=== PATIENT | male | born 1960 | race African-American/Black ===

== ENCOUNTER 2016-07-01 23:42 | Inpatient (IN) | payer OTHER ==
[2016-07-02] MEDS ORDERED: ASPIRIN 81 MG CHEWABLE TABLETS PO ONE (00:13)
--- NOTE | 2016-07-02 00:14 | PDOC ---
History of Present Illness - History of Present Illness Initial Comments: 07/02/16 00:33 Patient is a 55 year old male with significant medical hx of HTN, HLD, CHF, s/p UT x 3, s/p cardiac stents x 4, AFib, and DM who is presenting to the ED for twelve hours of left sided chest pain. The patient reports onset of symptoms when he was walking up the stairs today. Patient complains of constant, sharp chest pain that radiates around to his back. He states that he was short of breath but isnt at this time. He notes that his symptoms are similar to his past MIs. Denies recent heavy lifting and diaphoresis. <Sharon Cano - Last Filed: 07/02/16 04:46> <Jocy Puentes - Last Filed: 07/02/16 06:32> - General Chief Complaint: Chest Pain Stated Complaint: CHEST PAIN Time Seen by Provider: 07/01/16 23:59 Past History <Sharon Cano - Last Filed: 07/02/16 04:46> - Past Medical History Anemia: No Asthma: Yes Cancer: Yes (colon (2013)) Cardiac Disorders: Yes (STENTS X4 2010, UT X 3) CVA: No COPD: Yes CHF: Yes Dementia: No Diabetes: Yes GI Disorders: No Disorders: No HTN: Yes Hypercholesterolemia: Yes Liver Disease: No Seizures: No Thyroid Disease: No - Surgical History Abdominal Surgery: No Appendectomy: No Cardiac Surgery: Yes (STENTS) Cholecystectomy: No GI Surgery: Yes (COLON RESECTION) Lung Surgery: No Neurologic Surgery: No Orthopedic Surgery: Yes ((L) ANKLE; (R)HIP; (R) ELBOW) - Immunization History TDAP Vaccination: Yes Immunization Up to Date: No (2011 tetanus) - Psycho/Social/Smoking Cessation Hx Anxiety: No Suicidal Ideation: No Smoking Status: Yes Smoking History: Current every day smoker Have you smoked in the past 12 months: No Number of Cigarettes Smoked Daily: 1 If you are a former smoker, when did you quit?: 0 Cigars Per Day: 0 Information on smoking cessation initiated: No 'Breaking Loose' booklet given: 06/25/16 Hx Alcohol Use: Yes (SOCIAL) Drug/Substance Use Hx: No Substance Use Type: None Hx Substance Use Treatment: No <Jocy Puentes - Last Filed: 07/02/16 06:32> - Past Medical History Allergies/Adverse Reactions: Allergies Allergy/AdvReac Type Severity Reaction Status Date / Time tomato Allergy Severe Verified 07/01/16 23:50 red dye Allergy Verified 07/01/16 23:50 Home Medications: Ambulatory Orders Carvedilol [Coreg -] 12.5 mg PO BID 06/23/14 Omeprazole [Prilosec] 40 mg PO DAILY 06/23/14 Oxycodone HCl [Roxicodone] 30 mg PO Q6H PRN 07/24/14 Aspirin [ASA -] 81 mg PO DAILY 08/17/14 Atorvastatin Ca [Lipitor] 10 mg PO HS 08/17/14 Digoxin [Lanoxin -] 0.25 mg PO DAILY 10/29/15 Lorazepam [Ativan] 1 mg PO TID PRN 10/29/15 Apixaban [Eliquis -] 5 mg PO DAILY 01/12/16 Docusate Sodium [Colace -] 100 mg PO DAILY 01/12/16 Escitalopram Oxalate [Lexapro -] 10 mg PO DAILY 01/12/16 Albuterol Sulfate Inhaler - [Ventolin HFA Inhaler -] 1 - 2 inh PO QID #1 inhaler 01/15/16 Furosemide [Lasix -] 20 mg PO DAILY #30 tablet 05/01/16 Potassium Chloride [K-Dur -] 20 meq PO DAILY #30 tablet.er 05/01/16 Ramipril [Altace] 10 mg PO DAILY #60 capsule 05/01/16 Review of Systems - Review of Systems Comments:: 07/02/16 00:33 CONSTITUTIONAL: Absent: fever, chills, diaphoresis, generalized weakness, malaise, loss of appetite HEENT: Absent: rhinorrhea, nasal congestion, throat pain, throat swelling, difficulty swallowing, mouth swelling, ear pain, eye pain, visual changes CARDIOVASCULAR: Present: chest pain Absent: syncope, palpitations, irregular heart rate, lightheadedness, peripheral edema RESPIRATORY: Present: shortness of breath Absent: cough, dyspnea with exertion, orthopnea, wheezing, stridor, hemoptysis GASTROINTESTINAL: Absent: abdominal pain, abdominal distension, nausea, vomiting, diarrhea, constipation, melena, hematochezia GENITOURINARY: Absent: dysuria, frequency, urgency, hesitancy, hematuria, flank pain, genital pain MUSCULOSKELETAL: Absent: myalgia, arthralgia, joint swelling SKIN: Absent: rash, itching, pallor HEMATOLOGIC/IMMUNOLOGIC: Absent: easy bleeding, easy bruising, lymphadenopathy, frequent infections ENDOCRINE: Absent: unexplained weight gain, unexplained weight loss, heat intolerance, cold intolerance NEUROLOGIC: Absent: headache, focal weakness or paresthesia, dizziness, unsteady gait, seizure, mental status changes, bladder or bowel incontinence. PSYCHIATRIC: Absent: anxiety, depression, suicidal or homicidal ideation, hallucinations <Sharon Cano - Last Filed: 07/02/16 04:46> *Physical Exam - Vital Signs Last Vital Signs Temp Pulse Resp BP Pulse Ox 98.1 F 95 H 18 139/75 99 07/01/16 23:44 07/01/16 23:44 07/01/16 23:44 07/01/16 23:44 07/01/16 23:44 - Physical Exam Comments: 07/02/16 04:46 GENERAL: Well developed, well nourished. Awake and alert. No acute distress. HEENT: Normocephalic, atraumatic. PERRLA, EOMI. No conjunctival pallor. Sclera are non- icteric. Moist mucous membranes. Oropharynx is clear. NECK: Supple. Full ROM. No JVD. Carotid pulses 2+ and symmetric, without bruits. No thyromegaly. No lymphadenopathy. CARDIOVASCULAR: Irregularly irregular. No murmurs, rubs, or gallops. Distal pulses are 2+ and symmetric. PULMONARY: No evidence of respiratory distress. Lungs clear to auscultation bilaterally. No wheezing, rales or rhonchi. ABDOMINAL: Soft. Non-tender. Non-distended. No rebound or guarding. No organomegaly. Normoactive bowel sounds. MUSCULOSKELETAL: Normal range of motion at all joints. No bony deformities or tenderness. No CVA tenderness. EXTREMITIES: Cold extremities. No cyanosis. No clubbing. No edema. No calf tenderness. SKIN: Warm and dry. Normal capillary refill. No rashes. No jaundice. NEUROLOGICAL: Alert, awake, appropriate. Cranial nerves 2-12 intact. Normal speech. Gait is normal without ataxia. PSYCHIATRIC: Cooperative. Good eye contact. Appropriate mood and affect. <Sharon Cano - Last Filed: 07/02/16 04:46> - Vital Signs Last Vital Signs Temp Pulse Resp BP Pulse Ox 98.1 F 95 H 18 139/75 99 07/01/16 23:44 07/01/16 23:44 07/01/16 23:44 07/01/16 23:44 07/01/16 23:44 <Jocy Puentes - Last Filed: 07/02/16 06:32> Heart Score/ECG Review #1 07/02/16 00:34 Undetermined rhythm at 96 bpm Left ventricular hypertrophy with repolarization abnormality Abnormal ECG <Sharon Cano - Last Filed: 07/02/16 04:46> - History History: Highly suspicious - Electrocardiogram EKG: Non specific repolarization disturbance - Age Age: 45-65 - Risk Factors Risk Factors Heart Score: Yes Hx Hypertension, Yes Smoking History Based on the list above the patient has:: >/=3 risk factors or Hx atherosclerotic disease - Troponin Troponin: </= normal limit - Score Heart Score - Total: 6 <Jocy Puentes - Last Filed: 07/02/16 06:32> ED Treatment Course - LABORATORY CBC & Chemistry Diagram: 07/02/16 00:29 07/02/16 01:06 - Medications Given in the ED: ED Medications Discontinued Medications Generic Name Dose Route Start Last Admin Trade Name Rickeyq PRN Reason Stop Dose Admin Aspirin 162 mg 07/02/16 00:13 07/02/16 00:30 Asa - PO 07/02/16 00:14 162 mg ONCE ONE Administration <RachaelSharon - Last Filed: 07/02/16 04:46> - LABORATORY CBC & Chemistry Diagram: 07/02/16 00:29 07/02/16 01:06 <Jocy Puentes - Last Filed: 07/02/16 06:32> Medical Decision Making - Medical Decision Making 07/02/16 04:35 Pt comes with SOB and CP when he walks. He has afib and a pacemaker; he states that he takes eliquis BID. He has no CHF, but enlarged heart on CXR. Pt has afib on EKG and LVH with strain pattern Pt states that his CP is new. His cardiac enzymes are normal 07/02/16 06:31 PT WILL BE ADMITTED FOR SERIAL CARDIAC ENZYME, HE STATES THAT HIS CHEST PAIN IS NEW. PMD IS PYLE; RESID[facility] MANAGER DOC IS NOT CALLING BACK DESPITE MULTIPLE PAGES. PER ADMISSION [facility], PT WAS ADMITTED TO THE HOSPITALIST SERVICE. <Jocy Puentes - Last Filed: 07/02/16 06:32> *DC/Admit/Observation/Transfer - Attestations Scribe Attestion: 07/02/16 00:35 Documentation prepared by Sharon Cano, acting as back office medical assistant for Jocy Puentes MD. <Sharon Cano - Last Filed: 07/02/16 04:46> - Discharge Dispostion Admit: Yes <Jocy Puentes - Last Filed: 07/02/16 06:32> Diagnosis at time of Disposition: CHF (congestive heart failure), Atrial fibrillation, COPD (chronic obstructive pulmonary disease), Chest pain in adult - Referrals Referrals: Anup Pyle MD [Primary Care Provider] -
[2016-07-02 00:18] VITALS: BMI 26.9
[2016-07-02 00:37] LABS: WHITE BLOOD COUNT 7.1 K/mm3 (4.0-10.0)
[2016-07-02 00:41] LABS: MCHC 29.3 g/dl (32.0-35.9); MEAN CELL VOLUME 60.4 fl (80-96); MEAN PLT VOLUME 8.8 fl (7.5-11.1); PLATELET COUNT 330 K/MM3 (134-434)
[2016-07-02 00:57] LABS: INR 1.35 (0.82-1.09); PROTHROMBIN TIME (PATIENT) 14.9 SEC (9.98-11.88)
[2016-07-02 01:09] LABS: MCH 17.7 pg (25.7-33.7)
[2016-07-02 01:21] LABS: ANISOCYTOSIS 3+; HYPOCHROMIA 1+; MICROCYTOSIS 3+; PLATELET COMMENT2 NO CLOTTING DETECTED; PLATELET COMMENT3 FEW GIANT PLTS; PLATELET ESTIMATE ADEQUATE (NORMAL); POIKILOCYTOSIS 3+; POLYCHROMASIA 2+; SMUDGE CELLS FEW
[2016-07-02 01:22] LABS: OVALOCYTES 2+; SPHEROCYTE 2+
[2016-07-02 01:28] LABS: INR 1.37 (0.82-1.09); PROTHROMBIN TIME (PATIENT) 15.2 SEC (9.98-11.88)
[2016-07-02 01:30] LABS: ACTIVATED PTT 34.2 SECONDS (26.9-34.4)
[2016-07-02 01:39] LABS: ALBUMIN 3.4 g/dl (3.4-5.0); BILIRUBIN,TOTAL 0.6 mg/dL (0.2-1.0); CALCIUM 7.8 mg/dL (8.5-10.1); CREATININE 1.7 mg/dL (0.7-1.3); TOT PROT 6.3 g/dl (6.4-8.2)
[2016-07-02 01:41] LABS: TROPONIN I 0.05 ng/ml (0.00-0.05)
[2016-07-02] MEDS ORDERED: SODIUM CHLORIDE 0.9% 500 ML INFUS.BAG IV ONE (01:56)
[2016-07-02] MEDS ORDERED: ALBUTEROL SO4 2.5/IPRATROPIUM 0.5 INH SOL 3 ML VIAL.NEB. NEB ONE (02:16)
[2016-07-02] MEDS ORDERED: OXYCODONE/APAP 5/325MG COMBO TABLET PO ONE (04:29)
[2016-07-02] MEDS ORDERED: morphine CARPU-JECT 2 MG/1 ML DISP.SYRIN IVPUSH PRN (04:54)
[2016-07-02] MEDS ORDERED: NITROGLYCERIN SUBLINGUAL 1/150 0.4 MG TAB SL PRN (04:55)
[2016-07-02] MEDS ORDERED: ONDANSETRON 4 MG/2 ML VIAL IVPB PRN (04:55)
[2016-07-02] MEDS ORDERED: ALBUTEROL SO4 2.5/IPRATROPIUM 0.5 INH SOL 3 ML VIAL.NEB. NEB PRN (05:02)
--- NOTE | 2016-07-02 05:16 | HP ---
Admitting History and Physical - Admission Chief Complaint: chest pain History of Present Illness: 55 m hx systolic chf (30-40%), NICM s/p ICD, afib, hcv, hld, htn, copd, cad, Mi presents to the ER for eval of constant mid sternal chest pain. He states that the pain started yesterday 12nood after walking up several steps. He reports associated sob, and heart palps. He reports feeling a shock and believes his ICD went off. He reports chest pain is aggravated with activities. He states he took 1 nitroglycerin yesterday which relieved the pain a little. He states the pain is reminiscent to prior AL. He denies associated, numbness, jaw claudication, sweating, vomiting, syncope. He also reports having wheezing and dry cough, he states he has been using his nebulizer more often over the last several days. He reports increased night time asthma symptoms. He also endorses pain to his big toes bilaterally and reports being prescribed colchicine 06/23/15 but stopped taking secondary to side effects. He denies fever, nausea, vomiting , diarrhea, sick contacts, prolonged immobilization, recent travel. He reports having a fall at home 5 days ago after getting "electrocuted" with a faulty wire at home, he then reports passing out for 30secs. He can not recall if he hit his head or not. Pmh/psh- systolic chf (30-40%), NICM s/p ICD, afib, hcv, hld, htn, copd, cad, Mi , chronic back pain, bulging discs, gout Social-+tobacco use. Denies rec drugs or alcohol Famhx-mom- unspecified cancer. dad- heart disease Ros neg except for HPI Physical General- in moderate discomfort Hent-at/nc, jose, eomi, neck supple, trachea midline, no lymphadenopathy Resp- exp wheezing, no accessory muscle use, scattered ronchi, no rales Cards- s1s2 heard, irreg rhythm, no jvd, no leg edema, extremity pulses +2 Skin- intact, warm, dry, dystrophic toenails Psych- cooperative, no agitation, normal affect [id number] intact, speech clear, no seizure, no facial droop Musk- pain to palpation over bilateral great toes, and metatarsal bilaterally. Swelling to bilateral great toe Gi- soft non-tender, no guarding no rebound, no distention, bs normoactive Prob list CAD Chest pain afib htn hlp copd chf catrachito gout fall PPM Imaging: Cxr pending CTH pending EKG shows LV hypertrophy with repolarization abnormality, afib Echo 12/30: mild lv dil. sev red LV function (global). Nl RV. Sev LAE. Mod-sev MR. RVSP 30-40. borderline ao dil. Echo 08/2013: mild lve, mild-mod dec lvef, nl rv, mod lae, mild-mod mr, mild tr , rvsp 30-40 Cath 02/2016: normal cors A/P 55 m hx systolic chf (30-40%), NICM s/p ICD, afib on eliquis, hcv, hld, htn, copd, bulging discs, gout presented to the ER with cp and placed in obs for eval of their emergent condition 1. Chest pain r/o ACS 1st trop .05 EKG shows LV hypertrophy with repolarization abnormality, afib CXr shows appears clear on my read Echo 12/30: mild lv dil. sev red LV function (global). Nl RV. Sev LAE. Mod-sev MR. RVSP 30-40. borderline ao dil Cath 02/2016: normal cors Cycle trops Cardiac tele PPM interrogation Cards consult ALEJANDRINA 2. ?Gout Reports pain to Bilateral great toes and metatarsal Reports being prescribed Colchicine by PCP but stopped taking secondary to side effects Pain control; tylenol, steroids Avoid NSAID as patient on eliquis Check Uric acid level 3. CHF Cont home meds Check dig level 4. HTN Cont home meds 5. HLP Cont home meds 6. COPD exc Expiratory wheezing noted on exam Duonebs, solumedrol, Supp O2 7. Afib Cont home meds 8. CATRACHITO on CKD Baseline Cr ~1.1-1.3 Check urine lytes Renal US Monitor labs Consider holding Acei 9. Fall Patient reports having a fall 5 days ago and is unsure whether he hit his head Will check CTH as patient is on AC Dvt prophy scd, oob, systemic ac fen Heart healthy Dispo- obs for chest pain r/o History Source: Patient Limitations to Obtaining History: No Limitations - Past Medical History Cardiovascular: Yes: CAD, CHF (/ cardiomyopathy), HTN, Hyperlipdemia Pulmonary: Yes: COPD Gastrointestinal: Yes: Other (gastritis) Hepatobiliary: Yes: Hepatitis C Musculoskeletal: Yes: Chronic low back pain (/ degenerative lumbar disc disease) - Past Surgical History Past Surgical History: Yes: Hernia Repair (umbilical), Joint Replacement (right elbow, right hip, left ankle) - Smoking History Smoking history: Current every day smoker Have you smoked in the past 12 months: No Aproximately how many cigarettes per day: 1 If you are a former smoker, when did you quit?: 0 - Alcohol/Substance Use Hx Alcohol Use: Yes (SOCIAL) History of Substance Use: reports: None - Social History ADL: Independent 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, 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 History of Recent Travel: No Home Medications - Allergies Allergies/Adverse Reactions: Allergies Allergy/AdvReac Type Severity Reaction Status Date / Time tomato Allergy Severe Verified 07/01/16 23:50 red dye Allergy Verified 07/01/16 23:50 - Home Medications Home Medications: Ambulatory Orders Carvedilol [Coreg -] 12.5 mg PO BID 06/23/14 Omeprazole [Prilosec] 40 mg PO DAILY 06/23/14 Oxycodone HCl [Roxicodone] 30 mg PO Q6H PRN 07/24/14 Aspirin [ASA -] 81 mg PO DAILY 08/17/14 Atorvastatin Ca [Lipitor] 10 mg PO HS 08/17/14 Lorazepam [Ativan] 1 mg PO TID PRN 10/29/15 Apixaban [Eliquis -] 5 mg PO DAILY 01/12/16 Docusate Sodium [Colace -] 100 mg PO DAILY 01/12/16 Escitalopram Oxalate [Lexapro -] 10 mg PO DAILY 01/12/16 Albuterol Sulfate Inhaler - [Ventolin HFA Inhaler -] 1 - 2 inh PO QID #1 inhaler 01/15/16 Furosemide [Lasix -] 20 mg PO DAILY #30 tablet 05/01/16 Ramipril [Altace] 10 mg PO DAILY #60 capsule 05/01/16 Alprazolam 0.25 mg PO BID PRN 07/02/16 Digoxin [Digitek] 125 mcg PO DAILY 07/02/16 Nitroglycerin Sublingual [Nitrostat -] 0.4 mg SL ONCE PRN 07/02/16 Oxycodone HCl/Acetaminophen [Percocet 10-325 mg Tablet] 1 each PO Q6H PRN Potassium Chloride 10 meq PO DAILY 07/02/16 Unobtainable 07/02/16 Family Disease History - Family Disease History Family Disease History: Heart Disease: Father, CA: Mother, Brother (colon) Physical Examination Vital Signs: Vital Signs Temperature 98.1 F 07/01/16 23:44 Pulse Rate 95 H 07/01/16 23:44 Respiratory Rate 18 07/01/16 23:44 Blood Pressure 139/75 07/01/16 23:44 O2 Sat by Pulse Oximetry (%) 99 07/01/16 23:44 Labs: CBC, BMP 07/02/16 00:29 07/02/16 01:06 Visit type - Emergency Visit Emergency Visit: Yes ED Registration Date: 07/02/16 Care time: The patient presented to the Emergency Department on the above date and was hospitalized for further evaluation of their emergent condition. - New Patient This patient is new to me today: Yes Date on this admission: 07/02/16 - Critical Care Critical Care patient: No
[2016-07-02] MEDS ORDERED: IPRATROPIUM BR 0.02% 0.5 MG/2.5 ML VIAL.NEB. NEB ONE ×4 (06:06→18:01)
[2016-07-02] MEDS ORDERED: methylPREDNISolone NA SUCC 125 MG/2 ML VIAL IVPB ONE (06:07)
[2016-07-02 06:54] LABS: BASOPHIL 0.8 % (0-2.0); MCHC 29.3 g/dl (32.0-35.9); MEAN CELL VOLUME 60.6 fl (80-96); MEAN PLT VOLUME 9.2 fl (7.5-11.1); NEUTROPHILS 45.2 % (42.8-82.8); PLATELET COUNT 343 K/MM3 (134-434); RDW 21.9 % (11.9-15.9); WHITE BLOOD COUNT 7.3 K/mm3 (4.0-10.0)
[2016-07-02 06:56] LABS: MCH 17.8 pg (25.7-33.7)
[2016-07-02 07:20] LABS: ALBUMIN 3.5 g/dl (3.4-5.0); CALCIUM 7.9 mg/dL (8.5-10.1); MAGNESIUM 1.6 mg/dL (1.8-2.4)
[2016-07-02 07:30] LABS: THYROID STIMULATING HORMONE 1.2 uIU/ml (0.358-3.74); TROPONIN I 0.05 ng/ml (0.00-0.05)
[2016-07-02 07:36] LABS: BILIRUBIN,TOTAL 0.5 mg/dL (0.2-1.0); CREATININE 1.7 mg/dL (0.7-1.3); DIGOXIN LEVEL 0.5537 ng/ml (0.8-2.0); TOT PROT 6.5 g/dl (6.4-8.2); TROPONIN I 0.05 ng/ml (0.00-0.05)
[2016-07-02] MEDS ORDERED: methylPREDNISolone NA SUCC 125 MG/2 ML VIAL ONE (07:43)
[2016-07-02] MEDS ORDERED: morphine CARPU-JECT 2 MG/1 ML DISP.SYRIN ONE (07:43)
[2016-07-02] MEDS ORDERED: FUROSEMIDE 20 MG TABLET (FP) PO SCH (10:00)
[2016-07-02] MEDS ORDERED: ASPIRIN 81 MG CHEWABLE TABLETS PO SCH (10:00)
[2016-07-02] MEDS ORDERED: APIXABAN 5 MG TABLET PO SCH (10:00)
[2016-07-02] MEDS: ESCITALOPRAM OXALATE 10 MG TABLET (FP) PO SCH (10:17)
[2016-07-02] MEDS: PANTOPRAZOLE 40 MG TABLET (FP) PO SCH (10:17)
[2016-07-02] MEDS: RAMIPRIL 5 MG CAPSULE (FP) PO SCH (10:17)
[2016-07-02] MEDS: DOCUSATE SODIUM 100 MG CAPSULE (FP) PO SCH (10:17)
[2016-07-02] MEDS: POTASSIUM CHLORIDE TABS 20 MEQ TABLET.ER (FP) PO SCH (10:17)
[2016-07-02] MEDS: CARVEDILOL 12.5 MG TABLET (FP) PO SCH ×2 (10:17→22:26)
[2016-07-02] MEDS: DIGOXIN 0.25 MG TABLET (FP) PO SCH (10:17)
[2016-07-02] MEDS ORDERED: ALPRAZolam 0.25 MG TABLET PO PRN (11:50)
--- NOTE | 2016-07-02 11:53 | PN ---
Progress Note, Physician Chief Complaint: Mr Roberts says he has pain in his feet. Currently chest pain free. No sob or n/ v. - Current Medication List Current Medications: Active Medications Acetaminophen (Tylenol -) 650 mg PO Q4H PRN PRN Reason: FEVER OR PAIN Albuterol/Ipratropium (Duoneb -) 1 amp NEB Q4H PRN PRN Reason: SHORTNESS OF BREATH Alprazolam (Xanax -) 0.25 mg PO BID PRN PRN Reason: ANXIETY Apixaban (Eliquis -) 5 mg PO DAILY [facility] Aspirin (Asa -) 81 mg PO DAILY [facility] Last Admin: 07/02/16 10:17 Dose: 81 mg Atorvastatin Calcium (Lipitor -) 10 mg PO [facility] Carvedilol (Coreg -) 12.5 mg PO BID [facility] Last Admin: 07/02/16 10:17 Dose: 12.5 mg Digoxin (Lanoxin -) 0.25 mg PO DAILY [facility] Last Admin: 07/02/16 10:17 Dose: 0.25 mg Docusate Sodium (Colace -) 100 mg PO DAILY [facility] Last Admin: 07/02/16 10:17 Dose: 100 mg Escitalopram Oxalate (Lexapro -) 10 mg PO DAILY [facility] Last Admin: 07/02/16 10:17 Dose: 10 mg Furosemide (Lasix -) 20 mg PO DAILY [facility] Last Admin: 07/02/16 10:17 Dose: 20 mg Ipratropium [place] (Atrovent 0.02% Nebulizer -) 1 amp NEB QIDR [facility] Morphine Sulfate (Morphine Injection -) 1 mg IVPUSH Q4H PRN PRN Reason: PAIN Last Admin: 07/02/16 07:48 Dose: 1 mg Nitroglycerin (Nitrostat -) 0.4 mg SL Q5M PRN PRN Reason: FOR CHEST PAIN Non-Formulary Medication (Oxycodone Hcl [Roxicodone]) 30 mg PO Q6H PRN PRN Reason: PAIN Ondansetron HCl (Zofran Injection) 4 mg IVPB Q4H PRN PRN Reason: NAUSEA AND/OR VOMITING Pantoprazole Sodium (Protonix -) 40 mg PO DAILY [facility] Last Admin: 07/02/16 10:17 Dose: 40 mg Potassium Chloride (K-Dur -) 20 meq PO DAILY [facility] Last Admin: 07/02/16 10:17 Dose: 20 meq Ramipril (Altace -) 10 mg PO DAILY [facility] Last Admin: 07/02/16 10:17 Dose: 10 mg - Objective Vital Signs: Vital Signs Temperature 98.1 F 07/02/16 06:58 Pulse Rate 98 H 07/02/16 10:38 Respiratory Rate 18 07/02/16 10:38 Blood Pressure 146/87 07/02/16 10:38 O2 Sat by Pulse Oximetry (%) 98 07/02/16 10:38 Constitutional: Yes: Well Nourished, No Distress, Calm Cardiovascular: Yes: Regular Rate and Rhythm. No: Gallop, Murmur, Rub Respiratory: Yes: Regular, CTA Bilaterally. No: Rales, Rhonchi, Wheezes Gastrointestinal: Yes: Normal Bowel Sounds, Soft. No: Distention, Tenderness Extremities: Yes: WNL Edema: No Labs: CBC, BMP 07/02/16 06:30 07/02/16 06:30 INR, PTT INR 1.37 (0.82-1.09) H 07/02/16 01:06 Problem List - Problems (1) CHF (congestive heart failure) Assessment/Plan: -evaluated by cardiology -in exacerbation -diuresing with IV lasix -will make inpatient Code(s): I50.9 - HEART FAILURE, UNSPECIFIED Qualifiers: Congestive heart failure type: unspecified congestive heart failure type Congestive heart failure chronicity: acute on chronic Qualified Code(s ): I50.9 - Heart failure, unspecified (2) Chest pain Assessment/Plan: -low suspicion this is cardiac in nature -recent cardiac cath back in February -defer to cardiology about interrogation of ICD since says he was shocked Code(s): R07.9 - CHEST PAIN, UNSPECIFIED Qualifiers: Chest pain type: unspecified Qualified Code(s): R07.9 - Chest pain, unspecified (3) Renal insufficiency Assessment/Plan: -closely monitor since being diuresed Code(s): N28.9 - DISORDER OF KIDNEY AND URETER, UNSPECIFIED (4) Gout attack Assessment/Plan: -patient has unusual presentation of gout, says both feet -does have elevated uric acid -did not tolerate colchicine, says it made him feel "weird" -will place on oral prednisone -continue home oxycodone Code(s): M10.9 - GOUT, UNSPECIFIED Qualifiers: Gout site: ankle Gout etiology: unspecified cause Laterality: right Qualified Code(s): M10.9 - Gout, unspecified (5) Atrial fibrillation Assessment/Plan: -continue coreg and digoxin -on eliquis Code(s): I48.91 - UNSPECIFIED ATRIAL FIBRILLATION (6) CAD (coronary artery disease) Assessment/Plan: -cardiology following -continue home regimen Code(s): I25.10 - ATHSCL HEART DISEASE OF [place] CORONARY ARTERY W/O ANG PCTRS (7) COPD (chronic obstructive pulmonary disease) Assessment/Plan: -stable without exacerbation -continue home regimen Code(s): J44.9 - CHRONIC OBSTRUCTIVE PULMONARY DISEASE, UNSPECIFIED (8) HTN (hypertension) Assessment/Plan: -continue coreg and ramipril Code(s): I10 - ESSENTIAL (PRIMARY) HYPERTENSION (9) Hyperlipidemia Assessment/Plan: -continue statin Code(s): E78.5 - HYPERLIPIDEMIA, UNSPECIFIED
[2016-07-02] MEDS: IPRATROPIUM BR 0.02% 0.5 MG/2.5 ML VIAL.NEB. NEB SCH ×2 (12:08→18:00)
[2016-07-02 12:19] LABS: URIC ACID 7.7 mg/dL (2.6-7.2)
--- NOTE | 2016-07-02 12:19 | CONSULT ---
Consult Consult Specialty:: Cardiology (Dr. Vega covering Dr. Durant) Referred by:: ED Reason for Consultation:: Chest pain - History of Present Illness Chief Complaint: Chest pain History of Present Illness: 55 year old AA male with HTN, HLD, CHF with severe non-iscemic CMY LVEF 25% with ICD (Medtronic?). Patient states that he has CAD with prior [place] x 3, s/p cardiac stents x 4. However, I performed a cardiac cath on him in 03/09/2016 in the setting of chest pain and new ECG changes. This showed "normal coronaries" without prior PCIs. Report reviewed by me today. AFib on NOAC (Eliquis), and DM Last saw Dr. Durant 1.5 months ago and now presented to the ED after experiencing twelve hours of left sided chest pain. Reports onset of symptoms when he was walking up the stairs today and was moderate in intensity. Pain described as constant, sharp chest pain that radiates around to his back and was associated with dyspena. Believes these current symptoms are similar to his past MIs. He also reports a sensation of receiving an ICD shock with the chest pain. He states that he has been compliant with his medications and denies recent heavy lifting and diaphoresis. Has bilateral gouty arthritic pain in ankles - History Source History Provided By: Patient, Medical Record Limitations to Obtaining History: Clinical Condition - Past Medical History Cardio/Vascular: Yes: CAD, CHF (/ cardiomyopathy), HTN, Hyperlipdemia Pulmonary: Yes: COPD Gastrointestinal: Yes: Other (gastritis) Hepatobiliary: Yes: Hepatitis C Musculoskeletal: Yes: Chronic low back pain (/ degenerative lumbar disc disease) - Past Surgical History Past Surgical History: Yes: Hernia Repair (umbilical), Joint Replacement (right elbow, right hip, left ankle) - Alcohol/Substance Use Hx Alcohol Use: Yes (SOCIAL) History of Substance Use: reports: None - Smoking History Smoking history: Current every day smoker Have you smoked in the past 12 months: No Aproximately how many cigarettes per day: 1 If you are a former smoker, when did you quit?: 0 - Social History ADL: Independent 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, 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 History of Recent Travel: No Home Medications - Allergies Allergies/Adverse Reactions: Allergies Allergy/AdvReac Type Severity Reaction Status Date / Time tomato Allergy Severe Verified 07/01/16 23:50 red dye Allergy Verified 07/01/16 23:50 - Home Medications Home Medications: Ambulatory Orders Carvedilol [Coreg -] 12.5 mg PO BID 06/23/14 Omeprazole [Prilosec] 40 mg PO DAILY 06/23/14 Oxycodone HCl [Roxicodone] 30 mg PO Q6H PRN 07/24/14 Aspirin [ASA -] 81 mg PO DAILY 08/17/14 Atorvastatin Ca [Lipitor] 10 mg PO HS 08/17/14 Lorazepam [Ativan] 1 mg PO TID PRN 10/29/15 Apixaban [Eliquis -] 5 mg PO DAILY 01/12/16 Docusate Sodium [Colace -] 100 mg PO DAILY 01/12/16 Escitalopram Oxalate [Lexapro -] 10 mg PO DAILY 01/12/16 Albuterol Sulfate Inhaler - [Ventolin HFA Inhaler -] 1 - 2 inh PO QID #1 inhaler 01/15/16 Furosemide [Lasix -] 20 mg PO DAILY #30 tablet 05/01/16 Ramipril [Altace] 10 mg PO DAILY #60 capsule 05/01/16 Alprazolam 0.25 mg PO BID PRN 07/02/16 Digoxin [Digitek] 125 mcg PO DAILY 07/02/16 Nitroglycerin Sublingual [Nitrostat -] 0.4 mg SL ONCE PRN 07/02/16 Oxycodone HCl/Acetaminophen [Percocet 10-325 mg Tablet] 1 each PO Q6H PRN Potassium Chloride 10 meq PO DAILY 07/02/16 Unobtainable 07/02/16 Family Disease History - Family Disease History Family Disease History: Heart Disease: Father, CA: Mother, Brother (colon) Review of Systems - Review of Systems Cardiovascular: reports: Chest Pain Respiratory: reports: SOB Musculoskeletal: reports: Joint Pain (Bilaterl ankle pain) Physical Exam Vital Signs: Vital Signs Temperature 98.1 F 07/02/16 06:58 Pulse Rate 98 H 07/02/16 10:38 Respiratory Rate 18 07/02/16 10:38 Blood Pressure 146/87 07/02/16 10:38 O2 Sat by Pulse Oximetry (%) 98 07/02/16 10:38 Constitutional: Yes: No Distress, Calm (On Neb treament) Eyes: Yes: WNL HENT: Yes: WNL Neck: Yes: WNL, Trachea Midline Cardiovascular: Yes: WNL, Pulse Irregular, Murmur Respiratory: Yes: Regular, CTA Bilaterally, Rhonchi Gastrointestinal: Yes: WNL Musculoskeletal: Yes: Other (Bilateral joint pain (ankle) on palpation) Edema: No Integumentary: Yes: WNL Neurological: Yes: WNL Psychiatric: Yes: WNL Labs: CBC, BMP 07/02/16 06:30 07/02/16 06:30 Imaging - Results X-ray: Image Reviewed (Lungs are clear. ICD in right pectoral area.) EKG: Image Reviewed (Afib at 96/min with LVH and ST-segment depressions in lateral elads (V5-V6). ST depressons are more prominent on the current ECG compared to the prior one done at [place] in 03/09/2016.) Other: Report Reviewed (Echo: 03/09/2016 at [place]. LVEF 25% with moderate MR.) Assessment/Plan 55 yo with multiple CV risk factors, severe non-ischemic CMY with ICD now with exertional chest pain. Had normal coronaries in 02/2016. Elevated BNP 1) Chest pain -Normal cors in 02/2016, unlikely coronary related and likely related to CHF with elevated BNP -Would continue to trend troponin (thought not ACS) -Will increase diuresis with Lasix 40mg IV BID -Follow BUN/Cr -Continue statin and Asa 2) Severe CMY -Continue ACEi (Altace 10mg daily) and Coreg -Would have ICD interrogated to investigate ?ICD shock yesterday 3) Afib -Reasonably well rate controlled -Continue BB -Resume Eliquis -On Dig, Cr 1.7, will check Dig level tomorrow. - 4) DM -As per primary care team 5) LE gouty arthritis -Gouty arthritis likely to get worse with diuresis -Treatment as per primary team
[2016-07-02] MEDS ORDERED: oxyCODONE HCL 5 MG TABLET ONE (14:42)
[2016-07-02] MEDS: oxyCODONE HCL 5 MG TABLET PO PRN ×2 (14:47→22:26)
[2016-07-02] MEDS ORDERED: methylPREDNISolone NA SUCC 40 MG/1 ML VIAL IVPB SCH (15:00)
[2016-07-02] MEDS ORDERED: HEPARIN NA (PORCINE) 5,000 UNITS/ML 1ML VIAL SQ SCH (18:00)
[2016-07-02] MEDS: ATORVASTATIN CA 10 MG TABLET (FP) PO SCH (22:26)
[2016-07-03] MEDS: oxyCODONE HCL 5 MG TABLET PO PRN ×3 (06:15→20:20)
[2016-07-03] MEDS: FUROSEMIDE 40 MG/4 ML INJECTABLE VIAL IVPUSH SCH ×2 (06:15→15:04)
[2016-07-03] MEDS: IPRATROPIUM BR 0.02% 0.5 MG/2.5 ML VIAL.NEB. NEB SCH ×5 (06:22→23:22)
[2016-07-03 08:21] LABS: CALCIUM 8.7 mg/dL (8.5-10.1)
[2016-07-03 08:39] LABS: CREATININE 1.3 mg/dL (0.7-1.3); DIGOXIN LEVEL 0.6226 ng/ml (0.8-2.0); MAGNESIUM 1.8 mg/dL (1.8-2.4); PHOSPHOROUS 3.7 mg/dL (2.5-4.9)
--- NOTE | 2016-07-03 09:40 | PN ---
Progress Note (short form) - Note Progress Note: Chief Complaint: Chest pain S: + gouty pain. still with intermittent cp, improves with nebs. no palps, dizziness Current Medications Acetaminophen (Tylenol -) 650 mg PO Q4H PRN PRN Reason: FEVER OR PAIN Albuterol/Ipratropium (Duoneb -) 1 amp NEB Q4H PRN PRN Reason: SHORTNESS OF BREATH Alprazolam (Xanax -) 0.25 mg PO BID PRN PRN Reason: ANXIETY Apixaban (Eliquis -) 5 mg PO DAILY [facility] Aspirin (Asa -) 81 mg PO DAILY [facility] Last Admin: 07/02/16 10:17 Dose: 81 mg Atorvastatin Calcium (Lipitor -) 10 mg PO HS [facility] Last Admin: 07/02/16 22:26 Dose: 10 mg Carvedilol (Coreg -) 12.5 mg PO BID [facility] Last Admin: 07/02/16 22:26 Dose: 12.5 mg Digoxin (Lanoxin -) 0.25 mg PO DAILY [facility] Last Admin: 07/02/16 10:17 Dose: 0.25 mg Docusate Sodium (Colace -) 100 mg PO DAILY [facility] Last Admin: 07/02/16 10:17 Dose: 100 mg Escitalopram Oxalate (Lexapro -) 10 mg PO DAILY [facility] Last Admin: 07/02/16 10:17 Dose: 10 mg Furosemide (Lasix Injection -) 40 mg IVPUSH BID@0600,1400 [facility] Last Admin: 07/03/16 06:15 Dose: 40 mg Ipratropium [place] (Atrovent 0.02% Nebulizer -) 1 amp NEB QIDR [facility] Last Admin: 07/03/16 06:22 Dose: 1 amp Nitroglycerin (Nitrostat -) 0.4 mg SL Q5M PRN PRN Reason: FOR CHEST PAIN Ondansetron HCl (Zofran Injection) 4 mg IVPB Q4H PRN PRN Reason: NAUSEA AND/OR VOMITING Oxycodone HCl (Roxicodone -) 30 mg PO Q6H PRN PRN Reason: PAIN Last Admin: 07/03/16 06:15 Dose: 30 mg Pantoprazole Sodium (Protonix -) 40 mg PO DAILY [facility] Last Admin: 07/02/16 10:17 Dose: 40 mg Potassium Chloride (K-Dur -) 20 meq PO DAILY [facility] Last Admin: 07/02/16 10:17 Dose: 20 meq Prednisone (Deltasone -) 40 mg PO DAILY [facility] Ramipril (Altace -) 10 mg PO DAILY [facility] Last Admin: 07/02/16 10:17 Dose: 10 mg Physical Exam Vital Signs: Vital Signs - 24 hr 07/02/16 07/02/16 07/02/16 10:38 15:24 21:00 Temperature 97.8 F Pulse Rate 98 H Pulse Rate [ 79 Radial] Respiratory 18 18 80 H Rate Blood Pressure 146/87 152/94 Blood Pressure 141/86 [Left Arm] O2 Sat by Pulse 98 98 100 Oximetry (%) 07/03/16 07/03/16 07/03/16 01:00 06:00 08:00 Temperature 97.7 F 97.8 F Pulse Rate 93 H 75 71 Pulse Rate [ Radial] Respiratory 80 H 20 18 Rate Blood Pressure 162/89 138/80 153/92 Blood Pressure [Left Arm] O2 Sat by Pulse Oximetry (%) 07/03/16 08:36 Temperature Pulse Rate Pulse Rate [ Radial] Respiratory 18 Rate Blood Pressure Blood Pressure [Left Arm] O2 Sat by Pulse 98 Oximetry (%) Intake & Output 07/01/16 07/02/16 07/03/16 07/04/16 07:59 07:59 07:59 07:59 Weight 215 lb 214 lb 8 oz Constitutional: Yes: No Distress, Calm (On Neb treament) Eyes: Yes: WNL HENT: Yes: WNL Neck: Yes: WNL, Trachea Midline Cardiovascular: Yes: WNL, Pulse Irregular, Murmur Respiratory: Yes: Regular, CTA Bilaterally, Rhonchi Gastrointestinal: Yes: WNL Musculoskeletal: Yes: Other (Bilateral joint pain (ankle) on palpation) Edema: No Integumentary: Yes: WNL Neurological: Yes: WNL Psychiatric: Yes: WNL Labs: CBC, BMP 07/03/16 05:35 Laboratory Tests 07/02/16 07/03/16 06:30 05:35 Creatinine 1.7 H Magnesium 1.8 Digoxin 0.6226 L tele: rate controlled afib. Imaging - Results X-ray: Image Reviewed (Lungs are clear. ICD in right pectoral area.) EKG: Image Reviewed (Afib at 96/min with LVH and ST-segment depressions in lateral elads (V5-V6). ST depressons are more prominent on the current ECG compared to the prior one done at [place] in 03/09/2016.) Other: Report Reviewed (Echo: 03/09/2016 at [place]. LVEF 25% with moderate MR.) Assessment/Plan 55 yo smoker with HTN, HL, DM, severe non-ischemic CMY with medtronic ICD, afib on eliquis, copd, gastritis, hepatitis C, polysubstance use now with recurrent exertional chest pain. 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 However, he had performed a cardiac cath on him in 03/09/2016 in the setting of chest pain and new ECG changes. This showed "normal coronaries" without prior PCIs. Report reviewed again for confirmation. . - CP unlikely coronary related and likely related to CHF with elevated BNP -Flat intermediate range troponin, ok to stop trending. -Con't diuresis with Lasix 40mg IV BID, -Follow BUN/Cr -Continue statin. Ok to stop ASA since review of cath shows no stents and on AC. 2) Severe CMY -Continue ACEi (Altace 10mg daily) and Coreg -Would have ICD interrogated to investigate ?ICD shock yesterday -Con't diuresis with Lasix 40mg IV BID. prior standing weights on discharge 215 lbs. May be approaching euvolemia. - Needs improved bp control, will uptitrate coreg to 25 bid. 3) Afib -Reasonably well rate controlled -Continue BB, dig. Dig level not supratherapeutic. -Resume Eliquis (BID dosing) 4) DM -As per primary care team 5) LE gouty arthritis -Gouty arthritis likely to get worse with diuresis -Treatment as per primary team 6) tobacco/drug use - cessation counseling
[2016-07-03] MEDS: PANTOPRAZOLE 40 MG TABLET (FP) PO SCH (09:43)
[2016-07-03] MEDS: RAMIPRIL 5 MG CAPSULE (FP) PO SCH (09:43)
[2016-07-03 09:44] LABS: BASOPHIL 0.4 % (0-2.0); MCHC 28.9 g/dl (32.0-35.9); MEAN CELL VOLUME 62.4 fl (80-96); NEUTROPHILS 84.2 % (42.8-82.8); PLATELET COUNT 330 K/MM3 (134-434)
[2016-07-03] MEDS: ESCITALOPRAM OXALATE 10 MG TABLET (FP) PO SCH (09:44)
[2016-07-03] MEDS: predniSONE 20 MG TABLET (UD) PO SCH (09:44)
[2016-07-03] MEDS: POTASSIUM CHLORIDE TABS 20 MEQ TABLET.ER (FP) PO SCH (09:44)
[2016-07-03] MEDS: DOCUSATE SODIUM 100 MG CAPSULE (FP) PO SCH (09:44)
[2016-07-03] MEDS: DIGOXIN 0.25 MG TABLET (FP) PO SCH (09:45)
[2016-07-03] MEDS: APIXABAN 5 MG TABLET PO SCH ×2 (12:49→21:44)
[2016-07-03] MEDS: CARVEDILOL 25 MG TABLET (FP) PO SCH ×2 (12:49→21:43)
--- NOTE | 2016-07-03 15:02 | PN ---
Progress Note, Physician Chief Complaint: Mr Roberts complains of foot pain, says it is his gout. Says it is bilateral. No cp, sob, n/v. - Current Medication List Current Medications: Active Medications Acetaminophen (Tylenol -) 650 mg PO Q4H PRN PRN Reason: FEVER OR PAIN Albuterol/Ipratropium (Duoneb -) 1 amp NEB Q4H PRN PRN Reason: SHORTNESS OF BREATH Alprazolam (Xanax -) 0.25 mg PO BID PRN PRN Reason: ANXIETY Apixaban (Eliquis -) 5 mg PO BID [facility] Last Admin: 07/03/16 12:49 Dose: 5 mg Atorvastatin Calcium (Lipitor -) 10 mg PO HS [facility] Last Admin: 07/02/16 22:26 Dose: 10 mg Carvedilol (Coreg -) 25 mg PO BID [facility] Last Admin: 07/03/16 12:49 Dose: 25 mg Digoxin (Lanoxin -) 0.25 mg PO DAILY [facility] Last Admin: 07/03/16 09:45 Dose: 0.25 mg Docusate Sodium (Colace -) 100 mg PO DAILY [facility] Last Admin: 07/03/16 09:44 Dose: 100 mg Escitalopram Oxalate (Lexapro -) 10 mg PO DAILY [facility] Last Admin: 07/03/16 09:44 Dose: Not Given Furosemide (Lasix Injection -) 40 mg IVPUSH BID@0600,1400 [facility] Last Admin: 07/03/16 06:15 Dose: 40 mg Ipratropium [place] (Atrovent 0.02% Nebulizer -) 1 amp NEB QIDR [facility] Last Admin: 07/03/16 12:14 Dose: 1 amp Nitroglycerin (Nitrostat -) 0.4 mg SL Q5M PRN PRN Reason: FOR CHEST PAIN Ondansetron HCl (Zofran Injection) 4 mg IVPB Q4H PRN PRN Reason: NAUSEA AND/OR VOMITING Oxycodone HCl (Roxicodone -) 30 mg PO Q6H PRN PRN Reason: PAIN Last Admin: 07/03/16 12:49 Dose: 30 mg Pantoprazole Sodium (Protonix -) 40 mg PO DAILY [facility] Last Admin: 07/03/16 09:43 Dose: 40 mg Potassium Chloride (K-Dur -) 20 meq PO DAILY [facility] Last Admin: 07/03/16 09:44 Dose: 20 meq Prednisone (Deltasone -) 40 mg PO DAILY [facility] Last Admin: 07/03/16 09:44 Dose: 40 mg Ramipril (Altace -) 10 mg PO DAILY [facility] Last Admin: 07/03/16 09:43 Dose: 10 mg - Objective Vital Signs: Vital Signs Temperature 97.8 F 07/03/16 08:00 Pulse Rate 80 07/03/16 12:14 Respiratory Rate 18 07/03/16 08:36 Blood Pressure 153/92 07/03/16 08:00 O2 Sat by Pulse Oximetry (%) 99 07/03/16 12:14 Constitutional: Yes: Well Nourished, No Distress, Calm Cardiovascular: Yes: Regular Rate and Rhythm. No: Gallop, Murmur, Rub Respiratory: Yes: Regular, CTA Bilaterally. No: Rales, Rhonchi, Wheezes Gastrointestinal: Yes: Normal Bowel Sounds, Soft. No: Distention, Tenderness Extremities: Yes: WNL Edema: No Labs: CBC, BMP 07/03/16 05:35 07/03/16 05:35 INR, PTT INR 1.37 (0.82-1.09) H 07/02/16 01:06 Problem List - Problems (1) CHF (congestive heart failure) Code(s): I50.9 - HEART FAILURE, UNSPECIFIED Qualifiers: Congestive heart failure type: unspecified congestive heart failure type Congestive heart failure chronicity: acute on chronic Qualified Code(s ): I50.9 - Heart failure, unspecified (2) Chest pain Code(s): R07.9 - CHEST PAIN, UNSPECIFIED Qualifiers: Chest pain type: unspecified Qualified Code(s): R07.9 - Chest pain, unspecified (3) Renal insufficiency Code(s): N28.9 - DISORDER OF KIDNEY AND URETER, UNSPECIFIED (4) Gout attack Code(s): M10.9 - GOUT, UNSPECIFIED Qualifiers: Gout site: ankle Gout etiology: unspecified cause Laterality: right Qualified Code(s): M10.9 - Gout, unspecified (5) Atrial fibrillation Code(s): I48.91 - UNSPECIFIED ATRIAL FIBRILLATION (6) CAD (coronary artery disease) Code(s): I25.10 - ATHSCL HEART DISEASE OF [place] CORONARY ARTERY W/O ANG PCTRS (7) COPD (chronic obstructive pulmonary disease) Code(s): J44.9 - CHRONIC OBSTRUCTIVE PULMONARY DISEASE, UNSPECIFIED (8) HTN (hypertension) Code(s): I10 - ESSENTIAL (PRIMARY) HYPERTENSION (9) Hyperlipidemia Code(s): E78.5 - HYPERLIPIDEMIA, UNSPECIFIED Assessment/Plan (1) CHF (congestive heart failure) Assessment/Plan: -continue IV lasix per cardiology -monitor for improvement Code(s): I50.9 - HEART FAILURE, UNSPECIFIED Qualifiers: Congestive heart failure type: unspecified congestive heart failure type Congestive heart failure chronicity: acute on chronic Qualified Code(s ): I50.9 - Heart failure, unspecified (2) Chest pain Assessment/Plan: -low suspicion this is cardiac in nature -recent cardiac cath back in February -cardiology following Code(s): R07.9 - CHEST PAIN, UNSPECIFIED Qualifiers: Chest pain type: unspecified Qualified Code(s): R07.9 - Chest pain, unspecified (3) Renal insufficiency Assessment/Plan: -closely monitor since being diuresed -improved, aspect of cardiorenal syndrome Code(s): N28.9 - DISORDER OF KIDNEY AND URETER, UNSPECIFIED (4) Gout attack Assessment/Plan: -? if this is gout -distribution is unusual as it is not localized in a joint -also patient says massaging his foot helps with the pain -? if neuropathy, possibly from low back -will continue on prednisone, but if not improved will consider trial of gabapentin Code(s): M10.9 - GOUT, UNSPECIFIED Qualifiers: Gout site: ankle Gout etiology: unspecified cause Laterality: right Qualified Code(s): M10.9 - Gout, unspecified (5) Atrial fibrillation Assessment/Plan: -continue coreg and digoxin -on eliquis Code(s): I48.91 - UNSPECIFIED ATRIAL FIBRILLATION (6) CAD (coronary artery disease) Assessment/Plan: -cardiology following -continue home regimen Code(s): I25.10 - ATHSCL HEART DISEASE OF [place] CORONARY ARTERY W/O ANG PCTRS (7) COPD (chronic obstructive pulmonary disease) Assessment/Plan: -stable without exacerbation -continue home regimen Code(s): J44.9 - CHRONIC OBSTRUCTIVE PULMONARY DISEASE, UNSPECIFIED (8) HTN (hypertension) Assessment/Plan: -continue coreg and ramipril Code(s): I10 - ESSENTIAL (PRIMARY) HYPERTENSION (9) Hyperlipidemia Assessment/Plan: -continue statin Code(s): E78.5 - HYPERLIPIDEMIA, UNSPECIFIED
--- NOTE | 2016-07-03 16:34 | EKG ---
Test Reason : Blood Pressure : / mmHG Vent. Rate : 089 BPM Atrial Rate : 187 BPM P-R Int : 000 ms QRS Dur : 088 ms QT Int : 366 ms P-R-T Axes : 000 -21 151 degrees QTc Int : 445 ms ATRIAL FIBRILLATION WITH PREMATURE VENTRICULAR OR ABERRANTLY CONDUCTED COMPLEXES MINIMAL VOLTAGE CRITERIA FOR LVH, MAY BE NORMAL VARIANT CANNOT RULE OUT INFERIOR INFARCT , AGE UNDETERMINED ABNORMAL ECG WHEN COMPARED WITH ECG OF 01-JUL-2016 23:46, LIKELY NO SIGNIFICANT CHANGES Confirmed by PANTERA FERMIN MD ([id number]) on 07/03/2016 4:33:58 PM Referred By: Nury STANTON Confirmed By:PANTERA FERMIN MD
--- NOTE | 2016-07-03 16:38 | EKG ---
Test Reason : Blood Pressure : / mmHG Vent. Rate : 096 BPM Atrial Rate : 096 BPM P-R Int : 000 ms QRS Dur : 090 ms QT Int : 374 ms P-R-T Axes : 000 -18 129 degrees QTc Int : 472 ms ATRIAL FIBRILLATION LEFT VENTRICULAR HYPERTROPHY WITH REPOLARIZATION ABNORMALITY ABNORMAL ECG WHEN COMPARED WITH ECG OF 28-APR-2016 05:40, NO SIGNIFICANT CHANGE WAS FOUND Confirmed by PANTERA FERMIN MD ([id number]) on 07/03/2016 4:38:20 PM Referred By: Confirmed By:PANTERA FERMIN MD
[2016-07-03] MEDS: ATORVASTATIN CA 10 MG TABLET (FP) PO SCH (21:44)
[2016-07-04] MEDS: FUROSEMIDE 40 MG/4 ML INJECTABLE VIAL IVPUSH SCH (05:52)
[2016-07-04] MEDS: IPRATROPIUM BR 0.02% 0.5 MG/2.5 ML VIAL.NEB. NEB SCH ×3 (06:25→18:40)
[2016-07-04 07:38] LABS: CALCIUM 8.7 mg/dL (8.5-10.1); MAGNESIUM 1.7 mg/dL (1.8-2.4)
[2016-07-04 07:40] LABS: CREATININE 1.5 mg/dL (0.7-1.3); PHOSPHOROUS 3.3 mg/dL (2.5-4.9)
[2016-07-04 08:24] LABS: MCHC 29.4 g/dl (32.0-35.9); MEAN CELL VOLUME 61.9 fl (80-96); PLATELET COUNT 317 K/MM3 (134-434); RDW 21.6 % (11.9-15.9); WHITE BLOOD COUNT 11.8 K/mm3 (4.0-10.0)
[2016-07-04 08:26] LABS: MCH 18.2 pg (25.7-33.7)
[2016-07-04 10:11] LABS: ANISOCYTOSIS 2+; HYPOCHROMIA 3+; MICROCYTOSIS 2+; POLYCHROMASIA 1+
[2016-07-04 10:12] LABS: OVALOCYTES 3+; TARGET CELLS 3+; TEAR DROP CELLS 1+
[2016-07-04 10:13] LABS: POIKILOCYTOSIS 4+
[2016-07-04] MEDS: oxyCODONE HCL 5 MG TABLET PO PRN ×2 (10:26→17:55)
[2016-07-04] MEDS: ACETAMINOPHEN 325 MG TABLET (FP) PO PRN ×2 (10:27→17:56)
[2016-07-04] MEDS: DIGOXIN 0.25 MG TABLET (FP) PO SCH (10:32)
[2016-07-04] MEDS: ESCITALOPRAM OXALATE 10 MG TABLET (FP) PO SCH (10:32)
[2016-07-04] MEDS: RAMIPRIL 5 MG CAPSULE (FP) PO SCH (10:32)
[2016-07-04] MEDS: predniSONE 20 MG TABLET (UD) PO SCH (10:32)
[2016-07-04] MEDS: APIXABAN 5 MG TABLET PO SCH ×2 (10:32→21:52)
[2016-07-04] MEDS: DOCUSATE SODIUM 100 MG CAPSULE (FP) PO SCH (10:32)
[2016-07-04] MEDS: PANTOPRAZOLE 40 MG TABLET (FP) PO SCH (10:32)
[2016-07-04] MEDS: POTASSIUM CHLORIDE TABS 20 MEQ TABLET.ER (FP) PO SCH (10:33)
[2016-07-04] MEDS: CARVEDILOL 25 MG TABLET (FP) PO SCH ×2 (10:33→21:52)
--- NOTE | 2016-07-04 11:16 | PN ---
Progress Note (short form) - Note Progress Note: S: + gouty pain. no cp sob palps dizzy; feels close to baseline except for gout pain in feet Current Medications Generic Name Dose Route Start Last Admin Trade Name Freq PRN Reason Stop Dose Admin Acetaminophen 650 mg 07/02/16 05:04 07/04/16 10:27 Tylenol - PO 650 mg Q4H PRN Administration FEVER OR PAIN Albuterol/Ipratropium 1 amp 07/02/16 05:02 Duoneb - NEB Q4H PRN SHORTNESS OF BREATH Alprazolam 0.25 mg 07/02/16 11:50 Xanax - PO BID PRN ANXIETY Apixaban 5 mg 07/03/16 10:30 07/04/16 10:32 Eliquis - PO 5 mg BID [facility] Administration Atorvastatin Calcium 10 mg 07/02/16 22:00 07/03/16 21:44 Lipitor - PO 10 mg HS [facility] Administration Carvedilol 25 mg 07/03/16 10:30 07/04/16 10:33 Coreg - PO 25 mg BID [facility] Administration Digoxin 0.25 mg 07/02/16 10:00 07/04/16 10:32 Lanoxin - PO 0.25 mg DAILY [facility] Administration Docusate Sodium 100 mg 07/02/16 10:00 07/04/16 10:32 Colace - PO 100 mg DAILY [facility] Administration Escitalopram Oxalate 10 mg 07/02/16 10:00 07/04/16 10:32 Lexapro - PO 10 mg DAILY [facility] Administration Furosemide 40 mg 07/03/16 06:00 07/04/16 05:52 Lasix Injection - IVPUSH 40 mg BID@0600,1400 [facility] Administration Ipratropium [place] 1 amp 07/02/16 12:00 07/04/16 06:25 Atrovent 0.02% Nebulizer - NEB 1 amp QIDR [facility] Administration Nitroglycerin 0.4 mg 07/02/16 04:55 Nitrostat - SL Q5M PRN FOR CHEST PAIN Ondansetron HCl 4 mg 07/02/16 04:55 Zofran Injection IVPB Q4H PRN NAUSEA AND/OR VOMITING Oxycodone HCl 30 mg 07/02/16 11:50 07/04/16 10:26 Roxicodone - PO 30 mg Q6H PRN Administration PAIN Pantoprazole Sodium 40 mg 07/02/16 10:00 07/04/16 10:32 Protonix - PO 40 mg DAILY [facility] Administration Potassium Chloride 20 meq 07/02/16 10:00 07/04/16 10:33 K-Dur - PO 20 meq DAILY [facility] Administration Prednisone 40 mg 07/03/16 10:00 07/04/16 10:32 Deltasone - PO 40 mg DAILY [facility] Administration Ramipril 10 mg 07/02/16 10:00 07/04/16 10:32 Altace - PO 10 mg DAILY [facility] Administration Physical Exam Vital Signs: Vital Signs Period Temp Pulse Resp BP Sys/Sal Pulse Ox Last 24 Hr 97.6 F-98.5 F 61-87 16-20 124-153/70-91 98-100 nad no jvd irreg s1s2 no mrg cta bl nl eff no le e/c/c abd nt nd pos bs aaox3 no jaundice diaphoresis CBC, BMP 07/04/16 05:35 07/04/16 05:35 tele: rate controlled afib, occ vpace Imaging - Results X-ray: Image Reviewed (Lungs are clear. ICD in right pectoral area.) EKG: Image Reviewed (Afib at 96/min with LVH and ST-segment depressions in lateral elads (V5-V6). ST depressons are more prominent on the current ECG compared to the prior one done at [place] in 03/09/2016.) Other: Report Reviewed (Echo: 03/09/2016 at [place]. LVEF 25% with moderate MR.) Assessment/Plan 55 yo smoker with HTN, HL, DM, severe non-ischemic CMY with medtronic ICD, afib on eliquis, copd, gastritis, hepatitis C, polysubstance use now with recurrent exertional chest pain. 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 However, he had performed a cardiac cath on him in 03/09/2016 in the setting of chest pain and new ECG changes. This showed "normal coronaries" without prior PCIs. Report reviewed again for confirmation. . - CP unlikely coronary related and likely related to CHF with elevated BNP -Flat intermediate range troponin, no signs acs -now that has been diuresed cp resolved -Continue statin. Ok to stop ASA since review of cath shows no stents and he is already on AC. 2) acute decompensated systolic chf: -Continue ACEi (Altace 10mg daily) and Coreg -will have ICD interrogated to investigate ?ICD shock -after several days iv lasix appears euvolemic and bun rising as well. seems to be at baseline now so will change to po lasix 40 bid 3) Afib -rate controlled -Continue BB, dig. -cont eliquis 4) tobacco/drug use - cessation counseling
--- NOTE | 2016-07-04 12:50 | PN ---
Progress Note, Physician Chief Complaint: Mr Roberts says he is still having pain in both feet. Says it feels like tiny knives from his ankle to his toes. Says it is slightly improved today. No cp, sob, n/v. - Current Medication List Current Medications: Active Medications Acetaminophen (Tylenol -) 650 mg PO Q4H PRN PRN Reason: FEVER OR PAIN Last Admin: 07/04/16 10:27 Dose: 650 mg Albuterol/Ipratropium (Duoneb -) 1 amp NEB Q4H PRN PRN Reason: SHORTNESS OF BREATH Alprazolam (Xanax -) 0.25 mg PO BID PRN PRN Reason: ANXIETY Apixaban (Eliquis -) 5 mg PO BID [facility] Last Admin: 07/04/16 10:32 Dose: 5 mg Atorvastatin Calcium (Lipitor -) 10 mg PO HS [facility] Last Admin: 07/03/16 21:44 Dose: 10 mg Carvedilol (Coreg -) 25 mg PO BID [facility] Last Admin: 07/04/16 10:33 Dose: 25 mg Digoxin (Lanoxin -) 0.25 mg PO DAILY [facility] Last Admin: 07/04/16 10:32 Dose: 0.25 mg Docusate Sodium (Colace -) 100 mg PO DAILY [facility] Last Admin: 07/04/16 10:32 Dose: 100 mg Escitalopram Oxalate (Lexapro -) 10 mg PO DAILY [facility] Last Admin: 07/04/16 10:32 Dose: 10 mg Furosemide (Lasix -) 40 mg PO BID@0600,1400 [facility] Ipratropium [place] (Atrovent 0.02% Nebulizer -) 1 amp NEB QIDR [facility] Last Admin: 07/04/16 11:23 Dose: 1 amp Nitroglycerin (Nitrostat -) 0.4 mg SL Q5M PRN PRN Reason: FOR CHEST PAIN Ondansetron HCl (Zofran Injection) 4 mg IVPB Q4H PRN PRN Reason: NAUSEA AND/OR VOMITING Oxycodone HCl (Roxicodone -) 30 mg PO Q6H PRN PRN Reason: PAIN Last Admin: 07/04/16 10:26 Dose: 30 mg Pantoprazole Sodium (Protonix -) 40 mg PO DAILY [facility] Last Admin: 07/04/16 10:32 Dose: 40 mg Potassium Chloride (K-Dur -) 20 meq PO DAILY [facility] Last Admin: 07/04/16 10:33 Dose: 20 meq Ramipril (Altace -) 10 mg PO DAILY [facility] Last Admin: 07/04/16 10:32 Dose: 10 mg - Objective Vital Signs: Vital Signs Temperature 98 F 07/04/16 10:00 Pulse Rate 68 07/04/16 10:32 Respiratory Rate 18 07/04/16 10:00 Blood Pressure 142/70 07/04/16 10:00 O2 Sat by Pulse Oximetry (%) 98 07/04/16 09:57 Constitutional: Yes: Well Nourished, No Distress, Calm Cardiovascular: Yes: Pulse Irregular. No: Tachycardia, Gallop, Murmur, Rub Respiratory: Yes: Regular, CTA Bilaterally. No: Rales, Rhonchi, Wheezes Gastrointestinal: Yes: Normal Bowel Sounds, Soft. No: Distention, Tenderness Extremities: Yes: WNL Edema: No Labs: CBC, BMP 07/04/16 05:35 07/04/16 05:35 INR, PTT INR 1.37 (0.82-1.09) H 07/02/16 01:06 Problem List - Problems (1) CHF (congestive heart failure) Code(s): I50.9 - HEART FAILURE, UNSPECIFIED Qualifiers: Congestive heart failure type: unspecified congestive heart failure type Congestive heart failure chronicity: acute on chronic Qualified Code(s ): I50.9 - Heart failure, unspecified (2) Chest pain Code(s): R07.9 - CHEST PAIN, UNSPECIFIED Qualifiers: Chest pain type: unspecified Qualified Code(s): R07.9 - Chest pain, unspecified (3) Renal insufficiency Code(s): N28.9 - DISORDER OF KIDNEY AND URETER, UNSPECIFIED (4) Gout attack Code(s): M10.9 - GOUT, UNSPECIFIED Qualifiers: Gout site: ankle Gout etiology: unspecified cause Laterality: right Qualified Code(s): M10.9 - Gout, unspecified (5) Atrial fibrillation Code(s): I48.91 - UNSPECIFIED ATRIAL FIBRILLATION (6) CAD (coronary artery disease) Code(s): I25.10 - ATHSCL HEART DISEASE OF [place] CORONARY ARTERY W/O ANG PCTRS (7) COPD (chronic obstructive pulmonary disease) Code(s): J44.9 - CHRONIC OBSTRUCTIVE PULMONARY DISEASE, UNSPECIFIED (8) HTN (hypertension) Code(s): I10 - ESSENTIAL (PRIMARY) HYPERTENSION (9) Hyperlipidemia Code(s): E78.5 - HYPERLIPIDEMIA, UNSPECIFIED Assessment/Plan (1) CHF (congestive heart failure) Assessment/Plan: -cardiology following and note reviewed -changing to oral lasix -monitor Code(s): I50.9 - HEART FAILURE, UNSPECIFIED Qualifiers: Congestive heart failure type: unspecified congestive heart failure type Congestive heart failure chronicity: acute on chronic Qualified Code(s ): I50.9 - Heart failure, unspecified (2) Chest pain Assessment/Plan: -chest pain resolved Code(s): R07.9 - CHEST PAIN, UNSPECIFIED Qualifiers: Chest pain type: unspecified Qualified Code(s): R07.9 - Chest pain, unspecified (3) Renal insufficiency Assessment/Plan: -stable -changing to oral lasix Code(s): N28.9 - DISORDER OF KIDNEY AND URETER, UNSPECIFIED (4) Gout attack vs neuropathy Assessment/Plan: -even though has elevated uric acid, clinically this does not appear to be gout -more consistent with neuropathy -will stop prednisone, does not need taper since been on for such a short time -will consult neurology for evaluation Code(s): M10.9 - GOUT, UNSPECIFIED Qualifiers: Gout site: ankle Gout etiology: unspecified cause Laterality: right Qualified Code(s): M10.9 - Gout, unspecified (5) Atrial fibrillation Assessment/Plan: -continue coreg and digoxin -on eliquis Code(s): I48.91 - UNSPECIFIED ATRIAL FIBRILLATION (6) CAD (coronary artery disease) Assessment/Plan: -cardiology following -continue home regimen Code(s): I25.10 - ATHSCL HEART DISEASE OF [place] CORONARY ARTERY W/O ANG PCTRS (7) COPD (chronic obstructive pulmonary disease) Assessment/Plan: -stable without exacerbation -continue home regimen Code(s): J44.9 - CHRONIC OBSTRUCTIVE PULMONARY DISEASE, UNSPECIFIED (8) HTN (hypertension) Assessment/Plan: -continue coreg and ramipril Code(s): I10 - ESSENTIAL (PRIMARY) HYPERTENSION (9) Hyperlipidemia Assessment/Plan: -continue statin Code(s): E78.5 - HYPERLIPIDEMIA, UNSPECIFIED
[2016-07-04] MEDS ORDERED: MAGNESIUM OXIDE 400 MG TABLET (FP) PO ONE (12:59)
[2016-07-04] MEDS: FUROSEMIDE 40 MG TABLET (FP) PO SCH (13:46)
--- NOTE | 2016-07-04 16:12 | CONSULT ---
Consult Consult Specialty:: Ignacio neurology Referred by:: Thee - History of Present Illness History of Present Illness: 55 man with leg pain referred by PCP Seen on Tele Admitted with chest pain PMH 1. NICM s/p ICD, 2. afib, 3. hcv, 4. hld, 5. htn, 6. copd, 7. cad, 7. Mi - History Source History Provided By: Patient Limitations to Obtaining History: No Limitations - Past Medical History Cardio/Vascular: Yes: CAD, CHF (/ cardiomyopathy), HTN, Hyperlipdemia Pulmonary: Yes: COPD Gastrointestinal: Yes: Other (gastritis) Hepatobiliary: Yes: Hepatitis C Musculoskeletal: Yes: Chronic low back pain (/ degenerative lumbar disc disease) - Past Surgical History Past Surgical History: Yes: Hernia Repair (umbilical), Joint Replacement (right elbow, right hip, left ankle) - Alcohol/Substance Use Hx Alcohol Use: Yes (SOCIAL) History of Substance Use: reports: None - Smoking History Smoking history: Current every day smoker Have you smoked in the past 12 months: No Aproximately how many cigarettes per day: 1 If you are a former smoker, when did you quit?: 0 - Social History ADL: Independent 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, 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 History of Recent Travel: No Home Medications - Allergies Allergies/Adverse Reactions: Allergies Allergy/AdvReac Type Severity Reaction Status Date / Time tomato Allergy Severe Verified 07/01/16 23:50 red dye Allergy Verified 07/01/16 23:50 - Home Medications Home Medications: Ambulatory Orders Carvedilol [Coreg -] 12.5 mg PO BID 06/23/14 Omeprazole [Prilosec] 40 mg PO DAILY 06/23/14 Oxycodone HCl [Roxicodone] 30 mg PO Q6H PRN 07/24/14 Aspirin [ASA -] 81 mg PO DAILY 08/17/14 Atorvastatin Ca [Lipitor] 10 mg PO HS 08/17/14 Lorazepam [Ativan] 1 mg PO TID PRN 10/29/15 Apixaban [Eliquis -] 5 mg PO DAILY 01/12/16 Docusate Sodium [Colace -] 100 mg PO DAILY 01/12/16 Escitalopram Oxalate [Lexapro -] 10 mg PO DAILY 01/12/16 Albuterol Sulfate Inhaler - [Ventolin HFA Inhaler -] 1 - 2 inh PO QID #1 inhaler 01/15/16 Furosemide [Lasix -] 20 mg PO DAILY #30 tablet 05/01/16 Ramipril [Altace] 10 mg PO DAILY #60 capsule 05/01/16 Alprazolam 0.25 mg PO BID PRN 07/02/16 Digoxin [Digitek] 125 mcg PO DAILY 07/02/16 Nitroglycerin Sublingual [Nitrostat -] 0.4 mg SL ONCE PRN 07/02/16 Oxycodone HCl/Acetaminophen [Percocet 10-325 mg Tablet] 1 each PO Q6H PRN Potassium Chloride 10 meq PO DAILY 07/02/16 Unobtainable 07/02/16 Family Disease History - Family Disease History Family History: Denies Family Disease History: Heart Disease: Father, CA: Mother, Brother (colon) Review of Systems - Review of Systems Constitutional: reports: No Symptoms Eyes: reports: No Symptoms Neurological: reports: Dizziness, Numbness, Parasthesia, Unsteady Gait, Weakness Physical Exam-Neuro Vital Signs: Vital Signs Temperature 98.2 F 07/04/16 14:00 Pulse Rate 74 07/04/16 14:00 Respiratory Rate 18 07/04/16 14:00 Blood Pressure 141/68 07/04/16 14:00 O2 Sat by Pulse Oximetry (%) 98 07/04/16 09:57 Constitutional: Yes: Well Nourished Neck: Yes: WNL Labs: CBC, BMP 07/04/16 05:35 07/04/16 05:35 INR, PTT INR 1.37 (0.82-1.09) H 07/02/16 01:06 - Neuro Exam Eyes: Yes: PERRLA Speech: WNL Dominant Hand: Right Cranial Nerves II-XII Intact: Yes Gag: Present DTR's: 0 Left Bicep, 0 Right Bicep, 0 Left Tricep, 0 Right Tricep Babinski: Absent Response to light touch: Abnormal Response to pain prick: Abnormal Response to temperature: Abnormal Motor Strength: 3/5: Left Arm, Right Arm, Left Leg, Right Leg Gait: Deferred Problem List - Problems (1) Neuropathy Code(s): G62.9 - POLYNEUROPATHY, UNSPECIFIED Assessment/Plan [place] neuropathy and parathesia 1. Neuro check 2. Fall precaution 3. Narcotic counseling 4. Blood work for neuropathy 5. Avoid neurontin and Lyrica due to kidney function 6. NCV of the lower ext 6. Trial of Cymbalta Thank you for the kind referral
[2016-07-04] MEDS: ATORVASTATIN CA 10 MG TABLET (FP) PO SCH (21:52)
[2016-07-05] MEDS: IPRATROPIUM BR 0.02% 0.5 MG/2.5 ML VIAL.NEB. NEB SCH ×5 (00:17→23:35)
[2016-07-05] MEDS: oxyCODONE HCL 5 MG TABLET PO PRN ×4 (01:53→21:01)
[2016-07-05] MEDS: ACETAMINOPHEN 325 MG TABLET (FP) PO PRN (01:54)
[2016-07-05] MEDS: FUROSEMIDE 40 MG TABLET (FP) PO SCH ×2 (06:37→14:24)
[2016-07-05 07:32] LABS: MCHC 29.9 g/dl (32.0-35.9); MEAN CELL VOLUME 61.1 fl (80-96); MEAN PLT VOLUME 9.2 fl (7.5-11.1); PLATELET COUNT 368 K/MM3 (134-434); RDW 21.2 % (11.9-15.9); WHITE BLOOD COUNT 10.8 K/mm3 (4.0-10.0)
[2016-07-05 07:37] LABS: MCH 18.3 pg (25.7-33.7)
[2016-07-05 07:51] LABS: CALCIUM 8.6 mg/dL (8.5-10.1); CREATININE 1.4 mg/dL (0.7-1.3); MAGNESIUM 1.9 mg/dL (1.8-2.4); PHOSPHOROUS 3.8 mg/dL (2.5-4.9)
[2016-07-05 07:59] LABS: THYROID STIMULATING HORMONE 0.59 uIU/ml (0.358-3.74)
[2016-07-05] MEDS: POTASSIUM CHLORIDE TABS 20 MEQ TABLET.ER (FP) PO SCH (09:31)
[2016-07-05] MEDS: ESCITALOPRAM OXALATE 10 MG TABLET (FP) PO SCH (09:31)
[2016-07-05] MEDS: DIGOXIN 0.25 MG TABLET (FP) PO SCH (09:31)
[2016-07-05] MEDS: RAMIPRIL 5 MG CAPSULE (FP) PO SCH (09:31)
[2016-07-05] MEDS: CARVEDILOL 25 MG TABLET (FP) PO SCH ×2 (09:31→21:00)
[2016-07-05] MEDS: DOCUSATE SODIUM 100 MG CAPSULE (FP) PO SCH (09:32)
[2016-07-05] MEDS: PANTOPRAZOLE 40 MG TABLET (FP) PO SCH (09:32)
[2016-07-05] MEDS: APIXABAN 5 MG TABLET PO SCH ×2 (09:32→21:00)
[2016-07-05] MEDS: DULoxetine HCL 30 MG CAPSULE.DR (FP) PO SCH (09:33)
--- NOTE | 2016-07-05 10:24 | PN ---
Progress Note (short form) - Note Progress Note: S: + foot pain but better. no cp sob palps dizzy Current Medications Generic Name Dose Route Start Last Admin Trade Name Freq PRN Reason Stop Dose Admin Acetaminophen 650 mg 07/02/16 05:04 07/05/16 01:54 Tylenol - PO 650 mg Q4H PRN Administration FEVER OR PAIN Albuterol/Ipratropium 1 amp 07/02/16 05:02 Duoneb - NEB Q4H PRN SHORTNESS OF BREATH Alprazolam 0.25 mg 07/02/16 11:50 Xanax - PO BID PRN ANXIETY Apixaban 5 mg 07/03/16 10:30 07/05/16 09:32 Eliquis - PO 5 mg BID NESHA Administration Atorvastatin Calcium 10 mg 07/02/16 22:00 07/04/16 21:52 Lipitor - PO 10 mg HS NESHA Administration Carvedilol 25 mg 07/03/16 10:30 07/05/16 09:31 Coreg - PO 25 mg BID NESHA Administration Digoxin 0.25 mg 07/02/16 10:00 07/05/16 09:31 Lanoxin - PO 0.25 mg DAILY NESHA Administration Docusate Sodium 100 mg 07/02/16 10:00 07/05/16 09:32 Colace - PO 100 mg DAILY NESHA Administration Duloxetine HCl 30 mg 07/05/16 10:00 07/05/16 09:33 Cymbalta - PO 30 mg DAILY NESHA Administration Escitalopram Oxalate 10 mg 07/02/16 10:00 07/05/16 09:31 Lexapro - PO 10 mg DAILY NESHA Administration Furosemide 40 mg 07/04/16 14:00 07/05/16 06:37 Lasix - PO 40 mg BID@0600,1400 NESHA Administration Ipratropium [place] 1 amp 07/02/16 12:00 07/05/16 07:01 Atrovent 0.02% Nebulizer - NEB 1 amp QIDR NESHA Administration Nitroglycerin 0.4 mg 07/02/16 04:55 Nitrostat - SL Q5M PRN FOR CHEST PAIN Ondansetron HCl 4 mg 07/02/16 04:55 Zofran Injection IVPB Q4H PRN NAUSEA AND/OR VOMITING Oxycodone HCl 30 mg 07/02/16 11:50 07/05/16 09:37 Roxicodone - PO 30 mg Q6H PRN Administration PAIN Pantoprazole Sodium 40 mg 07/02/16 10:00 07/05/16 09:32 Protonix - PO 40 mg DAILY NESHA Administration Potassium Chloride 20 meq 07/02/16 10:00 07/05/16 09:31 K-Dur - PO 20 meq DAILY NESHA Administration Ramipril 10 mg 07/02/16 10:00 07/05/16 09:31 Altace - PO 10 mg DAILY NESHA Administration Physical Exam Vital Signs: Vital Signs Period Temp Pulse Resp BP Sys/Sal Pulse Ox Last 24 Hr 97.7 F-98.2 F 57-86 16-20 133-159/68-97 98 nad no jvd irreg s1s2 no mrg cta bl nl eff no le e/c/c abd nt nd pos bs aaox3 no jaundice diaphoresis CBC, BMP 07/05/16 05:35 07/05/16 05:35 tele: rate controlled afib, occ vpace Imaging - Results X-ray: Image Reviewed (Lungs are clear. ICD in right pectoral area.) EKG: Image Reviewed (Afib at 96/min with LVH and ST-segment depressions in lateral elads (V5-V6). ST depressons are more prominent on the current ECG compared to the prior one done at [facility] in 03/09/2016.) Other: Report Reviewed (Echo: 03/09/2016 at [facility]. LVEF 25% with moderate MR.) Assessment/Plan 55 yo smoker with HTN, HL, DM, severe non-ischemic CMY with medtronic ICD, afib on eliquis, copd, gastritis, hepatitis C, polysubstance use now with recurrent exertional chest pain. 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 However, he had performed a cardiac cath on him in 03/09/2016 in the setting of chest pain and new ECG changes. This showed "normal coronaries" without prior PCIs. Report reviewed again for confirmation. . -CP unlikely coronary related and likely related to CHF with elevated BNP -Flat intermediate range troponin, no signs acs -now that has been diuresed cp resolved -Continue statin. Ok to stop ASA since review of cath shows no stents and he is already on AC. 2) acute decompensated systolic chf: -Continue ACEi (Altace 10mg daily) and Coreg -after several days iv lasix appears euvolemic and bun rising as well. Seems to be at baseline now so cont po lasix 40 bid -icd checked here 07/04/16 and showed nl fcn. No icd shocks. Had episode of VT earlier this month that was terminated with ATP, no shocks required. Cont bb for now, routine icd checks in office. 3) Afib -rate controlled -Continue BB, dig. -cont eliquis 4) tobacco/drug use - cessation counseling cardiac vidales stable, can dc tele
--- NOTE | 2016-07-05 17:30 | PN ---
Progress Note, Physician Chief Complaint: Mr Roberts says he is still having pain in both feet, but improving. No cp, sob, n/v. - Current Medication List Current Medications: Active Medications Acetaminophen (Tylenol -) 650 mg PO Q4H PRN PRN Reason: FEVER OR PAIN Last Admin: 07/05/16 01:54 Dose: 650 mg Albuterol/Ipratropium (Duoneb -) 1 amp NEB Q4H PRN PRN Reason: SHORTNESS OF BREATH Alprazolam (Xanax -) 0.25 mg PO BID PRN PRN Reason: ANXIETY Apixaban (Eliquis -) 5 mg PO BID [facility] Last Admin: 07/05/16 09:32 Dose: 5 mg Atorvastatin Calcium (Lipitor -) 10 mg PO [facility] Last Admin: 07/04/16 21:52 Dose: 10 mg Carvedilol (Coreg -) 25 mg PO BID [facility] Last Admin: 07/05/16 09:31 Dose: 25 mg Digoxin (Lanoxin -) 0.25 mg PO DAILY [facility] Last Admin: 07/05/16 09:31 Dose: 0.25 mg Docusate Sodium (Colace -) 100 mg PO DAILY [facility] Last Admin: 07/05/16 09:32 Dose: 100 mg Duloxetine HCl (Cymbalta -) 30 mg PO DAILY [facility] Last Admin: 07/05/16 09:33 Dose: 30 mg Escitalopram Oxalate (Lexapro -) 10 mg PO DAILY [facility] Last Admin: 07/05/16 09:31 Dose: 10 mg Furosemide (Lasix -) 40 mg PO BID@0600,1400 [facility] Last Admin: 07/05/16 14:24 Dose: 40 mg Ipratropium [place] (Atrovent 0.02% Nebulizer -) 1 amp NEB QIDR [facility] Last Admin: 07/05/16 11:30 Dose: 1 amp Nitroglycerin (Nitrostat -) 0.4 mg SL Q5M PRN PRN Reason: FOR CHEST PAIN Ondansetron HCl (Zofran Injection) 4 mg IVPB Q4H PRN PRN Reason: NAUSEA AND/OR VOMITING Oxycodone HCl (Roxicodone -) 30 mg PO Q6H PRN PRN Reason: PAIN Last Admin: 07/05/16 16:00 Dose: 30 mg Pantoprazole Sodium (Protonix -) 40 mg PO DAILY [facility] Last Admin: 07/05/16 09:32 Dose: 40 mg Potassium Chloride (K-Dur -) 20 meq PO DAILY [facility] Last Admin: 07/05/16 09:31 Dose: 20 meq Ramipril (Altace -) 10 mg PO DAILY [facility] Last Admin: 07/05/16 09:31 Dose: 10 mg - Objective Vital Signs: Vital Signs Temperature 97.3 F L 07/05/16 13:53 Pulse Rate 71 07/05/16 13:53 Respiratory Rate 20 07/05/16 13:53 Blood Pressure 107/51 07/05/16 13:53 O2 Sat by Pulse Oximetry (%) 98 07/05/16 10:45 Constitutional: Yes: Well Nourished, No Distress, Calm Cardiovascular: Yes: Regular Rate and Rhythm. No: Gallop, Murmur, Rub Respiratory: Yes: Regular, CTA Bilaterally. No: Rales, Rhonchi, Wheezes Gastrointestinal: Yes: Normal Bowel Sounds, Soft. No: Distention, Tenderness Extremities: Yes: WNL Edema: No Labs: CBC, BMP 07/05/16 05:35 07/05/16 05:35 INR, PTT INR 1.37 (0.82-1.09) H 07/02/16 01:06 Problem List - Problems (1) CHF (congestive heart failure) Code(s): I50.9 - HEART FAILURE, UNSPECIFIED Qualifiers: Congestive heart failure type: unspecified congestive heart failure type Congestive heart failure chronicity: acute on chronic Qualified Code(s ): I50.9 - Heart failure, unspecified (2) Chest pain Code(s): R07.9 - CHEST PAIN, UNSPECIFIED Qualifiers: Chest pain type: unspecified Qualified Code(s): R07.9 - Chest pain, unspecified (3) Renal insufficiency Code(s): N28.9 - DISORDER OF KIDNEY AND URETER, UNSPECIFIED (4) Gout attack Code(s): M10.9 - GOUT, UNSPECIFIED Qualifiers: Gout site: ankle Gout etiology: unspecified cause Laterality: right Qualified Code(s): M10.9 - Gout, unspecified (5) Atrial fibrillation Code(s): I48.91 - UNSPECIFIED ATRIAL FIBRILLATION (6) CAD (coronary artery disease) Code(s): I25.10 - ATHSCL HEART DISEASE OF [place] CORONARY ARTERY W/O ANG PCTRS (7) COPD (chronic obstructive pulmonary disease) Code(s): J44.9 - CHRONIC OBSTRUCTIVE PULMONARY DISEASE, UNSPECIFIED (8) HTN (hypertension) Code(s): I10 - ESSENTIAL (PRIMARY) HYPERTENSION (9) Hyperlipidemia Code(s): E78.5 - HYPERLIPIDEMIA, UNSPECIFIED Assessment/Plan (1) CHF (congestive heart failure) Assessment/Plan: -cardiology following and note reviewed -changing to oral lasix -monitor Code(s): I50.9 - HEART FAILURE, UNSPECIFIED Qualifiers: Congestive heart failure type: unspecified congestive heart failure type Congestive heart failure chronicity: acute on chronic Qualified Code(s ): I50.9 - Heart failure, unspecified (2) Chest pain Assessment/Plan: -chest pain resolved Code(s): R07.9 - CHEST PAIN, UNSPECIFIED Qualifiers: Chest pain type: unspecified Qualified Code(s): R07.9 - Chest pain, unspecified (3) Renal insufficiency Assessment/Plan: -stable -changing to oral lasix Code(s): N28.9 - DISORDER OF KIDNEY AND URETER, UNSPECIFIED (4) Gout attack vs neuropathy Assessment/Plan: -appreciate neurology assistance -started on cymbalta -not using gabapentin or lyrica secondary to renal function -improved today Code(s): M10.9 - GOUT, UNSPECIFIED Qualifiers: Gout site: ankle Gout etiology: unspecified cause Laterality: right Qualified Code(s): M10.9 - Gout, unspecified (5) Atrial fibrillation Assessment/Plan: -continue coreg and digoxin -on eliquis Code(s): I48.91 - UNSPECIFIED ATRIAL FIBRILLATION (6) CAD (coronary artery disease) Assessment/Plan: -cardiology following -continue home regimen Code(s): I25.10 - ATHSCL HEART DISEASE OF [place] CORONARY ARTERY W/O ANG PCTRS (7) COPD (chronic obstructive pulmonary disease) Assessment/Plan: -stable without exacerbation -continue home regimen Code(s): J44.9 - CHRONIC OBSTRUCTIVE PULMONARY DISEASE, UNSPECIFIED (8) HTN (hypertension) Assessment/Plan: -continue coreg and ramipril Code(s): I10 - ESSENTIAL (PRIMARY) HYPERTENSION (9) Hyperlipidemia Assessment/Plan: -continue statin Code(s): E78.5 - HYPERLIPIDEMIA, UNSPECIFIED Dispo -plan on discharge tomorrow
[2016-07-05] MEDS: ATORVASTATIN CA 10 MG TABLET (FP) PO SCH (21:00)
[2016-07-06] MEDS: oxyCODONE HCL 5 MG TABLET PO PRN ×2 (04:29→11:03)
[2016-07-06] MEDS ORDERED: oxyCODONE HCL 5 MG TABLET ONE (04:35)
[2016-07-06] MEDS: IPRATROPIUM BR 0.02% 0.5 MG/2.5 ML VIAL.NEB. NEB SCH ×2 (06:25→11:20)
[2016-07-06] MEDS: FUROSEMIDE 40 MG TABLET (FP) PO SCH ×2 (06:51→14:51)
[2016-07-06 07:37] LABS: CALCIUM 8.2 mg/dL (8.5-10.1); CREATININE 1.4 mg/dL (0.7-1.3); MAGNESIUM 1.8 mg/dL (1.8-2.4); PHOSPHOROUS 3.7 mg/dL (2.5-4.9)
[2016-07-06 07:56] LABS: BASOPHIL 1.7 % (0-2.0); EOSINOPHIL 1.3 % (0-4.5); MCHC 29.2 g/dl (32.0-35.9); MEAN CELL VOLUME 62.7 fl (80-96); MEAN PLT VOLUME 8.8 fl (7.5-11.1); NEUTROPHILS 49.8 % (42.8-82.8); PLATELET COUNT 325 K/MM3 (134-434); RDW 21.8 % (11.9-15.9); WHITE BLOOD COUNT 5.8 K/mm3 (4.0-10.0)
[2016-07-06 08:15] LABS: MCH 18.3 pg (25.7-33.7)
[2016-07-06 09:35] VITALS: BP 116/54; PULSE 76; TEMP 98.2
[2016-07-06] MEDS: APIXABAN 5 MG TABLET PO SCH (09:35)
[2016-07-06] MEDS: RAMIPRIL 5 MG CAPSULE (FP) PO SCH (09:35)
[2016-07-06] MEDS: ESCITALOPRAM OXALATE 10 MG TABLET (FP) PO SCH (09:36)
[2016-07-06] MEDS: DIGOXIN 0.25 MG TABLET (FP) PO SCH (09:36)
[2016-07-06] MEDS: POTASSIUM CHLORIDE TABS 20 MEQ TABLET.ER (FP) PO SCH (09:36)
[2016-07-06] MEDS: DOCUSATE SODIUM 100 MG CAPSULE (FP) PO SCH (09:36)
[2016-07-06] MEDS: PANTOPRAZOLE 40 MG TABLET (FP) PO SCH (09:36)
[2016-07-06] MEDS: CARVEDILOL 25 MG TABLET (FP) PO SCH (09:36)
[2016-07-06] MEDS: DULoxetine HCL 30 MG CAPSULE.DR (FP) PO SCH (09:36)
--- NOTE | 2016-07-06 11:38 | PN ---
Progress Note (short form) - Note Progress Note: S: + foot pain but better. no cp sob palps dizzy Current Medications Generic Name Dose Route Start Last Admin Trade Name Freq PRN Reason Stop Dose Admin Acetaminophen 650 mg 07/02/16 05:04 07/05/16 01:54 Tylenol - PO 650 mg Q4H PRN Administration FEVER OR PAIN Albuterol/Ipratropium 1 amp 07/02/16 05:02 Duoneb - NEB Q4H PRN SHORTNESS OF BREATH Alprazolam 0.25 mg 07/02/16 11:50 Xanax - PO BID PRN ANXIETY Apixaban 5 mg 07/03/16 10:30 07/06/16 09:35 Eliquis - PO 5 mg BID NESHA Administration Atorvastatin Calcium 10 mg 07/02/16 22:00 07/05/16 21:00 Lipitor - PO 10 mg HS NESHA Administration Carvedilol 25 mg 07/03/16 10:30 07/06/16 09:36 Coreg - PO 25 mg BID NESHA Administration Digoxin 0.25 mg 07/02/16 10:00 07/06/16 09:36 Lanoxin - PO 0.25 mg DAILY NESHA Administration Docusate Sodium 100 mg 07/02/16 10:00 07/06/16 09:36 Colace - PO 100 mg DAILY NESHA Administration Duloxetine HCl 30 mg 07/05/16 10:00 07/06/16 09:36 Cymbalta - PO 30 mg DAILY NESHA Administration Escitalopram Oxalate 10 mg 07/02/16 10:00 07/06/16 09:36 Lexapro - PO 10 mg DAILY NESHA Administration Furosemide 40 mg 07/04/16 14:00 07/06/16 06:51 Lasix - PO 40 mg BID@0600,1400 NESHA Administration Ipratropium [place] 1 amp 07/02/16 12:00 07/06/16 06:25 Atrovent 0.02% Nebulizer - [place]B 1 amp QIDR NESHA Administration Nitroglycerin 0.4 mg 07/02/16 04:55 Nitrostat - SL Q5M PRN FOR CHEST PAIN Ondansetron HCl 4 mg 07/02/16 04:55 Zofran Injection IVPB Q4H PRN NAUSEA AND/OR VOMITING Oxycodone HCl 30 mg 07/02/16 11:50 07/06/16 11:03 Roxicodone - PO 30 mg Q6H PRN Administration PAIN Pantoprazole Sodium 40 mg 07/02/16 10:00 07/06/16 09:36 Protonix - PO 40 mg DAILY NESHA Administration Potassium Chloride 20 meq 07/02/16 10:00 07/06/16 09:36 K-Dur - PO 20 meq DAILY NESHA Administration Ramipril 10 mg 07/02/16 10:00 07/06/16 09:35 Altace - PO 10 mg DAILY NESHA Administration Physical Exam Vital Signs: Vital Signs Period Temp Pulse Resp BP Sys/Sal Pulse Ox Last 24 Hr 97.3 F-98.3 F 71-87 14-20 107-157/51-80 96-98 nad no jvd irreg s1s2 no mrg cta bl nl eff no le e/c/c abd nt nd pos bs aaox3 no jaundice diaphoresis CBC, BMP 07/06/16 05:35 07/06/16 05:35 tele: rate controlled afib, occ vpace Imaging - Results X-ray: Image Reviewed (Lungs are clear. ICD in right pectoral area.) EKG: Image Reviewed (Afib at 96/min with LVH and ST-segment depressions in lateral elads (V5-V6). ST depressons are more prominent on the current ECG compared to the prior one done at [facility] in 03/09/2016.) Other: Report Reviewed (Echo: 03/09/2016 at [facility]. LVEF 25% with moderate MR.) Assessment/Plan 55 yo smoker with HTN, HL, DM, severe non-ischemic CMY with medtronic ICD, afib on eliquis, copd, gastritis, hepatitis C, polysubstance use now with recurrent exertional chest pain. 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 However, he had performed a cardiac cath on him in 03/09/2016 in the setting of chest pain and new ECG changes. This showed "normal coronaries" without prior PCIs. Report reviewed again for confirmation. . -CP unlikely coronary related and likely related to CHF with elevated BNP -Flat intermediate range troponin, no signs acs -now that has been diuresed cp resolved -Continue statin. Ok to stop ASA since review of cath shows no stents and he is already on AC. 2) acute decompensated systolic chf: -Continue ACEi (Altace 10mg daily) and Coreg -after several days iv lasix appears euvolemic and bun rising as well. Seems to be at baseline now so cont po lasix 40 bid -icd checked here 07/04/16 and showed nl fcn. No icd shocks. Had episode of VT earlier this month that was terminated with ATP, no shocks required. Cont bb for now, routine icd checks in office. 3) Afib -rate controlled -Continue BB, dig. -cont eliquis 4) tobacco/drug use - cessation counseling cardiac vidales stable for dc
--- NOTE | 2016-07-06 13:22 | PN ---
Progress Note, Physician History of Present Illness: patient seen on the floor Still with significant degree of hyperesthesia No recent fall Tolerating the Cymbalta very well No blurry vision. No double vision no nausea no vomiting - Current Medication List Current Medications: Active Medications Acetaminophen (Tylenol -) 650 mg PO Q4H PRN PRN Reason: FEVER OR PAIN Last Admin: 07/05/16 01:54 Dose: 650 mg Albuterol/Ipratropium (Duoneb -) 1 amp NEB Q4H PRN PRN Reason: SHORTNESS OF BREATH Alprazolam (Xanax -) 0.25 mg PO BID PRN PRN Reason: ANXIETY Apixaban (Eliquis -) 5 mg PO BID [facility] Last Admin: 07/06/16 09:35 Dose: 5 mg Atorvastatin Calcium (Lipitor -) 10 mg PO HS [facility] Last Admin: 07/05/16 21:00 Dose: 10 mg Carvedilol (Coreg -) 25 mg PO BID [facility] Last Admin: 07/06/16 09:36 Dose: 25 mg Digoxin (Lanoxin -) 0.25 mg PO DAILY [facility] Last Admin: 07/06/16 09:36 Dose: 0.25 mg Docusate Sodium (Colace -) 100 mg PO DAILY [facility] Last Admin: 07/06/16 09:36 Dose: 100 mg Duloxetine HCl (Cymbalta -) 30 mg PO DAILY [facility] Last Admin: 07/06/16 09:36 Dose: 30 mg Escitalopram Oxalate (Lexapro -) 10 mg PO DAILY [facility] Last Admin: 07/06/16 09:36 Dose: 10 mg Furosemide (Lasix -) 40 mg PO BID@0600,1400 [facility] Last Admin: 07/06/16 06:51 Dose: 40 mg Ipratropium Almond (Atrovent 0.02% Nebulizer -) 1 amp NEB QIDR [facility] Last Admin: 07/06/16 11:20 Dose: Not Given Nitroglycerin (Nitrostat -) 0.4 mg SL Q5M PRN PRN Reason: FOR CHEST PAIN Ondansetron HCl (Zofran Injection) 4 mg IVPB Q4H PRN PRN Reason: NAUSEA AND/OR VOMITING Oxycodone HCl (Roxicodone -) 30 mg PO Q6H PRN PRN Reason: PAIN Last Admin: 07/06/16 11:03 Dose: 30 mg Pantoprazole Sodium (Protonix -) 40 mg PO DAILY [facility] Last Admin: 07/06/16 09:36 Dose: 40 mg Potassium Chloride (K-Dur -) 20 meq PO DAILY [facility] Last Admin: 07/06/16 09:36 Dose: 20 meq Ramipril (Altace -) 10 mg PO DAILY [facility] Last Admin: 07/06/16 09:35 Dose: 10 mg - Objective Vital Signs: Vital Signs Temperature 98.2 F 07/06/16 08:15 Pulse Rate 76 07/06/16 09:36 Respiratory Rate 14 07/06/16 08:15 Blood Pressure 116/54 07/06/16 08:15 O2 Sat by Pulse Oximetry (%) 96 07/06/16 09:00 Constitutional: Yes: Well Nourished Eyes: Yes: WNL Neurological: Yes: Alert, Oriented, Babinski negative, Paresthesia ...Motor Strength: WNL Labs: CBC, BMP 07/06/16 05:35 07/06/16 05:35 INR, PTT INR 1.37 (0.82-1.09) H 07/02/16 01:06 Problem List - Problems (1) Neuropathy Code(s): G62.9 - POLYNEUROPATHY, UNSPECIFIED Assessment/Plan meticulous foot care Increase Cymbalta to 60 mg after dinner Trial of Neurontin 100 mg by mouth daily at bedtime Careful monitoring of the creatinine function Blood work for neuropathy Follow-up with neurology as an outpatient Coordination for nerve conduction testing and electromyography of the lower extremities Avoid food that has high concentration of uric acid
--- NOTE | 2016-07-06 14:26 | DS ---
Physical Examination Vital Signs: Vital Signs Temperature 98.2 F 07/06/16 08:15 Pulse Rate 76 07/06/16 09:36 Respiratory Rate 14 07/06/16 08:15 Blood Pressure 116/54 07/06/16 08:15 O2 Sat by Pulse Oximetry (%) 96 07/06/16 09:00 Constitutional: Yes: Well Nourished, No Distress, Calm Cardiovascular: Yes: Regular Rate and Rhythm. No: Gallop, Murmur, Rub Respiratory: Yes: Regular, CTA Bilaterally. No: Rales, Rhonchi, Wheezes Gastrointestinal: Yes: Normal Bowel Sounds, Soft. No: Distention, Tenderness Extremities: Yes: WNL Edema: No Labs: CBC, BMP 07/06/16 05:35 07/06/16 05:35 Discharge Summary Reason For Visit: CHF, AFID, COPD Current Active Problems Abdominal pain (Acute) Atrial fibrillation (Acute) CAD (coronary artery disease) (Acute) CHF (congestive heart failure) (Acute) COPD (chronic obstructive pulmonary disease) (Acute) Chest pain (Acute) Chest pain in adult (Acute) Renal insufficiency (Acute) Hospital Course: (1) CHF (congestive heart failure) Code(s): I50.9 - HEART FAILURE, UNSPECIFIED Qualifiers: Congestive heart failure type: unspecified congestive heart failure type Congestive heart failure chronicity: acute on chronic Qualified Code(s ): I50.9 - Heart failure, unspecified (2) Chest pain Code(s): R07.9 - CHEST PAIN, UNSPECIFIED Qualifiers: Chest pain type: unspecified Qualified Code(s): R07.9 - Chest pain, unspecified (3) Renal insufficiency Code(s): N28.9 - DISORDER OF KIDNEY AND URETER, UNSPECIFIED (4) Gout attack Code(s): M10.9 - GOUT, UNSPECIFIED Qualifiers: Gout site: ankle Gout etiology: unspecified cause Laterality: right Qualified Code(s): M10.9 - Gout, unspecified (5) Atrial fibrillation Code(s): I48.91 - UNSPECIFIED ATRIAL FIBRILLATION (6) CAD (coronary artery disease) Code(s): I25.10 - ATHSCL HEART DISEASE OF [place] CORONARY ARTERY W/O ANG PCTRS (7) COPD (chronic obstructive pulmonary disease) Code(s): J44.9 - CHRONIC OBSTRUCTIVE PULMONARY DISEASE, UNSPECIFIED (8) HTN (hypertension) Code(s): I10 - ESSENTIAL (PRIMARY) HYPERTENSION (9) Hyperlipidemia Code(s): E78.5 - HYPERLIPIDEMIA, UNSPECIFIED Mr Roberts is a pleasant 55 year old male who comes in with chest pain and pain in his feet. He was admitted to the hospital and was seen by cardiology. He had a recent cardiac cath and the chest pain was non-cardiac. however he was in fluid overload and was diuresed with IV lasix. He complained of gout pain and gave a trial of prednisone. However the pain did not improve and the way he describes it, it was more consistent with neuropathy. Since he was on a high dose of oxycodone, neurology was consulted as I did not want to start gabapentin or lyrica secondary to this. Neurology saw the patient and started on cymbalta secondary to the patient's renal function. Pain improved and he is safe for discharge home. 35 minutes spent in preparation of this discharge Condition: Good - Instructions Diet, Activity, Other Instructions: resume previous diet and activity Referrals: Anup Pyle MD [Primary Care Provider] - Chinedu Centeno MD [Staff Physician] - Jigar Pierre MD [Staff Physician] - Disposition: HOME - Home Medications Comprehensive Discharge Medication List: Ambulatory Orders Omeprazole [Prilosec] 40 mg PO DAILY 06/23/14 Oxycodone HCl [Roxicodone] 30 mg PO Q6H PRN 07/24/14 Atorvastatin Ca [Lipitor] 10 mg PO HS 08/17/14 Lorazepam [Ativan] 1 mg PO TID PRN 10/29/15 Apixaban [Eliquis -] 5 mg PO DAILY 01/12/16 Docusate Sodium [Colace -] 100 mg PO DAILY 01/12/16 Escitalopram Oxalate [Lexapro -] 10 mg PO DAILY 01/12/16 Albuterol Sulfate Inhaler - [Ventolin HFA Inhaler -] 1 - 2 inh PO QID #1 inhaler 01/15/16 Ramipril [Altace] 10 mg PO DAILY #60 capsule 05/01/16 Alprazolam 0.25 mg PO BID PRN 07/02/16 Digoxin [Digitek] 125 mcg PO DAILY 07/02/16 Nitroglycerin Sublingual [Nitrostat -] 0.4 mg SL ONCE PRN 07/02/16 Oxycodone HCl/Acetaminophen [Percocet 10-325 mg Tablet] 1 each PO Q6H PRN Potassium Chloride 10 meq PO DAILY 07/02/16 Carvedilol [Coreg -] 25 mg PO BID #60 tablet 07/06/16 Duloxetine HCl [Cymbalta -] 30 mg PO DAILY #30 capsule. 07/06/16 Furosemide [Lasix -] 40 mg PO BID@0600,1400 #60 tablet 07/06/16
[2016-07-07 00:06] LABS: HOMOCYSTEINE (CARDIO) 15.6 umol/L (0.0-15.0)
[2016-07-07 00:06] LABS: IgG P18 Present (.); IgG P23 Absent (.); IgG P28 Absent (.); IgG P30 Absent (.); IgG P39 Absent (.); IgG P41 Absent (.); IgG P45 Absent (.); IgG P58 Absent (.); IgG P66 Absent (.); IgG P93 Absent (.); IgM P23 Absent (.); IgM P39 Absent (.); IgM P41 Present (.); LYME IGM WB INTERPRE Negative (.)
== END 2016-07-06 16:19 | disposition home or self-care (01) | DRG 293 ==
LOC: JER 23:42 → JERBED 07-02 04:57 → OBSVTOIN 07-02 18:52 → J4W 07-02 20:23
PROVIDERS: ADMIT Internal Medicine; ATTEND Internal Medicine
DX: I11.0 Hypertensive heart disease with heart failure (principal); I50.23 Acute on chronic systolic (congestive) heart failure; I48.91 Unspecified atrial fibrillation; I42.8 Other cardiomyopathies; I25.10 Atherosclerotic heart disease of native coronary artery without angina pectoris; J44.9 Chronic obstructive pulmonary disease, unspecified; I25.2 Old myocardial infarction; Z95.810 Presence of automatic (implantable) cardiac defibrillator; Z79.01 Long term (current) use of anticoagulants; M10.9 Gout, unspecified; E78.5 Hyperlipidemia, unspecified; F17.210 Nicotine dependence, cigarettes, uncomplicated; K29.60 Other gastritis without bleeding; B19.20 Unspecified viral hepatitis C without hepatic coma; G62.9 Polyneuropathy, unspecified; N28.9 Disorder of kidney and ureter, unspecified; M54.9 Dorsalgia, unspecified
CPT/HCPCS: 36415; 70450-TC; 71020-TC; 76775-TC; 80048; 80053; 80061; 80162; 82550; 82607; 82977; 83036; 83090; 83721; 83735; 83874; 83880; 84100; 84443; 84484; 84550; 85025; 85610; 85651; 85730; 86618; 93005; 93010; 94640; 99281-25; 99284-25; G0378

== ENCOUNTER 2016-07-13 10:09 | Inpatient (IN) | payer OTHER ==
[2016-07-13 10:15] VITALS: BMI 25.5
--- NOTE | 2016-07-13 10:39 | PDOC ---
History of Present Illness <Ruby Brown - Last Filed: 07/13/16 14:46> - General History Source: Patient Exam Limitations: No Limitations - History of Present Illness Initial Comments: 07/13/16 11:02 Patient is a 55 year old male with PMH of HTN, HLD, CHF, [place] x3 (s/p stents x4), A-Fib, COPD, Gout, Colon Cancer (s/p resection) who presents to ED with bilateral foot pain. He was recently admitted for CHF exacerbation & also started on Cymbalta for neuropathic path in both feet. He states he felt better lats week when he was discharged, but within a few days of discharge the neuropathic pain started again. It has been increasing in severity and is excruciating today. It is sensitive to even light touch. He states he has been taking all medications, as prescribed, and has been avoiding alcohol & red meat (to avoid gout flare). Denies chest pain, shortness of breath, visual issues, diarrhea, constipation, nausea or vomiting. <Imer Arellano - Last Filed: 07/13/16 15:19> - General Chief Complaint: Pain Stated Complaint: PCP SENT, PAIN Time Seen by Provider: 07/13/16 10:33 Past History <Ruby Brown - Last Filed: 07/13/16 14:46> - Travel Traveled outside of the country in the last 30 days: No Close contact w/someone who was outside of country & ill: No - Past Medical History Anemia: No Asthma: Yes Cancer: Yes (colon (2013)) Cardiac Disorders: Yes (STENTS X4 2010, [place] X 3) CVA: No COPD: Yes CHF: Yes Dementia: No Diabetes: No GI Disorders: No Disorders: No HTN: Yes Hypercholesterolemia: Yes Liver Disease: No Seizures: No Thyroid Disease: No - Surgical History Abdominal Surgery: No Appendectomy: No Cardiac Surgery: Yes (4sTENTS,pacemaker,defibrilator) Cholecystectomy: No GI Surgery: Yes (COLON RESECTION) Lung Surgery: No Neurologic Surgery: No Orthopedic Surgery: Yes ((L) ANKLE; (R)HIP; (R) ELBOW) - Family Disease History Family Disease History: Diabetes: Mother - Immunization History TDAP Vaccination: Yes Immunization Up to Date: No (2011 tetanus) - Psycho/Social/Smoking Cessation Hx Anxiety: No Suicidal Ideation: No Smoking Status: Yes Smoking History: Current every day smoker Have you smoked in the past 12 months: No Number of Cigarettes Smoked Daily: 1 If you are a former smoker, when did you quit?: 0 Cigars Per Day: 0 Information on smoking cessation initiated: Yes 'Breaking Loose' booklet given: 07/13/16 Hx Alcohol Use: No Drug/Substance Use Hx: No Substance Use Type: None Hx Substance Use Treatment: No <Imer Arellano - Last Filed: 07/13/16 15:19> - Past Medical History Allergies/Adverse Reactions: Allergies Allergy/AdvReac Type Severity Reaction Status Date / Time tomato Allergy Severe Verified 07/13/16 10:15 Beef Containing Products Allergy Verified 07/13/16 10:15 red dye Allergy Verified 07/13/16 10:15 Home Medications: Ambulatory Orders Omeprazole [Prilosec] 40 mg PO DAILY 06/23/14 Oxycodone HCl [Roxicodone] 30 mg PO Q6H PRN 07/24/14 Atorvastatin Ca [Lipitor] 10 mg PO HS 08/17/14 Lorazepam [Ativan] 1 mg PO TID PRN 10/29/15 Apixaban [Eliquis -] 5 mg PO BID 01/12/16 Docusate Sodium [Colace -] 100 mg PO DAILY 01/12/16 Escitalopram Oxalate [Lexapro -] 10 mg PO DAILY 01/12/16 Albuterol Sulfate Inhaler - [Ventolin HFA Inhaler -] 1 - 2 inh PO QID #1 inhaler 01/15/16 Ramipril [Altace] 10 mg PO DAILY #60 capsule 05/01/16 Alprazolam 0.25 mg PO BID PRN 07/02/16 Digoxin [Digitek] 125 mcg PO DAILY 07/02/16 Nitroglycerin Sublingual [Nitrostat -] 0.4 mg SL ONCE PRN 07/02/16 Oxycodone HCl/Acetaminophen [Percocet 10-325 mg Tablet] 1 each PO Q6H PRN Potassium Chloride 10 meq PO DAILY 07/02/16 Carvedilol [Coreg -] 25 mg PO BID #60 tablet 07/06/16 Duloxetine HCl [Cymbalta -] 30 mg PO DAILY #30 capsule. 07/06/16 Furosemide [Lasix -] 40 mg PO DAILY 07/13/16 Review of Systems - Review of Systems Able to Perform ROS?: Yes Is the patient limited Swedish proficient: No Musculoskeletal: Yes: Other (foot pain bilaterally) <Imer Arellano - Last Filed: 07/13/16 15:19> *Physical Exam - Vital Signs Last Vital Signs Temp Pulse Resp BP Pulse Ox 63 19 153/70 100 07/13/16 10:12 07/13/16 10:12 07/13/16 10:12 07/13/16 10:12 <Ruby Brown - Last Filed: 07/13/16 14:46> - Vital Signs Last Vital Signs Temp Pulse Resp BP Pulse Ox 63 19 153/70 100 07/13/16 10:12 07/13/16 10:12 07/13/16 10:12 07/13/16 10:12 - Physical Exam General Appearance: Yes: Nourished, Appropriately Dressed, Thin HEENT: positive: EOMI, ASHA, Pharynx Normal Neck: positive: Trachea midline, Normal Thyroid, Supple Respiratory/Chest: positive: Other (Mild diffuse wheezing noted bilaterally, No chest wall tenderness) Cardiovascular: positive: Regular Rhythm, Regular Rate, S1, S2 Gastrointestinal/Abdominal: positive: Normal Bowel Sounds, Flat, Soft Musculoskeletal: positive: Normal Inspection Extremity: positive: Normal Range of Motion, Tender (Severe tenderness to palpation in bilateral feet from ankle to toes, dorsal & plantar), Delayed Capillary Refill Integumentary: positive: Normal Color, Dry, Cold (EXTREMITIES) Neurologic: positive: arc welder II-XII NML intact, Fully Oriented, Alert, Normal Mood/ Affect, Motor Strength 5/5 <Imer Arellano - Last Filed: 07/13/16 15:19> ED Treatment Course - LABORATORY CBC & Chemistry Diagram: 07/13/16 12:20 07/13/16 12:20 - ADDITIONAL ORDERS Additional order review: Laboratory Results 07/13/16 07/13/16 07/13/16 12:20 11:30 11:30 INR 1.19 H PTT (Actin FS) 32.8 Sodium 141 Potassium 4.2 Chloride 106 Carbon Dioxide 25 D Anion Gap 10 BUN 20 H Creatinine 1.2 Creat Clearance w eGFR > 60 Random Glucose 59 L D Calcium 7.8 L Total Bilirubin 0.3 D AST 23 ALT 22 Alkaline Phosphatase 45 Total Protein 6.4 Albumin 3.2 L Blood Type A NEGATIVE Antibody Screen Negative 07/13/16 12:20 RBC 5.66 H MCV 61.9 L MCHC 30.1 L RDW 21.7 H MPV 8.8 Neutrophils % 48.4 Lymphocytes % 35.2 Monocytes % 10.6 H Eosinophils % 4.9 H D Basophils % 0.9 - Medications Given in the ED: ED Medications Discontinued Medications Generic Name Dose Route Start Last Admin Trade Name Vanessa PRN Reason Stop Dose Admin Hydromorphone HCl 1 mg 07/13/16 11:16 07/13/16 12:24 Dilaudid Injection - IVPUSH 07/13/16 11:17 Not Given ONCE ONE Hydromorphone HCl 1 mg 07/13/16 11:25 07/13/16 11:25 Dilaudid Injection - IM 07/13/16 11:26 1 mg ONCE ONE Administration <Ruby Brown - Last Filed: 07/13/16 14:46> - LABORATORY CBC & Chemistry Diagram: 07/13/16 12:20 07/13/16 12:20 <Imer Arellano - Last Filed: 07/13/16 15:19> Medical Decision Making - Medical Decision Making 07/13/16 11:23 Poor capillary refill (L>R) concerning for arterial occlusion. Will give Dilaudid for pain management as patient will require LE Arterial doppler. Ordered coagulation profile as well. 07/13/16 15:18 US was negative for any arterial occlusions. Given patient's cold lower extremities and continued severe neuropathic pain, decision was made to admit patient to hospital. Case discussed with Dr Kingston. <Imer Arellano - Last Filed: 07/13/16 15:19> *DC/Admit/Observation/Transfer - Discharge Dispostion Admit: Yes <Ruby Brown - Last Filed: 07/13/16 14:46> <Imer Arellano - Last Filed: 07/13/16 15:19> Diagnosis at time of Disposition: Intractable pain, Foot pain, bilateral - Discharge Dispostion Condition at time of disposition: Stable
[2016-07-13] MEDS ORDERED: HYDROmorphone HCL CARPU-JECT 1 MG/1 ML DISP.SYRIN IVPUSH ONE (11:16)
--- NOTE | 2016-07-13 11:16 | PDOC ---
[id number] have performed the following: I have examined & evaluated the patient, The case was reviewed & discussed with the resident, I agree w/resident 's findings & plan, Exceptions are as noted - HPI HPI: 55 yo M history neuropathy, CHF, afib, COPD, OR, HTN, HL, gout, colon CA s/p recent admission presents with B/L foot pain. He has recently started cymbalta for neuropathy (history of kidney disease in past, was not a candidate for gabapentin or lyrica), but has not had relief. He states that the pain is severe , does not respond to his oxycodone. He is unable to ambulate due to severe pain , which is sensitive even to light touch. - Physicial Exam PE: GENERAL: Awake, alert, and fully oriented, in no acute distress HEAD: No signs of trauma EYES: PERRLA, EOMI, sclera anicteric, conjunctiva clear ENT: Auricles normal inspection, hearing grossly normal, nares patent, oropharynx clear without exudates. Moist mucosa NECK: Normal ROM, supple, no lymphadenopathy, JVD, or masses LUNGS: Breath sounds equal, clear to auscultation bilaterally. No wheezes, and no crackles HEART: Regular rate and rhythm, normal S1 and S2, no murmurs, rubs or gallops ABDOMEN: Soft, nontender, normoactive bowel sounds. No guarding, no rebound. No masses EXTREMITIES: Normal range of motion. 1+ edema to B/L feet. +Severe pain elicited on light touch anywhere to the feet. Both feet are cool to the touch with delayed cap refill. Difficult to palpate pulses due to extreme pain response to palpation. Lower legs are warm, feet noted to be cool. No clubbing or cyanosis. No cords, erythema. NEUROLOGICAL: Cranial nerves II through XII grossly intact. Normal speech. Strength and sensation intact. Gait not tested due to nature of complaint. SKIN: Warm, Dry, normal turgor, no rashes or lesions noted. - Medical Decision Making Arterial dopplers obtained due to temperature change in the feet, decreased cap refill. Dopplers negative. Patient was given dilaudid for pain. D/w Dr. Kingston, will admit.
[2016-07-13] MEDS ORDERED: HYDROmorphone HCL CARPU-JECT 1 MG/1 ML DISP.SYRIN IM ONE (11:25)
[2016-07-13 12:08] LABS: INR 1.19 (0.82-1.09); PROTHROMBIN TIME (PATIENT) 13.1 SEC (9.98-11.88)
[2016-07-13 12:11] LABS: ACTIVATED PTT 32.8 SECONDS (26.9-34.4)
[2016-07-13 12:38] LABS: BASOPHIL 0.9 % (0-2.0); EOSINOPHIL 4.9 % (0-4.5); MCHC 30.1 g/dl (32.0-35.9); MEAN CELL VOLUME 61.9 fl (80-96); MEAN PLT VOLUME 8.8 fl (7.5-11.1); NEUTROPHILS 48.4 % (42.8-82.8); PLATELET COUNT 309 K/MM3 (134-434); RDW 21.7 % (11.9-15.9); WHITE BLOOD COUNT 5.2 K/mm3 (4.0-10.0)
[2016-07-13 12:50] LABS: MCH 18.6 pg (25.7-33.7)
[2016-07-13 12:53] LABS: ALBUMIN 3.2 g/dl (3.4-5.0); ALK PHOS 45 U/L (45-117); ANION GAP 10 (8-16); BILIRUBIN,TOTAL 0.3 mg/dL (0.2-1.0); CALCIUM 7.8 mg/dL (8.5-10.1); CO2 25 mmol/L (21-32); CREATININE 1.2 mg/dL (0.7-1.3); GLUCOSE,RANDOM 59 mg/dL (74-106); SGOT/AST 23 U/L (15-37); SGPT/ALT 22 U/L (12-78); TOT PROT 6.4 g/dl (6.4-8.2)
[2016-07-13 13:53] LABS: HYPOCHROMIA 3+; POLYCHROMASIA 1+
[2016-07-13 13:54] LABS: ANISOCYTOSIS 2+; FRAGMENTED CELL 1+; MICROCYTOSIS 2+; OVALOCYTES 3+; POIKILOCYTOSIS 2+; TARGET CELLS 1+; TEAR DROP CELLS 1+
[2016-07-13] MEDS ORDERED: ONDANSETRON 4 MG/2 ML VIAL IVPB PRN (15:46)
--- NOTE | 2016-07-13 15:48 | HP ---
Admitting History and Physical - Primary Care Physician PCP: Anup Pyle - Admission Chief Complaint: My feet hurt History of Present Illness: Mr Roberts is a 55 year old male who comes in with pain from neuropathy. He was recently admitted for this, and was seen by neurology and started on cymbalta. He began to improve and was discharged home on cymbalta. He says he was doing well the day of discharge, however the pain began to worsen again. He says it became so severe he could not walk. He also complains that his feet are very cold. He denies fevers, chills, chest pain, shortness of breath, abdominal pain , nausea, vomiting, diarrhea, constipation, difficulty or pain on urination, or swelling. History Source: Patient Limitations to Obtaining History: No Limitations - Past Medical History Cardiovascular: Yes: CAD, CHF (/ cardiomyopathy), HTN, Hyperlipdemia Pulmonary: Yes: COPD Gastrointestinal: Yes: Other (gastritis) Hepatobiliary: Yes: Hepatitis C Musculoskeletal: Yes: Chronic low back pain (/ degenerative lumbar disc disease) - Past Surgical History Past Surgical History: Yes: Hernia Repair (umbilical), Joint Replacement (right elbow, right hip, left ankle) - Smoking History Smoking history: Current every day smoker Have you smoked in the past 12 months: No Aproximately how many cigarettes per day: 1 If you are a former smoker, when did you quit?: 0 - Alcohol/Substance Use Hx Alcohol Use: No History of Substance Use: reports: None - Social History Usual Living Arrangement: Yes: Alone ADL: Independent 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 History of Recent Travel: No Home Medications - Allergies Allergies/Adverse Reactions: Allergies Allergy/AdvReac Type Severity Reaction Status Date / Time tomato Allergy Severe Verified 07/13/16 10:15 Beef Containing Products Allergy Verified 07/13/16 10:15 red dye Allergy Verified 07/13/16 10:15 - Home Medications Home Medications: Ambulatory Orders Omeprazole [Prilosec] 40 mg PO DAILY 06/23/14 Oxycodone HCl [Roxicodone] 30 mg PO Q6H PRN 07/24/14 Atorvastatin Ca [Lipitor] 10 mg PO HS 08/17/14 Lorazepam [Ativan] 1 mg PO TID PRN 10/29/15 Apixaban [Eliquis -] 5 mg PO BID 01/12/16 Docusate Sodium [Colace -] 100 mg PO DAILY 01/12/16 Escitalopram Oxalate [Lexapro -] 10 mg PO DAILY 01/12/16 Albuterol Sulfate Inhaler - [Ventolin HFA Inhaler -] 1 - 2 inh PO QID #1 inhaler 01/15/16 Ramipril [Altace] 10 mg PO DAILY #60 capsule 05/01/16 Alprazolam 0.25 mg PO BID PRN 07/02/16 Digoxin [Digitek] 125 mcg PO DAILY 07/02/16 Nitroglycerin Sublingual [Nitrostat -] 0.4 mg SL ONCE PRN 07/02/16 Oxycodone HCl/Acetaminophen [Percocet 10-325 mg Tablet] 1 each PO Q6H PRN Potassium Chloride 10 meq PO DAILY 07/02/16 Carvedilol [Coreg -] 25 mg PO BID #60 tablet 07/06/16 Duloxetine HCl [Cymbalta -] 30 mg PO DAILY #30 capsule. 07/06/16 Furosemide [Lasix -] 40 mg PO DAILY 07/13/16 Family Disease History - Family Disease History Family Disease History: Heart Disease: Father, [place]: Mother, Brother (colon) Review of Systems Findings/Remarks: Full review of systems obtained, as per HPI and otherwise negative Physical Examination Vital Signs: Vital Signs Temperature Pulse Rate 63 07/13/16 10:12 Respiratory Rate 19 07/13/16 10:12 Blood Pressure 153/70 07/13/16 10:12 O2 Sat by Pulse Oximetry (%) 100 07/13/16 10:12 Constitutional: Yes: Well Nourished, No Distress, Calm Eyes: Yes: Conjunctiva Clear, EOM Intact HENT: Yes: Atraumatic, Normocephalic Cardiovascular: Yes: Regular Rate and Rhythm. No: Gallop, Murmur, Rub Respiratory: Yes: Regular, CTA Bilaterally. No: Rales, Rhonchi, Wheezes Gastrointestinal: Yes: Normal Bowel Sounds, Soft. No: Distention, Tenderness Extremities: Yes: Other (painful on touch from ankles down bilaterally) Edema: No Imaging - Results Ultrasound: Report Reviewed Problem List - Problems (1) Neuropathy Assessment/Plan: -admit to hospital for intractable pain -neurology consulted and will see -october benefit from pain management consult -continue cymbalta currently Code(s): G62.9 - POLYNEUROPATHY, UNSPECIFIED (2) Atrial fibrillation Assessment/Plan: -continue coreg, digoxin, eliquis -no need for telemetry currently Code(s): I48.91 - UNSPECIFIED ATRIAL FIBRILLATION Qualifiers: Atrial fibrillation type: chronic Qualified Code(s): I48.2 - Chronic atrial fibrillation (3) CAD (coronary artery disease) Assessment/Plan: -quiescent -continue home regimen Code(s): I25.10 - ATHSCL HEART DISEASE OF [place] CORONARY ARTERY W/O ANG PCTRS (4) CHF (congestive heart failure) Assessment/Plan: -continue lasix -not in exacerbation Code(s): I50.9 - HEART FAILURE, UNSPECIFIED Qualifiers: Congestive heart failure type: unspecified congestive heart failure type Congestive heart failure chronicity: acute on chronic Qualified Code(s ): I50.9 - Heart failure, unspecified (5) COPD (chronic obstructive pulmonary disease) Assessment/Plan: -stable Code(s): J44.9 - CHRONIC OBSTRUCTIVE PULMONARY DISEASE, UNSPECIFIED (6) DVT (deep venous thrombosis) Assessment/Plan: -continue eliquis Code(s): I82.409 - ACUTE EMBOLISM AND THOMBOS UNSP DEEP VN UNSP LOWER EXTREMITY (7) HTN (hypertension) Assessment/Plan: -continue altace and coreg Code(s): I10 - ESSENTIAL (PRIMARY) HYPERTENSION (8) Hyperlipidemia Assessment/Plan: -continue statin Code(s): E78.5 - HYPERLIPIDEMIA, UNSPECIFIED (9) Low back pain Assessment/Plan: -continue home regimen -plan for pain management consult on Saturday Code(s): M54.5 - LOW BACK PAIN Qualifiers: Chronicity: chronic Back pain laterality: unspecified Sciatica presence: without sciatica Qualified Code(s): M54.5 - Low back pain
[2016-07-13] MEDS ORDERED: ALBUTEROL SO4 6.7 GM HFA INHALER IH PRN ×3 (16:19→18:00)
[2016-07-13] MEDS: ATORVASTATIN CA 10 MG TABLET (FP) PO SCH (22:21)
[2016-07-13] MEDS: APIXABAN 5 MG TABLET PO SCH (22:21)
[2016-07-13] MEDS: CARVEDILOL 25 MG TABLET (FP) PO SCH (22:21)
[2016-07-13] MEDS: DOCUSATE SODIUM 100 MG CAPSULE (FP) PO SCH (22:21)
[2016-07-13] MEDS: oxyCODONE HCL 5 MG TABLET PO PRN (22:21)
[2016-07-14] MEDS: oxyCODONE HCL 5 MG TABLET PO PRN ×4 (04:07→22:15)
[2016-07-14 07:53] LABS: BASOPHIL 0.9 % (0-2.0); EOSINOPHIL 4.9 % (0-4.5); MCHC 29.7 g/dl (32.0-35.9); MEAN CELL VOLUME 62.3 fl (80-96); MEAN PLT VOLUME 8.7 fl (7.5-11.1); NEUTROPHILS 40.4 % (42.8-82.8); PLATELET COUNT 309 K/MM3 (134-434); WHITE BLOOD COUNT 4.8 K/mm3 (4.0-10.0)
[2016-07-14 07:56] LABS: MCH 18.5 pg (25.7-33.7)
[2016-07-14 09:08] LABS: CALCIUM 8.2 mg/dL (8.5-10.1); CREATININE 1.2 mg/dL (0.7-1.3); MAGNESIUM 2.2 mg/dL (1.8-2.4); PHOSPHOROUS 2.4 mg/dL (2.5-4.9)
[2016-07-14] MEDS ORDERED: DULoxetine HCL 30 MG CAPSULE.DR (FP) PO SCH (10:00)
[2016-07-14] MEDS ORDERED: DOCUSATE SODIUM 100 MG CAPSULE (FP) PO SCH (10:00)
[2016-07-14] MEDS ORDERED: PT OWN MED DRAWER 7, Y5N ONE ×2 (10:06→22:04)
[2016-07-14] MEDS: POLYETHYLENE GLYCOL 3350 119 GM BTL PO SCH (10:15)
[2016-07-14] MEDS: PANTOPRAZOLE 40 MG TABLET (FP) PO SCH (10:18)
[2016-07-14] MEDS: RAMIPRIL 5 MG CAPSULE (FP) PO SCH (10:18)
[2016-07-14] MEDS: APIXABAN 5 MG TABLET PO SCH ×2 (10:18→22:15)
[2016-07-14] MEDS: CARVEDILOL 25 MG TABLET (FP) PO SCH ×2 (10:19→22:15)
[2016-07-14] MEDS: FUROSEMIDE 40 MG TABLET (FP) PO SCH (10:19)
[2016-07-14] MEDS: ESCITALOPRAM OXALATE 10 MG TABLET (FP) PO SCH (10:19)
[2016-07-14] MEDS: POTASSIUM CHLORIDE TABS 10 MEQ TABLET.ER (FP) PO SCH (10:19)
[2016-07-14] MEDS: DOCUSATE SODIUM 100 MG CAPSULE (FP) PO SCH ×2 (10:21→22:15)
[2016-07-14] MEDS: DIGOXIN 0.125 MG TABLET (FP) PO SCH (10:22)
--- NOTE | 2016-07-14 10:57 | PN ---
Progress Note (short form) - Note Progress Note: Patient seen and examined Chart reviewed. Complicated situation of severe painful and debilitating peripheral neuropathy previously treated with Cymbalta 30 mg w/o significant improvement. Currently sitting up in bed noting severe pain in both feet as we attempted to remove his socks. Feels as if the feet are cold as well as painful Pain is clearly different from his gout flares. Denies new chest discomfort, palpitations, NATARAJAN or angina. Labs and notes reviewed. Selected Entries 07/13/16 07/14/16 07/14/16 21:00 06:00 08:00 Temperature 97.6 F Pulse Rate 71 Respiratory 18 Rate Blood Pressure 131/76 O2 Sat by Pulse 97 Oximetry (%) Oxygen Delivery Room Air Method Weight 213 lb 1.6 oz Laboratory Tests 07/13/16 07/14/16 07/14/16 12:20 07:00 07:00 WBC 4.8 Hgb 10.6 L Hct 35.7 Plt Count 309 Sodium 140 Potassium 4.2 Chloride 103 Carbon Dioxide 28 BUN 17 Creatinine 1.2 Random Glucose 82 D Calcium 8.2 L Phosphorus 2.4 L D Magnesium 2.2 D Albumin 3.2 L Chest Mild expiratory wheezing No rhonchi Cor RRR No new murmur Abd Soft No mass or tenderness Ext No edema or phlebitis Marked tenderness to light touch Feet/toes not cool to touch Neuro As per end user consultant No clear focal deficit Decreased vibratory sensation below the knees Assessment and Plan Neuropathy Painful symmetrical peripheral neuropathy Increase Cymbalta Further neuro assessment as required Possible Pain Specialist assessment. 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
--- NOTE | 2016-07-14 12:22 | CONSULT ---
Consult Consult Specialty:: Neurology Reason for Consultation:: Peripheral neuropathy - History of Present Illness History of Present Illness: 55 year old man with history of peripheral neuropathy, gout, atrial fibrillation , [place] s/p stent, colon cancer status post resection, presented to ED with bilateral foot pain thought to be secondary to worsening neuropathy. Patient was recently admitted for CHF exacerbation and started on cymbalta 30 mg daily ( by Dr Pierre?) which seemed to alleviate his pain for a short while. Presents with worsening of symptoms to the point of pain with light touch. He states he had elevated hga1c and denies ever having a nerve conduction study or EMG as outpatient. Patient also reports lower back pain, worsening recently, limiting his activities of daily living. - Past Medical History Cardio/Vascular: Yes: CAD, CHF (/ cardiomyopathy), HTN, Hyperlipdemia Pulmonary: Yes: COPD Gastrointestinal: Yes: Other (gastritis) Hepatobiliary: Yes: Hepatitis C Musculoskeletal: Yes: Chronic low back pain (/ degenerative lumbar disc disease) - Past Surgical History Past Surgical History: Yes: Hernia Repair (umbilical), Joint Replacement (right elbow, right hip, left ankle) - Alcohol/Substance Use Hx Alcohol Use: No History of Substance Use: reports: None - Smoking History Smoking history: Current every day smoker Have you smoked in the past 12 months: No Aproximately how many cigarettes per day: 1 If you are a former smoker, when did you quit?: 0 - Social History ADL: Independent 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, 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 History of Recent Travel: No Home Medications - Allergies Allergies/Adverse Reactions: Allergies Allergy/AdvReac Type Severity Reaction Status Date / Time tomato Allergy Severe Verified 07/13/16 10:15 Beef Containing Products Allergy Verified 07/13/16 10:15 red dye Allergy Verified 07/13/16 10:15 - Home Medications Home Medications: Ambulatory Orders Omeprazole [Prilosec] 40 mg PO DAILY 06/23/14 Oxycodone HCl [Roxicodone] 30 mg PO Q6H PRN 07/24/14 Atorvastatin Ca [Lipitor] 10 mg PO HS 08/17/14 Lorazepam [Ativan] 1 mg PO TID PRN 10/29/15 Apixaban [Eliquis -] 5 mg PO BID 01/12/16 Docusate Sodium [Colace -] 100 mg PO DAILY 01/12/16 Escitalopram Oxalate [Lexapro -] 10 mg PO DAILY 01/12/16 Albuterol Sulfate Inhaler - [Ventolin HFA Inhaler -] 1 - 2 inh PO QID #1 inhaler 01/15/16 Ramipril [Altace] 10 mg PO DAILY #60 capsule 05/01/16 Alprazolam 0.25 mg PO BID PRN 07/02/16 Digoxin [Digitek] 125 mcg PO DAILY 07/02/16 Nitroglycerin Sublingual [Nitrostat -] 0.4 mg SL ONCE PRN 07/02/16 Oxycodone HCl/Acetaminophen [Percocet 10-325 mg Tablet] 1 each PO Q6H PRN Potassium Chloride 10 meq PO DAILY 07/02/16 Carvedilol [Coreg -] 25 mg PO BID #60 tablet 07/06/16 Duloxetine HCl [Cymbalta -] 30 mg PO DAILY #30 capsule. 07/06/16 Furosemide [Lasix -] 40 mg PO DAILY 07/13/16 Family Disease History - Family Disease History Family Disease History: Heart Disease: Father, CA: Mother, Brother (colon) Review of Systems - Review of Systems Constitutional: reports: No Symptoms Eyes: reports: No Symptoms HENT: reports: No Symptoms Neck: reports: No Symptoms Cardiovascular: reports: No Symptoms Respiratory: reports: No Symptoms Gastrointestinal: reports: No Symptoms Musculoskeletal: reports: Back Pain Neurological: reports: Other (bilateral foot pain) Physical Exam Vital Signs: Vital Signs Temperature 97.6 F 07/14/16 08:00 Pulse Rate 71 07/14/16 10:22 Respiratory Rate 18 07/14/16 08:00 Blood Pressure 131/76 07/14/16 08:00 O2 Sat by Pulse Oximetry (%) 97 07/13/16 21:00 Constitutional: Yes: Mild Distress Eyes: Yes: Conjunctiva Clear, EOM Intact HENT: Yes: Atraumatic, Normocephalic Neurological: Yes: Alert, Oriented, Cran Nerves II-XII Intact, Other ( Dysesthesias to touch in bilateral lower extremities Decreased vibratory sense bilateral lower extremities) ...Motor Strength: WNL Labs: CBC, BMP 07/14/16 07:00 07/14/16 07:00 Problem List - Problems (1) Foot pain, bilateral Code(s): M79.671 - PAIN IN RIGHT FOOT M79.672 - PAIN IN LEFT FOOT Assessment/Plan 55 year old man with history of peripheral neuropathy, gout, atrial fibrillation , [place] s/p stent, colon cancer status post resection, presented to ED with bilateral foot pain thought to be secondary to worsening neuropathy. Patient also reports lower back pain, worsening recently, limiting his activities of daily living. Impression Peripheral neuropathy Lower back pain Peripheral neuropathy Increase cymbalta to 60 mg daily Recent hga1c 6.3, will order TSH, B12, folate Slightly elevated lyme IgG in Jun 2015? - unclear of significance Lower back pain CT L/S spine without contrast Can consider pain management
[2016-07-14] MEDS: ATORVASTATIN CA 10 MG TABLET (FP) PO SCH (22:15)
[2016-07-15] MEDS: oxyCODONE HCL 5 MG TABLET PO PRN ×4 (04:07→22:09)
[2016-07-15 07:37] LABS: BASOPHIL 1.3 % (0-2.0); EOSINOPHIL 5.2 % (0-4.5); MCHC 29.9 g/dl (32.0-35.9); MEAN PLT VOLUME 8.7 fl (7.5-11.1); NEUTROPHILS 43.9 % (42.8-82.8); PLATELET COUNT 272 K/MM3 (134-434); RDW 22.2 % (11.9-15.9); WHITE BLOOD COUNT 4.5 K/mm3 (4.0-10.0)
[2016-07-15 07:40] LABS: MCH 18.5 pg (25.7-33.7)
[2016-07-15 08:19] LABS: ALBUMIN 3.4 g/dl (3.4-5.0); CALCIUM 8.7 mg/dL (8.5-10.1); URIC ACID 6.1 mg/dL (2.6-7.2)
[2016-07-15 08:21] LABS: BILIRUBIN,TOTAL 0.4 mg/dL (0.2-1.0); CREATININE 1.3 mg/dL (0.7-1.3); TOT PROT 6.7 g/dl (6.4-8.2)
[2016-07-15] MEDS ORDERED: PT OWN MED DRAWER 7, Y5N ONE ×2 (09:27→21:43)
[2016-07-15] MEDS: PANTOPRAZOLE 40 MG TABLET (FP) PO SCH (09:40)
[2016-07-15] MEDS: DIGOXIN 0.125 MG TABLET (FP) PO SCH (09:40)
[2016-07-15] MEDS: ESCITALOPRAM OXALATE 10 MG TABLET (FP) PO SCH (09:40)
[2016-07-15] MEDS: CARVEDILOL 25 MG TABLET (FP) PO SCH ×2 (09:40→21:44)
[2016-07-15] MEDS: FUROSEMIDE 40 MG TABLET (FP) PO SCH (09:40)
[2016-07-15] MEDS: POTASSIUM CHLORIDE TABS 10 MEQ TABLET.ER (FP) PO SCH (09:40)
[2016-07-15] MEDS: DOCUSATE SODIUM 100 MG CAPSULE (FP) PO SCH ×2 (09:40→21:44)
[2016-07-15] MEDS: ISOSORBIDE MONONITRATE 30 MG TAB.SR.24H (FP) PO SCH (09:41)
[2016-07-15] MEDS: RAMIPRIL 5 MG CAPSULE (FP) PO SCH (09:41)
[2016-07-15] MEDS: APIXABAN 5 MG TABLET PO SCH ×2 (09:41→21:44)
[2016-07-15] MEDS: DULoxetine HCL 30 MG CAPSULE.DR (FP) PO SCH (09:41)
[2016-07-15] MEDS: POLYETHYLENE GLYCOL 3350 119 GM BTL PO SCH (09:41)
--- NOTE | 2016-07-15 11:05 | PN ---
Progress Note (short form) - Note Progress Note: Patient seen and examined Chart reviewed. Complicated situation of severe painful and debilitating peripheral neuropathy previously treated with Cymbalta 30 mg w/o significant improvement. Currently lying supine in bed noting describing persistence of bilateral foot pain, perhaps slightly improved from yesterday. Denies new chest discomfort, palpitations, NATARAJAN or angina. Labs and notes reviewed. B-12 low. Uric acid level acceptable. Selected Entries 07/15/16 07/15/16 07/15/16 06:00 09:16 10:07 Temperature 97.8 F Pulse Rate 63 Respiratory 17 Rate Blood Pressure 125/50 O2 Sat by Pulse 98 Oximetry (%) Oxygen Delivery Room Air Method Weight 216 lb 8 oz Laboratory Tests 07/14/16 07/15/16 07/15/16 07:00 06:45 06:45 WBC 4.5 Hgb 10.9 L Hct 36.3 Plt Count 272 Sodium 141 Potassium 4.0 Chloride 103 Carbon Dioxide 31 BUN 16 Creatinine 1.3 Random Glucose 80 Uric Acid 6.1 D Calcium 8.7 Total Bilirubin 0.4 D AST 21 ALT 25 Alkaline Phosphatase 49 Total Protein 6.7 Albumin 3.4 Vitamin B12 201 D Chest Mild expiratory wheezing No rhonchi Cor RRR No new murmur Abd Soft No mass or tenderness Ext No edema or phlebitis Marked tenderness to light touch Feet/toes not cool to touch Neuro As per lead sales consultant No clear focal deficit Decreased vibratory sensation below the knees Assessment and Plan Neuropathy Painful symmetrical peripheral neuropathy Observe on increased Cymbalta. Further neuro assessment as required Possible Pain Specialist assessment. Review history for potential toxins Low B-12 noted. Anemia 10.6/35.7 Check ferrokinetics Low B-12 201 Order MMA amd Homocysteine and begin parenteral therapy ASHD/Congestive cardiomyopathy with CHF/PPM/Defibrillator Sees Dr Centeno HTN Stable HPL Stable H/O Hep C AFib Stable On Rx H/O DVT On Rx Gastritis Stable Hypocalcemia 8.2 corrected to 8.84 due to low albumin COPD Smoker Mild wheezing noted OA Low back pain Joint replacement therapy right elbow right hip, left ankle Gout Will hold colchicine due to possible interaction with carvedilol Uric acid level 6.1 which should be protective Colon cancer post resection H/O mild elevation of HBA1c 6.3 recheck H/O Positive IgG Lyme titre in the past Continue current Rx with increased Cymbalta dose
[2016-07-15] MEDS ORDERED: CYANOCOBALAMIN (VITAMIN B-12) 1000 MCG/1 ML VIAL IM SCH (11:45)
--- NOTE | 2016-07-15 12:28 | PN ---
Progress Note (short form) - Note Progress Note: History of Present Illness: 07/15 Continues to note lower back pain and peripheral neuropathy Started increased dose of cymbalta, too early to assess response CT L spine shows multilevel degenerative disc disease, L3-L4 central disc herniation, L5-S1 extruded disc fragment Discussed with patient findings, he states he has a neurosurg opinion in past but was not a good surgical candidate 55 year old man with history of peripheral neuropathy, gout, atrial fibrillation , [place] s/p stent, colon cancer status post resection, presented to ED with bilateral foot pain thought to be secondary to worsening neuropathy. Patient was recently admitted for CHF exacerbation and started on cymbalta 30 mg daily ( by Dr Pierre?) which seemed to alleviate his pain for a short while. Presents with worsening of symptoms to the point of pain with light touch. He states he had elevated hga1c and denies ever having a nerve conduction study or EMG as outpatient. Patient also reports lower back pain, worsening recently, limiting his activities of daily living. - Past Medical History Cardio/Vascular: Yes: CAD, CHF (/ cardiomyopathy), HTN, Hyperlipdemia Pulmonary: Yes: COPD Gastrointestinal: Yes: Other (gastritis) Hepatobiliary: Yes: Hepatitis C Musculoskeletal: Yes: Chronic low back pain (/ degenerative lumbar disc disease) - Past Surgical History Past Surgical History: Yes: Hernia Repair (umbilical), Joint Replacement (right elbow, right hip, left ankle) - Alcohol/Substance Use Hx Alcohol Use: No History of Substance Use: reports: None - Smoking History Smoking history: Current every day smoker Have you smoked in the past 12 months: No Aproximately how many cigarettes per day: 1 If you are a former smoker, when did you quit?: 0 - Social History ADL: Independent 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, 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 History of Recent Travel: No Home Medications - Allergies Allergies/Adverse Reactions: Allergies Allergy/AdvReac Type Severity Reaction Status Date / Time tomato Allergy Severe Verified 07/13/16 10:15 Beef Containing Products Allergy Verified 07/13/16 10:15 red dye Allergy Verified 07/13/16 10:15 - Home Medications Home Medications: Ambulatory Orders Omeprazole [Prilosec] 40 mg PO DAILY 06/23/14 Oxycodone HCl [Roxicodone] 30 mg PO Q6H PRN 02/07/15 Atorvastatin Ca [Lipitor] 10 mg PO HS 08/17/14 Lorazepam [Ativan] 1 mg PO TID PRN 10/29/15 Apixaban [Eliquis -] 5 mg PO BID 01/12/16 Docusate Sodium [Colace -] 100 mg PO DAILY 01/12/16 Escitalopram Oxalate [Lexapro -] 10 mg PO DAILY 01/12/16 Albuterol Sulfate Inhaler - [Ventolin HFA Inhaler -] 1 - 2 inh PO QID #1 inhaler 01/15/16 Ramipril [Altace] 10 mg PO DAILY #60 capsule 05/01/16 Alprazolam 0.25 mg PO BID PRN 07/02/16 Digoxin [Digitek] 125 mcg PO DAILY 07/02/16 Nitroglycerin Sublingual [Nitrostat -] 0.4 mg SL ONCE PRN 07/02/16 Oxycodone HCl/Acetaminophen [Percocet 10-325 mg Tablet] 1 each PO Q6H PRN Potassium Chloride 10 meq PO DAILY 07/02/16 Carvedilol [Coreg -] 25 mg PO BID #60 tablet 07/06/16 Duloxetine HCl [Cymbalta -] 30 mg PO DAILY #30 capsule. 07/06/16 Furosemide [Lasix -] 40 mg PO DAILY 07/13/16 Family Disease History - Family Disease History Family Disease History: Heart Disease: Father, [place]: Mother, Brother (colon) Review of Systems - Review of Systems Constitutional: reports: No Symptoms Eyes: reports: No Symptoms HENT: reports: No Symptoms Neck: reports: No Symptoms Cardiovascular: reports: No Symptoms Respiratory: reports: No Symptoms Gastrointestinal: reports: No Symptoms Musculoskeletal: reports: Back Pain Neurological: reports: Other (bilateral foot pain) Physical Exam Constitutional: Yes: Mild Distress Eyes: Yes: Conjunctiva Clear, EOM Intact HENT: Yes: Atraumatic, Normocephalic Neurological: Yes: Alert, Oriented, Cran Nerves II-XII Intact, Other ( Dysesthesias to touch in bilateral lower extremities Decreased vibratory sense bilateral lower extremities) ...Motor Strength: 5/5 bilateral UE, b/l LE limited by back pain Problem List - Problems (1) Foot pain, bilateral Code(s): M79.671 - PAIN IN RIGHT FOOT M79.672 - PAIN IN LEFT FOOT Assessment/Plan 55 year old man with history of peripheral neuropathy, gout, atrial fibrillation , [place] s/p stent, colon cancer status post resection, presented to ED with bilateral foot pain thought to be secondary to worsening neuropathy. Patient also reports lower back pain, worsening recently, limiting his activities of daily living. Impression Peripheral neuropathy Lower back pain Peripheral neuropathy Continue cymbalta 60 mg daily Recent hga1c 6.3, TSH pending Slightly elevated lyme IgG in Jun 2015? - unclear of significance Lower back pain CT L spine shows multilevel degenerative disc disease, L3-L4 central disc herniation, L5-S1 extruded disc fragment Discussed with patient findings, he states he has a neurosurg opinion in past but was not a good surgical candidate Recommend pain management to assess for any intervention Physical therapy Will follow Problem List - Problems (1) Foot pain, bilateral Code(s): M79.671 - PAIN IN RIGHT FOOT M79.672 - PAIN IN LEFT FOOT
[2016-07-15 13:46] LABS: THYROID STIMULATING HORMONE 3.99 uIU/ml (0.358-3.74)
[2016-07-15] MEDS: ATORVASTATIN CA 10 MG TABLET (FP) PO SCH (21:44)
[2016-07-16] MEDS: oxyCODONE HCL 5 MG TABLET PO PRN ×4 (04:01→21:41)
[2016-07-16 08:11] LABS: BASOPHIL 1.1 % (0-2.0); EOSINOPHIL 5.3 % (0-4.5); MCHC 29.8 g/dl (32.0-35.9); MEAN CELL VOLUME 62.2 fl (80-96); MEAN PLT VOLUME 8.7 fl (7.5-11.1); NEUTROPHILS 49.4 % (42.8-82.8); PLATELET COUNT 269 K/MM3 (134-434); RDW 21.8 % (11.9-15.9); WHITE BLOOD COUNT 5.2 K/mm3 (4.0-10.0)
[2016-07-16 08:13] LABS: MCH 18.5 pg (25.7-33.7)
[2016-07-16 08:55] LABS: ALBUMIN 3.4 g/dl (3.4-5.0); BILIRUBIN,TOTAL 0.4 mg/dL (0.2-1.0); CALCIUM 8.7 mg/dL (8.5-10.1); CREATININE 1.3 mg/dL (0.7-1.3); TOT PROT 6.6 g/dl (6.4-8.2)
[2016-07-16] MEDS ORDERED: PT OWN MED DRAWER 7, Y5N ONE (09:20)
[2016-07-16] MEDS: POTASSIUM CHLORIDE TABS 10 MEQ TABLET.ER (FP) PO SCH (09:24)
[2016-07-16] MEDS: ESCITALOPRAM OXALATE 10 MG TABLET (FP) PO SCH (09:24)
[2016-07-16] MEDS: FUROSEMIDE 40 MG TABLET (FP) PO SCH (09:24)
[2016-07-16] MEDS: APIXABAN 5 MG TABLET PO SCH ×2 (09:24→21:39)
[2016-07-16] MEDS: ISOSORBIDE MONONITRATE 30 MG TAB.SR.24H (FP) PO SCH (09:25)
[2016-07-16] MEDS: DULoxetine HCL 30 MG CAPSULE.DR (FP) PO SCH (09:25)
[2016-07-16] MEDS: RAMIPRIL 5 MG CAPSULE (FP) PO SCH (09:25)
[2016-07-16] MEDS: DIGOXIN 0.125 MG TABLET (FP) PO SCH (09:25)
[2016-07-16] MEDS: DOCUSATE SODIUM 100 MG CAPSULE (FP) PO SCH ×2 (09:25→21:40)
[2016-07-16] MEDS: CYANOCOBALAMIN (VITAMIN B-12) 1000 MCG/1 ML VIAL IM SCH (09:25)
[2016-07-16] MEDS: CARVEDILOL 25 MG TABLET (FP) PO SCH ×2 (09:26→21:39)
[2016-07-16] MEDS: PANTOPRAZOLE 40 MG TABLET (FP) PO SCH (09:26)
[2016-07-16] MEDS: POLYETHYLENE GLYCOL 3350 119 GM BTL PO SCH (09:26)
--- NOTE | 2016-07-16 11:49 | PN ---
Progress Note, Physician Chief Complaint: Mr Roberts says the pain is better with the increased cymbalta but he is still having trouble walking secondary to the pain. No cp, sob, n/v. - Current Medication List Current Medications: Active Medications Albuterol Sulfate (Ventolin Hfa Inhaler -) 2 puff IH QID PRN PRN Reason: SHORTNESS OF BREATH Albuterol Sulfate (Ventolin Hfa Inhaler -) 1 puff IH QID PRN Alprazolam (Xanax -) 0.25 mg PO BID PRN PRN Reason: ANXIETY Apixaban (Eliquis -) 5 mg PO BID [facility] Last Admin: 07/16/16 09:24 Dose: 5 mg Atorvastatin Calcium (Lipitor -) 10 mg PO HS [facility] Last Admin: 07/15/16 21:44 Dose: 10 mg Carvedilol (Coreg -) 25 mg PO BID [facility] Last Admin: 07/16/16 09:26 Dose: 25 mg Cyanocobalamin (Vitamin B12 Injection -) 1,000 mcg IM DAILY [facility] Last Admin: 07/16/16 09:25 Dose: 1,000 mcg Digoxin (Lanoxin -) 0.125 mg PO DAILY [facility] Last Admin: 07/16/16 09:25 Dose: 0.125 mg Docusate Sodium (Colace -) 100 mg PO BID [facility] Last Admin: 07/16/16 09:25 Dose: 100 mg Duloxetine HCl (Cymbalta -) 60 mg PO DAILY [facility] Last Admin: 07/16/16 09:25 Dose: 60 mg Escitalopram Oxalate (Lexapro -) 10 mg PO DAILY [facility] Last Admin: 07/16/16 09:24 Dose: 10 mg Furosemide (Lasix -) 40 mg PO DAILY [facility] Last Admin: 07/16/16 09:24 Dose: 40 mg Isosorbide Mononitrate (Imdur -) 30 mg PO DAILY [facility] Last Admin: 07/16/16 09:25 Dose: 30 mg Ondansetron HCl (Zofran Injection) 4 mg IVPB Q6H PRN PRN Reason: NAUSEA Oxycodone HCl (Roxicodone -) 30 mg PO Q6H PRN PRN Reason: PAIN Last Admin: 07/16/16 09:24 Dose: 30 mg Pantoprazole Sodium (Protonix -) 40 mg PO DAILY [facility] Last Admin: 07/16/16 09:26 Dose: 40 mg Polyethylene Glycol (Miralax (For Daily Use) -) 17 gm PO DAILY [facility] Last Admin: 07/16/16 09:26 Dose: 17 grams Potassium Chloride (K-Dur -) 10 meq PO DAILY [facility] Last Admin: 07/16/16 09:24 Dose: 10 meq Ramipril (Altace -) 10 mg PO DAILY [facility] Last Admin: 07/16/16 09:25 Dose: 10 mg - Objective Vital Signs: Vital Signs Temperature 97.9 F 07/16/16 10:00 Pulse Rate 66 07/16/16 10:00 Respiratory Rate 16 07/16/16 10:00 Blood Pressure 126/84 07/16/16 10:00 O2 Sat by Pulse Oximetry (%) 98 07/15/16 20:24 Constitutional: Yes: Well Nourished, No Distress, Calm Cardiovascular: Yes: Pulse Irregular. No: Tachycardia, Gallop, Murmur, Rub Respiratory: Yes: Regular, CTA Bilaterally. No: Rales, Rhonchi, Wheezes Gastrointestinal: Yes: Normal Bowel Sounds, Soft. No: Distention, Tenderness Extremities: Yes: WNL Edema: No Labs: CBC, BMP 07/16/16 07:15 07/16/16 07:15 INR, PTT INR 1.19 (0.82-1.09) H 07/13/16 11:30 Problem List - Problems (1) Neuropathy Code(s): G62.9 - POLYNEUROPATHY, UNSPECIFIED (2) Atrial fibrillation Code(s): I48.91 - UNSPECIFIED ATRIAL FIBRILLATION Qualifiers: Atrial fibrillation type: chronic Qualified Code(s): I48.2 - Chronic atrial fibrillation (3) CAD (coronary artery disease) Code(s): I25.10 - ATHSCL HEART DISEASE OF [place] CORONARY ARTERY W/O ANG PCTRS (4) CHF (congestive heart failure) Code(s): I50.9 - HEART FAILURE, UNSPECIFIED Qualifiers: Congestive heart failure type: unspecified congestive heart failure type Congestive heart failure chronicity: acute on chronic Qualified Code(s ): I50.9 - Heart failure, unspecified (5) COPD (chronic obstructive pulmonary disease) Code(s): J44.9 - CHRONIC OBSTRUCTIVE PULMONARY DISEASE, UNSPECIFIED (6) DVT (deep venous thrombosis) Code(s): I82.409 - ACUTE EMBOLISM AND THOMBOS UNSP DEEP VN UNSP LOWER EXTREMITY (7) HTN (hypertension) Code(s): I10 - ESSENTIAL (PRIMARY) HYPERTENSION (8) Hyperlipidemia Code(s): E78.5 - HYPERLIPIDEMIA, UNSPECIFIED (9) Low back pain Code(s): M54.5 - LOW BACK PAIN Qualifiers: Chronicity: chronic Back pain laterality: unspecified Sciatica presence: without sciatica Qualified Code(s): M54.5 - Low back pain Assessment/Plan (1) Neuropathy Assessment/Plan: -improved, but still significant -will continue increased cymbalta -pain management consult Code(s): G62.9 - POLYNEUROPATHY, UNSPECIFIED (2) Atrial fibrillation Assessment/Plan: -continue coreg, digoxin, eliquis -no need for telemetry currently Code(s): I48.91 - UNSPECIFIED ATRIAL FIBRILLATION Qualifiers: Atrial fibrillation type: chronic Qualified Code(s): I48.2 - Chronic atrial fibrillation (3) CAD (coronary artery disease) Assessment/Plan: -quiescent -continue home regimen Code(s): I25.10 - ATHSCL HEART DISEASE OF [place] CORONARY ARTERY W/O ANG PCTRS (4) CHF (congestive heart failure) Assessment/Plan: -continue lasix -not in exacerbation Code(s): I50.9 - HEART FAILURE, UNSPECIFIED Qualifiers: Congestive heart failure type: unspecified congestive heart failure type Congestive heart failure chronicity: acute on chronic Qualified Code(s ): I50.9 - Heart failure, unspecified (5) COPD (chronic obstructive pulmonary disease) Assessment/Plan: -stable Code(s): J44.9 - CHRONIC OBSTRUCTIVE PULMONARY DISEASE, UNSPECIFIED (6) DVT (deep venous thrombosis) Assessment/Plan: -continue eliquis Code(s): I82.409 - ACUTE EMBOLISM AND [place]OMBOS UNSP DEEP VN UNSP LOWER EXTREMITY (7) HTN (hypertension) Assessment/Plan: -continue altace and coreg Code(s): I10 - ESSENTIAL (PRIMARY) HYPERTENSION (8) Hyperlipidemia Assessment/Plan: -continue statin Code(s): E78.5 - HYPERLIPIDEMIA, UNSPECIFIED (9) Low back pain Assessment/Plan: -continue home regimen -pain management consult placed Code(s): M54.5 - LOW BACK PAIN Qualifiers: Chronicity: chronic Back pain laterality: unspecified Sciatica presence: without sciatica Qualified Code(s): M54.5 - Low back pain
[2016-07-16] MEDS ORDERED: DEXAMETHASONE SOD PHOSPHATE 4 MG/1 ML VIAL IVPB ONE (16:18)
--- NOTE | 2016-07-16 16:18 | PN ---
Progress Note, Physician Chief Complaint: back pain, legs pain, left ankle pain - Current Medication List Current Medications: Active Medications Albuterol Sulfate (Ventolin Hfa Inhaler -) 2 puff IH QID PRN PRN Reason: SHORTNESS OF BREATH Albuterol Sulfate (Ventolin Hfa Inhaler -) 1 puff IH QID PRN Alprazolam (Xanax -) 0.25 mg PO BID PRN PRN Reason: ANXIETY Apixaban (Eliquis -) 5 mg PO BID [facility] Last Admin: 07/16/16 09:24 Dose: 5 mg Atorvastatin Calcium (Lipitor -) 10 mg PO HS [facility] Last Admin: 07/15/16 21:44 Dose: 10 mg Carvedilol (Coreg -) 25 mg PO BID [facility] Last Admin: 07/16/16 09:26 Dose: 25 mg Cyanocobalamin (Vitamin B12 Injection -) 1,000 mcg IM DAILY [facility] Last Admin: 07/16/16 09:25 Dose: 1,000 mcg Digoxin (Lanoxin -) 0.125 mg PO DAILY [facility] Last Admin: 07/16/16 09:25 Dose: 0.125 mg Docusate Sodium (Colace -) 100 mg PO BID [facility] Last Admin: 07/16/16 09:25 Dose: 100 mg Duloxetine HCl (Cymbalta -) 60 mg PO DAILY [facility] Last Admin: 07/16/16 09:25 Dose: 60 mg Escitalopram Oxalate (Lexapro -) 10 mg PO DAILY [facility] Last Admin: 07/16/16 09:24 Dose: 10 mg Furosemide (Lasix -) 40 mg PO DAILY [facility] Last Admin: 07/16/16 09:24 Dose: 40 mg Isosorbide Mononitrate (Imdur -) 30 mg PO DAILY [facility] Last Admin: 07/16/16 09:25 Dose: 30 mg Ondansetron HCl (Zofran Injection) 4 mg IVPB Q6H PRN PRN Reason: NAUSEA Oxycodone HCl (Roxicodone -) 30 mg PO Q6H PRN PRN Reason: PAIN Last Admin: 07/16/16 15:47 Dose: 30 mg Pantoprazole Sodium (Protonix -) 40 mg PO DAILY [facility] Last Admin: 07/16/16 09:26 Dose: 40 mg Polyethylene Glycol (Miralax (For Daily Use) -) 17 gm PO DAILY [facility] Last Admin: 07/16/16 09:26 Dose: 17 grams Potassium Chloride (K-Dur -) 10 meq PO DAILY [facility] Last Admin: 07/16/16 09:24 Dose: 10 meq Ramipril (Altace -) 10 mg PO DAILY [facility] Last Admin: 07/16/16 09:25 Dose: 10 mg - Objective Vital Signs: Vital Signs Temperature 97.7 F 07/16/16 14:59 Pulse Rate 71 07/16/16 14:59 Respiratory Rate 19 07/16/16 14:59 Blood Pressure 118/72 07/16/16 14:59 O2 Sat by Pulse Oximetry (%) 98 07/15/16 20:24 Constitutional: Yes: No Distress, Calm Eyes: Yes: Conjunctiva Clear, EOM Intact, PERRL HENT: Yes: Atraumatic, Normocephalic Neck: Yes: Supple, Trachea Midline Cardiovascular: Yes: Regular Rate and Rhythm Respiratory: Yes: Regular, CTA Bilaterally Gastrointestinal: Yes: Normal Bowel Sounds, Soft Genitourinary: Yes: WNL Breast(s): Yes: WNL Musculoskeletal: Yes: Joint Stiffness, Joint Swelling (left ankle swelling, pain ), Muscle Weakness Extremities: Yes: WNL Edema: Yes Edema: LLE: 2+ Peripheral Pulses WNL: Yes Peripheral Pulses: Left Radial: 1+, Right Radial: 1+ Neurological: Yes: Alert, Oriented, Babinski negative, Cran Nerves II-XII Intact , Paresthesia, Tingling, Weakness, Other (back pain radiating down to his ankles. raising leg + at 35* bilaterally. increased muscle tone paraspinal lumbar) ...Motor Strength: WNL Psychiatric: Yes: Alert, Oriented Labs: CBC, BMP 07/16/16 07:15 07/16/16 07:15 INR, PTT INR 1.19 (0.82-1.09) H 07/13/16 11:30 - ....Imaging Cat Scan: Report Reviewed, Image Reviewed Problem List - Problems (1) Foot pain, bilateral Code(s): M79.671 - PAIN IN RIGHT FOOT M79.672 - PAIN IN LEFT FOOT (2) Gout Code(s): M10.9 - GOUT, UNSPECIFIED (3) Gout of ankle Code(s): M10.9 - GOUT, UNSPECIFIED (4) Lumbar back pain with radiculopathy affecting left lower extremity Code(s): M54.17 - RADICULOPATHY, LUMBOSACRAL REGION (5) Lumbar back pain with radiculopathy affecting right lower extremity Code(s): M54.17 - RADICULOPATHY, LUMBOSACRAL REGION Assessment/Plan 55 year old man with history of peripheral neuropathy, gout, DM, atrial fibrillation, CA s/p stent, colon cancer status post resection, presented to ED with bilateral foot pain thought to be secondary to worsening neuropathy. Patient was recently admitted for CHF exacerbation and started on cymbalta 30 mg daily. which seemed to alleviate his pain for a short while. Presents with worsening of symptoms to the point of pain with light touch. He states he had elevated hga1c and denies ever having a nerve conduction study or EMG as outpatient.Continues to have, arthritic pain, left ankle pain, lower back pain and peripheral neuropathy burning pain in his feet. CT L spine shows multilevel degenerative disc disease, L3-L4 central disc herniation, L5-S1 extruded disc fragment Discussed with patient findings, he states he has a neurosurg opinion in past but was not a good surgical candidate Impression: back pain with lumbar radiculopathy, peripheral neuropathy pain, left ankle arthritic gout pain. Plan: - consult for possible epidural lumbar injection, left ankle injection - check uric acid, X ray left ankle. - to start treating gout. - decadron 12.5mg. ivx1, start NSAIDS, muscle relaxants Flexeril. Continues Cymbalta 60mg. po qd - follow up as outpatient in the Neurology office for his back pain - PT/OT as outpatient. Thank you for this consult.
[2016-07-16] MEDS: ATORVASTATIN CA 10 MG TABLET (FP) PO SCH (21:40)
[2016-07-16] MEDS: CYCLOBENZAPRINE HCL 10 MG TABLET (FP) PO PRN (21:43)
[2016-07-17] MEDS: ALPRAZolam 0.25 MG TABLET PO PRN ×2 (00:49→09:58)
[2016-07-17] MEDS: oxyCODONE HCL 5 MG TABLET PO PRN ×3 (06:45→18:50)
[2016-07-17] MEDS ORDERED: PT OWN MED DRAWER 7, Y5N ONE ×2 (09:21→21:13)
[2016-07-17] MEDS: DIGOXIN 0.125 MG TABLET (FP) PO SCH (09:22)
[2016-07-17] MEDS: DULoxetine HCL 30 MG CAPSULE.DR (FP) PO SCH (09:22)
[2016-07-17] MEDS: PANTOPRAZOLE 40 MG TABLET (FP) PO SCH (09:22)
[2016-07-17] MEDS: POTASSIUM CHLORIDE TABS 10 MEQ TABLET.ER (FP) PO SCH (09:22)
[2016-07-17] MEDS: RAMIPRIL 5 MG CAPSULE (FP) PO SCH (09:22)
[2016-07-17] MEDS: ISOSORBIDE MONONITRATE 30 MG TAB.SR.24H (FP) PO SCH (09:22)
[2016-07-17] MEDS: FUROSEMIDE 40 MG TABLET (FP) PO SCH (09:22)
[2016-07-17] MEDS: APIXABAN 5 MG TABLET PO SCH ×2 (09:22→22:07)
[2016-07-17] MEDS: CARVEDILOL 25 MG TABLET (FP) PO SCH ×2 (09:22→22:07)
[2016-07-17] MEDS: POLYETHYLENE GLYCOL 3350 119 GM BTL PO SCH (09:22)
[2016-07-17] MEDS: ESCITALOPRAM OXALATE 10 MG TABLET (FP) PO SCH (09:22)
[2016-07-17] MEDS: DOCUSATE SODIUM 100 MG CAPSULE (FP) PO SCH ×2 (09:22→22:07)
[2016-07-17] MEDS: CYANOCOBALAMIN (VITAMIN B-12) 1000 MCG/1 ML VIAL IM SCH (09:23)
[2016-07-17] MEDS: CYCLOBENZAPRINE HCL 10 MG TABLET (FP) PO PRN (09:58)
--- NOTE | 2016-07-17 12:33 | PN ---
Progress Note, Physician Chief Complaint: Mr Roberts says he is still having significant pain. No cp, sob, n/v. - Current Medication List Current Medications: Active Medications Albuterol Sulfate (Ventolin Hfa Inhaler -) 2 puff IH QID PRN PRN Reason: SHORTNESS OF BREATH Albuterol Sulfate (Ventolin Hfa Inhaler -) 1 puff IH QID PRN Alprazolam (Xanax -) 0.25 mg PO BID PRN PRN Reason: ANXIETY Last Admin: 07/17/16 09:58 Dose: 0.25 mg Apixaban (Eliquis -) 5 mg PO BID [facility] Last Admin: 07/17/16 09:22 Dose: 5 mg Atorvastatin Calcium (Lipitor -) 10 mg PO HS [facility] Last Admin: 07/16/16 21:40 Dose: 10 mg Carvedilol (Coreg -) 25 mg PO BID [facility] Last Admin: 07/17/16 09:22 Dose: 25 mg Cyanocobalamin (Vitamin B12 Injection -) 1,000 mcg IM DAILY [facility] Last Admin: 07/17/16 09:23 Dose: 1,000 mcg Cyclobenzaprine HCl (Flexeril -) 5 mg PO TID PRN PRN Reason: BACK PAIN Last Admin: 07/17/16 09:58 Dose: 5 mg Digoxin (Lanoxin -) 0.125 mg PO DAILY [facility] Last Admin: 07/17/16 09:22 Dose: 0.125 mg Docusate Sodium (Colace -) 100 mg PO BID [facility] Last Admin: 07/17/16 09:22 Dose: 100 mg Duloxetine HCl (Cymbalta -) 60 mg PO DAILY [facility] Last Admin: 07/17/16 09:22 Dose: 60 mg Escitalopram Oxalate (Lexapro -) 10 mg PO DAILY [facility] Last Admin: 07/17/16 09:22 Dose: 10 mg Furosemide (Lasix -) 40 mg PO DAILY [facility] Last Admin: 07/17/16 09:22 Dose: 40 mg Isosorbide Mononitrate (Imdur -) 30 mg PO DAILY [facility] Last Admin: 07/17/16 09:22 Dose: 30 mg Ondansetron HCl (Zofran Injection) 4 mg IVPB Q6H PRN PRN Reason: NAUSEA Oxycodone HCl (Roxicodone -) 30 mg PO Q6H PRN PRN Reason: PAIN Last Admin: 07/17/16 06:45 Dose: 30 mg Pantoprazole Sodium (Protonix -) 40 mg PO DAILY [facility] Last Admin: 07/17/16 09:22 Dose: 40 mg Polyethylene Glycol (Miralax (For Daily Use) -) 17 gm PO DAILY [facility] Last Admin: 07/17/16 09:22 Dose: 17 grams Potassium Chloride (K-Dur -) 10 meq PO DAILY [facility] Last Admin: 07/17/16 09:22 Dose: 10 meq Ramipril (Altace -) 10 mg PO DAILY [facility] Last Admin: 07/17/16 09:22 Dose: 10 mg - Objective Vital Signs: Vital Signs Temperature 97.9 F 07/17/16 02:05 Pulse Rate 75 07/17/16 09:22 Respiratory Rate 20 07/17/16 02:05 Blood Pressure 118/74 07/17/16 02:05 O2 Sat by Pulse Oximetry (%) 98 07/16/16 20:20 Constitutional: Yes: Well Nourished, No Distress, Calm Cardiovascular: Yes: Pulse Irregular. No: Tachycardia, Gallop, Murmur, Rub Respiratory: Yes: Regular, CTA Bilaterally. No: Rales, Rhonchi, Wheezes Gastrointestinal: Yes: Normal Bowel Sounds, Soft. No: Distention, Tenderness Extremities: Yes: WNL Edema: No Labs: CBC, BMP 07/16/16 07:15 07/16/16 07:15 INR, PTT INR 1.19 (0.82-1.09) H 07/13/16 11:30 Problem List - Problems (1) Neuropathy Code(s): G62.9 - POLYNEUROPATHY, UNSPECIFIED (2) Atrial fibrillation Code(s): I48.91 - UNSPECIFIED ATRIAL FIBRILLATION Qualifiers: Atrial fibrillation type: chronic Qualified Code(s): I48.2 - Chronic atrial fibrillation (3) CAD (coronary artery disease) Code(s): I25.10 - ATHSCL HEART DISEASE OF [place] CORONARY ARTERY W/O ANG PCTRS (4) CHF (congestive heart failure) Code(s): I50.9 - HEART FAILURE, UNSPECIFIED Qualifiers: Congestive heart failure type: unspecified congestive heart failure type Congestive heart failure chronicity: acute on chronic Qualified Code(s ): I50.9 - Heart failure, unspecified (5) COPD (chronic obstructive pulmonary disease) Code(s): J44.9 - CHRONIC OBSTRUCTIVE PULMONARY DISEASE, UNSPECIFIED (6) DVT (deep venous thrombosis) Code(s): I82.409 - ACUTE EMBOLISM AND THOMBOS UNSP DEEP VN UNSP LOWER EXTREMITY (7) HTN (hypertension) Code(s): I10 - ESSENTIAL (PRIMARY) HYPERTENSION (8) Hyperlipidemia Code(s): E78.5 - HYPERLIPIDEMIA, UNSPECIFIED (9) Low back pain Code(s): M54.5 - LOW BACK PAIN Qualifiers: Chronicity: chronic Back pain laterality: unspecified Sciatica presence: without sciatica Qualified Code(s): M54.5 - Low back pain Assessment/Plan (1) Neuropathy Assessment/Plan: -improved, but still significant -will continue increased cymbalta -pain management consulted, awaiting evaluation and recommendations -neurology note reviewed Code(s): G62.9 - POLYNEUROPATHY, UNSPECIFIED (2) Atrial fibrillation Assessment/Plan: -continue coreg, digoxin, eliquis -no need for telemetry currently Code(s): I48.91 - UNSPECIFIED ATRIAL FIBRILLATION Qualifiers: Atrial fibrillation type: chronic Qualified Code(s): I48.2 - Chronic atrial fibrillation (3) CAD (coronary artery disease) Assessment/Plan: -quiescent -continue home regimen Code(s): I25.10 - ATHSCL HEART DISEASE OF [place] CORONARY ARTERY W/O ANG PCTRS (4) CHF (congestive heart failure) Assessment/Plan: -continue lasix -not in exacerbation Code(s): I50.9 - HEART FAILURE, UNSPECIFIED Qualifiers: Congestive heart failure type: unspecified congestive heart failure type Congestive heart failure chronicity: acute on chronic Qualified Code(s ): I50.9 - Heart failure, unspecified (5) COPD (chronic obstructive pulmonary disease) Assessment/Plan: -stable Code(s): J44.9 - CHRONIC OBSTRUCTIVE PULMONARY DISEASE, UNSPECIFIED (6) DVT (deep venous thrombosis) Assessment/Plan: -continue eliquis Code(s): I82.409 - ACUTE EMBOLISM AND THOMBOS UNSP DEEP VN UNSP LOWER EXTREMITY (7) HTN (hypertension) Assessment/Plan: -continue altace and coreg Code(s): I10 - ESSENTIAL (PRIMARY) HYPERTENSION (8) Hyperlipidemia Assessment/Plan: -continue statin Code(s): E78.5 - HYPERLIPIDEMIA, UNSPECIFIED (9) Low back pain Assessment/Plan: -continue home regimen -pain management consult placed Code(s): M54.5 - LOW BACK PAIN Qualifiers: Chronicity: chronic Back pain laterality: unspecified Sciatica presence: without sciatica Qualified Code(s): M54.5 - Low back pain
--- NOTE | 2016-07-17 16:02 | CONSULT ---
Consult - text type - Consultation Consultation Note: CC: Bilateral foot pain HPI: This is a 55 yo man with history of peripheral neuropathy, CAD, CHF, Gout who was admitted to the hospital with an acute worsening in bilateral foot pain. He reports having had prior foot pain but it was manageable with Cymbalta , which was recently started after he was admitted for CHF exacerbation. He currently reports bilateral ankle and foot pain along with hypersensitivity. He denies having had any diagnostic workup for neuropathy. He currently takes oxycodone 30mg QID for lower back pain, which is managed by his PCP. PMH: CAD, CHF, ND, Gout, Peripheral neuropathy CT L Spine: Multilevel DDD, more pronounced at L4/5 and L5/S1. PE: Hypersensitivity to touch at the ankle joints and feet bilaterally. No significant swelling noted in legs. A: 1. His pain appears to be neuropathic in nature. He currently denies any significant lower back pain. Continue Oxycodone for now. 2. Continue Cymbalta for now. 3. Recommend starting Gabapentin at 300mg BID as it may help the neuropathic pain via a different mechanism of action. 4. Hold off on any interventions for lower back pain as his pain is mostly neuropathic. 5. Thank you for the consult. Please call with questions.
[2016-07-17] MEDS: ATORVASTATIN CA 10 MG TABLET (FP) PO SCH (22:07)
[2016-07-18] MEDS: oxyCODONE HCL 5 MG TABLET PO PRN ×4 (00:32→21:37)
[2016-07-18 08:04] LABS: BASOPHIL 0.5 % (0-2.0); EOSINOPHIL 1.2 % (0-4.5); MCHC 30.2 g/dl (32.0-35.9); MEAN CELL VOLUME 61.1 fl (80-96); MEAN PLT VOLUME 8.4 fl (7.5-11.1); NEUTROPHILS 65.4 % (42.8-82.8); PLATELET COUNT 274 K/MM3 (134-434); RDW 20.8 % (11.9-15.9); WHITE BLOOD COUNT 8.2 K/mm3 (4.0-10.0)
[2016-07-18 08:09] LABS: MCH 18.4 pg (25.7-33.7)
[2016-07-18 08:27] LABS: CALCIUM 8.9 mg/dL (8.5-10.1); CREATININE 1.2 mg/dL (0.7-1.3); PHOSPHOROUS 3.2 mg/dL (2.5-4.9)
[2016-07-18] MEDS ORDERED: PT OWN MED DRAWER 7, Y5N ONE ×2 (09:18→21:09)
[2016-07-18] MEDS: CYANOCOBALAMIN (VITAMIN B-12) 1000 MCG/1 ML VIAL IM SCH (09:21)
[2016-07-18] MEDS: POTASSIUM CHLORIDE TABS 10 MEQ TABLET.ER (FP) PO SCH (09:21)
[2016-07-18] MEDS: RAMIPRIL 5 MG CAPSULE (FP) PO SCH (09:21)
[2016-07-18] MEDS: DULoxetine HCL 30 MG CAPSULE.DR (FP) PO SCH (09:22)
[2016-07-18] MEDS: FUROSEMIDE 40 MG TABLET (FP) PO SCH (09:22)
[2016-07-18] MEDS: ESCITALOPRAM OXALATE 10 MG TABLET (FP) PO SCH (09:22)
[2016-07-18] MEDS: ISOSORBIDE MONONITRATE 30 MG TAB.SR.24H (FP) PO SCH (09:22)
[2016-07-18] MEDS: APIXABAN 5 MG TABLET PO SCH ×2 (09:22→21:39)
[2016-07-18] MEDS: PANTOPRAZOLE 40 MG TABLET (FP) PO SCH (09:22)
[2016-07-18] MEDS: DIGOXIN 0.125 MG TABLET (FP) PO SCH (09:22)
[2016-07-18] MEDS: DOCUSATE SODIUM 100 MG CAPSULE (FP) PO SCH ×2 (09:22→21:39)
[2016-07-18] MEDS: CARVEDILOL 25 MG TABLET (FP) PO SCH ×2 (09:22→21:38)
[2016-07-18] MEDS: POLYETHYLENE GLYCOL 3350 119 GM BTL PO SCH (09:26)
--- NOTE | 2016-07-18 15:46 | PN ---
Progress Note, Physician Chief Complaint: Mr Roberts says he is still having significant pain but improved. No cp, sob, n/ v. - Current Medication List Current Medications: Active Medications Albuterol Sulfate (Ventolin Hfa Inhaler -) 2 puff IH QID PRN PRN Reason: SHORTNESS OF BREATH Albuterol Sulfate (Ventolin Hfa Inhaler -) 1 puff IH QID PRN Alprazolam (Xanax -) 0.25 mg PO BID PRN PRN Reason: ANXIETY Last Admin: 07/17/16 09:58 Dose: 0.25 mg Apixaban (Eliquis -) 5 mg PO BID [facility] Last Admin: 07/18/16 09:22 Dose: 5 mg Atorvastatin Calcium (Lipitor -) 10 mg PO HS [facility] Last Admin: 07/17/16 22:07 Dose: 10 mg Carvedilol (Coreg -) 25 mg PO BID [facility] Last Admin: 07/18/16 09:22 Dose: 25 mg Cyanocobalamin (Vitamin B12 Injection -) 1,000 mcg IM DAILY [facility] Last Admin: 07/18/16 09:21 Dose: 1,000 mcg Cyclobenzaprine HCl (Flexeril -) 5 mg PO TID PRN PRN Reason: BACK PAIN Last Admin: 07/17/16 09:58 Dose: 5 mg Digoxin (Lanoxin -) 0.125 mg PO DAILY [facility] Last Admin: 07/18/16 09:22 Dose: 0.125 mg Docusate Sodium (Colace -) 100 mg PO BID [facility] Last Admin: 07/18/16 09:22 Dose: 100 mg Duloxetine HCl (Cymbalta -) 60 mg PO DAILY [facility] Last Admin: 07/18/16 09:22 Dose: 60 mg Escitalopram Oxalate (Lexapro -) 10 mg PO DAILY [facility] Last Admin: 07/18/16 09:22 Dose: 10 mg Furosemide (Lasix -) 40 mg PO DAILY [facility] Last Admin: 07/18/16 09:22 Dose: 40 mg Gabapentin (Neurontin -) 300 mg PO BID [facility] Isosorbide Mononitrate (Imdur -) 30 mg PO DAILY [facility] Last Admin: 07/18/16 09:22 Dose: 30 mg Ondansetron HCl (Zofran Injection) 4 mg IVPB Q6H PRN PRN Reason: NAUSEA Oxycodone HCl (Roxicodone -) 30 mg PO Q6H PRN PRN Reason: PAIN Last Admin: 07/18/16 07:52 Dose: 30 mg Pantoprazole Sodium (Protonix -) 40 mg PO DAILY [facility] Last Admin: 07/18/16 09:22 Dose: 40 mg Polyethylene Glycol (Miralax (For Daily Use) -) 17 gm PO DAILY [facility] Last Admin: 07/18/16 09:26 Dose: 17 grams Potassium Chloride (K-Dur -) 10 meq PO DAILY [facility] Last Admin: 07/18/16 09:21 Dose: 10 meq Ramipril (Altace -) 10 mg PO DAILY [facility] Last Admin: 07/18/16 09:21 Dose: 10 mg - Objective Vital Signs: Vital Signs Temperature 97.9 F 07/18/16 13:47 Pulse Rate 72 07/18/16 13:47 Respiratory Rate 20 07/18/16 13:47 Blood Pressure 152/77 07/18/16 08:19 O2 Sat by Pulse Oximetry (%) 98 07/18/16 09:00 Constitutional: Yes: Well Nourished, No Distress, Calm Cardiovascular: Yes: Pulse Irregular. No: Gallop, Murmur, Rub Respiratory: Yes: Regular, CTA Bilaterally. No: Rales, Rhonchi, Wheezes Gastrointestinal: Yes: Normal Bowel Sounds, Soft. No: Distention, Tenderness Extremities: Yes: WNL Edema: No Labs: CBC, BMP 07/18/16 07:15 07/18/16 07:15 INR, PTT INR 1.19 (0.82-1.09) H 07/13/16 11:30 Problem List - Problems (1) Neuropathy Code(s): G62.9 - POLYNEUROPATHY, UNSPECIFIED (2) Atrial fibrillation Code(s): I48.91 - UNSPECIFIED ATRIAL FIBRILLATION Qualifiers: Atrial fibrillation type: chronic Qualified Code(s): I48.2 - Chronic atrial fibrillation (3) CAD (coronary artery disease) Code(s): I25.10 - ATHSCL HEART DISEASE OF [place] CORONARY ARTERY W/O ANG PCTRS (4) CHF (congestive heart failure) Code(s): I50.9 - HEART FAILURE, UNSPECIFIED Qualifiers: Congestive heart failure type: unspecified congestive heart failure type Congestive heart failure chronicity: acute on chronic Qualified Code(s ): I50.9 - Heart failure, unspecified (5) COPD (chronic obstructive pulmonary disease) Code(s): J44.9 - CHRONIC OBSTRUCTIVE PULMONARY DISEASE, UNSPECIFIED (6) DVT (deep venous thrombosis) Code(s): I82.409 - ACUTE EMBOLISM AND THOMBOS UNSP DEEP VN UNSP LOWER EXTREMITY (7) HTN (hypertension) Code(s): I10 - ESSENTIAL (PRIMARY) HYPERTENSION (8) Hyperlipidemia Code(s): E78.5 - HYPERLIPIDEMIA, UNSPECIFIED (9) Low back pain Code(s): M54.5 - LOW BACK PAIN Qualifiers: Chronicity: chronic Back pain laterality: unspecified Sciatica presence: without sciatica Qualified Code(s): M54.5 - Low back pain Assessment/Plan (1) Neuropathy Assessment/Plan: -appreciate pain management assistance -will start gabapentin -monitor for improvement -may need SNF placement Code(s): G62.9 - POLYNEUROPATHY, UNSPECIFIED (2) Atrial fibrillation Assessment/Plan: -continue coreg, digoxin, eliquis -no need for telemetry currently Code(s): I48.91 - UNSPECIFIED ATRIAL FIBRILLATION Qualifiers: Atrial fibrillation type: chronic Qualified Code(s): I48.2 - Chronic atrial fibrillation (3) CAD (coronary artery disease) Assessment/Plan: -quiescent -continue home regimen Code(s): I25.10 - ATHSCL HEART DISEASE OF [place] CORONARY ARTERY W/O ANG PCTRS (4) CHF (congestive heart failure) Assessment/Plan: -continue lasix -not in exacerbation Code(s): I50.9 - HEART FAILURE, UNSPECIFIED Qualifiers: Congestive heart failure type: unspecified congestive heart failure type Congestive heart failure chronicity: acute on chronic Qualified Code(s ): I50.9 - Heart failure, unspecified (5) COPD (chronic obstructive pulmonary disease) Assessment/Plan: -stable Code(s): J44.9 - CHRONIC OBSTRUCTIVE PULMONARY DISEASE, UNSPECIFIED (6) DVT (deep venous thrombosis) Assessment/Plan: -continue eliquis Code(s): I82.409 - ACUTE EMBOLISM AND THOMBOS UNSP DEEP VN UNSP LOWER EXTREMITY (7) HTN (hypertension) Assessment/Plan: -continue altace and coreg Code(s): I10 - ESSENTIAL (PRIMARY) HYPERTENSION (8) Hyperlipidemia Assessment/Plan: -continue statin Code(s): E78.5 - HYPERLIPIDEMIA, UNSPECIFIED (9) Low back pain Assessment/Plan: -continue home regimen Code(s): M54.5 - LOW BACK PAIN Qualifiers: Chronicity: chronic Back pain laterality: unspecified Sciatica presence: without sciatica Qualified Code(s): M54.5 - Low back pain
[2016-07-18] MEDS: ATORVASTATIN CA 10 MG TABLET (FP) PO SCH (21:38)
[2016-07-18] MEDS: GABAPENTIN 300 MG CAPSULE (FP) PO SCH (21:38)
[2016-07-19] MEDS: oxyCODONE HCL 5 MG TABLET PO PRN ×2 (07:24→13:55)
[2016-07-19 09:18] VITALS: BP 144/87
[2016-07-19] MEDS ORDERED: PT OWN MED DRAWER 7, Y5N ONE ×2 (10:02→10:09)
[2016-07-19] MEDS: POTASSIUM CHLORIDE TABS 10 MEQ TABLET.ER (FP) PO SCH (10:04)
[2016-07-19] MEDS: ESCITALOPRAM OXALATE 10 MG TABLET (FP) PO SCH (10:04)
[2016-07-19] MEDS: FUROSEMIDE 40 MG TABLET (FP) PO SCH (10:04)
[2016-07-19] MEDS: CARVEDILOL 25 MG TABLET (FP) PO SCH (10:05)
[2016-07-19] MEDS: GABAPENTIN 300 MG CAPSULE (FP) PO SCH (10:05)
[2016-07-19] MEDS: RAMIPRIL 5 MG CAPSULE (FP) PO SCH (10:05)
[2016-07-19] MEDS: ISOSORBIDE MONONITRATE 30 MG TAB.SR.24H (FP) PO SCH (10:05)
[2016-07-19] MEDS: PANTOPRAZOLE 40 MG TABLET (FP) PO SCH (10:05)
[2016-07-19] MEDS: DOCUSATE SODIUM 100 MG CAPSULE (FP) PO SCH (10:05)
[2016-07-19] MEDS: DULoxetine HCL 30 MG CAPSULE.DR (FP) PO SCH (10:05)
[2016-07-19] MEDS: DIGOXIN 0.125 MG TABLET (FP) PO SCH (10:05)
[2016-07-19] MEDS: CYANOCOBALAMIN (VITAMIN B-12) 1000 MCG/1 ML VIAL IM SCH (10:06)
[2016-07-19] MEDS: POLYETHYLENE GLYCOL 3350 119 GM BTL PO SCH (10:07)
[2016-07-19] MEDS: APIXABAN 5 MG TABLET PO SCH (10:09)
[2016-07-19 13:17] VITALS: PULSE 79; TEMP 97.7
--- NOTE | 2016-08-08 21:50 | DS ---
Physical Examination Vital Signs: Vital Signs Temperature 97.7 F 07/19/16 13:15 Pulse Rate 79 07/19/16 13:15 Respiratory Rate 18 07/19/16 13:15 Blood Pressure 144/87 07/19/16 09:17 O2 Sat by Pulse Oximetry (%) 98 07/19/16 09:00 Constitutional: Yes: Well Nourished, No Distress, Calm Cardiovascular: Yes: Regular Rate and Rhythm. No: Gallop, Murmur, Rub Respiratory: Yes: Regular, CTA Bilaterally. No: Rales, Rhonchi, Wheezes Gastrointestinal: Yes: Normal Bowel Sounds, Soft. No: Distention, Tenderness Extremities: Yes: WNL Edema: No Labs: CBC, BMP 07/18/16 07:15 07/18/16 07:15 Discharge Summary Reason For Visit: INTRACTABLE PAIN,BILATERAL FOOT PAIN Current Active Problems Abdominal pain (Acute) Atrial fibrillation (Acute) CAD (coronary artery disease) (Acute) CHF (congestive heart failure) (Acute) COPD (chronic obstructive pulmonary disease) (Acute) Chest pain (Acute) Chest pain in adult (Acute) Renal insufficiency (Acute) Hospital Course: (1) Neuropathy Code(s): G62.9 - POLYNEUROPATHY, UNSPECIFIED (2) Atrial fibrillation Code(s): I48.91 - UNSPECIFIED ATRIAL FIBRILLATION Qualifiers: Atrial fibrillation type: chronic Qualified Code(s): I48.2 - Chronic atrial fibrillation (3) CAD (coronary artery disease) Code(s): I25.10 - ATHSCL HEART DISEASE OF [place] CORONARY ARTERY W/O ANG PCTRS (4) CHF (congestive heart failure) Code(s): I50.9 - HEART FAILURE, UNSPECIFIED Qualifiers: Congestive heart failure type: unspecified congestive heart failure type Congestive heart failure chronicity: acute on chronic Qualified Code(s ): I50.9 - Heart failure, unspecified (5) COPD (chronic obstructive pulmonary disease) Code(s): J44.9 - CHRONIC OBSTRUCTIVE PULMONARY DISEASE, UNSPECIFIED (6) DVT (deep venous thrombosis) Code(s): I82.409 - ACUTE EMBOLISM AND THOMBOS UNSP DEEP VN UNSP LOWER EXTREMITY (7) HTN (hypertension) Code(s): I10 - ESSENTIAL (PRIMARY) HYPERTENSION (8) Hyperlipidemia Code(s): E78.5 - HYPERLIPIDEMIA, UNSPECIFIED (9) Low back pain Code(s): M54.5 - LOW BACK PAIN Qualifiers: Chronicity: chronic Back pain laterality: unspecified Sciatica presence: without sciatica Qualified Code(s): M54.5 - Low back pain Mr Roberts is a 56 year old male who came in with neuropathy causing intractable pain. He was recently admitted for gout flare that was treated. He was admitted to the hospital. He was seen by pain management and his medication regimen was adjusted. He was seen by PT as well. His other medical problems were treated without change. He is currently safe for discharge home as his pain is controlled. 31 minutes spent in preparation of this discharge Condition: Stable - Instructions Diet, Activity, Other Instructions: resume previous diet and activity Referrals: Colleen Mcpherson MD [Staff Physician] - Jigar Pierre MD [Staff Physician] - Anup Pyle MD [Primary Care Provider] - Disposition: HOME - Home Medications Comprehensive Discharge Medication List: Ambulatory Orders Omeprazole [Prilosec] 40 mg PO DAILY 06/23/14 Oxycodone HCl [Roxicodone] 30 mg PO Q6H PRN 07/24/14 Atorvastatin Ca [Lipitor] 10 mg PO HS 08/17/14 Apixaban [Eliquis -] 5 mg PO BID 01/12/16 Docusate Sodium [Colace -] 100 mg PO DAILY 01/12/16 Escitalopram Oxalate [Lexapro -] 10 mg PO DAILY 01/12/16 Albuterol Sulfate Inhaler - [Ventolin HFA Inhaler -] 1 - 2 inh PO QID #1 inhaler 01/15/16 Ramipril [Altace] 10 mg PO DAILY #60 capsule 05/01/16 Alprazolam 0.25 mg PO BID PRN 07/02/16 Digoxin [Digitek] 125 mcg PO DAILY 07/02/16 Nitroglycerin Sublingual [Nitrostat -] 0.4 mg SL ONCE PRN 07/02/16 Oxycodone HCl/Acetaminophen [Percocet 10-325 mg Tablet] 1 each PO Q6H PRN Potassium Chloride 10 meq PO DAILY 07/02/16 Carvedilol [Coreg -] 25 mg PO BID #60 tablet 07/06/16 Furosemide [Lasix -] 40 mg PO DAILY 07/13/16 Duloxetine HCl [Cymbalta -] 60 mg PO DAILY #60 capsule. 07/19/16 Gabapentin [Neurontin -] 300 mg PO BID #60 capsule 07/19/16 Isosorbide Mononitrate [Imdur -] 30 mg PO DAILY #30 tab.sr.24h 07/19/16
== END 2016-07-19 14:32 | disposition home or self-care (01) | DRG 74 ==
LOC: JER 10:09 → JERBED 14:56 → J6S 20:16
PROVIDERS: ADMIT Internal Medicine; ATTEND Internal Medicine
DX: G62.9 Polyneuropathy, unspecified (principal); I42.0 Dilated cardiomyopathy; E78.5 Hyperlipidemia, unspecified; M51.36 Other intervertebral disc degeneration, lumbar region; M51.26 Other intervertebral disc displacement, lumbar region; M79.672 Pain in left foot; M79.671 Pain in right foot; J44.9 Chronic obstructive pulmonary disease, unspecified; I11.0 Hypertensive heart disease with heart failure; Z85.038 Personal history of other malignant neoplasm of large intestine; I50.9 Heart failure, unspecified; Z72.0 Tobacco use; I25.10 Atherosclerotic heart disease of native coronary artery without angina pectoris; Z95.5 Presence of coronary angioplasty implant and graft; I48.2 Chronic atrial fibrillation; Z79.01 Long term (current) use of anticoagulants; Z95.0 Presence of cardiac pacemaker; D64.9 Anemia, unspecified; E83.51 Hypocalcemia; M10.9 Gout, unspecified
CPT/HCPCS: 36415; 72131-TC; 80048; 80053; 82136; 82607; 83516; 83735; 83918; 84100; 84443; 84550; 85025; 85610; 85730; 86340; 86850; 86900; 86901; 93925-TC; 97116-GP; 97161-GP; 99283-25

== ENCOUNTER 2016-08-15 20:11 | Emergency (ER) | payer OTHER ==
--- NOTE | 2016-08-15 20:32 | PDOC ---
Rapid Medical Evaluation Time Seen by Provider: 08/15/16 20:30 Medical Evaluation: Allergies Allergy/AdvReac Type Severity Reaction Status Date / Time tomato Allergy Severe Verified 07/13/16 10:15 Beef Containing Products Allergy Verified 07/13/16 10:15 red dye Allergy Verified 07/13/16 10:15 08/15/16 20:31 56 yo M c/o b/l foot pain due to gout and peripheral neuropathy x8.5 hour ( 12noon today). Denies any ext numbness/tingling sensation. No other complaints. Pt is requesting for IM morphine. States he can NOT take toradol anymore
[2016-08-15 20:34] VITALS: BP 154/95; PULSE 64; TEMP 98; BMI 26.2
[2016-08-15] MEDS ORDERED: morphine CARPU-JECT 4 MG/1 ML DISP.SYRIN IM ONE (21:46)
--- NOTE | 2016-08-15 21:50 | PDOC ---
History of Present Illness - General Chief Complaint: Pain, Acute Stated Complaint: GOUT Time Seen by Provider: 08/15/16 20:30 History Source: Patient Exam Limitations: No Limitations - History of Present Illness Initial Comments: 08/15/16 21:48 CHIEF COMPLAINT: Foot pain HISTORY OF PRESENT ILLNESS: This is a 56 year old male with extensive medical history including gout (which typically affects bilateral great toes) and peripheral neuropathy who presents complaining of bilateral foot pain tonight which is not improving with indomethacin/colchicine. He denies fevers/chills or any other systemic symptoms. He denies trauma/injury. REVIEW OF SYSTEMS: GENERAL/CONSTITUTIONAL: No fever or chills. No weakness. No weight change. CARDIOVASCULAR: No chest pain or palpitations. RESPIRATORY: No cough, wheezing, or shortness of breath. GASTROINTESTINAL: No nausea, vomiting, diarrhea or constipation. GENITOURINARY: No dysuria, frequency, or change in urination. MUSCULOSKELETAL: See HPI. SKIN: No rash or easy bruising. NEUROLOGIC: No headache, vertigo, loss of consciousness, or loss of sensation. HEMATOLOGIC/LYMPHATIC: No anemia, easy bleeding, or history of blood clots. ALLERGIC/IMMUNOLOGIC: No hives or skin allergy. No latex allergy. PHYSICAL EXAM: GENERAL: The patient is awake, alert, and fully oriented, in no acute distress. ENT: Pupils equal, round and reactive to light, extraocular movements intact, sclera anicteric, conjunctiva clear. Neck supple. LUNGS: Clear to auscultation bilaterally. Normal excursion. No respiratory distress or use of accessory muscles. CV: RRR, S1/S2, no MRG. Cap refill < 2 sec. ABDOMEN: Soft, non-distended, non-tender. EXTREMITIES: Normal range of motion, no edema. Exquisitely tender in bilateral first toes. Mild edema. No erythema/cellulitis or streaking. Normal cap refill. Normal range of motion. NEUROLOGICAL: Normal speech, normal gait. CN II-XII grossly intact. PSYCH: Normal mood, normal affect. SKIN: Warm, dry, normal turgor, no rashes or lesions noted. Past History - Past Medical History Allergies/Adverse Reactions: Allergies Allergy/AdvReac Type Severity Reaction Status Date / Time tomato Allergy Severe Verified 08/15/16 20:31 Beef Containing Products Allergy Verified 08/15/16 20:31 red dye Allergy Verified 03/01/17 20:31 Home Medications: Ambulatory Orders Omeprazole [Prilosec] 40 mg PO DAILY 06/23/14 Oxycodone HCl [Roxicodone] 30 mg PO Q6H PRN 07/24/14 Atorvastatin Ca [Lipitor] 10 mg PO HS 08/17/14 Apixaban [Eliquis -] 5 mg PO BID 01/12/16 Docusate Sodium [Colace -] 100 mg PO DAILY 01/12/16 Escitalopram Oxalate [Lexapro -] 10 mg PO DAILY 01/12/16 Albuterol Sulfate Inhaler - [Ventolin HFA Inhaler -] 1 - 2 inh PO QID #1 inhaler 01/15/16 Ramipril [Altace] 10 mg PO DAILY #60 capsule 05/01/16 Alprazolam 0.25 mg PO BID PRN 07/02/16 Digoxin [Digitek] 125 mcg PO DAILY 07/02/16 Nitroglycerin Sublingual [Nitrostat -] 0.4 mg SL ONCE PRN 07/02/16 Oxycodone HCl/Acetaminophen [Percocet 10-325 mg Tablet] 1 each PO Q6H PRN Potassium Chloride 10 meq PO DAILY 07/02/16 Carvedilol [Coreg -] 25 mg PO BID #60 tablet 07/06/16 Furosemide [Lasix -] 40 mg PO DAILY 07/13/16 Duloxetine HCl [Cymbalta -] 60 mg PO DAILY #60 capsule. 07/19/16 Gabapentin [Neurontin -] 300 mg PO BID #60 capsule 07/19/16 Isosorbide Mononitrate [Imdur -] 30 mg PO DAILY #30 tab.sr.24h 07/19/16 Anemia: No Asthma: Yes Cancer: Yes (COLON) Cardiac Disorders: Yes (IA X 3, A-FIB) CVA: No COPD: Yes CHF: Yes Dementia: No Diabetes: No GI Disorders: No Disorders: No HTN: Yes Hypercholesterolemia: Yes Liver Disease: No Seizures: No Thyroid Disease: No - Surgical History Abdominal Surgery: No Appendectomy: No Cardiac Surgery: Yes (4sTENTS,pacemaker,defibrilator) Cholecystectomy: No GI Surgery: Yes (COLON RESECTION) Lung Surgery: No Neurologic Surgery: No Orthopedic Surgery: Yes ((L) ANKLE; (R)HIP; (R) ELBOW) - Family Disease History Family Disease History: Diabetes: Mother - Immunization History TDAP Vaccination: Yes Immunization Up to Date: No (2011 tetanus) - Psycho/Social/Smoking Cessation Hx Anxiety: No Suicidal Ideation: No Smoking Status: Yes Smoking History: Current every day smoker Have you smoked in the past 12 months: No Number of Cigarettes Smoked Daily: 1 If you are a former smoker, when did you quit?: 0 Cigars Per Day: 0 Information on smoking cessation initiated: Yes 'Breaking Loose' booklet given: 07/13/16 Hx Alcohol Use: No Drug/Substance Use Hx: No Substance Use Type: None Hx Substance Use Treatment: No *Physical Exam - Vital Signs Last Vital Signs Temp Pulse Resp BP Pulse Ox 98 F 64 18 154/95 100 08/15/16 20:31 08/15/16 20:31 08/15/16 20:31 08/15/16 20:31 08/15/16 20:31 Medical Decision Making - Medical Decision Making 08/15/16 22:01 A/P: 56 year old male with bilateral foot pain, gout vs. neuropathy, unresponsive to home medication regimen. -Morphine 4mg IM x 1 -Followup instructions and return precautions reviewed *DC/Admit/Observation/Transfer Diagnosis at time of Disposition: Neuropathy, Foot pain, bilateral Gout Qualifiers: Gout site: toe Gout etiology: unspecified cause Laterality: unspecified laterality Chronicity: acute Qualified Code(s): M10.9 - Gout, unspecified - Discharge Dispostion Disposition: HOME Condition at time of disposition: Stable Admit: No - Referrals Referrals: Anup Pyle MD [Primary Care Provider] - 1 week - Patient Instructions Printed Discharge Instructions: DI for Foot Pain Additional Instructions: -Continue all of your prescribed medications for gout -Follow up with your primary doctor -Please also follow up with your doctor about your blood pressure, which is elevated. You may need an adjustment in your medications. -Return here for fever or any other concerning symptoms
[2016-08-15] MEDS ORDERED: morphine CARPU-JECT 4 MG/1 ML DISP.SYRIN ONE (21:57)
== END 2016-08-15 22:09 | disposition home or self-care (01) ==
LOC: JERFT 20:11
PROC: 3E023NZ Introduction of Analgesics, Hypnotics, Sedatives into Muscle, Percutaneous Approach (ICD-10-PCS; principal; 2016-08-15)
DX: M10.9 Gout, unspecified (principal); I25.2 Old myocardial infarction; I10 Essential (primary) hypertension; Z95.5 Presence of coronary angioplasty implant and graft; I48.91 Unspecified atrial fibrillation; Z79.01 Long term (current) use of anticoagulants; J45.909 Unspecified asthma, uncomplicated; J44.9 Chronic obstructive pulmonary disease, unspecified; I50.9 Heart failure, unspecified; E78.00 Pure hypercholesterolemia, unspecified; Z85.038 Personal history of other malignant neoplasm of large intestine; Z95.810 Presence of automatic (implantable) cardiac defibrillator
CPT/HCPCS: 99281-25

== ENCOUNTER 2016-08-29 22:22 | Emergency (ER) | payer OTHER ==
[2016-08-29 22:33] VITALS: BMI 26.2
[2016-08-30] MEDS ORDERED: INDOMETHACIN 50 MG CAPSULE PO ONE (00:13)
[2016-08-30 00:37] LABS: ALBUMIN 3.5 g/dl (3.4-5.0); BILIRUBIN,TOTAL 0.8 mg/dL (0.2-1.0); CALCIUM 8.8 mg/dL (8.5-10.1); CREATININE 1.4 mg/dL (0.7-1.3); TOT PROT 6.9 g/dl (6.4-8.2); URIC ACID 7.7 mg/dL (2.6-7.2)
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
[2016-08-30 00:53] LABS: BASOPHIL 0.6 % (0-2.0); EOSINOPHIL 2.2 % (0-4.5); MCHC 30.2 g/dl (32.0-35.9); MEAN CELL VOLUME 60.7 fl (80-96); MEAN PLT VOLUME 8.9 fl (7.5-11.1); NEUTROPHILS 62.2 % (42.8-82.8); PLATELET COUNT 349 K/MM3 (134-434); RDW 22.9 % (11.9-15.9)
[2016-08-30 00:57] LABS: MCH 18.3 pg (25.7-33.7)
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
[2016-08-30] MEDS ORDERED: SILVER SULFADIAZINE 1% TOP CREAM 50 GM JAR TP ONE ×2 (01:38→01:55)
[2016-08-30] MEDS ORDERED: ACETAMINOPHEN 500 MG TABLET (FP) PO ONE (01:40)
[2016-08-30] MEDS ORDERED: ACETAMINOPHEN 325 MG TABLET (FP) ONE (01:55)
[2016-08-30 02:41] LABS: ANISOCYTOSIS 3+; FRAGMENTED CELL 1+; HYPOCHROMIA 2+; MICROCYTOSIS 3+; PLATELET COMMENT2 NO CLOTTING DETECTED; PLATELET ESTIMATE ADEQUATE (NORMAL); POIKILOCYTOSIS 3+; POLYCHROMASIA 2+; SPHEROCYTE 1+; TEAR DROP CELLS 1+
[2016-08-30 03:07] VITALS: BP 165/86; PULSE 68; TEMP 98.2
== END 2016-08-30 03:08 | disposition home or self-care (01) ==
LOC: JER 22:22
PROC: 2W2MX4Z Dressing of Left Lower Extremity using Bandage (ICD-10-PCS; principal; 2016-08-29)
DX: T24.092A Burn of unspecified degree of multiple sites of left lower limb, except ankle and foot, initial encounter (principal); X08.8XXA Exposure to other specified smoke, fire and flames, initial encounter; Y93.9 Activity, unspecified; Y92.9 Unspecified place or not applicable; J45.909 Unspecified asthma, uncomplicated; I25.2 Old myocardial infarction; I48.91 Unspecified atrial fibrillation; J44.9 Chronic obstructive pulmonary disease, unspecified; I10 Essential (primary) hypertension; E78.00 Pure hypercholesterolemia, unspecified; Z95.5 Presence of coronary angioplasty implant and graft; Z95.0 Presence of cardiac pacemaker; F17.210 Nicotine dependence, cigarettes, uncomplicated
CPT/HCPCS: 36415; 80053; 84550; 85025; 93970-TC; 99282-25

== ENCOUNTER 2016-08-31 12:54 | Inpatient (IN) | payer OTHER ==
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
[2016-08-31] MEDS ORDERED: COLCHICINE 0.6 MG TABLET (FP) PO ONE (14:20)
[2016-08-31] MEDS ORDERED: OXYCODONE/APAP 5/325MG COMBO TABLET PO ONE (14:20)
[2016-08-31] MEDS ORDERED: ONDANSETRON *ODT* 4 MG TABLET SL ONE (14:20)
[2016-08-31 14:57] LABS: BASOPHIL 0.5 % (0-2.0); MCHC 29.5 g/dl (32.0-35.9); MEAN CELL VOLUME 61.5 fl (80-96); MEAN PLT VOLUME 8.7 fl (7.5-11.1); NEUTROPHILS 77.2 % (42.8-82.8); PLATELET COUNT 307 K/MM3 (134-434); RDW 23.1 % (11.9-15.9); WHITE BLOOD COUNT 6.6 K/mm3 (4.0-10.0)
[2016-08-31 14:59] LABS: MCH 18.2 pg (25.7-33.7)
[2016-08-31 15:01] LABS: ALBUMIN 3.3 g/dl (3.4-5.0); BILIRUBIN,TOTAL 0.7 mg/dL (0.2-1.0); CALCIUM 8.4 mg/dL (8.5-10.1); CREATININE 1.5 mg/dL (0.7-1.3); TOT PROT 6.8 g/dl (6.4-8.2); URIC ACID 7.1 mg/dL (2.6-7.2)
[2016-08-31 15:17] LABS: ANISOCYTOSIS 2+; HYPOCHROMIA 2+; MICROCYTOSIS 1+; PLATELET ESTIMATE ADEQUATE (NORMAL); POLYCHROMASIA 1+
[2016-08-31] MEDS ORDERED: CLINDAMYCIN 600MG PREMIX IVPB 50 ML IVPB ONE (15:23)
[2016-08-31] MEDS ORDERED: ALPRAZolam 0.25 MG TABLET PO PRN (16:15)
[2016-08-31] MEDS ORDERED: ONDANSETRON 4 MG/2 ML VIAL IVPB PRN (16:45)
[2016-08-31] MEDS ORDERED: ACETAMINOPHEN 325 MG TABLET (FP) PO PRN (16:45)
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
[2016-08-31] MEDS: oxyCODONE HCL 5 MG TABLET PO PRN (19:44)
[2016-08-31 19:56] VITALS: BMI 27.3
[2016-08-31] MEDS ORDERED: PT OWN MED DRAWER 7, Y5N ONE (20:58)
[2016-08-31] MEDS: CARVEDILOL 25 MG TABLET (FP) PO SCH (21:01)
[2016-08-31] MEDS: APIXABAN 5 MG TABLET PO SCH (21:01)
[2016-08-31] MEDS: ATORVASTATIN CA 10 MG TABLET (FP) PO SCH (21:01)
[2016-08-31] MEDS: GABAPENTIN 300 MG CAPSULE (FP) PO SCH (21:01)
[2016-08-31] MEDS: ALBUTEROL SO4 6.7 GM HFA INHALER IH SCH ×2 (22:43→23:26)
[2016-09-01] MEDS: oxyCODONE HCL 5 MG TABLET PO PRN ×4 (01:51→21:38)
[2016-09-01] MEDS: ALBUTEROL SO4 6.7 GM HFA INHALER IH SCH ×3 (06:01→17:41)
[2016-09-01 07:39] LABS: BASOPHIL 0.4 % (0-2.0); EOSINOPHIL 2.3 % (0-4.5); MCHC 29.9 g/dl (32.0-35.9); MEAN CELL VOLUME 61.6 fl (80-96); MEAN PLT VOLUME 8.5 fl (7.5-11.1); NEUTROPHILS 55.9 % (42.8-82.8); PLATELET COUNT 281 K/MM3 (134-434); RDW 22.8 % (11.9-15.9); WHITE BLOOD COUNT 7.2 K/mm3 (4.0-10.0)
[2016-09-01 07:47] LABS: MCH 18.4 pg (25.7-33.7)
[2016-09-01 09:14] LABS: CALCIUM 7.7 mg/dL (8.5-10.1); CREATININE 1.3 mg/dL (0.7-1.3); MAGNESIUM 1.4 mg/dL (1.8-2.4); PHOSPHOROUS 3.3 mg/dL (2.5-4.9)
--- NOTE | 2016-09-01 09:17 | PN ---
Progress Note (short form) - Note Progress Note: VASCULAR SURGERY - Dr. Ki Briones Called to eval 56 yo male with c/o numbness/tingling to his feet b/l. Patient has a significant PMHx of LBP with multiple admissions. He was seen/evaluated by Neurology during that visit and started on cymbalta. He began to improve and was discharged home on cymbalta. Patient returns to [facility] with same complaint. A Lumbar CT on 07/14/16 confirms multiple level lmbar stenosis and spondylolithesis. Also, a lower extremity arterial duplex 07/13/16 was unremarkable. Denies burning sensation. Denies bladder/bowel difficulty. PMHx: CAD, CHF, cardiomyopathy, HTN, Hyperlipdemia, COPD, gastritis, Hepatitis C , Chronic low back pain (degenerative lumbar disc disease) PSHx: Hernia Repair (umbilical), Joint Replacement (right elbow, right hip, left ankle) Smoking history: Current every day smoker PE General: Well Nourished, No Distress, Calm Eyes: Conjunctiva Clear, EOM Intact HENT: Atraumatic, Normocephalic COR: RRR PULM: CTA b/l anteriorly ABD: Soft. NT. ND LE: Cool b/l. +DP/PT b/l. No edema/swelling. No calf tenderness Problem List - Problems (1) Lumbar radiculopathy, chronic Assessment/Plan: His problem stems from multi-level djd in lumbar spine. Spondylolithesis. f/u with neurology Recommend MRI as out-patient with follow-up with eithers Drs. Sadiq Esteves ( neurosurgeon) and or Karsten Gardner(ortho-spine). No vascular surgery intervention Cont care per medicine Code(s): M54.16 - RADICULOPATHY, LUMBAR REGION
[2016-09-01] MEDS ORDERED: PT OWN MED DRAWER 7, Y5N ONE (10:11)
[2016-09-01] MEDS: RAMIPRIL 5 MG CAPSULE (FP) PO SCH (10:22)
[2016-09-01] MEDS: DULoxetine HCL 30 MG CAPSULE.DR (FP) PO SCH (10:23)
[2016-09-01] MEDS: CARVEDILOL 25 MG TABLET (FP) PO SCH ×2 (10:23→21:38)
[2016-09-01] MEDS: APIXABAN 5 MG TABLET PO SCH ×2 (10:23→21:38)
[2016-09-01] MEDS: DOCUSATE SODIUM 100 MG CAPSULE (FP) PO SCH (10:23)
[2016-09-01] MEDS: DIGOXIN 0.125 MG TABLET (FP) PO SCH (10:23)
[2016-09-01] MEDS: FUROSEMIDE 40 MG TABLET (FP) PO SCH (10:23)
[2016-09-01] MEDS: GABAPENTIN 300 MG CAPSULE (FP) PO SCH ×3 (10:23→21:38)
[2016-09-01] MEDS: ISOSORBIDE MONONITRATE 30 MG TAB.SR.24H (FP) PO SCH (10:23)
[2016-09-01] MEDS: SILVER SULFADIAZINE 1% TOP CREAM 400 GM JAR TP SCH (10:24)
[2016-09-01] MEDS: ESCITALOPRAM OXALATE 10 MG TABLET (FP) PO SCH (10:24)
[2016-09-01] MEDS: POTASSIUM CHLORIDE TABS 10 MEQ TABLET.ER (FP) PO SCH (10:24)
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
[2016-09-01] MEDS: DOXYCYCLINE HYCLATE 100 MG CAPSULE PO SCH (17:42)
[2016-09-01] MEDS: ATORVASTATIN CA 10 MG TABLET (FP) PO SCH (21:38)
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
[2016-09-01] MEDS ORDERED: predniSONE 20 MG TABLET (UD) PO SCH (23:00)
[2016-09-01] MEDS: predniSONE 20 MG TABLET (UD) PO SCH (23:41)
[2016-09-02] MEDS: oxyCODONE HCL 5 MG TABLET PO PRN ×2 (04:03→10:04)
[2016-09-02] MEDS: GABAPENTIN 300 MG CAPSULE (FP) PO SCH (05:54)
[2016-09-02] MEDS ORDERED: predniSONE 20 MG TABLET (UD) PO SCH (07:00)
[2016-09-02] MEDS: ALBUTEROL SO4 6.7 GM HFA INHALER IH SCH ×2 (07:27)
[2016-09-02] MEDS ORDERED: PT OWN MED DRAWER 7, Y5N ONE (09:19)
[2016-09-02] MEDS ORDERED: OXYCODONE/APAP 5/325MG COMBO TABLET PO PRN (09:35)
[2016-09-02] MEDS: predniSONE 20 MG TABLET (UD) PO SCH (09:35)
[2016-09-02] MEDS: ISOSORBIDE MONONITRATE 30 MG TAB.SR.24H (FP) PO SCH (09:35)
[2016-09-02] MEDS: DIGOXIN 0.125 MG TABLET (FP) PO SCH (09:36)
[2016-09-02] MEDS: FUROSEMIDE 40 MG TABLET (FP) PO SCH (09:36)
[2016-09-02] MEDS: DULoxetine HCL 30 MG CAPSULE.DR (FP) PO SCH (09:36)
[2016-09-02] MEDS: ESCITALOPRAM OXALATE 10 MG TABLET (FP) PO SCH (09:36)
[2016-09-02] MEDS: CARVEDILOL 25 MG TABLET (FP) PO SCH (09:37)
[2016-09-02] MEDS: POTASSIUM CHLORIDE TABS 10 MEQ TABLET.ER (FP) PO SCH (09:37)
[2016-09-02] MEDS: DOCUSATE SODIUM 100 MG CAPSULE (FP) PO SCH (09:37)
[2016-09-02] MEDS: APIXABAN 5 MG TABLET PO SCH (09:37)
[2016-09-02] MEDS: RAMIPRIL 5 MG CAPSULE (FP) PO SCH (09:37)
[2016-09-02] MEDS: DOXYCYCLINE HYCLATE 100 MG CAPSULE PO SCH (09:38)
[2016-09-02] MEDS ORDERED: oxyCODONE HCL 5 MG TABLET PO PRN (09:50)
[2016-09-02] MEDS ORDERED: ACETAMINOPHEN 325 MG TABLET (FP) PO PRN (09:50)
[2016-09-02] MEDS ORDERED: COLCHICINE 0.6 MG TABLET (FP) PO SCH (10:00)
[2016-09-02] MEDS ORDERED: PANTOPRAZOLE 40 MG TABLET (FP) PO SCH (10:00)
[2016-09-02] MEDS: SILVER SULFADIAZINE 1% TOP CREAM 400 GM JAR TP SCH (10:18)
[2016-09-02 10:20] VITALS: BP 134/93; PULSE 103; TEMP 98.4
--- NOTE | 2016-09-02 10:58 | PN ---
Progress Note, Physician History of Present Illness: Notes pain not much better this morning, still feeling unsteady on feet. Gabapentin was increased, but no improvement yet. - Current Medication List Current Medications: Active Medications Acetaminophen (Tylenol -) 650 mg PO Q4H PRN PRN Reason: FEVER OR PAIN Acetaminophen (Tylenol -) 650 mg PO Q6H PRN PRN Reason: PAIN Albuterol Sulfate (Ventolin Hfa Inhaler -) 2 puff IH QIDR [facility] Last Admin: 09/02/16 07:27 Dose: 2 puff Alprazolam (Xanax -) 0.25 mg PO BID PRN PRN Reason: ANXIETY Stop: 09/03/16 16:14 Apixaban (Eliquis -) 5 mg PO BID [facility] Last Admin: 09/02/16 09:37 Dose: 5 mg Atorvastatin Calcium (Lipitor -) 10 mg PO HS [facility] Last Admin: 09/01/16 21:38 Dose: 10 mg Carvedilol (Coreg -) 25 mg PO BID [facility] Last Admin: 09/02/16 09:37 Dose: 25 mg Colchicine (Colcrys -) 0.6 mg PO DAILY [facility] Last Admin: 09/02/16 09:37 Dose: 0.6 mg Digoxin (Lanoxin -) 0.125 mg PO DAILY [facility] Last Admin: 09/02/16 09:36 Dose: 0.125 mg Docusate Sodium (Colace -) 100 mg PO DAILY [facility] Last Admin: 09/02/16 09:37 Dose: 100 mg Doxycycline Hyclate (Vibramycin -) 100 mg PO BID@1000,1800 [facility] Last Admin: 09/02/16 09:38 Dose: 100 mg Duloxetine HCl (Cymbalta -) 60 mg PO DAILY [facility] Last Admin: 09/02/16 09:36 Dose: 60 mg Escitalopram Oxalate (Lexapro -) 10 mg PO DAILY [facility] Last Admin: 09/02/16 09:36 Dose: 10 mg Furosemide (Lasix -) 40 mg PO DAILY [facility] Last Admin: 09/02/16 09:36 Dose: 40 mg Gabapentin (Neurontin -) 300 mg PO TID [facility] Last Admin: 09/02/16 05:54 Dose: 300 mg Isosorbide Mononitrate (Imdur -) 30 mg PO DAILY [facility] Last Admin: 09/02/16 09:35 Dose: 30 mg Ondansetron HCl (Zofran Injection) 4 mg IVPB Q6H PRN PRN Reason: NAUSEA Oxycodone HCl (Roxicodone -) 30 mg PO Q6H PRN PRN Reason: PAIN Last Admin: 09/02/16 10:04 Dose: 30 mg Oxycodone HCl (Roxicodone -) 10 mg PO Q6H PRN PRN Reason: PAIN LEVEL 6-10 Pantoprazole Sodium (Protonix -) 40 mg PO DAILY [facility] Last Admin: 09/02/16 10:04 Dose: 40 mg Potassium Chloride (K-Dur -) 10 meq PO DAILY [facility] Last Admin: 09/02/16 09:37 Dose: 10 meq Prednisone (Deltasone -) 40 mg PO DAILY [facility] Stop: 09/03/16 10:01 Last Admin: 09/02/16 09:35 Dose: 40 mg Prednisone (Deltasone -) 20 mg PO DAILY [facility] Stop: 09/06/16 10:01 Prednisone (Deltasone -) 10 mg PO DAILY [facility] Stop: 09/09/16 10:01 Prednisone (Deltasone -) 5 mg PO DAILY [facility] Stop: 09/12/16 10:01 Ramipril (Altace -) 10 mg PO DAILY [facility] Last Admin: 09/02/16 09:37 Dose: 10 mg Silver Sulfadiazine (Silvadene -) 1 applic TP DAILY [facility] Last Admin: 09/02/16 10:18 Dose: 1 applic - Objective Vital Signs: Vital Signs Temperature 98.4 F 09/02/16 10:00 Pulse Rate 103 H 09/02/16 10:00 Respiratory Rate 20 09/02/16 10:00 Blood Pressure 134/93 09/02/16 10:00 O2 Sat by Pulse Oximetry (%) 98 09/02/16 06:00 Constitutional: Yes: No Distress, Calm Eyes: Yes: Conjunctiva Clear, EOM Intact HENT: Yes: Atraumatic, Normocephalic Neck: Yes: Supple, Trachea Midline Cardiovascular: Yes: Regular Rate and Rhythm, S1, S2. No: Murmur Respiratory: Yes: Regular, CTA Bilaterally Gastrointestinal: Yes: Normal Bowel Sounds, Soft. No: Distention, Tenderness Edema: Yes Edema: LLE: Trace, RLE: Trace Neurological: Yes: Alert, Oriented Assessment/Plan Current Active Problems Abdominal pain (Acute) Atrial fibrillation (Acute) CAD (coronary artery disease) (Acute) CHF (congestive heart failure) (Acute) COPD (chronic obstructive pulmonary disease) (Acute) Cellulitis and abscess of leg (Acute) Chest pain (Acute) Chest pain in adult (Acute) Foot pain, bilateral (Acute) Gout (Acute) Lumbar radiculopathy, chronic (Acute) Renal insufficiency (Acute) -trial of increased gabapentin, PT eval -may need short term rehab to back pain/ bilateral radiculopathy
[2016-09-02] MEDS ORDERED: NICOTINE 21 MG/24 HOURS TOPICAL PATCH TD SCH (11:00)
--- NOTE | 2016-09-02 12:06 | DS ---
Physical Examination Vital Signs: Vital Signs Temperature 98.4 F 09/02/16 10:00 Pulse Rate 103 H 09/02/16 10:00 Respiratory Rate 20 09/02/16 10:00 Blood Pressure 134/93 09/02/16 10:00 O2 Sat by Pulse Oximetry (%) 98 09/02/16 06:00 Discharge Summary Reason For Visit: GOUT;BURN INJURY;CELLULITIS&ABSCESS LOWER EXTREMIT Current Active Problems Abdominal pain (Acute) Atrial fibrillation (Acute) CAD (coronary artery disease) (Acute) CHF (congestive heart failure) (Acute) COPD (chronic obstructive pulmonary disease) (Acute) Cellulitis and abscess of leg (Acute) Chest pain (Acute) Chest pain in adult (Acute) Foot pain, bilateral (Acute) Gout (Acute) Lumbar radiculopathy, chronic (Acute) Renal insufficiency (Acute) Hospital Course: (see progress note from earlier today) Patient left floor and on returning was advised by nursing staff that he cannot leave floor for long periods of time without noting where he is going. Patient became belligerent and left AMA. Refused to allow nurse to remove saline lock. - Instructions Referrals: Anup Pyle MD [Primary Care Provider] - Disposition: AGAINST MEDICAL ADVICE - Home Medications Comprehensive Discharge Medication List: Ambulatory Orders Omeprazole [Prilosec] 40 mg PO DAILY 06/23/14 Oxycodone HCl [Roxicodone] 30 mg PO Q6H PRN 07/24/14 Atorvastatin Ca [Lipitor] 10 mg PO HS 08/17/14 Apixaban [Eliquis -] 5 mg PO BID 01/12/16 Docusate Sodium [Colace -] 100 mg PO DAILY 01/12/16 Escitalopram Oxalate [Lexapro -] 10 mg PO DAILY 01/12/16 Albuterol Sulfate Inhaler - [Ventolin HFA Inhaler -] 1 - 2 inh PO QID #1 inhaler 01/15/16 Ramipril [Altace] 10 mg PO DAILY #60 capsule 05/01/16 Alprazolam 0.25 mg PO BID PRN 07/02/16 Digoxin [Digitek] 125 mcg PO DAILY 07/02/16 Nitroglycerin Sublingual [Nitrostat -] 0.4 mg SL ONCE PRN 07/02/16 Oxycodone HCl/Acetaminophen [Percocet 10-325 mg Tablet] 1 each PO Q6H PRN Potassium Chloride 10 meq PO DAILY 07/02/16 Carvedilol [Coreg -] 25 mg PO BID #60 tablet 07/06/16 Furosemide [Lasix -] 40 mg PO DAILY 07/13/16 Duloxetine HCl [Cymbalta -] 60 mg PO DAILY #60 capsule. 07/19/16 Gabapentin [Neurontin -] 300 mg PO BID #60 capsule 07/19/16 Isosorbide Mononitrate [Imdur -] 30 mg PO DAILY #30 tab.sr.24h 07/19/16 Silver Sulfadiazine 1% Top Cr [Silvadene -] 1 applic TP DAILY #1 jar 08/30/16
[2016-09-04] MEDS ORDERED: predniSONE 20 MG TABLET (UD) PO SCH (10:00)
[2016-09-07] MEDS ORDERED: predniSONE 10 MG TABLET (UD) PO SCH (10:00)
[2016-09-10] MEDS ORDERED: predniSONE 5 MG TABLET (UD) PO SCH (10:00)
== END 2016-09-02 11:57 | disposition left against medical advice (07) | DRG 603 ==
LOC: JER 12:54 → JERBED 16:06 → UNDOADMOB 16:06 → J5S 18:40 → JERBED 18:40 → J5S 09-02 09:43 → INTOOBSV 09-02 10:17 → OBSVTOIN 09-02 10:17
PROVIDERS: ADMIT Specialist; ATTEND Internal Medicine
DX: L03.116 Cellulitis of left lower limb (principal); M10.9 Gout, unspecified; E78.5 Hyperlipidemia, unspecified; I50.9 Heart failure, unspecified; I25.10 Atherosclerotic heart disease of native coronary artery without angina pectoris; M79.671 Pain in right foot; M79.672 Pain in left foot; I11.0 Hypertensive heart disease with heart failure; M54.9 Dorsalgia, unspecified; I48.2 Chronic atrial fibrillation; M54.16 Radiculopathy, lumbar region; F17.210 Nicotine dependence, cigarettes, uncomplicated; J44.9 Chronic obstructive pulmonary disease, unspecified
CPT/HCPCS: 36415; 73630-TC-LT; 73630-TC-RT; 80048; 80053; 83540; 83735; 84100; 84550; 85025; 85651; 87040; 93970-TC; 95860-TC; 99282-25; 99283-25; G0378

== ENCOUNTER 2016-09-17 17:57 | Emergency (ER) | payer OTHER ==
[2016-09-17 18:09] VITALS: TEMP 98; BMI 26.2
--- NOTE | 2016-09-17 19:41 | PDOC ---
History of Present Illness - History of Present Illness Initial Comments: 09/17/16 19:47 The patient is a 56 year old male, with a significant past medical history of gout, peripheral neuropathy, hypertension, hyperlipidemia, CHF, AFib, COPD, CT, pacemaker, and colon CA who presents to the emergency department with a flare up of his gout and neuropathy on his right foot today. He reports the pain starts from right big toe over the dorsum to the 5th digit. He reports he is currently on day third day of a tapering dose of steroids. He denies any trauma. He denies any other acute complaints. He denies chest pain, shortness of breath, headache and dizziness. She denies fever, chills, nausea, vomit, diarrhea and constipation. She denies dysuria, frequency, urgency and hematuria. Allergies: NKDA. Tomato, red dye, and beef Past surgical history: hip, ankle, and elbow replacement Social history: current everyday smoker PCP - Dr. Anup Pyle <Lida Humphrey - Last Filed: 09/17/16 19:47> - General History Source: Patient <Mayco Rodrigues - Last Filed: 09/17/16 22:24> - General Chief Complaint: Pain Stated Complaint: GOUT PAIN Time Seen by Provider: 09/17/16 19:37 Past History <Lida Humphrey - Last Filed: 09/17/16 19:47> - Past Medical History Anemia: No Asthma: Yes Cancer: Yes (COLON) Cardiac Disorders: Yes (CT X 3, A-FIB) CVA: No COPD: Yes CHF: Yes Dementia: No Diabetes: No GI Disorders: No Disorders: No HTN: Yes Hypercholesterolemia: Yes Liver Disease: No Seizures: No Thyroid Disease: No - Surgical History Abdominal Surgery: No Appendectomy: No Cardiac Surgery: Yes (4sTENTS,pacemaker,defibrilator) Cholecystectomy: No GI Surgery: Yes (COLON RESECTION) Lung Surgery: No Neurologic Surgery: No Orthopedic Surgery: Yes ((L) ANKLE; (R)HIP; (R) ELBOW) - Family Disease History Family Disease History: Diabetes: Mother - Immunization History TDAP Vaccination: Yes Immunization Up to Date: No (2011 tetanus) - Psycho/Social/Smoking Cessation Hx Anxiety: No Suicidal Ideation: No Smoking Status: Yes Smoking History: Current every day smoker Have you smoked in the past 12 months: No Number of Cigarettes Smoked Daily: 7 If you are a former smoker, when did you quit?: 0 Cigars Per Day: 0 Information on smoking cessation initiated: No 'Breaking Loose' booklet given: 08/31/16 Hx Alcohol Use: No Drug/Substance Use Hx: No Substance Use Type: None Hx Substance Use Treatment: No <Mayco Rodrigues - Last Filed: 09/17/16 22:24> - Past Medical History Allergies/Adverse Reactions: Allergies Allergy/AdvReac Type Severity Reaction Status Date / Time tomato Allergy Severe Verified 09/17/16 18:09 Beef Containing Products Allergy Verified 09/17/16 18:09 red dye Allergy Verified 09/17/16 18:09 Home Medications: Ambulatory Orders Omeprazole [Prilosec] 40 mg PO DAILY 06/23/14 Oxycodone HCl [Roxicodone] 30 mg PO Q6H PRN 07/24/14 Atorvastatin Ca [Lipitor] 10 mg PO HS 08/17/14 Apixaban [Eliquis -] 5 mg PO BID 01/12/16 Docusate Sodium [Colace -] 100 mg PO DAILY 01/12/16 Escitalopram Oxalate [Lexapro -] 10 mg PO DAILY 01/12/16 Albuterol Sulfate Inhaler - [Ventolin HFA Inhaler -] 1 - 2 inh PO QID #1 inhaler 01/15/16 Ramipril [Altace] 10 mg PO DAILY #60 capsule 05/01/16 Alprazolam 0.25 mg PO BID PRN 07/02/16 Digoxin [Digitek] 125 mcg PO DAILY 07/02/16 Nitroglycerin Sublingual [Nitrostat -] 0.4 mg SL ONCE PRN 07/02/16 Oxycodone HCl/Acetaminophen [Percocet 10-325 mg Tablet] 1 each PO Q6H PRN Potassium Chloride 10 meq PO DAILY 07/02/16 Carvedilol [Coreg -] 25 mg PO BID #60 tablet 07/06/16 Furosemide [Lasix -] 40 mg PO DAILY 07/13/16 Duloxetine HCl [Cymbalta -] 60 mg PO DAILY #60 capsule. 07/19/16 Gabapentin [Neurontin -] 300 mg PO BID #60 capsule 07/19/16 Isosorbide Mononitrate [Imdur -] 30 mg PO DAILY #30 tab.sr.24h 07/19/16 Silver Sulfadiazine 1% Top Cr [Silvadene -] 1 applic TP DAILY #1 jar 08/30/16 Gabapentin [Neurontin] 600 mg PO TID #30 tablet 09/17/16 Indomethacin [Indocin -] 50 mg PO TID #30 capsule 09/17/16 Review of Systems - Review of Systems Able to Perform ROS?: Yes Comments:: 09/17/16 19:47 CONSTITUTIONAL: Absent: fever, chills, diaphoresis, generalized weakness, malaise, loss of appetite HEENT: Absent: rhinorrhea, nasal congestion, throat pain, throat swelling, difficulty swallowing, mouth swelling, ear pain, eye pain, visual Changes CARDIOVASCULAR: Absent: chest pain, syncope, palpitations, irregular heart rate, lightheadedness , peripheral edema RESPIRATORY: Absent: cough, shortness of breath, dyspnea with exertion, orthopnea, wheezing, stridor, hemoptysis GASTROINTESTINAL: Absent: abdominal pain, abdominal distension, nausea, vomiting, diarrhea, constipation, melena, hematochezia GENITOURINARY: Absent: dysuria, frequency, urgency, hesitancy, hematuria, flank pain, genital pain MUSCULOSKELETAL: (+) pain to right foot. Absent: myalgia, arthralgia, joint swelling SKIN: Absent: rash, itching, pallor HEMATOLOGIC/IMMUNOLOGIC: Absent: easy bleeding, easy bruising, lymphadenopathy, frequent infections ENDOCRINE: Absent: unexplained weight gain, unexplained weight loss, heat intolerance, cold intolerance NEUROLOGIC: Absent: headache, focal weakness or paresthesias, dizziness, unsteady gait, seizure, mental status changes, bladder or bowel incontinence PSYCHIATRIC: Absent: anxiety, depression, suicidal or homicidal ideation, hallucinations. <Lida Humphrey - Last Filed: 09/17/16 19:47> *Physical Exam - Vital Signs Last Vital Signs Temp Pulse Resp BP Pulse Ox 98 F 76 18 142/73 100 09/17/16 18:06 09/17/16 18:06 09/17/16 18:06 09/17/16 18:06 09/17/16 18:06 - Physical Exam Comments: 09/17/16 19:47 GENERAL: Well developed, well nourished. Awake and alert. No acute distress. HEENT: Normocephalic, atraumatic. PERRLA, EOMI. No conjunctival pallor. Sclera are non- icteric. Moist mucous membranes. Oropharynx is clear. NECK: Supple. Full ROM. No JVD. Carotid pulses 2+ and symmetric, without bruits. No thyromegaly. No lymphadenopathy. CARDIOVASCULAR: Regular rate and rhythm. No murmurs, rubs, or gallops. Distal pulses are 2+ and symmetric. PULMONARY: No evidence of respiratory distress. Lungs clear to auscultation bilaterally. No wheezing, rales or rhonchi. ABDOMINAL: Soft. Non-tender. Non-distended. No rebound or guarding. No organomegaly. Normoactive bowel sounds. MUSCULOSKELETAL Normal range of motion at all joints. No bony deformities or tenderness. No CVA tenderness. EXTREMITIES: (+) Right foot is slightly tender and erythematous, but not cellulitic starting over the dorsum of the R Big toe to the 5th digit. No cyanosis. No clubbing. No edema. No calf tenderness. SKIN: Warm and dry. Normal capillary refill. No rashes. No jaundice. NEUROLOGICAL: Alert, awake, appropriate. Cranial nerves 2-12 intact. Normoreflexic in the upper and lower extremities. Normal speech. Toes are down-going bilaterally. PSYCHIATRIC: Cooperative. Good eye contact. Appropriate mood and affect. <Lida Humphrey - Last Filed: 09/17/16 19:47> - Vital Signs Last Vital Signs Temp Pulse Resp BP Pulse Ox 98 F 76 18 142/73 100 09/17/16 18:06 09/17/16 18:06 09/17/16 18:06 09/17/16 18:06 09/17/16 18:06 <Mayco Rodrigues - Last Filed: 09/17/16 22:24> Medical Decision Making - Medical Decision Making 09/17/16 22:24 Dr. Rodrigues: The scribe's documentation has been prepared under my direction and personally reviewed by me in its entirery. I confirm that the note above accurately reflects all work, treatment, procedures, and medical decision making performed by me. <Mayco Rodrigues - Last Filed: 09/17/16 22:24> *DC/Admit/Observation/Transfer - Attestations Scribe Attestion: 09/17/16 19:49 Documentation prepared by Lida Humphrey, acting as medical examiner for Mayco Rodrigues MD <Lida Humphrey - Last Filed: 09/17/16 19:47> - Discharge Dispostion Admit: No <Mayco Rodrigues - Last Filed: 09/17/16 22:24> Diagnosis at time of Disposition: Neuropathy Gout Qualifiers: Gout site: foot Encounter type: subsequent encounter Laterality: right Chronicity: chronic Presence of tophus: without tophus - Discharge Dispostion Disposition: HOME Condition at time of disposition: Stable - Prescriptions Prescriptions: Indomethacin [Indocin -] 50 mg PO TID #30 capsule Gabapentin [Neurontin] 600 mg PO TID #30 tablet - Referrals Referrals: Anup Pyle MD [Primary Care Provider] - - Patient Instructions Printed Discharge Instructions: DI for Gout, Neuropathic Pain
[2016-09-17] MEDS ORDERED: morphine CARPU-JECT 2 MG/1 ML DISP.SYRIN IM STA ×2 (19:42→21:23)
[2016-09-17] MEDS ORDERED: INDOMETHACIN 50 MG CAPSULE PO ONE (20:40)
[2016-09-17] MEDS ORDERED: morphine CARPU-JECT 4 MG/1 ML DISP.SYRIN ONE (21:56)
[2016-09-17] MEDS ORDERED: morphine CARPU-JECT 2 MG/1 ML DISP.SYRIN ONE (21:56)
[2016-09-17] MEDS ORDERED: GABAPENTIN 300 MG CAPSULE (FP) PO ONE (22:21)
[2016-09-17 22:37] VITALS: BP 147/77; PULSE 69
== END 2016-09-17 22:37 | disposition home or self-care (01) ==
LOC: JER 17:57
PROC: 3E023NZ Introduction of Analgesics, Hypnotics, Sedatives into Muscle, Percutaneous Approach (ICD-10-PCS; principal; 2016-09-17)
PROC: 3E023NZ Introduction of Analgesics, Hypnotics, Sedatives into Muscle, Percutaneous Approach (ICD-10-PCS; 2016-09-17)
DX: M10.9 Gout, unspecified (principal); I25.2 Old myocardial infarction; I25.10 Atherosclerotic heart disease of native coronary artery without angina pectoris; I10 Essential (primary) hypertension; Z95.5 Presence of coronary angioplasty implant and graft; I48.91 Unspecified atrial fibrillation; Z79.01 Long term (current) use of anticoagulants; Z95.810 Presence of automatic (implantable) cardiac defibrillator; I50.9 Heart failure, unspecified; J44.9 Chronic obstructive pulmonary disease, unspecified; J45.909 Unspecified asthma, uncomplicated; Z85.038 Personal history of other malignant neoplasm of large intestine
CPT/HCPCS: 96372; 99282-25

== ENCOUNTER 2016-09-19 05:35 | Emergency (ER) | payer OTHER ==
[2016-09-19] MEDS ORDERED: morphine CARPU-JECT 4 MG/1 ML DISP.SYRIN IVPUSH ONE (06:30)
[2016-09-19 06:33] VITALS: TEMP 98.3; BMI 26.2
--- NOTE | 2016-09-19 06:35 | PDOC ---
History of Present Illness - General Stated Complaint: PAIN Time Seen by Provider: 09/19/16 06:20 History Source: Patient Exam Limitations: No Limitations - History of Present Illness Initial Comments: 09/19/16 06:34 56yo Male patient w/ PmHx: HTN, HLD, Afib, peripheral Neuropathy, Gout presents to ED c/o gout flare up. Patient reports symptom began 2 days ago, and patient was seen in this ED, treated and discharged. Patient now returns with symptoms in both feet, stating he is unable to walk. Patient reports pain starts in plantar surface of both feet traveling along dorsum aspects to greater toe bilaterally. He denies fever, CP, abd pain, n/v/d, fever, diff breathing, or any other complaints at this time. Occurred: reports: other (2 days) Lower Extremity Pain Location: bilateral: 1st toe Method of Injury: No: unknown, assault, burn, direct blow, fell, incised, motor vehicle accident, sports injury, twisted, other Modifying Factors: worse with: None, cold therapy, immobilization, pain medication, rest, other Lower Ext. Injury Location - Specific Injury Location Foot: bilateral foot no evidence of injury, bilateral foot soft tissue tenderness, bilateral foot bone tenderness, bilateral foot limited range of motion, bilateral foot pain Extremity Pain Location - Extremity Pain Location Extremity Pain Locations: bilateral: 1st toe, foot Past History - Travel Traveled outside of the country in the last 30 days: No Close contact w/someone who was outside of country & ill: No - Past Medical History Allergies/Adverse Reactions: Allergies Allergy/AdvReac Type Severity Reaction Status Date / Time tomato Allergy Severe Verified 09/19/16 06:35 Beef Containing Products Allergy Verified 09/19/16 06:35 red dye Allergy Verified 09/19/16 06:35 Home Medications: Ambulatory Orders Omeprazole [Prilosec] 40 mg PO DAILY 06/23/14 Oxycodone HCl [Roxicodone] 30 mg PO Q6H PRN 07/24/14 Atorvastatin Ca [Lipitor] 10 mg PO HS 08/17/14 Apixaban [Eliquis -] 5 mg PO BID 01/12/16 Docusate Sodium [Colace -] 100 mg PO DAILY 01/12/16 Escitalopram Oxalate [Lexapro -] 10 mg PO DAILY 01/12/16 Albuterol Sulfate Inhaler - [Ventolin HFA Inhaler -] 1 - 2 inh PO QID #1 inhaler 01/15/16 Ramipril [Altace] 10 mg PO DAILY #60 capsule 05/01/16 Alprazolam 0.25 mg PO BID PRN 07/02/16 Digoxin [Digitek] 125 mcg PO DAILY 07/02/16 Nitroglycerin Sublingual [Nitrostat -] 0.4 mg SL ONCE PRN 07/02/16 Oxycodone HCl/Acetaminophen [Percocet 10-325 mg Tablet] 1 each PO Q6H PRN Potassium Chloride 10 meq PO DAILY 07/02/16 Carvedilol [Coreg -] 25 mg PO BID #60 tablet 07/06/16 Furosemide [Lasix -] 40 mg PO DAILY 07/13/16 Duloxetine HCl [Cymbalta -] 60 mg PO DAILY #60 capsule. 07/19/16 Gabapentin [Neurontin -] 300 mg PO BID #60 capsule 07/19/16 Isosorbide Mononitrate [Imdur -] 30 mg PO DAILY #30 tab.sr.24h 07/19/16 Silver Sulfadiazine 1% Top Cr [Silvadene -] 1 applic TP DAILY #1 jar 08/30/16 Gabapentin [Neurontin] 600 mg PO TID #30 tablet 09/17/16 Indomethacin [Indocin -] 50 mg PO TID #30 capsule 09/17/16 Anemia: No Asthma: Yes Cancer: Yes (COLON) Cardiac Disorders: Yes (MA X 3, A-FIB) CVA: No COPD: Yes CHF: Yes Dementia: No Diabetes: No GI Disorders: No Disorders: No HTN: Yes Hypercholesterolemia: Yes Liver Disease: No Seizures: No Thyroid Disease: No - Surgical History Abdominal Surgery: No Appendectomy: No Cardiac Surgery: Yes (4sTENTS,pacemaker,defibrilator) Cholecystectomy: No GI Surgery: Yes (COLON RESECTION) Lung Surgery: No Neurologic Surgery: No Orthopedic Surgery: Yes ((L) ANKLE; (R)HIP; (R) ELBOW) - Family Disease History Family Disease History: Diabetes: Mother - Immunization History TDAP Vaccination: Yes Immunization Up to Date: No (2011 tetanus) - Psycho/Social/Smoking Cessation Hx Anxiety: No Suicidal Ideation: No Smoking Status: Yes Smoking History: Unknown if ever smoked Have you smoked in the past 12 months: No Number of Cigarettes Smoked Daily: 7 If you are a former smoker, when did you quit?: 0 Cigars Per Day: 0 'Breaking Loose' booklet given: 08/31/16 Hx Alcohol Use: No Drug/Substance Use Hx: No Substance Use Type: None Hx Substance Use Treatment: No Review of Systems - Review of Systems Able to Perform ROS?: Yes Is the patient limited Kyrgyz proficient: No Constitutional: No: Fever Respiratory: No: Shortness of Breath, Stridor, Wheezing Cardiac (ROS): No: Chest Pain, Lightheadedness, Palpitations ABD/GI: No: Diarrhea, Nausea, Vomiting : No: Burning, Dysuria, Hematuria, Urgency Musculoskeletal: Yes: Joint Pain, Other (Bilateral Foot Pain). No: Back Pain Integumentary: No: Bruising, Erythema, Pruritus, Rash Neurological: No: Headache All Other Systems: Reviewed and Negative *Physical Exam - Vital Signs Last Vital Signs Temp Pulse Resp BP Pulse Ox 98.3 F 85 16 157/106 99 09/19/16 06:27 09/19/16 06:27 09/19/16 06:27 09/19/16 06:27 09/19/16 06:27 - Physical Exam General Appearance: Yes: Nourished, Appropriately Dressed, Moderate Distress. No: Apparent Distress, Mild Distress, Severe Distress Respiratory/Chest: positive: Lungs Clear, Normal Breath Sounds. negative: Respiratory Distress, Accessory Muscle Use, Labored Respiration, Rapid RR Cardiovascular: positive: Regular Rhythm, Regular Rate. negative: Edema, JVD, Murmur Gastrointestinal/Abdominal: positive: Normal Bowel Sounds, Soft. negative: Distended, Guarding, Rebound, Tenderness Musculoskeletal: positive: Normal Inspection. negative: CVA Tenderness, Vertebral Tenderness Extremity: positive: Tender (Greater toes of both feet.), Swelling (Greater toes of both feet.). negative: Erythema, Inflammation Integumentary: positive: Normal Color, Dry, Warm, Swelling. negative: Bruising Neurologic: positive: mail agent II-XII NML intact, Fully Oriented, Alert, Normal Mood/ Affect, Normal Response, Motor Strength 5/5
[2016-09-19 07:07] LABS: MCHC 29.5 g/dl (32.0-35.9); MEAN CELL VOLUME 61.8 fl (80-96); MEAN PLT VOLUME 8.8 fl (7.5-11.1); PLATELET COUNT 425 K/MM3 (134-434); RDW 22.1 % (11.9-15.9); WHITE BLOOD COUNT 11.6 K/mm3 (4.0-10.0)
[2016-09-19 07:28] VITALS: BP 133/72; PULSE 78
[2016-09-19 07:38] LABS: ALBUMIN 3.4 g/dl (3.4-5.0); ANION GAP 6 (8-16); BILIRUBIN,TOTAL 0.4 mg/dL (0.2-1.0); CALCIUM 8.2 mg/dL (8.5-10.1); CO2 29 mmol/L (21-32); CREATININE 1.2 mg/dL (0.7-1.3); GLUCOSE,RANDOM 134 mg/dL (74-106); SGOT/AST 16 U/L (15-37); SGPT/ALT 21 U/L (12-78); TOT PROT 6.9 g/dl (6.4-8.2); URIC ACID 5.6 mg/dL (2.6-7.2)
[2016-09-19 07:39] LABS: ALK PHOS 57 U/L (45-117)
[2016-09-19 07:46] LABS: MCH 18.2 pg (25.7-33.7)
[2016-09-19] MEDS ORDERED: morphine CARPU-JECT 2 MG/1 ML DISP.SYRIN IM ONE (07:49)
--- NOTE | 2016-09-19 07:51 | PDOC ---
*Physical Exam - Vital Signs Last Vital Signs Temp Pulse Resp BP Pulse Ox 98.3 F 78 18 133/72 98 09/19/16 06:27 09/19/16 07:27 09/19/16 07:27 09/19/16 07:27 09/19/16 07:27 - Physical Exam General Appearance: Yes: Nourished. No: Mild Distress HEENT: positive: EOMI, ASHA Neck: positive: Supple Respiratory/Chest: positive: Lungs Clear, Normal Breath Sounds Cardiovascular: positive: Regular Rhythm, Regular Rate Musculoskeletal: positive: Normal Inspection Extremity: positive: Normal Capillary Refill, Normal Range of Motion, Tender ( left great toe no redness or swelling ) Integumentary: positive: Normal Color, Dry, Warm Neurologic: positive: Fully Oriented, Alert, Normal Mood/Affect, Normal Response , Motor Strength 10/19 ED Treatment Course - LABORATORY CBC & Chemistry Diagram: 09/19/16 06:51 09/19/16 06:51 - ADDITIONAL ORDERS Additional order review: 09/19/16 06:51 RBC 5.60 MCV 61.8 L MCHC 29.5 L RDW 22.1 H MPV 8.8 Neutrophils % Y Lymphocytes % Y - Medications Given in the ED: ED Medications Discontinued Medications Generic Name Dose Route Start Last Admin Trade Name Rickeyq PRN Reason Stop Dose Admin Morphine Sulfate 4 mg 09/19/16 06:30 09/19/16 06:35 Morphine Injection - IVPUSH 09/19/16 06:31 4 mg ONCE ONE Administration Medical Decision Making - Medical Decision Making 09/19/16 07:50 cc: gout pain not relieved with usual medications pt had morphine 4mg IM with no relief. states pain is 04/26 will give morphine 6mg im 09/19/16 08:27 pt ambulatory no distress pt feels better after the second dose of morphine is stating "I am ready to go now" all dc inst given by the RN Anne. *DC/Admit/Observation/Transfer Diagnosis at time of Disposition: Lumbar radiculopathy, chronic Chronic back pain Qualifiers: Back pain location: low back pain Back pain laterality: right Sciatica presence : with sciatica Sciatica laterality: sciatica of right side Qualified Code(s): M54.41 - Lumbago with sciatica, right side - Discharge Dispostion Disposition: HOME Condition at time of disposition: Improved - Referrals Referrals: Anup Pyle MD [Primary Care Provider] - - Patient Instructions Additional Instructions: follow with your doctor as planned take your medications as directed return to ER for any worsening symptoms
[2016-09-19 08:59] LABS: PLATELET ESTIMATE ADEQUATE (NORMAL)
[2016-09-19 09:02] LABS: ANISOCYTOSIS 3+; HYPOCHROMIA 2+; MICROCYTOSIS 1+; TARGET CELLS FEW; TEAR DROP CELLS 1+
== END 2016-09-19 08:27 | disposition home or self-care (01) ==
LOC: JER 05:35
PROC: 3E033NZ Introduction of Analgesics, Hypnotics, Sedatives into Peripheral Vein, Percutaneous Approach (ICD-10-PCS; principal; 2016-09-19)
PROC: 3E023NZ Introduction of Analgesics, Hypnotics, Sedatives into Muscle, Percutaneous Approach (ICD-10-PCS; 2016-09-19)
DX: M54.41 Lumbago with sciatica, right side (principal); I48.91 Unspecified atrial fibrillation; I10 Essential (primary) hypertension; E78.5 Hyperlipidemia, unspecified; G62.9 Polyneuropathy, unspecified; Z79.01 Long term (current) use of anticoagulants
CPT/HCPCS: 36415; 80053; 84550; 85025; 96372; 96374; 99283-25

== ENCOUNTER 2016-09-23 12:01 | Emergency (ER) | payer OTHER ==
[2016-09-23 12:07] VITALS: BP 198/98; PULSE 70; TEMP 97.4; BMI 27.3
== END 2016-09-23 12:25 | disposition left against medical advice (07) ==
LOC: JER 12:01 → JERFT 12:01
DX: Z53.21 Procedure and treatment not carried out due to patient leaving prior to being seen by health care provider (principal)
CPT/HCPCS: 99281-25

== ENCOUNTER 2016-09-23 15:24 | Emergency (ER) | payer OTHER ==
[2016-09-23 15:28] VITALS: BP 138/73; PULSE 69; TEMP 97.6; BMI 27.3
[2016-09-23] MEDS ORDERED: morphine CARPU-JECT 2 MG/1 ML DISP.SYRIN IM ONE (16:07)
--- NOTE | 2016-09-23 16:17 | PDOC ---
History of Present Illness - General Chief Complaint: Pain Stated Complaint: GOUT/ FEET Time Seen by Provider: 09/23/16 15:46 History Source: Patient Exam Limitations: No Limitations - History of Present Illness Initial Comments: 09/23/16 16:12 CC bilat great toe pain; long hx of same ; sign. hx of gout, peripheral neuropathy, Htn, CHF, Afib, COPD, [place] with multiple stents; mom today from [place]; Timing/Duration: getting worse Severity: severe Associated Symptoms: denies: denies symptoms, chest pain, cough, diaphoresis, malaise, nausea/vomiting, shortness of breath Past History - Past Medical History Allergies/Adverse Reactions: Allergies Allergy/AdvReac Type Severity Reaction Status Date / Time tomato Allergy Severe Verified 09/23/16 15:28 Beef Containing Products Allergy Verified 09/23/16 15:28 red dye Allergy Verified 09/23/16 15:28 Home Medications: Ambulatory Orders Omeprazole [Prilosec] 40 mg PO DAILY 06/23/14 Oxycodone HCl [Roxicodone] 30 mg PO Q6H PRN 07/24/14 Atorvastatin Ca [Lipitor] 10 mg PO HS 08/17/14 Apixaban [Eliquis -] 5 mg PO BID 01/12/16 Docusate Sodium [Colace -] 100 mg PO DAILY 01/12/16 Escitalopram Oxalate [Lexapro -] 10 mg PO DAILY 01/12/16 Albuterol Sulfate Inhaler - [Ventolin HFA Inhaler -] 1 - 2 inh PO QID #1 inhaler 01/15/16 Ramipril [Altace] 10 mg PO DAILY #60 capsule 05/01/16 Alprazolam 0.25 mg PO BID PRN 07/02/16 Digoxin [Digitek] 125 mcg PO DAILY 07/02/16 Nitroglycerin Sublingual [Nitrostat -] 0.4 mg SL ONCE PRN 07/02/16 Potassium Chloride 10 meq PO DAILY 07/02/16 Carvedilol [Coreg -] 25 mg PO BID #60 tablet 07/06/16 Furosemide [Lasix -] 40 mg PO DAILY 07/13/16 Duloxetine HCl [Cymbalta -] 60 mg PO DAILY #60 capsule. 07/19/16 Isosorbide Mononitrate [Imdur -] 30 mg PO DAILY #30 tab.sr.24h 07/19/16 Silver Sulfadiazine 1% Top Cr [Silvadene -] 1 applic TP DAILY #1 jar 08/30/16 Indomethacin [Indocin -] 50 mg PO TID #30 capsule 09/17/16 Colchicine [Colcrys] 0.6 mg PO DAILY 09/19/16 Gabapentin [Neurontin -] 300 mg PO TID 09/19/16 Pantoprazole Sodium [Protonix] 40 mg PO DAILY 09/19/16 Prednisone [Deltasone -] 10 mg PO DAILY 09/19/16 Anemia: No Asthma: Yes Cancer: Yes (COLON) Cardiac Disorders: Yes (IN X 3, A-FIB) CVA: No COPD: Yes CHF: Yes Dementia: No Diabetes: No GI Disorders: No Disorders: No HTN: Yes Hypercholesterolemia: Yes Liver Disease: No Seizures: No Thyroid Disease: No Other medical history: GOUT - Surgical History Abdominal Surgery: No Appendectomy: No Cardiac Surgery: Yes (4sTENTS,pacemaker,defibrilator) Cholecystectomy: No GI Surgery: Yes (COLON RESECTION) Lung Surgery: No Neurologic Surgery: No Orthopedic Surgery: Yes ((L) ANKLE; (R)HIP; (R) ELBOW) - Family Disease History Family Disease History: Diabetes: Mother - Immunization History TDAP Vaccination: Yes Immunization Up to Date: No (2011 tetanus) - Psycho/Social/Smoking Cessation Hx Anxiety: No Suicidal Ideation: No Smoking Status: Yes Smoking History: Current every day smoker Have you smoked in the past 12 months: No Number of Cigarettes Smoked Daily: 10 If you are a former smoker, when did you quit?: 0 Cigars Per Day: 0 Information on smoking cessation initiated: No 'Breaking Loose' booklet given: 08/31/16 Hx Alcohol Use: No Drug/Substance Use Hx: No Substance Use Type: None Hx Substance Use Treatment: No Review of Systems - Review of Systems Constitutional: No: Symptoms Reported, Chills, Fever, Malaise HEENTM: No: Symptoms Reported Respiratory: No: Symptoms reported, Cough Cardiac (ROS): Yes: Other ( has pacemaker). No: Chest Pain, Irregular Heart Rate, Palpitations Musculoskeletal: Yes: Gout, Joint Pain. No: Joint Swelling Neurological: Yes: Paresthesia, Tingling (long hx) *Physical Exam - Vital Signs Last Vital Signs Temp Pulse Resp BP Pulse Ox 97.6 F 69 20 138/73 99 09/23/16 15:25 09/23/16 15:25 09/23/16 15:25 09/23/16 15:25 09/23/16 15:25 - Physical Exam General Appearance: Yes: Appropriately Dressed. No: Apparent Distress HEENT: positive: Pharynx Normal Neck: positive: Supple. negative: Rigid Respiratory/Chest: positive: Lungs Clear, Normal Breath Sounds. negative: Accessory Muscle Use Cardiovascular: positive: Regular Rhythm. negative: JVD, Tachycardia Vascular Pulses: Dorsalis-Pedis (R): 4+, Doralis-Pedis (L): 4+ Gastrointestinal/Abdominal: positive: Normal Bowel Sounds Male Genitalia: negative: normal genitalia, hematuria Rectal Exam: negative: heme negative stool Integumentary: positive: Normal Color. negative: Cyanotic, Erythema, Swelling, Ecchymosis, Bruising Neurologic: positive: investment banker II-XII NML intact, Fully Oriented, Sensory Deficit ( BLEs), Other (no foot drop). negative: Alert Medical Decision Making - Medical Decision Making 09/23/16 17:01 feeling better post morphine; will refer to Dr Pyle this week *DC/Admit/Observation/Transfer Diagnosis at time of Disposition: Neuropathy Gout Qualifiers: Gout site: toe Gout etiology: other secondary cause Laterality: unspecified laterality Chronicity: acute Qualified Code(s): M10.479 - Other secondary gout, unspecified ankle and foot - Discharge Dispostion Disposition: HOME Condition at time of disposition: Stable Admit: No - Patient Instructions Additional Instructions: please see Dr Pyle 1-2 days
== END 2016-09-23 17:06 | disposition home or self-care (01) ==
LOC: JERFT 15:24
PROC: 3E023NZ Introduction of Analgesics, Hypnotics, Sedatives into Muscle, Percutaneous Approach (ICD-10-PCS; principal; 2016-09-23)
DX: M10.479 Other secondary gout, unspecified ankle and foot (principal); I48.91 Unspecified atrial fibrillation; Z79.01 Long term (current) use of anticoagulants; I25.10 Atherosclerotic heart disease of native coronary artery without angina pectoris; I11.0 Hypertensive heart disease with heart failure; I25.2 Old myocardial infarction; J44.9 Chronic obstructive pulmonary disease, unspecified; J45.909 Unspecified asthma, uncomplicated; E78.00 Pure hypercholesterolemia, unspecified; Z85.038 Personal history of other malignant neoplasm of large intestine
CPT/HCPCS: 96372; 99281-25

== ENCOUNTER 2016-10-20 11:13 | Emergency (ER) | payer OTHER ==
[2016-10-20 11:28] VITALS: BP 157/87; PULSE 74; TEMP 97.4; BMI 28.8
[2016-10-20] MEDS ORDERED: morphine CARPU-JECT 2 MG/1 ML DISP.SYRIN IM ONE (12:08)
--- NOTE | 2016-10-20 12:10 | PDOC ---
History of Present Illness - General Chief Complaint: Pain Stated Complaint: FEET PAIN Time Seen by Provider: 10/20/16 11:52 History Source: Patient Exam Limitations: No Limitations - History of Present Illness Initial Comments: 10/20/16 12:12 My Chief Complaint: b/l foot pain severe History of Present Illness: Pt. Is a 56-year-old male with a history of gout, peripheral neuropathy, chronic lower back pain with lumbar disc degeneration, hypertension, hyperlipidemia, CHF, atrial fibrillation, [place], pacemaker, colon cancer, and COPD here today complaining of worsening bilateral foot pain without relief from Indocin or culture sent. Patient reports the pain is severe and sharp and feels like electric sensations in his feet. Patient reports he was unable to sleep due to this pain. Patient reports that he has an appointment on 10/22/2016, [facility] in regards to having surgery for his chronic back problem. In the past pt has come here for injection of Morphine, he reports that toradol causes him to have difficulty breathing a day or 2 afterwards. Pt. currently is a 10 out of 10. Pt. denies any back pain presently, or any saddele anesthesia or incontinency or any radiation of pain down legs. 10/20/16 12:18 Timing/Duration: getting worse Severity: severe (b/l feet ) Associated Symptoms: reports: denies symptoms Past History - Past Medical History Allergies/Adverse Reactions: Allergies Allergy/AdvReac Type Severity Reaction Status Date / Time tomato Allergy Severe Verified 10/20/16 11:27 Beef Containing Products Allergy Verified 10/20/16 11:27 red dye Allergy Verified 10/20/16 11:27 Home Medications: Ambulatory Orders Omeprazole [Prilosec] 40 mg PO DAILY 06/23/14 Oxycodone HCl [Roxicodone] 30 mg PO Q6H PRN 07/24/14 Atorvastatin Ca [Lipitor] 10 mg PO HS 08/17/14 Apixaban [Eliquis -] 5 mg PO BID 01/12/16 Docusate Sodium [Colace -] 100 mg PO DAILY 01/12/16 Escitalopram Oxalate [Lexapro -] 10 mg PO DAILY 01/12/16 Albuterol Sulfate Inhaler - [Ventolin HFA Inhaler -] 1 - 2 inh PO QID #1 inhaler 01/15/16 Ramipril [Altace] 10 mg PO DAILY #60 capsule 05/01/16 Alprazolam 0.25 mg PO BID PRN 07/02/16 Digoxin [Digitek] 125 mcg PO DAILY 07/02/16 Nitroglycerin Sublingual [Nitrostat -] 0.4 mg SL ONCE PRN 07/02/16 Potassium Chloride 10 meq PO DAILY 07/02/16 Carvedilol [Coreg -] 25 mg PO BID #60 tablet 07/06/16 Furosemide [Lasix -] 40 mg PO DAILY 07/13/16 Duloxetine HCl [Cymbalta -] 60 mg PO DAILY #60 capsule. 07/19/16 Isosorbide Mononitrate [Imdur -] 30 mg PO DAILY #30 tab.sr.24h 07/19/16 Silver Sulfadiazine 1% Top Cr [Silvadene -] 1 applic TP DAILY #1 jar 08/30/16 Indomethacin [Indocin -] 50 mg PO TID #30 capsule 09/17/16 Colchicine [Colcrys] 0.6 mg PO DAILY 09/19/16 Gabapentin [Neurontin -] 300 mg PO TID 09/19/16 Pantoprazole Sodium [Protonix] 40 mg PO DAILY 09/19/16 Prednisone [Deltasone -] 10 mg PO DAILY 09/19/16 Anemia: No Asthma: Yes Cancer: Yes (COLON) Cardiac Disorders: Yes ([place] X 3, A-FIB) CVA: No COPD: Yes CHF: Yes Dementia: No Diabetes: No GI Disorders: No Disorders: No HTN: Yes Hypercholesterolemia: Yes Liver Disease: No Seizures: No Thyroid Disease: No - Surgical History Abdominal Surgery: No Appendectomy: No Cardiac Surgery: Yes (4sTENTS,pacemaker,defibrilator) Cholecystectomy: No GI Surgery: Yes (COLON RESECTION) Lung Surgery: No Neurologic Surgery: No Orthopedic Surgery: Yes ((L) ANKLE; (R)HIP; (R) ELBOW) - Family Disease History Family Disease History: Diabetes: Mother - Immunization History TDAP Vaccination: Yes Immunization Up to Date: No (2011 tetanus) - Psycho/Social/Smoking Cessation Hx Anxiety: No Suicidal Ideation: No Smoking Status: Yes Smoking History: Never smoked Have you smoked in the past 12 months: No Number of Cigarettes Smoked Daily: 10 If you are a former smoker, when did you quit?: 0 Cigars Per Day: 0 'Breaking Loose' booklet given: 08/31/16 Hx Alcohol Use: No Drug/Substance Use Hx: No Substance Use Type: None Hx Substance Use Treatment: No Review of Systems - Review of Systems Able to Perform ROS?: Yes Constitutional: No: Symptoms Reported HEENTM: No: Symptoms Reported Respiratory: No: Symptoms reported Cardiac (ROS): No: Symptoms Reported ABD/GI: No: Symptoms Reported : No: Symptoms Reported Musculoskeletal: Yes: Other (b/l feet severe pain neuropathic, he denies any back pain presently ) Integumentary: No: Symptoms Reported Neurological: No: Symptoms reported *Physical Exam - Vital Signs Last Vital Signs Temp Pulse Resp BP Pulse Ox 97.4 F L 74 20 157/87 96 10/20/16 11:24 10/20/16 11:24 10/20/16 11:24 10/20/16 11:24 10/20/16 11:24 - Physical Exam General Appearance: Yes: Appropriately Dressed Respiratory/Chest: positive: Lungs Clear, Normal Breath Sounds. negative: Chest Tender, Respiratory Distress Cardiovascular: positive: Regular Rhythm, Regular Rate, S1, S2 Vascular Pulses: Dorsalis-Pedis (R): 4+, Doralis-Pedis (L): 4+ Extremity: positive: Normal Capillary Refill, Normal Inspection, Normal Range of Motion, Tender (dorsal and plantar feet). negative: Swelling Integumentary: positive: Normal Color (b/l feet) Neurologic: positive: Normal Response, Motor Strength 5/5 (lower extremities b/ l ), Respond to painful stimul (b/l feet ), Responsive. negative: Sensory Deficit (b/l feet ) Medical Decision Making - Medical Decision Making 10/20/16 12:15 Pt. Is a 56-year-old male with a history of gout, peripheral neuropathy, chronic lower back pain with lumbar disc degeneration, hypertension, hyperlipidemia, CHF, atrial fibrillation, [place], pacemaker, colon cancer, and COPD here today complaining of worsening bilateral foot pain without relief from Indocin or culture sent. Patient reports the pain is severe and sharp and feels like electric sensations in his feet. Patient reports he was unable to sleep due to this pain. Patient reports that he has an appointment on 10/22/2016, [facility] in regards to having surgery for his chronic back problem. In the past pt has come here for injection of Morphine, he reports that toradol causes him to have difficulty breathing a day or 2 afterwards. Pt. currently is a 10 out of 10. Neuropathy pain b/l feet PLAN: morphine 4 mg IM now follow up with ortho at [facility] 10/20/16 12:19 *DC/Admit/Observation/Transfer Diagnosis at time of Disposition: Patient left before treatment completed - Discharge Dispostion Disposition: HOME Condition at time of disposition: Unchanged/Unknown - Referrals Referrals: Anup Pyle MD [Primary Care Provider] - - Patient Instructions Additional Instructions: Follow-up with orthopedist at [facility] as previously scheduled on 10/22/2016 Return to emergency room if symptoms worsen or new symptoms develop Patient voiced understanding of discharge instructions and all questions were answered
[2016-10-20] MEDS ORDERED: morphine CARPU-JECT 2 MG/1 ML DISP.SYRIN ONE (12:16)
== END 2016-10-20 13:13 | disposition left against medical advice (07) ==
LOC: JERFT 11:13
DX: G62.9 Polyneuropathy, unspecified (principal); M10.9 Gout, unspecified; M51.36 Other intervertebral disc degeneration, lumbar region; I25.10 Atherosclerotic heart disease of native coronary artery without angina pectoris; I11.0 Hypertensive heart disease with heart failure; Z95.5 Presence of coronary angioplasty implant and graft; I48.91 Unspecified atrial fibrillation; Z79.01 Long term (current) use of anticoagulants; J44.9 Chronic obstructive pulmonary disease, unspecified; Z85.038 Personal history of other malignant neoplasm of large intestine; Z95.810 Presence of automatic (implantable) cardiac defibrillator
CPT/HCPCS: 99281-25

== ENCOUNTER 2016-10-23 21:30 | Emergency (ER) | payer OTHER ==
[2016-10-23 21:38] VITALS: BP 157/92; PULSE 85; TEMP 97.9; BMI 28.8
[2016-10-23] MEDS ORDERED: DEXAMETHASONE SOD PHOSPHATE 10 MG/1 ML VIAL IM ONE (21:58)
--- NOTE | 2016-10-23 21:58 | PDOC ---
History of Present Illness - General History Source: Patient Exam Limitations: No Limitations - History of Present Illness Initial Comments: 10/23/16 22:13 The patient is a 56 year old male with significant past medical history of A-fib , CHF, [place] x3, CAD, s/p stents x4, s/p pacemaker, hypertension, hyperlipidemia, COPD, gout, hepatitis C, peripheral neuropathy, colon CA, s/p colon resection, and chronic low back pain (degenerative lumbar disc disease) who presents to the ED for s/p allergic reaction. Patient reports prior to getting his MRI done earlier today he took a percocet due to back pain upon lying down. Subsequently , he took a second percocet after the MRI due to his back pain and immediately developed diffuse pruritus, SOB and itchy throat. States he has never been allergic to percocet before. Denies tongue swelling or mouth swelling. The patient denies fever, chills, diaphoresis, cough, chest pain, and palpitations. The patient denies abdominal pain, nausea, vomiting, and diarrhea. Allergies: possible allergic reaction to percocet as of today, no other NKDA Social History: No alcohol, tobacco, or drug use reported. Past Surgical History: s/p cardiac stents x4, s/p pacemaker, s/p colon resection , hernia repair, L ankle sx, R hip sx, R elbow sx PCP: None reported <Anisa Wilson - Last Filed: 10/23/16 22:13> - General History Source: Patient <Mayco Rodrigues - Last Filed: 10/23/16 23:13> - General Chief Complaint: Allergic Reaction Stated Complaint: ALLERGIC REACTION Time Seen by Provider: 10/23/16 21:55 Past History <Anisa Wilson - Last Filed: 10/23/16 22:13> - Past Medical History Anemia: No Asthma: Yes Cancer: Yes (COLON) Cardiac Disorders: Yes ([place] X 3, A-FIB) CVA: No COPD: Yes CHF: Yes Dementia: No Diabetes: No GI Disorders: No Disorders: No HTN: Yes Hypercholesterolemia: Yes Liver Disease: No Seizures: No Thyroid Disease: No - Surgical History Abdominal Surgery: No Appendectomy: No Cardiac Surgery: Yes (4sTENTS,pacemaker,defibrilator) Cholecystectomy: No GI Surgery: Yes (COLON RESECTION) Lung Surgery: No Neurologic Surgery: No Orthopedic Surgery: Yes ((L) ANKLE; (R)HIP; (R) ELBOW) - Family Disease History Family Disease History: Diabetes: Mother - Immunization History TDAP Vaccination: Yes Immunization Up to Date: No (2011 tetanus) - Psycho/Social/Smoking Cessation Hx Anxiety: No Suicidal Ideation: No Smoking Status: Yes Smoking History: Never smoked Have you smoked in the past 12 months: No Number of Cigarettes Smoked Daily: 10 If you are a former smoker, when did you quit?: 0 Cigars Per Day: 0 Information on smoking cessation initiated: No 'Breaking Loose' booklet given: 08/31/16 Hx Alcohol Use: No Drug/Substance Use Hx: No Substance Use Type: None Hx Substance Use Treatment: No <Mayco Rodrigues - Last Filed: 10/23/16 23:13> - Past Medical History Allergies/Adverse Reactions: Allergies Allergy/AdvReac Type Severity Reaction Status Date / Time tomato Allergy Severe Verified 10/23/16 21:33 Beef Containing Products Allergy Verified 10/23/16 21:33 red dye Allergy Verified 10/23/16 21:33 Home Medications: Ambulatory Orders Omeprazole [Prilosec] 40 mg PO DAILY 06/23/14 Oxycodone HCl [Roxicodone] 30 mg PO Q6H PRN 07/24/14 Atorvastatin Ca [Lipitor] 10 mg PO HS 08/17/14 Apixaban [Eliquis -] 5 mg PO BID 01/12/16 Docusate Sodium [Colace -] 100 mg PO DAILY 01/12/16 Escitalopram Oxalate [Lexapro -] 10 mg PO DAILY 01/12/16 Albuterol Sulfate Inhaler - [Ventolin HFA Inhaler -] 1 - 2 inh PO QID #1 inhaler 01/15/16 Ramipril [Altace] 10 mg PO DAILY #60 capsule 05/01/16 Alprazolam 0.25 mg PO BID PRN 07/02/16 Digoxin [Digitek] 125 mcg PO DAILY 07/02/16 Nitroglycerin Sublingual [Nitrostat -] 0.4 mg SL ONCE PRN 07/02/16 Potassium Chloride 10 meq PO DAILY 07/02/16 Carvedilol [Coreg -] 25 mg PO BID #60 tablet 07/06/16 Furosemide [Lasix -] 40 mg PO DAILY 07/13/16 Duloxetine HCl [Cymbalta -] 60 mg PO DAILY #60 capsule.dr 07/19/16 Isosorbide Mononitrate [Imdur -] 30 mg PO DAILY #30 tab.sr.24h 07/19/16 Silver Sulfadiazine 1% Top Cr [Silvadene -] 1 applic TP DAILY #1 jar 08/30/16 Indomethacin [Indocin -] 50 mg PO TID #30 capsule 09/17/16 Colchicine [Colcrys] 0.6 mg PO DAILY 09/19/16 Gabapentin [Neurontin -] 300 mg PO TID 09/19/16 Pantoprazole Sodium [Protonix] 40 mg PO DAILY 09/19/16 Prednisone [Deltasone -] 10 mg PO DAILY 09/19/16 Diphenhydramine HCl [Benadryl Capsules -] 25 mg PO TID #30 capsule 10/23/16 Prednisone [Deltasone -] 40 mg PO DAILY #10 tablet 10/23/16 Review of Systems - Review of Systems Able to Perform ROS?: Yes Comments:: 10/23/16 22:13 CONSTITUTIONAL: Absent: fever, no chills, no fatigue EYES: Absent: visual changes ENT: +itchy throat Absent: ear pain, no sore throat CARDIOVASCULAR: Absent: chest pain, no palpitations RESPIRATORY: +SOB Absent: cough GI: Absent: abdominal pain, no nausea, no vomiting, no constipation, no diarrhea GENITOURINARY: Absent: dysuria, no frequency, no hematuria MUSCULOSKELETAL: Absent: back pain, no arthralgia, no myalgia SKIN: +diffuse pruritus Absent: rash NEURO: Absent: headache <Bharrat,Anisa - Last Filed: 10/23/16 22:13> *Physical Exam - Vital Signs Last Vital Signs Temp Pulse Resp BP Pulse Ox 97.9 F 85 24 157/92 100 10/23/16 21:33 10/23/16 21:33 10/23/16 21:33 10/23/16 21:33 10/23/16 21:33 - Physical Exam Comments: 10/23/16 22:13 GENERAL: Well-appearing, well-nourished. Mild distress. HEENT: Normocephalic, atraumatic. PERRLA, EOMI. No conjunctival pallor. Sclera are non- icteric. Moist mucous membranes. Oropharynx is clear. No stridor. CARDIOVASCULAR: Normal S1, S2. Regular rate and rhythm. PULMONARY: No evidence of respiratory distress. Lungs clear to auscultation bilaterally. No wheezing, rales or rhonchi. No hot potato voice. No conversational dyspnea. No retractions. ABDOMEN: Soft, non-distended, non-tender. EXTREMITIES: Normal ROM in all four extremities. No gross deformities. SKIN: Warm, dry. Normal capillary refill. No rash. Currently scratching himself all over. NEUROLOGICAL: No focal neurological deficits. <Anisa Wilson - Last Filed: 10/23/16 22:13> - Vital Signs Last Vital Signs Temp Pulse Resp BP Pulse Ox 97.9 F 85 24 157/92 100 10/23/16 21:33 10/23/16 21:33 10/23/16 21:33 10/23/16 21:33 10/23/16 21:33 <Mayco Rodrigues - Last Filed: 10/23/16 23:13> ED Treatment Course - Medications Given in the ED: ED Medications Discontinued Medications Generic Name Dose Route Start Last Admin Trade Name Freq PRN Reason Stop Dose Admin Dexamethasone Sodium Phosphate 10 mg 10/23/16 21:58 10/23/16 22:08 Decadron Injection - IM 10/23/16 21:59 10 mg ONCE ONE Administration Diphenhydramine HCl 25 mg 10/23/16 21:58 10/23/16 22:07 Benadryl Injection - IM 10/23/16 21:59 25 mg ONCE ONE Administration <Anisa Wilson - Last Filed: 10/23/16 22:13> Medical Decision Making - Medical Decision Making 10/23/16 23:12 Dr. Rodrigues: The scribe's documentation has been prepared under my direction and personally reviewed by me in its entirery. I confirm that the note above accurately reflects all work, treatment, procedures, and medical decision making performed by me. Patient's symptoms have improved. We'll discharge. Prescriptions transmit to patient's pharmacy. <Mayco Rodrigues - Last Filed: 10/23/16 23:13> *DC/Admit/Observation/Transfer - Attestations Scribe Attestion: 10/23/16 22:14 Documentation prepared by Anisa Wilson, acting as medical transcription for Mayco Rodrigues MD/DO. <Anisa Wilson - Last Filed: 10/23/16 22:13> - Discharge Dispostion Admit: No <Mayco Rodrigues - Last Filed: 10/23/16 23:13> Diagnosis at time of Disposition: Allergic reaction caused by a drug Qualifiers: Encounter type: initial encounter Qualified Code(s): T78.40XA - Allergy, unspecified, initial encounter - Discharge Dispostion Disposition: HOME Condition at time of disposition: Improved - Prescriptions Prescriptions: Diphenhydramine HCl [Benadryl Capsules -] 25 mg PO TID #30 capsule Prednisone [Deltasone -] 40 mg PO DAILY #10 tablet - Patient Instructions Printed Discharge Instructions: DI for Adverse Drug Reaction -- Allergic Additional Instructions: take medication as directed. REturn if any problems.
[2016-10-23] MEDS ORDERED: DEXAMETHASONE SOD PHOSPHATE 10 MG/1 ML VIAL ONE (22:01)
== END 2016-10-23 23:26 | disposition home or self-care (01) ==
LOC: JER 21:30
PROC: 3E0233Z Introduction of Anti-inflammatory into Muscle, Percutaneous Approach (ICD-10-PCS; principal; 2016-10-23)
PROC: 3E023GC Introduction of Other Therapeutic Substance into Muscle, Percutaneous Approach (ICD-10-PCS; 2016-10-23)
DX: T40.2X5A Adverse effect of other opioids, initial encounter (principal); L29.8 Other pruritus; R06.02 Shortness of breath; I25.10 Atherosclerotic heart disease of native coronary artery without angina pectoris; I10 Essential (primary) hypertension; Z95.1 Presence of aortocoronary bypass graft; Z95.5 Presence of coronary angioplasty implant and graft; I48.91 Unspecified atrial fibrillation; Z79.01 Long term (current) use of anticoagulants; M10.9 Gout, unspecified; G62.9 Polyneuropathy, unspecified; J44.9 Chronic obstructive pulmonary disease, unspecified; E78.00 Pure hypercholesterolemia, unspecified
CPT/HCPCS: 96372; 99281-25

== ENCOUNTER 2016-10-24 01:12 | Emergency (ER) | payer OTHER ==
[2016-10-24] MEDS ORDERED: ALBUTEROL SO4 2.5/IPRATROPIUM 0.5 INH SOL 3 ML VIAL.NEB. NEB STA (01:29)
--- NOTE | 2016-10-24 01:29 | PDOC ---
History of Present Illness - General History Source: Patient Exam Limitations: No Limitations - History of Present Illness Initial Comments: 10/24/16 01:51 The patient is a 56 year old male with significant past medical history of A-fib , CHF, [place] x3, CAD, s/p stents x4, s/p pacemaker, hypertension, hyperlipidemia, COPD, gout, hepatitis C, peripheral neuropathy, colon CA, s/p colon resection, and chronic low back pain (degenerative lumbar disc disease) who presents to the ED for SOB and chest tightness prior to arrival. Patient was here earlier for allergic reaction secondary to percocet where she was treated and was discharged after receiving 25mg of benadryl IM and 10 of decadron IM. He returns with some chest tightness and SOB. States he feels like he has fluid in lungs. The patient denies fever, chills, cough, chest pain, and palpitations. The patient denies abdominal pain, nausea, vomiting, and diarrhea. Allergies: possible allergic reaction to percocet as of today, no other NKDA Social History: No alcohol, tobacco, or drug use reported. Past Surgical History: s/p cardiac stents x4, s/p pacemaker, s/p colon resection , hernia repair, L ankle sx, R hip sx, R elbow sx PCP: None reported <Anisa Wilson - Last Filed: 10/24/16 02:46> - General History Source: Patient <Mayco Rodrigues - Last Filed: 10/24/16 04:56> - General Chief Complaint: Chest Pain Stated Complaint: CHEST TIGHTNESS, SOB Time Seen by Provider: 10/24/16 01:26 Past History <Anisa Wilson - Last Filed: 10/24/16 02:46> - Past Medical History Anemia: No Asthma: Yes Cancer: Yes (COLON) Cardiac Disorders: Yes (OH X 3, A-FIB) CVA: No COPD: Yes CHF: Yes Dementia: No Diabetes: No GI Disorders: No Disorders: No HTN: Yes Hypercholesterolemia: Yes Liver Disease: No Seizures: No Thyroid Disease: No - Surgical History Abdominal Surgery: No Appendectomy: No Cardiac Surgery: Yes (4sTENTS,pacemaker,defibrilator) Cholecystectomy: No GI Surgery: Yes (COLON RESECTION) Lung Surgery: No Neurologic Surgery: No Orthopedic Surgery: Yes ((L) ANKLE; (R)HIP; (R) ELBOW) - Family Disease History Family Disease History: Diabetes: Mother - Immunization History TDAP Vaccination: Yes Immunization Up to Date: No (2011 tetanus) - Psycho/Social/Smoking Cessation Hx Anxiety: No Suicidal Ideation: No Smoking Status: Yes Smoking History: Current every day smoker Have you smoked in the past 12 months: No Number of Cigarettes Smoked Daily: 10 If you are a former smoker, when did you quit?: 0 Cigars Per Day: 0 Information on smoking cessation initiated: No 'Breaking Loose' booklet given: 08/31/16 Hx Alcohol Use: No Drug/Substance Use Hx: No Substance Use Type: None Hx Substance Use Treatment: No <Mayco Rodrigues - Last Filed: 10/24/16 04:56> - Past Medical History Allergies/Adverse Reactions: Allergies Allergy/AdvReac Type Severity Reaction Status Date / Time tomato Allergy Severe Verified 10/24/16 01:23 Beef Containing Products Allergy Verified 10/24/16 01:23 red dye Allergy Verified 10/24/16 01:23 Home Medications: Ambulatory Orders Omeprazole [Prilosec] 40 mg PO DAILY 06/23/14 Oxycodone HCl [Roxicodone] 30 mg PO Q6H PRN 07/24/14 Atorvastatin Ca [Lipitor] 10 mg PO HS 08/17/14 Apixaban [Eliquis -] 5 mg PO BID 01/12/16 Docusate Sodium [Colace -] 100 mg PO DAILY 01/12/16 Escitalopram Oxalate [Lexapro -] 10 mg PO DAILY 01/12/16 Albuterol Sulfate Inhaler - [Ventolin HFA Inhaler -] 1 - 2 inh PO QID #1 inhaler 01/15/16 Ramipril [Altace] 10 mg PO DAILY #60 capsule 05/01/16 Alprazolam 0.25 mg PO BID PRN 07/02/16 Digoxin [Digitek] 125 mcg PO DAILY 07/02/16 Nitroglycerin Sublingual [Nitrostat -] 0.4 mg SL ONCE PRN 07/02/16 Potassium Chloride 10 meq PO DAILY 07/02/16 Carvedilol [Coreg -] 25 mg PO BID #60 tablet 07/06/16 Furosemide [Lasix -] 40 mg PO DAILY 07/13/16 Duloxetine HCl [Cymbalta -] 60 mg PO DAILY #60 capsule.dr 07/19/16 Isosorbide Mononitrate [Imdur -] 30 mg PO DAILY #30 tab.sr.24h 07/19/16 Silver Sulfadiazine 1% Top Cr [Silvadene -] 1 applic TP DAILY #1 jar 08/30/16 Indomethacin [Indocin -] 50 mg PO TID #30 capsule 09/17/16 Colchicine [Colcrys] 0.6 mg PO DAILY 09/19/16 Gabapentin [Neurontin -] 300 mg PO TID 09/19/16 Pantoprazole Sodium [Protonix] 40 mg PO DAILY 09/19/16 Prednisone [Deltasone -] 10 mg PO DAILY 09/19/16 Diphenhydramine HCl [Benadryl Capsules -] 25 mg PO TID #30 capsule 10/23/16 Prednisone [Deltasone -] 40 mg PO DAILY #10 tablet 10/23/16 Loratadine [Claritin] 10 mg PO DAILY #30 tablet 10/24/16 Methylprednisolone [Medrol Dose Tino] 4 mg PO ASDIR #21 tablet 10/24/16 Review of Systems - Review of Systems Able to Perform ROS?: Yes Comments:: 10/24/16 01:51 CONSTITUTIONAL: Absent: fever, chills, diaphoresis, generalized weakness, malaise, loss of appetite HEENT: Absent: rhinorrhea, nasal congestion, throat pain, throat swelling, difficulty swallowing, mouth swelling, ear pain, eye pain, visual Changes CARDIOVASCULAR: Absent: chest pain, syncope, palpitations, irregular heart rate, lightheadedness , peripheral edema RESPIRATORY: +SOB, chest tightness Absent: cough, dyspnea with exertion, orthopnea, wheezing , stridor, hemoptysis GASTROINTESTINAL: Absent: abdominal pain, abdominal distension, nausea, vomiting, diarrhea, constipation, melena, hematochezia GENITOURINARY: Absent: dysuria, frequency, urgency, hesitancy, hematuria, flank pain, genital pain MUSCULOSKELETAL: Absent: myalgia, arthralgia, joint swelling SKIN: Absent: rash, itching, pallor NEUROLOGIC: Absent: headache, focal weakness or paresthesias, dizziness, unsteady gait, seizure, mental status changes, bladder or bowel incontinence <Anisa Wilson - Last Filed: 10/24/16 02:46> *Physical Exam - Vital Signs Last Vital Signs Temp Pulse Resp BP Pulse Ox 97.6 F 67 18 162/85 98 10/24/16 01:23 10/24/16 01:23 10/24/16 01:23 10/24/16 01:23 10/24/16 01:23 - Physical Exam Comments: 10/24/16 01:51 GENERAL: Well developed, well nourished. Awake and alert. Mild distress. HEENT: Normocephalic, atraumatic. PERRLA, EOMI. No conjunctival pallor. Sclera are non- icteric. Moist mucous membranes. Oropharynx is clear. NECK: Supple. Full ROM. No JVD. Carotid pulses 2+ and symmetric, without bruits. No thyromegaly. No lymphadenopathy. CARDIOVASCULAR: Regular rate and rhythm. No murmurs, rubs, or gallops. Distal pulses are 2+ and symmetric. PULMONARY: No evidence of respiratory distress. Decreased breath sounds. No wheezing, rales or rhonchi. Mild conversational dyspnea. No retractions. ABDOMINAL: Soft. Non-tender. Non-distended. No rebound or guarding. No organomegaly. Normoactive bowel sounds. MUSCULOSKELETAL Normal range of motion at all joints. No bony deformities or tenderness. No CVA tenderness. EXTREMITIES: No cyanosis. No clubbing. No edema. No calf tenderness. SKIN: Warm and dry. Normal capillary refill. No rashes. No jaundice. NEUROLOGICAL: Alert, awake, appropriate. Cranial nerves 2-12 intact. Moving all extremities. No gross focal neurological deficits. PSYCHIATRIC: Cooperative. Good eye contact. Appropriate mood and affect. <Anisa Wilson - Last Filed: 10/24/16 02:46> - Vital Signs Last Vital Signs Temp Pulse Resp BP Pulse Ox 97.6 F 67 18 162/85 98 10/24/16 01:23 10/24/16 01:23 10/24/16 01:23 10/24/16 01:23 10/24/16 01:23 <Mayco Rodrigues - Last Filed: 10/24/16 04:56> Heart Score/ECG Review - ECG Impressions Comment:: 10/24/16 02:46 Atrial fibrillation with premature ventricular or abberantly conducted complexes @97bpm L axis deviation Nonspecific ST and T wave abnormality Prolonged QT Abnormal ECG <KatieAnisa - Last Filed: 10/24/16 02:46> ED Treatment Course - LABORATORY CBC & Chemistry Diagram: 10/24/16 01:40 10/24/16 01:40 <KatieAnisa - Last Filed: 10/24/16 02:46> - LABORATORY CBC & Chemistry Diagram: 10/24/16 01:40 10/24/16 01:40 <Mayco Rodrigues - Last Filed: 10/24/16 04:56> Medical Decision Making - Medical Decision Making 10/24/16 04:53 Dr. Rodrigues: The scribe's documentation has been prepared under my direction and personally reviewed by me in its entirery. I confirm that the note above accurately reflects all work, treatment, procedures, and medical decision making performed by me. patient feels better after treatment with additional dose of Benadryl and Lasix for diuresis. patient's itchiness has improved. Patient will be discharged to follow-up with his primary care physician. <Mayco Rodrigues - Last Filed: 10/24/16 04:56> *DC/Admit/Observation/Transfer - Attestations Scribe Attestion: 10/24/16 01:51 Documentation prepared by Anisa Wilson, acting as medical director/head team physician for Mayco Rodrigues MD/. <Anisa Wilson - Last Filed: 10/24/16 02:46> - Discharge Dispostion Admit: No <Mayco Rodrigues - Last Filed: 10/24/16 04:56> Diagnosis at time of Disposition: CHF (congestive heart failure) Qualifiers: Congestive heart failure type: unspecified congestive heart failure type Congestive heart failure chronicity: chronic Qualified Code(s): I50.9 - Heart failure, unspecified Allergic reaction caused by a drug Qualifiers: Encounter type: subsequent encounter Qualified Code(s): T78.40XD - Allergy, unspecified, subsequent encounter - Discharge Dispostion Disposition: HOME Condition at time of disposition: Stable - Prescriptions Prescriptions: Loratadine [Claritin] 10 mg PO DAILY #30 tablet Methylprednisolone [Medrol Dose Tino] 4 mg PO ASDIR #21 tablet - Referrals Referrals: Anup Pyle MD [Primary Care Provider] - - Patient Instructions Printed Discharge Instructions: DI for Heart Failure, DI for Adverse Drug Reaction -- Allergic
[2016-10-24 01:45] VITALS: TEMP 97.6; BMI 28.8
[2016-10-24] MEDS ORDERED: ALBUTEROL SO4 2.5/IPRATROPIUM 0.5 INH SOL 3 ML VIAL.NEB. NEB ONE (01:46)
[2016-10-24] MEDS ORDERED: FUROSEMIDE 40 MG/4 ML INJECTABLE VIAL IVPUSH ONE ×2 (01:47→02:34)
[2016-10-24] MEDS ORDERED: FUROSEMIDE 40 MG/4 ML INJECTABLE VIAL ONE ×2 (01:48→02:36)
[2016-10-24 01:54] LABS: BASOPHIL 0.2 % (0-2.0); EOSINOPHIL 0.2 % (0-4.5); MCHC 29.5 g/dl (32.0-35.9); MEAN CELL VOLUME 60.3 fl (80-96); MEAN PLT VOLUME 8.8 fl (7.5-11.1); NEUTROPHILS 93.2 % (42.8-82.8); PLATELET COUNT 370 K/MM3 (134-434); RDW 20.1 % (11.9-15.9); WHITE BLOOD COUNT 7.6 K/mm3 (4.0-10.0)
[2016-10-24 02:02] LABS: MCH 17.8 pg (25.7-33.7)
[2016-10-24 02:05] LABS: INR 1.33 (0.82-1.09); PROTHROMBIN TIME (PATIENT) 14.7 SEC (9.98-11.88)
[2016-10-24 02:15] LABS: ALBUMIN 4.1 g/dl (3.4-5.0); BILIRUBIN,TOTAL 0.9 mg/dL (0.2-1.0); CALCIUM 8.6 mg/dL (8.5-10.1); COCKROFT - GAULT 87.45; CREATININE 1.4 mg/dL (0.7-1.3); TOT PROT 7.9 g/dl (6.4-8.2)
[2016-10-24 02:17] LABS: TROPONIN I 0.06 ng/ml (0.00-0.05)
[2016-10-24] MEDS ORDERED: LORATADINE 10 MG TABLET PO ONE (04:52)
[2016-10-24] MEDS ORDERED: LORATADINE 10 MG TABLET ONE (04:53)
[2016-10-24 05:11] VITALS: BP 139/95; PULSE 80
[2016-10-24 07:50] LABS: ANISOCYTOSIS 2+; HYPOCHROMIA 3+; MICROCYTOSIS 2+
--- NOTE | 2016-10-24 13:24 | EKG ---
Test Reason : Blood Pressure : / mmHG Vent. Rate : 097 BPM Atrial Rate : 104 BPM P-R Int : 000 ms QRS Dur : 098 ms QT Int : 404 ms P-R-T Axes : 000 -43 127 degrees QTc Int : 513 ms ATRIAL FIBRILLATION WITH PREMATURE VENTRICULAR OR ABERRANTLY CONDUCTED COMPLEXES LEFT AXIS DEVIATION NONSPECIFIC ST AND T WAVE ABNORMALITY PROLONGED QT ABNORMAL ECG WHEN COMPARED WITH ECG OF 02-JUL-2016 10:22, T WAVE AMPLITUDE HAS DECREASED IN ANTERIOR LEADS T WAVE INVERSION LESS EVIDENT IN LATERAL LEADS QT HAS LENGTHENED Confirmed by PADMINI BRYANT, AXEL ([id number]) on 10/24/2016 1:24:03 PM Referred By: Confirmed By:AXEL WASHINGTON MD
== END 2016-10-24 05:11 | disposition home or self-care (01) ==
LOC: JER 01:12
PROC: 3E033GC Introduction of Other Therapeutic Substance into Peripheral Vein, Percutaneous Approach (ICD-10-PCS; principal; 2016-10-24)
DX: I50.9 Heart failure, unspecified (principal); T50.995D Adverse effect of other drugs, medicaments and biological substances, subsequent encounter; I48.91 Unspecified atrial fibrillation; Z79.01 Long term (current) use of anticoagulants; I25.2 Old myocardial infarction; I25.10 Atherosclerotic heart disease of native coronary artery without angina pectoris; I10 Essential (primary) hypertension; Z95.5 Presence of coronary angioplasty implant and graft; Z95.0 Presence of cardiac pacemaker; E78.5 Hyperlipidemia, unspecified; J45.909 Unspecified asthma, uncomplicated; J44.9 Chronic obstructive pulmonary disease, unspecified; M10.9 Gout, unspecified; B18.2 Chronic viral hepatitis C; G62.9 Polyneuropathy, unspecified; M51.36 Other intervertebral disc degeneration, lumbar region; M54.5 Low back pain; G89.29 Other chronic pain; Z85.038 Personal history of other malignant neoplasm of large intestine
CPT/HCPCS: 36415; 71010-TC; 80053; 82550; 82553; 83880; 84484; 85025; 85610; 93005; 93010; 96374; 96375; 96376; 99283-25

== ENCOUNTER → 2016-10-29 | Emergency (ER) | payer OTHER ==
[2016-10-29 16:48] VITALS: BP 154/95; PULSE 61; TEMP 97.8; BMI 28.5
--- NOTE | 2016-10-29 19:57 | PDOC ---
History of Present Illness - General Chief Complaint: Edema Stated Complaint: RETAINING WATER BOTH ANKLE/PAIN Time Seen by Provider: 10/29/16 19:07 - History of Present Illness Initial Comments: 10/29/16 19:54 CHIEF COMPLAINT: lower extremity swelling, chest pain, SOB HISTORY OF PRESENT ILLNESS: 56 year old male with significant past medical history of A-fib, CHF, [place] x3, CAD, s/p stents x4, s/p pacemaker, hypertension, hyperlipidemia, COPD, gout, hepatitis C, peripheral neuropathy, colon CA, s/p colon resection, and chronic low back pain (degenerative lumbar disc disease) who presents to the ED for left foot swelling, SOB, and chest discomfort since today. No recent travel or sick contacts. PAST MEDICAL HISTORY: as per HPI FAMILY HISTORY: Denies SOCIAL HISTORY: Lives at home alone. Current smoker, 6 cigarettes daily. Denies alcohol, illicit drug use. SURGICAL HISTORY: Denies ALLERGIES: shellfish, red dye, beef, tomato REVIEW OF SYSTEMS General/Constitutional: Denies fever or chills. Denies weakness, weight change. HEENT: Denies change in vision. Denies ear pain or discharge. Denies sore throat. Cardiovascular: Denies chest pain or shortness of breath. Respiratory: Denies cough, wheezing, or hemoptysis. Gastrointestinal: Denies nausea, vomiting, diarrhea or constipation. Denies rectal bleeding. Genitourinary: Denies dysuria, frequency, or change in urination. Musculoskeletal: Denies joint or muscle swelling or pain. Denies neck or back pain. Skin and breasts: Denies rash or easy bruising. Neurologic: Denies headache, vertigo, loss of consciousness, or loss of sensation. PHYSICAL EXAM General Appearance: Well-appearing, appropriately dressed. No apparent distress , no intoxication. HEENT: EOMI, PERRLA, normal ENT inspection, normal voice, TMs normal, pharynx normal. No conjunctival pallor. No photophobia, scleral icterus. Neck: Supple. Trachea midline. No tenderness, rigidity, carotid bruit, stridor , lymphadenopathy, or thyromegaly. Respiratory/Chest: Mild wheezing bilaterally. No shortness of breath, chest tenderness, respiratory distress, accessory muscle use. No crackles, rales, rhonchi, stridor, dullness Cardiovascular: RRR. S1, S2. No JVD, murmur, bradycardia, tachycardia. Vascular Pulses: Dorsalis-Pedis (R): 2+, Dorsalis-Pedis (L): 2+ Gastrointestinal/Abdominal: Normal bowel sounds. Abdomen soft, non-distended. No tenderness or rebound tenderness. No organomegaly, pulsatile mass, guarding , hernia, hepatomegaly, splenomegaly. Lymphatic: No adenopathy, tenderness. Musculoskeletal/Extremities: Normal inspection. FROM of all extremities, normal capillary refill. Pelvis Stable. No CVA tenderness. No tenderness to extremities, pedal edema, swelling, erythema or deformity. Integumentary: Appropriate color, dry, warm. No cyanosis, erythema, jaundice or rash Neurologic: source inspector II-XII intact. Fully oriented, alert. Appropriate mood/affect. Motor strength 5/5. No appreciable EOM palsy, facial droop or sensory deficit. 10/30/16 06:26 Past History - Past Medical History Allergies/Adverse Reactions: Allergies Allergy/AdvReac Type Severity Reaction Status Date / Time tomato Allergy Severe Verified 10/29/16 16:47 Beef Containing Products Allergy Verified 10/29/16 16:47 red dye Allergy Verified 10/29/16 16:47 shellfish derived Allergy Verified 10/29/16 16:48 Home Medications: Ambulatory Orders Omeprazole [Prilosec] 40 mg PO DAILY 06/23/14 Oxycodone HCl [Roxicodone] 30 mg PO Q6H PRN 07/24/14 Atorvastatin Ca [Lipitor] 10 mg PO HS 08/17/14 Apixaban [Eliquis -] 5 mg PO BID 01/12/16 Docusate Sodium [Colace -] 100 mg PO DAILY 01/12/16 Escitalopram Oxalate [Lexapro -] 10 mg PO DAILY 01/12/16 Albuterol Sulfate Inhaler - [Ventolin HFA Inhaler -] 1 - 2 inh PO QID #1 inhaler 01/15/16 Ramipril [Altace] 10 mg PO DAILY #60 capsule 05/01/16 Alprazolam 0.25 mg PO BID PRN 07/02/16 Digoxin [Digitek] 125 mcg PO DAILY 07/02/16 Nitroglycerin Sublingual [Nitrostat -] 0.4 mg SL ONCE PRN 07/02/16 Potassium Chloride 10 meq PO DAILY 07/02/16 Carvedilol [Coreg -] 25 mg PO BID #60 tablet 07/06/16 Furosemide [Lasix -] 40 mg PO DAILY 07/13/16 Duloxetine HCl [Cymbalta -] 60 mg PO DAILY #60 capsule. 07/19/16 Isosorbide Mononitrate [Imdur -] 30 mg PO DAILY #30 tab.sr.24h 07/19/16 Silver Sulfadiazine 1% Top Cr [Silvadene -] 1 applic TP DAILY #1 jar 08/30/16 Indomethacin [Indocin -] 50 mg PO TID #30 capsule 09/17/16 Colchicine [Colcrys] 0.6 mg PO DAILY 09/19/16 Gabapentin [Neurontin -] 300 mg PO TID 09/19/16 Pantoprazole Sodium [Protonix] 40 mg PO DAILY 09/19/16 Prednisone [Deltasone -] 10 mg PO DAILY 09/19/16 Diphenhydramine HCl [Benadryl Capsules -] 25 mg PO TID #30 capsule 10/23/16 Prednisone [Deltasone -] 40 mg PO DAILY #10 tablet 10/23/16 Loratadine [Claritin] 10 mg PO DAILY #30 tablet 10/24/16 Methylprednisolone [Medrol Dose Tino] 4 mg PO ASDIR #21 tablet 10/24/16 Anemia: No Asthma: Yes Cancer: Yes (COLON) Cardiac Disorders: Yes (ND X 3, A-FIB) CVA: No COPD: Yes CHF: Yes Dementia: No Diabetes: No GI Disorders: No Disorders: No HTN: Yes Hypercholesterolemia: Yes Liver Disease: No Seizures: No Thyroid Disease: No - Surgical History Abdominal Surgery: No Appendectomy: No Cardiac Surgery: Yes (4sTENTS,pacemaker,defibrilator) Cholecystectomy: No GI Surgery: Yes (COLON RESECTION) Lung Surgery: No Neurologic Surgery: No Orthopedic Surgery: Yes ((L) ANKLE; (R)HIP; (R) ELBOW) - Family Disease History Family Disease History: Diabetes: Mother - Immunization History TDAP Vaccination: Yes Immunization Up to Date: No (2011 tetanus) - Psycho/Social/Smoking Cessation Hx Anxiety: No Suicidal Ideation: No Smoking Status: Yes Smoking History: Current every day smoker Have you smoked in the past 12 months: No Number of Cigarettes Smoked Daily: 6 If you are a former smoker, when did you quit?: 0 Cigars Per Day: 0 Information on smoking cessation initiated: Yes 'Breaking Loose' booklet given: 10/29/16 Hx Alcohol Use: No Drug/Substance Use Hx: No Substance Use Type: None Hx Substance Use Treatment: No *Physical Exam - Vital Signs Last Vital Signs Temp Pulse Resp BP Pulse Ox 97.8 F 61 18 154/95 99 10/29/16 16:44 10/29/16 16:44 10/29/16 16:44 10/29/16 16:44 10/29/16 16:44 ED Treatment Course - RADIOLOGY Radiology Studies Ordered: Category Date Time Status CHEST PA & LAT [RAD] Stat Radiology 10/29/16 19:18 Ordered Medical Decision Making - Medical Decision Making 10/30/16 06:26 -CBC, CMP, PT/INR, Mg, card profile, BNP, uric acid -EKG, CXR Patient eloped prior to workup. *DC/Admit/Observation/Transfer Diagnosis at time of Disposition: SOB (shortness of breath) CHF (congestive heart failure) Qualifiers: Congestive heart failure type: unspecified congestive heart failure type Congestive heart failure chronicity: unspecified congestive heart failure chronicity Qualified Code(s): I50.9 - Heart failure, unspecified - Discharge Dispostion Disposition: ELOPED Condition at time of disposition: Unchanged/Unknown
== END | disposition left against medical advice (07) ==
LOC: JER 16:42
DX: I50.9 Heart failure, unspecified (principal); I25.2 Old myocardial infarction; I25.10 Atherosclerotic heart disease of native coronary artery without angina pectoris; I10 Essential (primary) hypertension; Z95.1 Presence of aortocoronary bypass graft; Z95.5 Presence of coronary angioplasty implant and graft; Z95.0 Presence of cardiac pacemaker; F44.9 Dissociative and conversion disorder, unspecified; M10.9 Gout, unspecified; B18.2 Chronic viral hepatitis C; G62.89 Other specified polyneuropathies; M54.5 Low back pain; M51.36 Other intervertebral disc degeneration, lumbar region; Z85.038 Personal history of other malignant neoplasm of large intestine
CPT/HCPCS: 99281-25

== ENCOUNTER 2016-10-30 05:23 | Emergency (ER) | payer OTHER ==
[2016-10-30 06:05] VITALS: BMI 28.8
--- NOTE | 2016-10-30 06:26 | PDOC ---
History of Present Illness - General Stated Complaint: DIFF BREATHING Time Seen by Provider: 10/30/16 05:33 - History of Present Illness Initial Comments: 10/30/16 06:23 56 year old male with significant past medical history of A-fib, CHF, ID x3, CAD , s/p stents x4, s/p pacemaker, hypertension, hyperlipidemia, COPD, gout, hepatitis C, peripheral neuropathy, colon CA, s/p colon resection, and chronic low back pain (degenerative lumbar disc disease) who returns to the ED for left foot swelling, SOB, and chest discomfort since yesterday. Patient was in this ER approximately 12 hours prior and eloped prior to workup. No recent travel or sick contacts. PAST MEDICAL HISTORY: as per HPI FAMILY HISTORY: Denies SOCIAL HISTORY: Lives at home alone. Current smoker, 6 cigarettes daily. Denies alcohol, illicit drug use. SURGICAL HISTORY: Denies ALLERGIES: shellfish, red dye, beef, tomato REVIEW OF SYSTEMS General/Constitutional: Denies fever or chills. Denies weakness, weight change. HEENT: Denies change in vision. Denies ear pain or discharge. Denies sore throat. Cardiovascular: Denies chest pain or shortness of breath. Respiratory: Denies cough, wheezing, or hemoptysis. Gastrointestinal: Denies nausea, vomiting, diarrhea or constipation. Denies rectal bleeding. Genitourinary: Denies dysuria, frequency, or change in urination. Musculoskeletal: Denies joint or muscle swelling or pain. Denies neck or back pain. Skin and breasts: Denies rash or easy bruising. Neurologic: Denies headache, vertigo, loss of consciousness, or loss of sensation. PHYSICAL EXAM General Appearance: Well-appearing, appropriately dressed. No apparent distress , no intoxication. HEENT: EOMI, PERRLA, normal ENT inspection, normal voice, TMs normal, pharynx normal. No conjunctival pallor. No photophobia, scleral icterus. Neck: Supple. Trachea midline. No tenderness, rigidity, carotid bruit, stridor , lymphadenopathy, or thyromegaly. Respiratory/Chest: Mild wheezing bilaterally. No shortness of breath, chest tenderness, respiratory distress, accessory muscle use. No crackles, rales, rhonchi, stridor, dullness Cardiovascular: RRR. S1, S2. No JVD, murmur, bradycardia, tachycardia. Vascular Pulses: Dorsalis-Pedis (R): 2+, Dorsalis-Pedis (L): 2+ Gastrointestinal/Abdominal: Normal bowel sounds. Abdomen soft, non-distended. No tenderness or rebound tenderness. No organomegaly, pulsatile mass, guarding , hernia, hepatomegaly, splenomegaly. Lymphatic: No adenopathy, tenderness. Musculoskeletal/Extremities: Normal inspection. FROM of all extremities, normal capillary refill. Pelvis Stable. No CVA tenderness. No tenderness to extremities, pedal edema, swelling, erythema or deformity. Integumentary: Appropriate color, dry, warm. No cyanosis, erythema, jaundice or rash Neurologic: locate technician II-XII intact. Fully oriented, alert. Appropriate mood/affect. Motor strength 5/5. No appreciable EOM palsy, facial droop or sensory deficit. Past History - Past Medical History Allergies/Adverse Reactions: Allergies Allergy/AdvReac Type Severity Reaction Status Date / Time tomato Allergy Severe Verified 10/29/16 16:47 Beef Containing Products Allergy Verified 10/29/16 16:47 red dye Allergy Verified 10/29/16 16:47 shellfish derived Allergy Verified 10/29/16 16:48 Home Medications: Ambulatory Orders Omeprazole [Prilosec] 40 mg PO DAILY 06/23/14 Oxycodone HCl [Roxicodone] 30 mg PO Q6H PRN 07/24/14 Atorvastatin Ca [Lipitor] 10 mg PO HS 08/17/14 Apixaban [Eliquis -] 5 mg PO BID 01/12/16 Docusate Sodium [Colace -] 100 mg PO DAILY 01/12/16 Escitalopram Oxalate [Lexapro -] 10 mg PO DAILY 01/12/16 Albuterol Sulfate Inhaler - [Ventolin HFA Inhaler -] 1 - 2 inh PO QID #1 inhaler 01/15/16 Ramipril [Altace] 10 mg PO DAILY #60 capsule 05/01/16 Alprazolam 0.25 mg PO BID PRN 07/02/16 Digoxin [Digitek] 125 mcg PO DAILY 07/02/16 Nitroglycerin Sublingual [Nitrostat -] 0.4 mg SL ONCE PRN 07/02/16 Potassium Chloride 10 meq PO DAILY 07/02/16 Carvedilol [Coreg -] 25 mg PO BID #60 tablet 07/06/16 Furosemide [Lasix -] 40 mg PO DAILY 07/13/16 Duloxetine HCl [Cymbalta -] 60 mg PO DAILY #60 capsule.dr 07/19/16 Isosorbide Mononitrate [Imdur -] 30 mg PO DAILY #30 tab.sr.24h 07/19/16 Silver Sulfadiazine 1% Top Cr [Silvadene -] 1 applic TP DAILY #1 jar 08/30/16 Indomethacin [Indocin -] 50 mg PO TID #30 capsule 09/17/16 Colchicine [Colcrys] 0.6 mg PO DAILY 09/19/16 Gabapentin [Neurontin -] 300 mg PO TID 09/19/16 Pantoprazole Sodium [Protonix] 40 mg PO DAILY 09/19/16 Prednisone [Deltasone -] 10 mg PO DAILY 09/19/16 Diphenhydramine HCl [Benadryl Capsules -] 25 mg PO TID #30 capsule 10/23/16 Prednisone [Deltasone -] 40 mg PO DAILY #10 tablet 10/23/16 Loratadine [Claritin] 10 mg PO DAILY #30 tablet 10/24/16 Methylprednisolone [Medrol Dose Tino] 4 mg PO ASDIR #21 tablet 10/24/16 Anemia: No Asthma: Yes Cancer: Yes (COLON) Cardiac Disorders: Yes (ID X 3, A-FIB) CVA: No COPD: Yes CHF: Yes Dementia: No Diabetes: No GI Disorders: No Disorders: No HTN: Yes Hypercholesterolemia: Yes Liver Disease: No Seizures: No Thyroid Disease: No - Surgical History Abdominal Surgery: No Appendectomy: No Cardiac Surgery: Yes (4sTENTS,pacemaker,defibrilator) Cholecystectomy: No GI Surgery: Yes (COLON RESECTION) Lung Surgery: No Neurologic Surgery: No Orthopedic Surgery: Yes ((L) ANKLE; (R)HIP; (R) ELBOW) - Family Disease History Family Disease History: Diabetes: Mother - Immunization History TDAP Vaccination: Yes Immunization Up to Date: No (2011 tetanus) - Psycho/Social/Smoking Cessation Hx Anxiety: No Suicidal Ideation: No Smoking Status: Yes Smoking History: Current every day smoker Have you smoked in the past 12 months: No Number of Cigarettes Smoked Daily: 5 If you are a former smoker, when did you quit?: 0 Cigars Per Day: 0 Information on smoking cessation initiated: No 'Breaking Loose' booklet given: 08/31/16 Hx Alcohol Use: No Drug/Substance Use Hx: No Substance Use Type: None Hx Substance Use Treatment: No *Physical Exam - Vital Signs Last Vital Signs Temp Pulse Resp BP Pulse Ox 97.3 F L 74 19 157/104 100 10/30/16 06:03 10/30/16 06:03 10/30/16 06:03 10/30/16 06:03 10/30/16 06:03 ED Treatment Course - LABORATORY CBC & Chemistry Diagram: 10/30/16 06:11 10/30/16 08:54 - RADIOLOGY Radiology Studies Ordered: Category Date Time Status CHEST PA & LAT [RAD] Stat Radiology 10/30/16 05:45 Ordered Medical Decision Making - Medical Decision Making 10/30/16 06:24 56 year old male with significant past medical history of A-fib, CHF, ID x3, CAD , s/p stents x4, s/p pacemaker, hypertension, hyperlipidemia, COPD, gout, hepatitis C, peripheral neuropathy, colon CA, s/p colon resection, and chronic low back pain (degenerative lumbar disc disease) who returns to the ED for left foot swelling, SOB, and chest discomfort since today. -CBC, CMP, PT/INR, Mg, card profile, BNP, uric acid -EKG, CXR Case discussed in detail with oncoming emergency provider including history, physical exam and ancillary studies. In brief, this patient is being seen in the ED for a chief complaint of: I have completed the initial assessment interview note and have ordered the following labs: CBC, CMP, PT/INR, Mg, card profile, BNP, uric acid I have reviewed the following results: pending Pending results: all Please call the PCP: Edenilson Plan for disposition as follows: pending Oncoming NPA Taye has assumed care for the patient and will complete the evaluation and treatment. *DC/Admit/Observation/Transfer Diagnosis at time of Disposition: Gout attack Qualifiers: Gout site: foot Encounter type: initial encounter Laterality: unspecified laterality - Discharge Dispostion Disposition: HOME Condition at time of disposition: Improved - Referrals Referrals: Anup Pyle MD [Primary Care Provider] - - Patient Instructions Printed Discharge Instructions: DI for Gout, DI for Dependent Edema Additional Instructions: Please take your medication as previously prescribed and elevate your legs during the day.
[2016-10-30 06:29] LABS: BASOPHIL 0.6 % (0-2.0); EOSINOPHIL 4.6 % (0-4.5); MCHC 29.7 g/dl (32.0-35.9); MEAN CELL VOLUME 59.7 fl (80-96); MEAN PLT VOLUME 9.2 fl (7.5-11.1); NEUTROPHILS 56.1 % (42.8-82.8); PLATELET COUNT 303 K/MM3 (134-434); RDW 20.1 % (11.9-15.9); WHITE BLOOD COUNT 6.3 K/mm3 (4.0-10.0)
[2016-10-30 06:34] LABS: MCH 17.7 pg (25.7-33.7)
[2016-10-30 06:50] LABS: ALBUMIN 3.7 g/dl (3.4-5.0); BILIRUBIN,TOTAL 0.6 mg/dL (0.2-1.0); CALCIUM 8.4 mg/dL (8.5-10.1); COCKROFT - GAULT 94.17; CREATININE 1.3 mg/dL (0.7-1.3); TOT PROT 7.4 g/dl (6.4-8.2); URIC ACID 8.2 mg/dL (2.6-7.2)
[2016-10-30 06:51] LABS: MAGNESIUM 1.5 mg/dL (1.8-2.4)
[2016-10-30 06:53] LABS: TROPONIN I 0.05 ng/ml (0.00-0.05)
[2016-10-30] MEDS ORDERED: POTASSIUM CHLORIDE TABS 20 MEQ TABLET.ER (FP) PO ONE (06:59)
[2016-10-30] MEDS ORDERED: MAGNESIUM SULF 50% (8.12 MEQ/2 ML-1 GM VIAL) IVPB ONE (06:59)
[2016-10-30] MEDS ORDERED: COLCHICINE 0.6 MG TABLET (FP) PO ONE ×3 (06:59→09:46)
[2016-10-30 07:00] LABS: INR 1.22 (0.82-1.09); PROTHROMBIN TIME (PATIENT) 13.5 SEC (9.98-11.88)
--- NOTE | 2016-10-30 07:30 | PDOC ---
*Physical Exam - Vital Signs Last Vital Signs Temp Pulse Resp BP Pulse Ox 97.3 F L 74 19 157/104 100 10/30/16 06:03 10/30/16 06:03 10/30/16 06:03 10/30/16 06:03 10/30/16 06:03 ED Treatment Course - LABORATORY CBC & Chemistry Diagram: 10/30/16 06:11 10/30/16 08:54 - ADDITIONAL ORDERS Additional order review: Laboratory Results 10/30/16 10/30/16 10/30/16 06:11 06:11 06:11 INR Sodium 142 Potassium 3.4 L Chloride 102 Carbon Dioxide 29 Anion Gap 11 BUN 26 H Creatinine 1.3 Creat Clearance w eGFR 56.70 Random Glucose 115 H Uric Acid 8.2 H D Calcium 8.4 L Magnesium 1.5 L Total Bilirubin 0.6 D AST 33 D ALT 31 Alkaline Phosphatase 55 Creatine Kinase 270 D CK-MB (CK-2) 3.146 CK-MB (CK-2) Rel Index Cancelled Troponin I 0.05 B-Natriuretic Peptide 1755.87 H Total Protein 7.4 Albumin 3.7 10/30/16 06:11 INR 1.22 H Sodium Potassium Chloride Carbon Dioxide Anion Gap BUN Creatinine Creat Clearance w eGFR Random Glucose Uric Acid Calcium Magnesium Total Bilirubin AST ALT Alkaline Phosphatase Creatine Kinase CK-MB (CK-2) CK-MB (CK-2) Rel Index Troponin I B-Natriuretic Peptide Total Protein Albumin 10/30/16 06:11 RBC 6.01 H MCV 59.7 L MCHC 29.7 L RDW 20.1 H MPV 9.2 Neutrophils % 56.1 D Lymphocytes % 22.2 D Monocytes % 16.5 H D Eosinophils % 4.6 H D Basophils % 0.6 Medical Decision Making - Medical Decision Making 10/30/16 07:27 Pt received in signout from EMILIANO Klein with c/o SOB. Pt had low mag and K. Pt currently being repleted. Pt will have repeat bmp along with mag. VSS. No SOB presently 10/30/16 07:30 Laboratory Tests 09/01/16 09/19/16 10/24/16 06:10 06:51 01:40 Hgb Hct Plt Count Neutrophils % INR Potassium BUN 22 H D Creatinine 1.4 H Uric Acid 5.6 D Calcium Magnesium 1.4 L D B-Natriuretic Peptide 3767.74 H 10/30/16 10/30/16 10/30/16 06:11 06:11 06:11 Hgb 10.7 L Hct 35.9 Plt Count 303 Neutrophils % 56.1 D INR 1.22 H Potassium 3.4 L BUN 26 H Creatinine 1.3 Uric Acid 8.2 H D Calcium 8.4 L Magnesium B-Natriuretic Peptide 10/30/16 06:11 Hgb Hct Plt Count Neutrophils % INR Potassium BUN Creatinine Uric Acid Calcium Magnesium 1.5 L B-Natriuretic Peptide 1755.87 H Chest x-ray negative for acute findings. 10/30/16 08:33 Patient complaining of lower extremity pain. Patient did receive colchicine but 0.6 was ordered versus 1.2. Patient ordered for an additional 0.6 mg. Patient then will receive another 0.6 in one hour. Patient also given 1 Percocet as per his request. 10/30/16 10:39 Selected Entries 10/30/16 06:03 Respiratory 19 Rate O2 Sat by Pulse 100 Oximetry (%) Laboratory Tests 10/30/16 08:54 Potassium 3.6 Magnesium 1.9 D Was seen by Dr. marinelli as per request by Dr. Pyle and patient will be discharged home *DC/Admit/Observation/Transfer Diagnosis at time of Disposition: Gout attack Qualifiers: Gout site: foot Encounter type: initial encounter Laterality: unspecified laterality - Discharge Dispostion Disposition: HOME Condition at time of disposition: Improved - Referrals Referrals: Anup Pyle MD [Primary Care Provider] - - Patient Instructions Printed Discharge Instructions: DI for Gout, DI for Dependent Edema Additional Instructions: Please take your medication as previously prescribed and elevate your legs during the day.
[2016-10-30] MEDS ORDERED: OXYCODONE/APAP 5/325MG COMBO TABLET PO ONE (08:32)
[2016-10-30 09:06] LABS: ANISOCYTOSIS 2+; FRAGMENTED CELL FEW; HYPOCHROMIA 3+; MICROCYTOSIS 3+; OVALOCYTES 1+; TARGET CELLS 2+; TEAR DROP CELLS FEW
[2016-10-30 09:24] LABS: MAGNESIUM 1.6 mg/dL (1.8-2.4)
[2016-10-30 09:34] LABS: CALCIUM 8.5 mg/dL (8.5-10.1); COCKROFT - GAULT 102.02; CREATININE 1.2 mg/dL (0.7-1.3)
[2016-10-30 10:19] LABS: MAGNESIUM 1.9 mg/dL (1.8-2.4)
[2016-10-30 11:27] VITALS: BP 138/99; PULSE 91; TEMP 98.6
--- NOTE | 2016-10-30 13:25 | CONSULT ---
Consult Consult Specialty:: Internal Medicine Referred by:: Taye Reason for Consultation:: Evaluation for admission - History of Present Illness Chief Complaint: I am having pain History of Present Illness: Mr Roberts is a 56 year old male who comes in with complaints of fluid overload and bilateral foot pain. He says he notes that his feet have been swollen and that they have never been this swollen before. He also says he is having bad pain in both of his feet. He denies fevers, chills, lightheadedness, passing out , shortness of breath, nausea, vomiting, diarrhea, constipation, or difficulty urinating. Patient is insistent on admission today. - History Source History Provided By: Patient Limitations to Obtaining History: No Limitations - Past Medical History Cardio/Vascular: Yes: CAD, CHF (/ cardiomyopathy), HTN, Hyperlipdemia Pulmonary: Yes: COPD Gastrointestinal: Yes: Other (gastritis) Hepatobiliary: Yes: Hepatitis C Musculoskeletal: Yes: Chronic low back pain (/ degenerative lumbar disc disease) - Past Surgical History Past Surgical History: Yes: Hernia Repair (umbilical), Joint Replacement (right elbow, right hip, left ankle) - Alcohol/Substance Use Hx Alcohol Use: No History of Substance Use: reports: None - Smoking History Smoking history: Current every day smoker Have you smoked in the past 12 months: No Aproximately how many cigarettes per day: 5 If you are a former smoker, when did you quit?: 0 - Social History ADL: Independent 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, 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 History of Recent Travel: No Home Medications - Allergies Allergies/Adverse Reactions: Allergies Allergy/AdvReac Type Severity Reaction Status Date / Time tomato Allergy Severe Verified 10/29/16 16:47 Beef Containing Products Allergy Verified 10/29/16 16:47 red dye Allergy Verified 10/29/16 16:47 shellfish derived Allergy Verified 10/29/16 16:48 - Home Medications Home Medications: Ambulatory Orders Omeprazole [Prilosec] 40 mg PO DAILY 06/23/14 Oxycodone HCl [Roxicodone] 30 mg PO Q6H PRN 07/24/14 Atorvastatin Ca [Lipitor] 10 mg PO HS 08/17/14 Apixaban [Eliquis -] 5 mg PO BID 01/12/16 Docusate Sodium [Colace -] 100 mg PO DAILY 01/12/16 Escitalopram Oxalate [Lexapro -] 10 mg PO DAILY 01/12/16 Albuterol Sulfate Inhaler - [Ventolin HFA Inhaler -] 1 - 2 inh PO QID #1 inhaler 01/15/16 Ramipril [Altace] 10 mg PO DAILY #60 capsule 05/01/16 Alprazolam 0.25 mg PO BID PRN 07/02/16 Digoxin [Digitek] 125 mcg PO DAILY 07/02/16 Nitroglycerin Sublingual [Nitrostat -] 0.4 mg SL ONCE PRN 07/02/16 Potassium Chloride 10 meq PO DAILY 07/02/16 Carvedilol [Coreg -] 25 mg PO BID #60 tablet 07/06/16 Furosemide [Lasix -] 40 mg PO DAILY 07/13/16 Duloxetine HCl [Cymbalta -] 60 mg PO DAILY #60 capsule. 07/19/16 Isosorbide Mononitrate [Imdur -] 30 mg PO DAILY #30 tab.sr.24h 07/19/16 Silver Sulfadiazine 1% Top Cr [Silvadene -] 1 applic TP DAILY #1 jar 08/30/16 Indomethacin [Indocin -] 50 mg PO TID #30 capsule 09/17/16 Colchicine [Colcrys] 0.6 mg PO DAILY 09/19/16 Gabapentin [Neurontin -] 300 mg PO TID 09/19/16 Pantoprazole Sodium [Protonix] 40 mg PO DAILY 09/19/16 Prednisone [Deltasone -] 10 mg PO DAILY 09/19/16 Diphenhydramine HCl [Benadryl Capsules -] 25 mg PO TID #30 capsule 10/23/16 Prednisone [Deltasone -] 40 mg PO DAILY #10 tablet 10/23/16 Loratadine [Claritin] 10 mg PO DAILY #30 tablet 10/24/16 Methylprednisolone [Medrol Dose Tino] 4 mg PO ASDIR #21 tablet 10/24/16 Family Disease History - Family Disease History Family Disease History: Heart Disease: Father, CA: Mother, Brother (colon) Review of Systems Findings/Remarks: Full review of systems obtained, as per HPI and otherwise negative Physical Exam Vital Signs: Vital Signs Temperature 98.6 F 10/30/16 10:00 Pulse Rate 91 H 10/30/16 10:00 Respiratory Rate 18 10/30/16 10:00 Blood Pressure 138/99 10/30/16 10:00 O2 Sat by Pulse Oximetry (%) 98 10/30/16 10:00 Constitutional: Yes: Well Nourished, No Distress, Calm Eyes: Yes: Conjunctiva Clear, EOM Intact HENT: Yes: Atraumatic, Normocephalic Cardiovascular: Yes: Regular Rate and Rhythm. No: Gallop, Murmur, Rub Respiratory: Yes: Regular, CTA Bilaterally. No: Rales, Rhonchi, Wheezes Gastrointestinal: Yes: Normal Bowel Sounds, Soft. No: Distention, Tenderness Extremities: Yes: WNL Edema: Yes Edema: LLE: Trace, RLE: Trace Labs: CBC, BMP 10/30/16 06:11 10/30/16 08:54 Imaging - Results Chest X-ray: Report Reviewed, Image Reviewed EKG: Image Reviewed Problem List - Problems (1) Lumbar radiculopathy, chronic Code(s): M54.16 - RADICULOPATHY, LUMBAR REGION (2) CHF (congestive heart failure) Code(s): I50.9 - HEART FAILURE, UNSPECIFIED Qualifiers: Congestive heart failure type: systolic Congestive heart failure chronicity: chronic Qualified Code(s): I50.22 - Chronic systolic ( congestive) heart failure (3) Gout Code(s): M10.9 - GOUT, UNSPECIFIED Qualifiers: Gout site: toe Gout etiology: other secondary cause Laterality: left Chronicity: chronic Presence of tophus: without tophus Qualified Code(s): M1A.4720 - Other secondary chronic gout, left ankle and foot , without tophus (tophi) (4) Atrial fibrillation Code(s): I48.91 - UNSPECIFIED ATRIAL FIBRILLATION Qualifiers: Atrial fibrillation type: chronic Qualified Code(s): I48.2 - Chronic atrial fibrillation (5) CAD (coronary artery disease) Code(s): I25.10 - ATHSCL HEART DISEASE OF [place] CORONARY ARTERY W/O ANG PCTRS (6) COPD (chronic obstructive pulmonary disease) Code(s): J44.9 - CHRONIC OBSTRUCTIVE PULMONARY DISEASE, UNSPECIFIED (7) HTN (hypertension) Code(s): I10 - ESSENTIAL (PRIMARY) HYPERTENSION (8) Hyperlipidemia Code(s): E78.5 - HYPERLIPIDEMIA, UNSPECIFIED Assessment/Plan -patient seen for evaluation for admission -patient not in CHF exacerbation (minimally edematous BLE, BNP lower than previous admission, 100% on RA, normal CXR and lung exam) -patient foot pain is chronic and unchanged -at this point no need for admission to the hospital -encouraged patient to follow up with PCP -encouraged patient to continue to see rheumatology and neurology/pain management -safe for discharge with outpatient follow up
--- NOTE | 2016-10-30 17:09 | EKG ---
Test Reason : Blood Pressure : / mmHG Vent. Rate : 090 BPM Atrial Rate : 089 BPM P-R Int : 000 ms QRS Dur : 088 ms QT Int : 344 ms P-R-T Axes : 000 -11 140 degrees QTc Int : 420 ms ATRIAL FIBRILLATION WITH PREMATURE VENTRICULAR OR ABERRANTLY CONDUCTED COMPLEXES T WAVE ABNORMALITY, CONSIDER LATERAL ISCHEMIA ABNORMAL ECG WHEN COMPARED WITH ECG OF 24-OCT-2016 02:05, QT HAS SHORTENED Confirmed by PANTERA FERMIN MD ([id number]) on 10/30/2016 5:09:25 PM Referred By: Confirmed By:PANTERA FERMIN MD
== END 2016-10-30 10:30 | disposition home or self-care (01) ==
LOC: JER 05:23
DX: M1A.4720 Other secondary chronic gout, left ankle and foot, without tophus (tophi) (principal); E87.6 Hypokalemia; M54.5 Low back pain; M54.16 Radiculopathy, lumbar region; I48.2 Chronic atrial fibrillation; I25.10 Atherosclerotic heart disease of native coronary artery without angina pectoris; J44.9 Chronic obstructive pulmonary disease, unspecified; I10 Essential (primary) hypertension; E78.5 Hyperlipidemia, unspecified; E78.00 Pure hypercholesterolemia, unspecified; G62.9 Polyneuropathy, unspecified; E83.42 Hypomagnesemia; F17.210 Nicotine dependence, cigarettes, uncomplicated; Z95.0 Presence of cardiac pacemaker
CPT/HCPCS: 36415; 71020-TC; 80048; 80053; 82550; 82553; 83735; 83880; 84484; 84550; 85025; 85610; 93005; 93010; 99282-25

== ENCOUNTER 2017-01-19 15:12 | Emergency (ER) | payer OTHER ==
[2017-01-19 15:31] VITALS: BP 155/82; PULSE 74; TEMP 98; BMI 27.1
--- NOTE | 2017-01-19 16:09 | PDOC ---
History of Present Illness - General Chief Complaint: Pain, Acute Stated Complaint: LT FOOT PAIN Time Seen by Provider: 01/19/17 15:41 History Source: Patient Exam Limitations: No Limitations - History of Present Illness Initial Comments: 01/19/17 15:55 Patient is a 56-year-old male history of gout, depression, 4 stents, pacemaker, asthma, colon CA, MT, A. fib, COPD, CHF, hypertension, high cholesterol and defibrillator placement. Patient is scheduled for hip surgery in 1 week. To the emergency Department with left ankle pain that started this a.m. when he woke up. Denies trauma. Patient states it feels like he has gout. Is requesting Toradol injection. Patient reports that it feels like " his bones are broken, but I know they aren't" Allergies: No known allergies Medications: see edication list, on Eliquis Family History: Non-contributory Social History: Denies smoking, alcohol use, or IVDU Review of Systems GENERAL/CONSTITUTIONAL: No fever or chills. No weakness. No weight change. HEAD, EYES, EARS, NOSE AND THROAT: No change in vision. No ear pain or discharge. No sore throat. CARDIOVASCULAR: No chest pain or shortness of breath. RESPIRATORY: No cough, wheezing, or hemoptysis. GASTROINTESTINAL: No nausea, vomiting, diarrhea or constipation. No rectal bleeding. GENITOURINARY: No dysuria, frequency, or change in urination. MUSCULOSKELETAL: No joint or muscle swelling or pain. No neck or back pain. SKIN : No rash or easy bruising. Mild edema to the left lateral ankle, no erythema or warmth. Physical Exam: GENERAL: The patient is awake, alert, and fully oriented, in no acute distress. EYES: Pupils equal, round and reactive to light, extraocular movements intact, sclera anicteric, conjunctiva clear. ENT: Ears normal, nares patent, oropharynx clear without exudates. Moist mucous membranes. No uvula deviation NECK: Normal range of motion, supple without lymphadenopathy, JVD, or masses. LUNGS: Breath sounds equal, clear to auscultation bilaterally. No wheezes, and no crackles. HEART: Regular rate and rhythm, normal S1 and S2 without murmur, rub or gallop. ABDOMEN: Soft, nontender, normoactive bowel sounds. No guarding, no rebound. No masses. No bruising or abrasions MUSCULOSKELETAL: Normal range of motion, health edema to left lateral ankle. No clubbing or cyanosis. No cords, erythema, or tenderness. NEUROLOGICAL: Cranial nerves II through XII grossly intact. Normal speech, normal gait. SKIN: Warm, Dry, normal turgor, no rashes or lesions noted. Past History - Past Medical History Allergies/Adverse Reactions: Allergies Allergy/AdvReac Type Severity Reaction Status Date / Time tomato Allergy Severe Verified 01/19/17 15:43 Beef Containing Products Allergy Verified 01/19/17 15:43 morphine Allergy Verified 01/19/17 15:43 red dye Allergy Verified 01/19/17 15:43 shellfish derived Allergy Verified 01/19/17 15:43 Home Medications: Ambulatory Orders Omeprazole [Prilosec] 40 mg PO DAILY 06/23/14 Oxycodone HCl [Roxicodone] 30 mg PO Q6H PRN 07/24/14 Atorvastatin Ca [Lipitor] 10 mg PO HS 08/17/14 Apixaban [Eliquis -] 5 mg PO BID 01/12/16 Docusate Sodium [Colace -] 100 mg PO DAILY 01/12/16 Escitalopram Oxalate [Lexapro -] 10 mg PO DAILY 01/12/16 Albuterol Sulfate Inhaler - [Ventolin HFA Inhaler -] 1 - 2 inh PO QID #1 inhaler 01/15/16 Ramipril [Altace] 10 mg PO DAILY #60 capsule 05/01/16 Alprazolam 0.25 mg PO BID PRN 07/02/16 Digoxin [Digitek] 125 mcg PO DAILY 07/02/16 Nitroglycerin Sublingual [Nitrostat -] 0.4 mg SL ONCE PRN 07/02/16 Potassium Chloride 10 meq PO DAILY 07/02/16 Carvedilol [Coreg -] 25 mg PO BID #60 tablet 07/06/16 Furosemide [Lasix -] 40 mg PO DAILY 07/13/16 Duloxetine HCl [Cymbalta -] 60 mg PO DAILY #60 capsule. 07/19/16 Isosorbide Mononitrate [Imdur -] 30 mg PO DAILY #30 tab.sr.24h 07/19/16 Indomethacin [Indocin -] 50 mg PO TID #30 capsule 09/17/16 Colchicine [Colcrys] 0.6 mg PO DAILY 09/19/16 Gabapentin [Neurontin -] 300 mg PO TID 09/19/16 Loratadine [Claritin] 10 mg PO DAILY #30 tablet 10/24/16 Methylprednisolone [Medrol Dose Tino] 4 mg PO ASDIR #21 tablet 01/19/17 Anemia: No Asthma: Yes Cancer: Yes (COLON) Cardiac Disorders: Yes (MT X 3, A-FIB) CVA: No COPD: Yes CHF: Yes Dementia: No Diabetes: No GI Disorders: No Disorders: No HTN: Yes Hypercholesterolemia: Yes Liver Disease: No Seizures: No Thyroid Disease: No - Surgical History Abdominal Surgery: No Appendectomy: No Cardiac Surgery: Yes (4sTENTS,pacemaker,defibrilator) Cholecystectomy: No GI Surgery: Yes (COLON RESECTION) Lung Surgery: No Neurologic Surgery: No Orthopedic Surgery: Yes ((L) ANKLE; (R)HIP; (R) ELBOW) - Family Disease History Family Disease History: Diabetes: Mother - Immunization History TDAP Vaccination: Yes Immunization Up to Date: No (2011 tetanus) - Psycho/Social/Smoking Cessation Hx Anxiety: No Suicidal Ideation: No Smoking Status: Yes Smoking History: Current every day smoker Have you smoked in the past 12 months: Yes Number of Cigarettes Smoked Daily: 3 If you are a former smoker, when did you quit?: 0 Cigars Per Day: 0 Information on smoking cessation initiated: No 'Breaking Loose' booklet given: 08/31/16 Hx Alcohol Use: No Drug/Substance Use Hx: No Substance Use Type: None Hx Substance Use Treatment: No *Physical Exam - Vital Signs Last Vital Signs Temp Pulse Resp BP Pulse Ox 98 F 74 19 155/82 98 01/19/17 15:28 01/19/17 15:28 01/19/17 15:28 01/19/17 15:28 01/19/17 15:28 Medical Decision Making - Medical Decision Making 01/19/17 16:09 A/P: Patient here for evaluation of left ankle pain, history of gout with same symptoms. Patient is requesting Toradol injection states that usually helps resolve the pain he is on multiple narcotics for chronic pain and nothing is helping him. Explained to patient that we cannot give Toradol at this time for several reasons. Patient is scheduled for surgery, on Eliquis, history of MT. We will start patient on Medrol Dosepak, call his PMD in the a.m. Splane to patient he is unable to take anti-inflammatories because of his history he must watch his diet, call his M.D. and discuss treatment. *DC/Admit/Observation/Transfer Diagnosis at time of Disposition: Gout Qualifiers: Gout site: ankle Gout etiology: unspecified cause Chronicity: acute Laterality : left Qualified Code(s): M10.9 - Gout, unspecified - Discharge Dispostion Disposition: HOME Condition at time of disposition: Good Admit: No - Prescriptions Prescriptions: Methylprednisolone [Medrol Dose Tino] 4 mg PO ASDIR #21 tablet - Referrals Referrals: Anup Pyle MD [Primary Care Provider] - - Patient Instructions Printed Discharge Instructions: DI for Gout, Gout (Alternative Therapy) Additional Instructions: Please read information given about alternate methods to treat gout. Recommend call your primary care doctor on Saturday, started on steroids as soon as possible
== END 2017-01-19 16:21 | disposition home or self-care (01) ==
LOC: JERFT 15:12
DX: M10.9 Gout, unspecified (principal); I10 Essential (primary) hypertension; I48.91 Unspecified atrial fibrillation; I25.2 Old myocardial infarction; I50.9 Heart failure, unspecified; Z95.810 Presence of automatic (implantable) cardiac defibrillator; Z95.5 Presence of coronary angioplasty implant and graft; F32.9 Major depressive disorder, single episode, unspecified; E78.00 Pure hypercholesterolemia, unspecified; F17.210 Nicotine dependence, cigarettes, uncomplicated; J45.909 Unspecified asthma, uncomplicated; J44.9 Chronic obstructive pulmonary disease, unspecified; Z85.038 Personal history of other malignant neoplasm of large intestine; Z91.013 Allergy to seafood; Z88.6 Allergy status to analgesic agent
CPT/HCPCS: 99281-25

== ENCOUNTER 2017-01-23 00:17 | Emergency (ER) | payer OTHER ==
[2017-01-23 00:49] VITALS: BP 149/101; PULSE 114; TEMP 98; BMI 27.1
--- NOTE | 2017-01-23 01:30 | PDOC ---
History of Present Illness - General History Source: Patient Exam Limitations: No Limitations - History of Present Illness Initial Comments: 01/23/17 01:52 The patient is a 56 year old male, with a significant past medical history of A- fib, CHF, [place] x3, CAD, s/p stents x4, s/p pacemaker, hypertension, hyperlipidemia , COPD, gout, hepatitis C, peripheral neuropathy, colon CA, s/p colon resection , and chronic low back pain (degenerative lumbar disc disease, who presents to the emergency department with swelling and fluid retention to L ankle for the past 3 days. Patient reports baseline swelling in lower extremities for the past several months however today it has progressively worsened. Patient states it is difficult to ambulate. Patient denies any recent trauma, SOB or chest pain. He denies headache or dizziness. He denies fever, chills, abdominal pain, nausea , vomit, diarrhea or constipation. He denies dysuria, frequency, urgency or hematuria. Allergies: shellfish, red dye, beef, tomato Past surgical history: Denies Social history: Lives at home alone. Current smoker, 6 cigarettes daily. Denies alcohol, illicit drug use. PCP: Dr. Anup Pyle <Munira Randolph - Last Filed: 01/23/17 01:52> - General History Source: Patient <Mayco Rodrigues - Last Filed: 01/23/17 04:56> - General Chief Complaint: Edema Stated Complaint: SWELLING/ANKLES Time Seen by Provider: 01/23/17 01:25 Past History <Munira Randolph - Last Filed: 01/23/17 01:52> - Past Medical History Anemia: No Asthma: Yes Cancer: Yes (COLON) Cardiac Disorders: Yes (MN X 3, A-FIB) CVA: No COPD: Yes CHF: Yes Dementia: No Diabetes: No GI Disorders: No Disorders: No HTN: Yes Hypercholesterolemia: Yes Liver Disease: No Seizures: No Thyroid Disease: No - Surgical History Abdominal Surgery: No Appendectomy: No Cardiac Surgery: Yes (4sTENTS,pacemaker,defibrilator) Cholecystectomy: No GI Surgery: Yes (COLON RESECTION) Lung Surgery: No Neurologic Surgery: No Orthopedic Surgery: Yes ((L) ANKLE; (R)HIP; (R) ELBOW) - Family Disease History Family Disease History: Diabetes: Mother - Immunization History TDAP Vaccination: Yes Immunization Up to Date: No (2011 tetanus) - Psycho/Social/Smoking Cessation Hx Anxiety: No Suicidal Ideation: No Smoking Status: Yes Smoking History: Never smoked Have you smoked in the past 12 months: No Number of Cigarettes Smoked Daily: 3 If you are a former smoker, when did you quit?: 0 Cigars Per Day: 0 Information on smoking cessation initiated: No 'Breaking Loose' booklet given: 08/31/16 Hx Alcohol Use: No Drug/Substance Use Hx: No Substance Use Type: None Hx Substance Use Treatment: No <Mayco Rodrigues - Last Filed: 01/23/17 04:56> - Past Medical History Allergies/Adverse Reactions: Allergies Allergy/AdvReac Type Severity Reaction Status Date / Time tomato Allergy Severe Verified 01/23/17 00:49 Beef Containing Products Allergy Verified 01/23/17 00:49 morphine Allergy Verified 01/23/17 00:49 red dye Allergy Verified 01/23/17 00:49 shellfish derived Allergy Verified 01/23/17 00:49 Home Medications: Ambulatory Orders Omeprazole [Prilosec] 40 mg PO DAILY 06/23/14 Oxycodone HCl [Roxicodone] 30 mg PO Q6H PRN 07/24/14 Atorvastatin Ca [Lipitor] 10 mg PO HS 08/17/14 Apixaban [Eliquis -] 5 mg PO BID 01/12/16 Docusate Sodium [Colace -] 100 mg PO DAILY 01/12/16 Escitalopram Oxalate [Lexapro -] 10 mg PO DAILY 01/12/16 Albuterol Sulfate Inhaler - [Ventolin HFA Inhaler -] 1 - 2 inh PO QID #1 inhaler 01/15/16 Ramipril [Altace] 10 mg PO DAILY #60 capsule 05/01/16 Alprazolam 0.25 mg PO BID PRN 07/02/16 Digoxin [Digitek] 125 mcg PO DAILY 07/02/16 Nitroglycerin Sublingual [Nitrostat -] 0.4 mg SL ONCE PRN 07/02/16 Potassium Chloride 10 meq PO DAILY 07/02/16 Carvedilol [Coreg -] 25 mg PO BID #60 tablet 07/06/16 Furosemide [Lasix -] 40 mg PO DAILY 07/13/16 Duloxetine HCl [Cymbalta -] 60 mg PO DAILY #60 capsule. 07/19/16 Isosorbide Mononitrate [Imdur -] 30 mg PO DAILY #30 tab.sr.24h 07/19/16 Indomethacin [Indocin -] 50 mg PO TID #30 capsule 09/17/16 Colchicine [Colcrys] 0.6 mg PO DAILY 09/19/16 Gabapentin [Neurontin -] 300 mg PO TID 09/19/16 Loratadine [Claritin] 10 mg PO DAILY #30 tablet 10/24/16 Methylprednisolone [Medrol Dose Tino] 4 mg PO ASDIR #21 tablet 01/19/17 Review of Systems - Review of Systems Able to Perform ROS?: Yes Comments:: 01/23/17 01:52 GENERAL/CONSTITUTIONAL: No fever or chills. No weakness. HEAD, EYES, EARS, NOSE AND THROAT: No change in vision. No ear pain or discharge. No sore throat. CARDIOVASCULAR: No chest pain or shortness of breath. RESPIRATORY: No cough, wheezing, or hemoptysis. GASTROINTESTINAL: No nausea, vomiting, diarrhea or constipation. GENITOURINARY: No dysuria, frequency, or change in urination. MUSCULOSKELETAL: No joint or muscle swelling or pain. No neck or back pain. SKIN: No rash NEUROLOGIC: No headache, vertigo, loss of consciousness, or change in strength/ sensation. ENDOCRINE: No increased thirst. No abnormal weight change. HEMATOLOGIC/LYMPHATIC: No anemia, easy bleeding, or history of blood clots. ALLERGIC/IMMUNOLOGIC: No hives or skin allergy. EXTREMITIES: + LLE swelling. <Munira Randolph - Last Filed: 01/23/17 01:52> *Physical Exam - Vital Signs Last Vital Signs Temp Pulse Resp BP Pulse Ox 98 F 114 H 18 149/101 98 01/23/17 00:47 01/23/17 00:47 01/23/17 00:47 01/23/17 00:47 01/23/17 00:47 - Physical Exam Comments: 01/23/17 01:53 GENERAL: Awake, alert, and fully oriented, in no acute distress HEAD: No signs of trauma EYES: PERRLA, EOMI, sclera anicteric, conjunctiva clear ENT: Auricles normal inspection, hearing grossly normal, nares patent, oropharynx clear without exudates. Moist mucosa NECK: Normal ROM, supple, no lymphadenopathy, JVD, or masses LUNGS: Breath sounds equal, clear to auscultation bilaterally. No wheezes. + Scattered crackles bilaterally at lung bases HEART: Regular rate and rhythm, normal S1 and S2, no murmurs, rubs or gallops ABDOMEN: Soft, nontender, normoactive bowel sounds. No guarding, no rebound. No masses EXTREMITIES: +2 pitting edema to L ankle and foot. Normal range of motion. No clubbing or cyanosis. No cords, erythema, or tenderness NEUROLOGICAL: Cranial nerves II through XII grossly intact. Normal speech, normal gait SKIN: Warm, Dry, normal turgor, no rashes or lesions noted. <Munira Randolph - Last Filed: 01/23/17 01:52> - Vital Signs Last Vital Signs Temp Pulse Resp BP Pulse Ox 98 F 114 H 18 149/101 98 01/23/17 00:47 01/23/17 00:47 01/23/17 00:47 01/23/17 00:47 01/23/17 00:47 <Mayco Rodrigues - Last Filed: 01/23/17 04:56> ED Treatment Course - LABORATORY CBC & Chemistry Diagram: 01/23/17 02:17 01/23/17 02:17 <Mayco Rodrigues - Last Filed: 01/23/17 04:56> Medical Decision Making - Medical Decision Making 01/23/17 04:55 Dr. Rodrigues: The scribe's documentation has been prepared under my direction and personally reviewed by me in its entirery. I confirm that the note above accurately reflects all work, treatment, procedures, and medical decision making performed by me. patient's labs stable. patient will be discharged to follow-up with his primary care physician <Mayco Rodrigues - Last Filed: 01/23/17 04:56> *DC/Admit/Observation/Transfer - Attestations Scribe Attestion: 01/23/17 01:53 Documentation prepared by Munira Randolph, acting as biomedical engineering technologist for Mayco Rodrigues MD/. <Munira Randolph - Last Filed: 01/23/17 01:52> - Discharge Dispostion Admit: No <Mayco Rodrigues - Last Filed: 08/09/17 04:56> Diagnosis at time of Disposition: Edema of left ankle - Discharge Dispostion Disposition: HOME Condition at time of disposition: Stable - Referrals Referrals: Anup Pyle MD [Primary Care Provider] - - Patient Instructions Printed Discharge Instructions: DI for Peripheral Edema, Unilateral
[2017-01-23] MEDS ORDERED: FUROSEMIDE 40 MG/4 ML INJECTABLE VIAL IVPUSH ONE (01:33)
[2017-01-23] MEDS ORDERED: FUROSEMIDE 40 MG/4 ML INJECTABLE VIAL ONE (02:25)
[2017-01-23 02:33] LABS: BASOPHIL 1.1 % (0-2.0); EOSINOPHIL 6.9 % (0-4.5); MCHC 30.3 g/dl (32.0-35.9); MEAN CELL VOLUME 59.2 fl (80-96); MEAN PLT VOLUME 8.6 fl (7.5-11.1); NEUTROPHILS 49.7 % (42.8-82.8); PLATELET COUNT 350 K/MM3 (134-434); WHITE BLOOD COUNT 5.4 K/mm3 (4.0-10.0)
[2017-01-23 02:53] LABS: MCH 17.9 pg (25.7-33.7)
[2017-01-23 02:54] LABS: INR 1.24 (0.82-1.09); PROTHROMBIN TIME (PATIENT) 13.7 SEC (9.98-11.88)
[2017-01-23 03:04] LABS: ALBUMIN 3.5 g/dl (3.4-5.0); ANION GAP 9 (8-16); CALCIUM 8.6 mg/dL (8.5-10.1); CO2 31 mmol/L (21-32); CREATININE 1.5 mg/dL (0.7-1.3); GLUCOSE,RANDOM 113 mg/dL (74-106); MAGNESIUM 1.8 mg/dL (1.8-2.4); SGOT/AST 23 U/L (15-37); SGPT/ALT 25 U/L (12-78)
[2017-01-23 03:05] LABS: ALK PHOS 56 U/L (45-117); BILIRUBIN,TOTAL 0.7 mg/dL (0.2-1.0); TOT PROT 7.2 g/dl (6.4-8.2)
== END 2017-01-23 05:04 | disposition home or self-care (01) ==
LOC: JER 00:17
PROC: 3E033GC Introduction of Other Therapeutic Substance into Peripheral Vein, Percutaneous Approach (ICD-10-PCS; principal; 2017-01-23)
DX: M25.472 Effusion, left ankle (principal); I48.91 Unspecified atrial fibrillation; I25.2 Old myocardial infarction; Z95.5 Presence of coronary angioplasty implant and graft; I10 Essential (primary) hypertension; E78.5 Hyperlipidemia, unspecified; J45.909 Unspecified asthma, uncomplicated; J44.9 Chronic obstructive pulmonary disease, unspecified; I50.9 Heart failure, unspecified
CPT/HCPCS: 36415; 80053; 82553; 83735; 83880; 84484; 85025; 85610; 99281-25; 99283-25

== ENCOUNTER 2017-01-23 14:00 | Emergency (ER) | payer OTHER ==
[2017-01-23 14:12] VITALS: BP 142/86; PULSE 68; TEMP 98; BMI 26.7
--- NOTE | 2017-01-23 15:37 | PDOC ---
History of Present Illness - General Chief Complaint: Edema Stated Complaint: REVISIT Time Seen by Provider: 01/23/17 14:53 History Source: Patient Exam Limitations: No Limitations Past History - Past Medical History Allergies/Adverse Reactions: Allergies Allergy/AdvReac Type Severity Reaction Status Date / Time tomato Allergy Severe Verified 01/23/17 14:03 Beef Containing Products Allergy Verified 01/23/17 14:03 morphine Allergy Verified 01/23/17 14:03 red dye Allergy Verified 01/23/17 14:03 shellfish derived Allergy Verified 01/23/17 14:03 Home Medications: Ambulatory Orders Omeprazole [Prilosec] 40 mg PO DAILY 06/23/14 Oxycodone HCl [Roxicodone] 30 mg PO Q6H PRN 07/24/14 Atorvastatin Ca [Lipitor] 10 mg PO HS 08/17/14 Apixaban [Eliquis -] 5 mg PO BID 01/12/16 Docusate Sodium [Colace -] 100 mg PO DAILY 01/12/16 Escitalopram Oxalate [Lexapro -] 10 mg PO DAILY 01/12/16 Albuterol Sulfate Inhaler - [Ventolin HFA Inhaler -] 1 - 2 inh PO QID #1 inhaler 01/15/16 Ramipril [Altace] 10 mg PO DAILY #60 capsule 05/01/16 Alprazolam 0.25 mg PO BID PRN 07/02/16 Digoxin [Digitek] 125 mcg PO DAILY 07/02/16 Nitroglycerin Sublingual [Nitrostat -] 0.4 mg SL ONCE PRN 07/02/16 Potassium Chloride 10 meq PO DAILY 07/02/16 Carvedilol [Coreg -] 25 mg PO BID #60 tablet 07/06/16 Furosemide [Lasix -] 40 mg PO DAILY 07/13/16 Duloxetine HCl [Cymbalta -] 60 mg PO DAILY #60 capsule. 07/19/16 Isosorbide Mononitrate [Imdur -] 30 mg PO DAILY #30 tab.sr.24h 07/19/16 Indomethacin [Indocin -] 50 mg PO TID #30 capsule 09/17/16 Colchicine [Colcrys] 0.6 mg PO DAILY 09/19/16 Gabapentin [Neurontin -] 300 mg PO TID 09/19/16 Loratadine [Claritin] 10 mg PO DAILY #30 tablet 10/24/16 Methylprednisolone [Medrol Dose Tino] 4 mg PO ASDIR #21 tablet 01/19/17 Anemia: No Asthma: Yes Cancer: Yes (COLON) Cardiac Disorders: Yes (MA X 3, A-FIB) CVA: No COPD: Yes CHF: Yes Dementia: No Diabetes: No GI Disorders: No Disorders: No HTN: Yes Hypercholesterolemia: Yes Liver Disease: No Seizures: No Thyroid Disease: No - Surgical History Abdominal Surgery: No Appendectomy: No Cardiac Surgery: Yes (4sTENTS,pacemaker,defibrilator) Cholecystectomy: No GI Surgery: Yes (COLON RESECTION) Lung Surgery: No Neurologic Surgery: No Orthopedic Surgery: Yes ((L) ANKLE; (R)HIP; (R) ELBOW) - Family Disease History Family Disease History: Diabetes: Mother - Immunization History TDAP Vaccination: Yes Immunization Up to Date: No (2011 tetanus) - Psycho/Social/Smoking Cessation Hx Anxiety: No Suicidal Ideation: No Smoking Status: Yes Smoking History: Current every day smoker Have you smoked in the past 12 months: Yes Number of Cigarettes Smoked Daily: 5 If you are a former smoker, when did you quit?: 0 Cigars Per Day: 0 Information on smoking cessation initiated: No 'Breaking Loose' booklet given: 08/31/16 Hx Alcohol Use: No Drug/Substance Use Hx: No Substance Use Type: None Hx Substance Use Treatment: No *Physical Exam - Vital Signs Last Vital Signs Temp Pulse Resp BP Pulse Ox 98 F 68 18 142/86 96 01/23/17 14:04 01/23/17 14:04 01/23/17 14:04 01/23/17 14:04 01/23/17 14:04
--- NOTE | 2017-01-23 15:50 | PDOC ---
History of Present Illness - General History Source: Patient Exam Limitations: No Limitations - History of Present Illness Initial Comments: 01/23/17 16:32 The patient is a 56 year old male, with a significant past medical history of asthma, colon cancer, CA (X3), AFib, COPD, CHF, hypertension, and hyperlipidemia , who presents to the emergency department complaining of bilateral lower extremity swelling since last night. Patient reports he was in the ER yesterday with LE swelling, where he was given 80 mg of IV lasix and was informed to sleep with his legs elevated. However, the patient states he slept with his legs hanging off the bed, and that's when the swelling returned. Patient reports he has lasix at home, but rather get the IV lasix as it works better and faster. Patient states that Dr. Centeno, his roller operator, prescribed to him 160 mg daily of lasix, but due to side effects (cramping because of low potassium) he was switched back to 40 mg daily. Patient attributes the swelling to the reduced dose and states that he has an appointment next week with his PCP Dr. Pyle to figure out the correct dosage of his lasix. Patient denies any chest pain, shortness of breath, or diaphoresis. He denies any abdominal pain, nausea, vomiting, diarrhea, or constipation. Allergies: Morphine Past Surgical History: 4 Stents, Pacemaker, defibrillator, colon resection, Left ankle/ Right hip/ Right elbow Family History: Mother: Diabetes Social History: Current everyday smoker(5 cigarettes daily). No ETOH or drug use. <Hudson Kirk - Last Filed: 01/23/17 16:32> <Keven Wahl - Last Filed: 02/06/17 08:08> - General Chief Complaint: Edema Stated Complaint: REVISIT Time Seen by Provider: 01/23/17 14:53 Past History <Hudson Kirk - Last Filed: 01/23/17 16:32> - Past Medical History Anemia: No Asthma: Yes Cancer: Yes (COLON) Cardiac Disorders: Yes (CA X 3, A-FIB) CVA: No COPD: Yes CHF: Yes Dementia: No Diabetes: No GI Disorders: No Disorders: No HTN: Yes Hypercholesterolemia: Yes Liver Disease: No Seizures: No Thyroid Disease: No - Surgical History Abdominal Surgery: No Appendectomy: No Cardiac Surgery: Yes (4sTENTS,pacemaker,defibrilator) Cholecystectomy: No GI Surgery: Yes (COLON RESECTION) Lung Surgery: No Neurologic Surgery: No Orthopedic Surgery: Yes ((L) ANKLE; (R)HIP; (R) ELBOW) - Family Disease History Family Disease History: Diabetes: Mother - Immunization History TDAP Vaccination: Yes Immunization Up to Date: No (2011 tetanus) - Psycho/Social/Smoking Cessation Hx Anxiety: No Suicidal Ideation: No Smoking Status: Yes Smoking History: Current every day smoker Have you smoked in the past 12 months: Yes Number of Cigarettes Smoked Daily: 5 If you are a former smoker, when did you quit?: 0 Cigars Per Day: 0 Information on smoking cessation initiated: No 'Breaking Loose' booklet given: 08/31/16 Hx Alcohol Use: No Drug/Substance Use Hx: No Substance Use Type: None Hx Substance Use Treatment: No <Keven Wahl - Last Filed: 02/06/17 08:08> - Past Medical History Allergies/Adverse Reactions: Allergies Allergy/AdvReac Type Severity Reaction Status Date / Time tomato Allergy Severe Verified 01/23/17 14:03 Beef Containing Products Allergy Verified 01/23/17 14:03 morphine Allergy Verified 01/23/17 14:03 red dye Allergy Verified 01/23/17 14:03 shellfish derived Allergy Verified 01/23/17 14:03 Home Medications: Ambulatory Orders Omeprazole [Prilosec] 40 mg PO DAILY 06/23/14 Oxycodone HCl [Roxicodone] 30 mg PO Q6H PRN 07/24/14 Atorvastatin Ca [Lipitor] 10 mg PO HS 08/17/14 Apixaban [Eliquis -] 5 mg PO BID 01/12/16 Docusate Sodium [Colace -] 100 mg PO DAILY 01/12/16 Escitalopram Oxalate [Lexapro -] 10 mg PO DAILY 01/12/16 Albuterol Sulfate Inhaler - [Ventolin HFA Inhaler -] 1 - 2 inh PO QID #1 inhaler 01/15/16 Ramipril [Altace] 10 mg PO DAILY #60 capsule 05/01/16 Alprazolam 0.25 mg PO BID PRN 07/02/16 Digoxin [Digitek] 125 mcg PO DAILY 07/02/16 Nitroglycerin Sublingual [Nitrostat -] 0.4 mg SL ONCE PRN 07/02/16 Potassium Chloride 10 meq PO DAILY 07/02/16 Carvedilol [Coreg -] 25 mg PO BID #60 tablet 07/06/16 Furosemide [Lasix -] 40 mg PO DAILY 07/13/16 Duloxetine HCl [Cymbalta -] 60 mg PO DAILY #60 capsule. 07/19/16 Isosorbide Mononitrate [Imdur -] 30 mg PO DAILY #30 tab.sr.24h 07/19/16 Indomethacin [Indocin -] 50 mg PO TID #30 capsule 09/17/16 Colchicine [Colcrys] 0.6 mg PO DAILY 09/19/16 Gabapentin [Neurontin -] 300 mg PO TID 09/19/16 Loratadine [Claritin] 10 mg PO DAILY #30 tablet 10/24/16 Methylprednisolone [Medrol Dose Tino] 4 mg PO ASDIR #21 tablet 01/19/17 Review of Systems - Review of Systems Able to Perform ROS?: Yes Comments:: 01/23/17 16:32 GENERAL/CONSTITUTIONAL: No fever or chills. No weakness. HEAD, EYES, EARS, NOSE AND THROAT: No change in vision. No ear pain or discharge. No sore throat. CARDIOVASCULAR: No chest pain or shortness of breath. RESPIRATORY: No cough, wheezing, or hemoptysis. GASTROINTESTINAL: No nausea, vomiting, diarrhea or constipation. GENITOURINARY: No dysuria, frequency, or change in urination. MUSCULOSKELETAL: Yes: +Bilateral lower extremity edema. No other joint or muscle swelling or pain. No neck or back pain. SKIN: No rash NEUROLOGIC: No headache, vertigo, loss of consciousness, or change in strength/ sensation. ENDOCRINE: No increased thirst. No abnormal weight change. HEMATOLOGIC/LYMPHATIC: No anemia, easy bleeding, or history of blood clots. ALLERGIC/IMMUNOLOGIC: No hives or skin allergy. <Hudson Kirk - Last Filed: 01/23/17 16:32> *Physical Exam - Vital Signs Last Vital Signs Temp Pulse Resp BP Pulse Ox 98 F 68 18 142/86 96 01/23/17 14:04 01/23/17 14:04 01/23/17 14:04 01/23/17 14:04 01/23/17 14:04 - Physical Exam Comments: 01/23/17 16:33 GENERAL: Awake, alert, and fully oriented, in no acute distress HEAD: No signs of trauma EYES: PERRLA, EOMI, sclera anicteric, conjunctiva clear ENT: Auricles normal inspection, hearing grossly normal, nares patent, oropharynx clear without exudates. Moist mucosa NECK: Normal ROM, supple, no lymphadenopathy, JVD, or masses LUNGS: Breath sounds equal, clear to auscultation bilaterally. No wheezes, and no crackles HEART: Regular rate and rhythm, normal S1 and S2, no murmurs, rubs or gallops ABDOMEN: Soft, nontender, normoactive bowel sounds. No guarding, no rebound. No masses EXTREMITIES: +2 pitting Edema to the bilateral lower extremities . Normal range of motion. No clubbing or cyanosis. No cords, erythema, or tenderness NEUROLOGICAL: Cranial nerves II through XII grossly intact. Normal speech, normal gait SKIN: Warm, Dry, normal turgor, no rashes or lesions noted. <Hudson Kirk - Last Filed: 01/23/17 16:32> - Vital Signs Last Vital Signs Temp Pulse Resp BP Pulse Ox 98 F 68 18 142/86 96 01/23/17 14:04 01/23/17 14:04 01/23/17 14:04 01/23/17 14:04 01/23/17 14:04 <Keven Wahl - Last Filed: 02/06/17 08:08> ED Treatment Course - LABORATORY CBC & Chemistry Diagram: 01/23/17 17:05 01/23/17 17:05 <Keven Wahl - Last Filed: 02/06/17 08:08> Medical Decision Making - Medical Decision Making 02/06/17 08:07 Patient eloped before completing care <Keven Wahl - Last Filed: 02/06/17 08:08> *DC/Admit/Observation/Transfer - Attestations Scribe Attestion: 01/23/17 16:33 Documentation prepared by Hudson Kirk, acting as medical collections specialist for Keven Wahl DO. <Hudson Kirk - Last Filed: 01/23/17 16:32> - Attestations Physician Attestion: 01/23/17 15:50 I, Dr. Keven Wahl, attest that this document has been prepared under my direction and personally reviewed by me in its entirety. I further attest, that it accurately reflects all work, treatment, procedures and medical decision -making performed by me. <Keven Wahl - Last Filed: 02/06/17 08:08> Diagnosis at time of Disposition: Swelling - Discharge Dispostion Disposition: ELOPED - Referrals Referrals: Anup Pyle MD [Primary Care Provider] -
[2017-01-23 17:25] LABS: BASOPHIL 1.2 % (0-2.0); EOSINOPHIL 6.3 % (0-4.5); MCHC 30.5 g/dl (32.0-35.9); MEAN CELL VOLUME 58.8 fl (80-96); MEAN PLT VOLUME 9.1 fl (7.5-11.1); NEUTROPHILS 53.6 % (42.8-82.8); PLATELET COUNT 404 K/MM3 (134-434); RDW 20.3 % (11.9-15.9); WHITE BLOOD COUNT 6.1 K/mm3 (4.0-10.0)
[2017-01-23 17:31] LABS: MCH 17.9 pg (25.7-33.7)
[2017-01-23 17:39] LABS: INR 1.3 (0.82-1.09); PROTHROMBIN TIME (PATIENT) 14.4 SEC (9.98-11.88)
[2017-01-23 18:03] LABS: ANION GAP 9 (8-16); CALCIUM 8.8 mg/dL (8.5-10.1); CO2 31 mmol/L (21-32); GLUCOSE,RANDOM 92 mg/dL (74-106)
[2017-01-23 18:10] LABS: ALK PHOS 61 U/L (45-117); BILIRUBIN,TOTAL 0.7 mg/dL (0.2-1.0); CPK 796 IU/L (39-308); CREATININE 1.5 mg/dL (0.7-1.3); SGOT/AST 34 U/L (15-37); SGPT/ALT 27 U/L (12-78); TROPONIN I 0.02 ng/ml (0.00-0.05)
[2017-01-23 19:57] LABS: PLATELET ESTIMATE ADEQUATE (NORMAL)
[2017-01-23 19:58] LABS: ANISOCYTOSIS 1+; HYPOCHROMIA 3+; MICROCYTOSIS 3+; OVALOCYTES 1+; POIKILOCYTOSIS 2+; POLYCHROMASIA 1+; TARGET CELLS 1+; TEAR DROP CELLS 1+
== END 2017-01-23 17:30 | disposition left against medical advice (07) ==
LOC: JER 14:00
DX: R22.43 Localized swelling, mass and lump, lower limb, bilateral (principal); I10 Essential (primary) hypertension; I48.91 Unspecified atrial fibrillation; I25.2 Old myocardial infarction; I50.9 Heart failure, unspecified; J45.909 Unspecified asthma, uncomplicated; E78.5 Hyperlipidemia, unspecified; Z85.038 Personal history of other malignant neoplasm of large intestine; Z95.5 Presence of coronary angioplasty implant and graft; Z95.810 Presence of automatic (implantable) cardiac defibrillator; F17.210 Nicotine dependence, cigarettes, uncomplicated; Z88.6 Allergy status to analgesic agent; Z91.013 Allergy to seafood
CPT/HCPCS: 36415; 80053; 82553; 83880; 84484; 85025; 85610; 99283-25

== ENCOUNTER 2017-03-09 17:47 | Inpatient (IN) | payer OTHER ==
[2017-03-09 18:18] VITALS: BMI 28.8
--- NOTE | 2017-03-09 18:34 | PDOC ---
History of Present Illness <Simona Brownbeth - Last Filed: 03/09/17 22:42> - General History Source: Patient, Old Records Exam Limitations: No Limitations - History of Present Illness Initial Comments: 03/09/17 19:26 The patient is a 56 year old male with a past medical history of asthma, colon cancer, NE (X3), AFib, COPD, CHF, hypertension, hyperlipidemia, and neuropathy secondary to chronic back pain, who presents to the emergency department with inflamed gout and chest pain since 4 am. The patient states that his gout is concentrated to his right ankle radiating to his right toes. The patient notes that his pain is similar to his previous gout attacks. The patient describes his chest pain as stabbing and worsening when taking deep breaths. The patient also reports constipation and states that he has not had bowel movement in 7 days. The patient states that his last blood clot was one and half years ago but is unsure whether it was in his leg or neck. PCP: Dr. Pyle Pt Skilled: Dr. Coon (not affiliated) <Dragan Hawthorne - Last Filed: 03/10/17 00:38> - General Chief Complaint: Chest Pain Stated Complaint: GOUT/CHEST PAIN Time Seen by Provider: 03/09/17 18:08 Past History - Past Medical History Anemia: No Asthma: Yes Cancer: Yes (COLON) Cardiac Disorders: Yes (NE X 3, A-FIB) CVA: No COPD: Yes CHF: Yes Dementia: No Diabetes: No GI Disorders: No Disorders: No HTN: Yes Hypercholesterolemia: Yes Liver Disease: No Seizures: No Thyroid Disease: No - Surgical History Abdominal Surgery: No Appendectomy: No Cardiac Surgery: Yes (4sTENTS,pacemaker,defibrilator) Cholecystectomy: No GI Surgery: Yes (COLON RESECTION) Lung Surgery: No Neurologic Surgery: No Orthopedic Surgery: Yes ((L) ANKLE; (R)HIP; (R) ELBOW) - Family Disease History Family Disease History: Diabetes: Mother - Immunization History TDAP Vaccination: Yes Immunization Up to Date: No (2011 tetanus) - Suicide/Smoking/Psychosocial Hx Smoking Status: Yes Smoking History: Current every day smoker Have you smoked in the past 12 months: Yes Number of Cigarettes Smoked Daily: 2 If you are a former smoker, when did you quit?: 0 Cigars Per Day: 0 Information on smoking cessation initiated: Yes 'Breaking Loose' booklet given: 03/09/17 Hx Alcohol Use: No Drug/Substance Use Hx: No Substance Use Type: None Hx Substance Use Treatment: No <Ruby Brown - Last Filed: 03/09/17 22:42> <Dragan Hawthorne - Last Filed: 03/10/17 00:38> - Past Medical History Allergies/Adverse Reactions: Allergies Allergy/AdvReac Type Severity Reaction Status Date / Time tomato Allergy Severe Verified 03/09/17 18:34 Beef Containing Products Allergy Verified 03/09/17 18:34 morphine Allergy Verified 03/09/17 18:34 red dye Allergy Verified 03/09/17 18:34 shellfish derived Allergy Verified 03/09/17 18:34 Home Medications: Ambulatory Orders Omeprazole [Prilosec] 40 mg PO DAILY 06/23/14 Oxycodone HCl [Roxicodone] 30 mg PO Q6H PRN 07/24/14 Atorvastatin Ca [Lipitor] 10 mg PO HS 08/17/14 Apixaban [Eliquis -] 5 mg PO BID 01/12/16 Docusate Sodium [Colace -] 100 mg PO DAILY 01/12/16 Escitalopram Oxalate [Lexapro -] 10 mg PO DAILY 01/12/16 Albuterol Sulfate Inhaler - [Ventolin HFA Inhaler -] 1 - 2 inh PO QID #1 inhaler 01/15/16 Ramipril [Altace] 10 mg PO DAILY #60 capsule 05/01/16 Alprazolam 0.25 mg PO BID PRN 07/02/16 Digoxin [Digitek] 125 mcg PO DAILY 07/02/16 Nitroglycerin Sublingual [Nitrostat -] 0.4 mg SL ONCE PRN 07/02/16 Potassium Chloride 10 meq PO DAILY 07/02/16 Carvedilol [Coreg -] 25 mg PO BID #60 tablet 07/06/16 Furosemide [Lasix -] 40 mg PO DAILY 07/13/16 Duloxetine HCl [Cymbalta -] 60 mg PO DAILY #60 capsule. 07/19/16 Isosorbide Mononitrate [Imdur -] 30 mg PO DAILY #30 tab.sr.24h 07/19/16 Indomethacin [Indocin -] 50 mg PO TID #30 capsule 09/17/16 Colchicine [Colcrys] 0.6 mg PO DAILY 09/19/16 Gabapentin [Neurontin -] 300 mg PO TID 09/19/16 Loratadine [Claritin] 10 mg PO DAILY #30 tablet 10/24/16 Methylprednisolone [Medrol Dose Tino] 4 mg PO ASDIR #21 tablet 01/19/17 Cefuroxime Axetil [Ceftin -] 500 mg PO Q12H 03/09/17 Review of Systems - Review of Systems Able to Perform ROS?: Yes Comments:: 03/09/17 19:27 GENERAL/CONSTITUTIONAL: No fever or chills. No weakness. HEAD, EYES, EARS, NOSE AND THROAT: No change in vision. No ear pain or discharge. No sore throat. GASTROINTESTINAL: No nausea, vomiting, diarrhea or constipation. GENITOURINARY: No dysuria, frequency, or change in urination. CARDIOVASCULAR: (+) Chest pain No shortness of breath. RESPIRATORY: No cough, wheezing, or hemoptysis. MUSCULOSKELETAL: (+) Right ankle gout attack. Back pain. SKIN: No rash NEUROLOGIC: (+) Neuropathy. No headache, vertigo, loss of consciousness, or change in strength/sensation. ENDOCRINE: No increased thirst. No abnormal weight change. HEMATOLOGIC/LYMPHATIC: No anemia, easy bleeding, or history of blood clots. ALLERGIC/IMMUNOLOGIC: No hives or skin allergy. <Dragan Hawthorne - Last Filed: 03/10/17 00:38> *Physical Exam - Vital Signs Last Vital Signs Temp Pulse Resp BP Pulse Ox 99.7 F H 98 H 19 175/105 96 03/09/17 18:13 03/09/17 18:13 03/09/17 18:13 03/09/17 18:13 03/09/17 18:23 <Ruby Brown - Last Filed: 03/09/17 22:42> - Vital Signs Last Vital Signs Temp Pulse Resp BP Pulse Ox 99.7 F H 98 H 19 175/105 96 03/09/17 18:13 03/09/17 18:13 03/09/17 18:13 03/09/17 18:13 03/09/17 18:23 - Physical Exam Comments: 03/09/17 19:27 GENERAL: Awake, alert, and fully oriented, in no acute distress HEAD: No signs of trauma EYES: PERRLA, EOMI, sclera anicteric, conjunctiva clear ENT: Auricles normal inspection, hearing grossly normal, nares patent, oropharynx clear without exudates. Moist mucosa NECK: Normal ROM, supple, no lymphadenopathy, JVD, or masses LUNGS: Breath sounds equal, clear to auscultation bilaterally. No wheezes, and no crackles HEART: (+) Irregularly, Irregular, normal S1 and S2, no murmurs, rubs or gallops ABDOMEN: Soft, nontender, normoactive bowel sounds. No guarding, no rebound. No masses EXTREMITIES: (+) Right ankle edema 2+ and extremely tender to touch no steffany no rash NEUROLOGICAL: Cranial nerves II through XII grossly intact. Normal speech, normal gait SKIN: Warm, Dry, normal turgor, no rashes or lesions noted. <Dragan Hawthorne - Last Filed: 03/10/17 00:38> Heart Score/ECG Review - ECG Impressions Comment:: 03/09/17 20:31 Afib with occasional PVC. Inverted t-waves and V5 and V6. T wave inversions are new from previous ECG <Dragan Hawthorne - Last Filed: 03/10/17 00:38> ED Treatment Course - LABORATORY CBC & Chemistry Diagram: 03/09/17 18:43 03/09/17 18:43 <Ruby Brown - Last Filed: 03/09/17 22:42> - LABORATORY CBC & Chemistry Diagram: 03/09/17 18:43 03/09/17 18:43 - ADDITIONAL ORDERS Additional order review: Laboratory Results 03/09/17 18:43 PT with INR 15.30 H INR 1.38 H 03/09/17 18:43 RBC 6.02 H MCV 58.6 L MCHC 30.5 L RDW 19.9 H MPV 8.9 Neutrophils % 77.8 D Lymphocytes % 12.2 D Monocytes % 8.6 Eosinophils % 1.1 D Basophils % 0.3 - RADIOLOGY Radiograph Interpretation: 03/10/17 00:37 REASON FOR EXAM: Bilateral leg pain and swelling. Deep venous thrombosis. COMPARISON: None. TECHNIQUE: Color doppler ultrasound exam of the deep and superficial veins of the right and left lower extremities. FINDINGS: There is a deep venous thrombosis noted in the right posterior tibial vein. The right and left proximal, mid and distal superficial femoral, and popliteal and left posterior tibial veins are patent and exhibit normal responses to augmentation and compression, without evidence of deep venous thrombosis. IMPRESSION: Deep venous thrombosis noted in the right posterior tibial vein. Normal study. No evidence of deep venous thrombosis. THIS DOCUMENT HAS BEEN ELECTRONICALLY SIGNED Haroon Benavides MD. <Dargan Hawthorne - Last Filed: 03/10/17 00:38> Medical Decision Making - Medical Decision Making 03/09/17 19:25 Patient with history of gout and CAD presents with pleuritic chest pain and right ankle pain Ultrasound to rule out DVT of right lower extremity Pain control Steroid for gout Cardio workup for chest pain Will consider CTA if doppler is negative 03/09/17 22:22 First call placed to Dr. Pyle's service. Awaiting call back. <Dragan Hawthorne - Last Filed: 03/10/17 00:38> *DC/Admit/Observation/Transfer - Discharge Dispostion Admit: Yes <Ruby Brown - Last Filed: 03/09/17 22:42> - Attestations Scribe Attestion: 03/09/17 19:27 Documentation prepared by Dragan Hawthorne, acting as medical insurance clerk for Ruby Brown MD. <Dragan Hawthorne - Last Filed: 03/10/17 00:38> Diagnosis at time of Disposition: Chest pain Qualifiers: Chest pain type: chest pain on breathing Qualified Code(s): R07.1 - Chest pain on breathing Gout attack Qualifiers: Gout site: ankle Gout etiology: unspecified cause Laterality: right Qualified Code(s): M10.9 - Gout, unspecified DVT (deep venous thrombosis) Qualifiers: DVT location: lower extremity Affected thrombotic vein of extremity: tibial Chronicity: unspecified Laterality: right Qualified Code(s): I82.441 - Acute embolism and thrombosis of right tibial vein - Discharge Dispostion Condition at time of disposition: Stable
[2017-03-09 19:12] LABS: BASOPHIL 0.3 % (0-2.0); EOSINOPHIL 1.1 % (0-4.5); MCHC 30.5 g/dl (32.0-35.9); MEAN CELL VOLUME 58.6 fl (80-96); MEAN PLT VOLUME 8.9 fl (7.5-11.1); NEUTROPHILS 77.8 % (42.8-82.8); PLATELET COUNT 427 K/MM3 (134-434); RDW 19.9 % (11.9-15.9); WHITE BLOOD COUNT 9.7 K/mm3 (4.0-10.0)
[2017-03-09] MEDS ORDERED: CARVEDILOL 25 MG TABLET (FP) PO ONE (19:16)
[2017-03-09] MEDS ORDERED: DIGOXIN 0.125 MG TABLET (FP) PO ONE (19:16)
[2017-03-09 19:17] LABS: INR 1.38 (0.82-1.09); PROTHROMBIN TIME (PATIENT) 15.3 SEC (9.98-11.88)
[2017-03-09] MEDS ORDERED: GABAPENTIN 300 MG CAPSULE (FP) PO ONE (19:17)
[2017-03-09] MEDS ORDERED: RAMIPRIL 5 MG CAPSULE (FP) PO ONE (19:17)
[2017-03-09] MEDS ORDERED: COLCHICINE 0.6 MG TABLET (FP) PO ONE (19:17)
[2017-03-09] MEDS ORDERED: methylPREDNISolone NA SUCC 125 MG/2 ML VIAL IVPB ONE (19:18)
[2017-03-09 19:19] LABS: MCH 17.9 pg (25.7-33.7)
[2017-03-09] MEDS ORDERED: HYDROmorphone HCL CARPU-JECT 1 MG/1 ML DISP.SYRIN IVPUSH ONE (19:19)
[2017-03-09 19:26] LABS: ALBUMIN 3.4 g/dl (3.4-5.0); ANION GAP 6 (8-16); BILIRUBIN,TOTAL 0.7 mg/dL (0.2-1.0); CALCIUM 8.5 mg/dL (8.5-10.1); CO2 28 mmol/L (21-32); CREATININE 1.3 mg/dL (0.7-1.3); GLUCOSE,RANDOM 103 mg/dL (74-106); SGOT/AST 17 U/L (15-37); SGPT/ALT 16 U/L (12-78); TOT PROT 7.6 g/dl (6.4-8.2)
[2017-03-09 19:38] LABS: ALK PHOS 52 U/L (45-117); CPK 121 IU/L (39-308); DIGOXIN LEVEL 0.8279 ng/ml (0.8-2.0); TROPONIN I < 0.02 ng/ml (0.00-0.05)
[2017-03-09 19:45] LABS: PLATELET ESTIMATE SLT INCREASED (NORMAL)
[2017-03-09 19:46] LABS: ANISOCYTOSIS 2+; HYPOCHROMIA 2+; MICROCYTOSIS 2+; OVALOCYTE 1+; PLATELET COMMENT2 NO CLOTTING DETECTED; POIKILOCYTOSIS 2+; POLYCHROMASIA 2+; STOMATOCYTE 1+
[2017-03-09] MEDS ORDERED: NITROGLYCERIN SUBLINGUAL 1/150 0.4 MG TAB SL PRN (23:13)
[2017-03-09] MEDS ORDERED: ALPRAZolam 0.25 MG TABLET PO PRN (23:13)
[2017-03-10] MEDS: ALBUTEROL SO4 6.7 GM HFA INHALER IH SCH ×3 (01:19→06:40)
[2017-03-10] MEDS: CEFUROXIME AXETIL 500 MG TABLET PO SCH ×3 (01:27→21:43)
[2017-03-10] MEDS: HYDROmorphone HCL CARPU-JECT 1 MG/1 ML DISP.SYRIN IVPUSH PRN ×3 (01:28→18:14)
[2017-03-10] MEDS: GABAPENTIN 300 MG CAPSULE (FP) PO SCH ×3 (06:40→21:44)
[2017-03-10] MEDS ORDERED: PT OWN MED DRAWER 7, Y5N ONE ×2 (06:51→21:40)
--- NOTE | 2017-03-10 08:37 | EKG ---
Test Reason : Blood Pressure : / mmHG Vent. Rate : 096 BPM Atrial Rate : 127 BPM P-R Int : 000 ms QRS Dur : 090 ms QT Int : 340 ms P-R-T Axes : 000 -04 140 degrees QTc Int : 429 ms ATRIAL FIBRILLATION WITH OCCASIONAL ventricular-paced complexes AND WITH PREMATURE VENTRICULAR OR ABERRANTLY CONDUCTED COMPLEXES CANNOT RULE OUT INFERIOR INFARCT , AGE UNDETERMINED ABNORMAL ECG Confirmed by MD PAPO, EMERALD ([id number]) on 03/10/2017 8:37:12 AM Referred By: Confirmed By:EMERALD BARROS MD
[2017-03-10] MEDS ORDERED: FLU VACCINE QUAD 60 MCG/0.5 ML (MDV 17-18) IM ONE (10:00)
[2017-03-10] MEDS ORDERED: COLCHICINE 0.6 MG TABLET (FP) PO SCH (10:00)
--- NOTE | 2017-03-10 10:46 | HP ---
Admitting History and Physical - Admission Chief Complaint: ankle pain, chest pain History of Present Illness: Notes that for several days right ankle has been hurting him, then last night became very painful, even to sheets touching it, so [facility]. At same time had chest pain again (has cardiomyopathy as well). Has been on cholchicine for gout, given IV solumedrol in ED, but still with a lot of pain. Noted to have right popliteal vein clot -already on AC -appears to be an old finding. Leg is not swollen, only ankle tender and inflammed. History Source: Patient, Medical Record Limitations to Obtaining History: No Limitations - Past Medical History Cardiovascular: Yes: CAD, CHF (/ cardiomyopathy), HTN, Hyperlipdemia Pulmonary: Yes: COPD Gastrointestinal: Yes: Other (gastritis) Hepatobiliary: Yes: Hepatitis C Musculoskeletal: Yes: Chronic low back pain (/ degenerative lumbar disc disease) - Past Surgical History Past Surgical History: Yes: Hernia Repair (umbilical), Joint Replacement (right elbow, right hip, left ankle) - Smoking History Smoking history: Current every day smoker Have you smoked in the past 12 months: Yes Aproximately how many cigarettes per day: 2 If you are a former smoker, when did you quit?: 0 - Alcohol/Substance Use Hx Alcohol Use: No History of Substance Use: reports: None - Social History ADL: Independent 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, 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 History of Recent Travel: No Home Medications - Allergies Allergies/Adverse Reactions: Allergies Allergy/AdvReac Type Severity Reaction Status Date / Time tomato Allergy Severe Verified 03/09/17 18:34 Beef Containing Products Allergy Verified 03/09/17 18:34 morphine Allergy Verified 03/09/17 18:34 red dye Allergy Verified 03/09/17 18:34 shellfish derived Allergy Verified 03/09/17 18:34 - Home Medications Home Medications: Ambulatory Orders Omeprazole [Prilosec] 40 mg PO DAILY 06/23/14 Oxycodone HCl [Roxicodone] 30 mg PO Q6H PRN 07/24/14 Atorvastatin Ca [Lipitor] 10 mg PO HS 08/17/14 Apixaban [Eliquis -] 5 mg PO BID 01/12/16 Docusate Sodium [Colace -] 100 mg PO DAILY 01/12/16 Escitalopram Oxalate [Lexapro -] 10 mg PO DAILY 01/12/16 Albuterol Sulfate Inhaler - [Ventolin HFA Inhaler -] 1 - 2 inh PO QID #1 inhaler 01/15/16 Ramipril [Altace] 10 mg PO DAILY #60 capsule 05/01/16 Alprazolam 0.25 mg PO BID PRN 07/02/16 Digoxin [Digitek] 125 mcg PO DAILY 07/02/16 Nitroglycerin Sublingual [Nitrostat -] 0.4 mg SL ONCE PRN 07/02/16 Potassium Chloride 10 meq PO DAILY 07/02/16 Carvedilol [Coreg -] 25 mg PO BID #60 tablet 07/06/16 Furosemide [Lasix -] 40 mg PO DAILY 07/13/16 Duloxetine HCl [Cymbalta -] 60 mg PO DAILY #60 capsule.dr 07/19/16 Isosorbide Mononitrate [Imdur -] 30 mg PO DAILY #30 tab.sr.24h 07/19/16 Indomethacin [Indocin -] 50 mg PO TID #30 capsule 09/17/16 Colchicine [Colcrys] 0.6 mg PO DAILY 09/19/16 Gabapentin [Neurontin -] 300 mg PO TID 09/19/16 Loratadine [Claritin] 10 mg PO DAILY #30 tablet 10/24/16 Methylprednisolone [Medrol Dose Tino] 4 mg PO ASDIR #21 tablet 01/19/17 Cefuroxime Axetil [Ceftin -] 500 mg PO Q12H 03/09/17 Family Disease History - Family Disease History Family Disease History: Heart Disease: Father, [place]: Mother, Brother (colon) Review of Systems - Review of Systems Constitutional: denies: Chills, Loss of Appetite Eyes: reports: No Symptoms HENT: denies: Difficult Swallowing, Epistaxis, Throat Pain Neck: reports: No Symptoms Cardiovascular: reports: Chest Pain. denies: Palpitations Respiratory: reports: Cough. denies: Wheezing Gastrointestinal: denies: Abdominal Pain, Constipation, Diarrhea, Nausea, Vomiting Genitourinary: denies: Burning, Discharge, Dysuria Neurological: denies: Change in LOC, Dizziness Physical Examination Vital Signs: Vital Signs Temperature 98 F 03/10/17 09:26 Pulse Rate 80 03/10/17 09:26 Respiratory Rate 18 03/10/17 09:26 Blood Pressure 145/68 03/10/17 09:26 O2 Sat by Pulse Oximetry (%) 100 03/10/17 01:45 Constitutional: Yes: Well Nourished, Calm, Mild Distress (ude ot right ankle pain) Eyes: Yes: Conjunctiva Clear, EOM Intact, PERRL HENT: Yes: Atraumatic, Pharyngeal Erythema Neck: Yes: Supple, Trachea Midline Cardiovascular: Yes: Regular Rate and Rhythm, S1, S2. No: Murmur Respiratory: Yes: Regular, Rhonchi. No: Rales, Wheezes Gastrointestinal: Yes: Normal Bowel Sounds, Soft. No: Distention, Tenderness Musculoskeletal: Yes: Joint Swelling (right ankle) Edema: No Neurological: Yes: Alert, Oriented Labs: Laboratory Tests 03/09/17 03/09/17 03/09/17 18:43 18:43 18:43 WBC 9.7 D RBC 6.02 H Hgb 10.8 L Hct 35.3 L MCV 58.6 L MCH 17.9 L MCHC 30.5 L RDW 19.9 H Plt Count 427 MPV 8.9 Neutrophils % 77.8 D Lymphocytes % 12.2 D Monocytes % 8.6 Eosinophils % 1.1 D Basophils % 0.3 Hypochromia 2+ Platelet Estimate Slt increased Platelet Comment No clotting detected Polychromasia 2+ Poikilocytosis 2+ Anisocytosis 2+ Microcytosis 2+ Ovalocytes 1+ Stomatocytes 1+ Fragmented RBCs 1+ PT with INR 15.30 H INR 1.38 H Sodium 138 Potassium 3.7 Chloride 104 Carbon Dioxide 28 Anion Gap 6 L BUN 14 D Creatinine 1.3 Creat Clearance w eGFR 56.70 Random Glucose 103 Uric Acid 8.0 H Calcium 8.5 Total Bilirubin 0.7 AST 17 D ALT 16 D Alkaline Phosphatase 52 Creatine Kinase 121 Troponin I < 0.02 Total Protein 7.6 Albumin 3.4 Digoxin 0.8279 03/09/17 23:50 WBC RBC Hgb Hct MCV MCH MCHC RDW Plt Count MPV Neutrophils % Lymphocytes % Monocytes % Eosinophils % Basophils % Hypochromia Platelet Estimate Platelet Comment Polychromasia Poikilocytosis Anisocytosis Microcytosis Ovalocytes Stomatocytes Fragmented RBCs PT with INR INR Sodium Potassium Chloride Carbon Dioxide Anion Gap BUN Creatinine Creat Clearance w eGFR Random Glucose Uric Acid Calcium Total Bilirubin AST ALT Alkaline Phosphatase Creatine Kinase Cancelled Troponin I Cancelled Total Protein Albumin Digoxin Imaging - Results Chest X-ray: Report Reviewed (cardiomegaly, no acute disease) Problem List - Problems (1) Chest pain Assessment/Plan: -check serial cardiac enzymes, cardio consult Code(s): R07.9 - CHEST PAIN, UNSPECIFIED Qualifiers: Chest pain type: chest pain on breathing Qualified Code(s): R07.1 - Chest pain on breathing; R07.81 - Pleurodynia (2) Gout attack Assessment/Plan: -elevated uric acid, right ankle pain -check xray of ankle, ortho consult -started on solumedrol for inflammation, but will also start motrin standing dose for a couple of day as anti-inflammatory Code(s): M10.9 - GOUT, UNSPECIFIED Qualifiers: Gout site: ankle Gout etiology: unspecified cause Laterality: right Qualified Code(s): M10.9 - Gout, unspecified (3) COPD (chronic obstructive pulmonary disease) Assessment/Plan: -started on ceftin as outpatient for exacerbation -to be on solumedrol for gouty flare-up, but will also imrpve COPD -strt nebulizers Code(s): J44.9 - CHRONIC OBSTRUCTIVE PULMONARY DISEASE, UNSPECIFIED (4) Atrial fibrillation Assessment/Plan: -rate controlled, on AC as well Code(s): I48.91 - UNSPECIFIED ATRIAL FIBRILLATION Qualifiers: Atrial fibrillation type: chronic Qualified Code(s): I48.2 - Chronic atrial fibrillation (5) CAD (coronary artery disease) Assessment/Plan: -stable Code(s): I25.10 - ATHSCL HEART DISEASE OF [place] CORONARY ARTERY W/O ANG PCTRS (6) DVT (deep venous thrombosis) Assessment/Plan: -probably old, on AC already, leg is not swollen (only ankle) so pain in leg does not appear to be due to DVT Code(s): I82.409 - ACUTE EMBOLISM AND THOMBOS UNSP DEEP VN UNSP LOWER EXTREMITY Qualifiers: DVT location: lower extremity Affected thrombotic vein of extremity: tibial Chronicity: unspecified Laterality: right Qualified Code(s): I82.441 - Acute embolism and thrombosis of right tibial vein (7) Low back pain Assessment/Plan: -on chronic pain medication (will need eventual lumbar surgery) Code(s): M54.5 - LOW BACK PAIN Qualifiers: Chronicity: chronic Back pain laterality: unspecified Sciatica presence: without sciatica Qualified Code(s): M54.5 - Low back pain (8) Non-ischemic cardiomyopathy Assessment/Plan: -does not appear to be fluid overloaded currently Code(s): I42.9 - CARDIOMYOPATHY, UNSPECIFIED
[2017-03-10] MEDS: RAMIPRIL 5 MG CAPSULE (FP) PO SCH (10:59)
[2017-03-10] MEDS: FUROSEMIDE 40 MG TABLET (FP) PO SCH (11:00)
[2017-03-10] MEDS: POTASSIUM CHLORIDE TABS 10 MEQ TABLET.ER (FP) PO SCH (11:00)
[2017-03-10] MEDS: ESCITALOPRAM OXALATE 10 MG TABLET (FP) PO SCH (11:00)
[2017-03-10] MEDS: DULoxetine HCL 30 MG CAPSULE.DR (FP) PO SCH (11:00)
[2017-03-10] MEDS: PANTOPRAZOLE 40 MG TABLET (FP) PO SCH (11:00)
[2017-03-10] MEDS: CARVEDILOL 25 MG TABLET (FP) PO SCH ×2 (11:01→21:44)
[2017-03-10] MEDS: LORATADINE 10 MG TABLET PO SCH (11:01)
[2017-03-10] MEDS: APIXABAN 5 MG TABLET PO SCH ×2 (11:01→21:44)
[2017-03-10] MEDS: ISOSORBIDE MONONITRATE 30 MG TAB.SR.24H (FP) PO SCH (11:01)
[2017-03-10] MEDS: DOCUSATE SODIUM 100 MG CAPSULE (FP) PO SCH (11:01)
[2017-03-10] MEDS: DIGOXIN 0.125 MG TABLET (FP) PO SCH (11:02)
[2017-03-10] MEDS: methylPREDNISolone NA SUCC 125 MG/2 ML VIAL IVPB SCH ×2 (11:11→21:44)
[2017-03-10] MEDS: ALBUTEROL SO4 0.083% IH SOL 2.5 MG/3 ML VIAL.NEB. NEB SCH ×3 (11:21→23:22)
[2017-03-10] MEDS: IBUPROFEN 600 MG TABLET (FP) PO SCH ×2 (11:26→18:15)
--- NOTE | 2017-03-10 17:40 | PN ---
Progress Note (short form) - Note Progress Note: Pt seen and examined. He has a h/o gout, 3 days of increasing pain in the right ankle. He states it feels like previous episodes of acute gouty attacks. Denies recent h/o trauma. Labs WBC=9.7 UA=8 PE Right ankle and foot are swollen + very tender + mildy warm + mildly erythematous Pain with motion. Grossly NVI, no signs of trauma. Xrays Right foot and ankle show mild ankle and midfoot OA No acute mayra pathology US + for a right popliteal and post-tibial vein DVT Imp Acute gout attack right ankle + DVT RLE Rec` Anticoags for the DVT NSAIDS and chronic supressive gout meds Elevate right foot WBAT
--- NOTE | 2017-03-10 20:15 | CON.CARD ---
Cardiology Consult (text) - Consultation Consultation Note: - Consultation Consultation Note: CC: leg pain History of Present Illness: 56 yo pt here with leg/foot pain. Has hx of gout attacks and says current foot pain is similar. Also found to have right dvt here, possibly chronic. Also reports some cp, this is a chronic symptom for him evaluated in past. It is sharp, left/central chest and worse with movement of arms/twisting and worse with palpation. No sob, palps, dizzy, loc, pnd, orthopnea, le edema. Denies ICD shocks. 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, 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 History of Recent Travel: No Home Medications - Allergies Allergies/Adverse Reactions: Allergies Allergy/AdvReac Type Severity Reaction Status Date / Time tomato Allergy Severe Verified 03/09/17 18:34 Beef Containing Products Allergy Verified 03/09/17 18:34 morphine Allergy Verified 03/09/17 18:34 red dye Allergy Verified 03/09/17 18:34 shellfish derived Allergy Verified 03/09/17 18:34 - Home Medications Home Medications Medication Instructions Recorded Omeprazole [Prilosec] 40 mg PO DAILY 06/23/14 Oxycodone HCl [Roxicodone] 30 mg PO Q6H PRN 07/24/14 Atorvastatin Ca [Lipitor] 10 mg PO HS 08/17/14 Apixaban [Eliquis -] 5 mg PO BID 01/12/16 Docusate Sodium [Colace -] 100 mg PO DAILY 01/12/16 Escitalopram Oxalate [Lexapro -] 10 mg PO DAILY 01/12/16 Albuterol Sulfate Inhaler - 1 - 2 inh PO QID #1 inhaler 01/15/16 [Ventolin HFA Inhaler -] Ramipril [Altace] 10 mg PO DAILY #60 capsule 05/01/16 Alprazolam 0.25 mg PO BID PRN 07/02/16 Digoxin [Digitek] 125 mcg PO DAILY 07/02/16 Nitroglycerin Sublingual 0.4 mg SL ONCE PRN 07/02/16 [Nitrostat -] Potassium Chloride 10 meq PO DAILY 07/02/16 Carvedilol [Coreg -] 25 mg PO BID #60 tablet 07/06/16 Furosemide [Lasix -] 40 mg PO DAILY 07/13/16 Duloxetine HCl [Cymbalta -] 60 mg PO DAILY #60 capsule.dr 07/19/16 Isosorbide Mononitrate [Imdur -] 30 mg PO DAILY #30 tab.sr.24h 07/19/16 Indomethacin [Indocin -] 50 mg PO TID #30 capsule 09/17/16 Colchicine [Colcrys] 0.6 mg PO DAILY 09/19/16 Gabapentin [Neurontin -] 300 mg PO TID 09/19/16 Loratadine [Claritin] 10 mg PO DAILY #30 tablet 10/24/16 Methylprednisolone [Medrol Dose 4 mg PO ASDIR #21 tablet 01/19/17 Tino] Cefuroxime Axetil [Ceftin -] 500 mg PO Q12H 03/09/17 Family Disease History - Family Disease History Family Disease History: Heart Disease: Father, [place]: Mother, Brother (colon) Review of Systems - Review of Systems Constitutional: denies: Chills, Fever Eyes: denies: Eye Pain HENT: denies: Nasal Congestion Neck: denies: Stiffness Cardiovascular: denies: Palpitations Respiratory: denies: Orthopnea, PND Gastrointestinal: denies: Diarrhea, Rectal Bleeding Genitourinary: denies: Burning, Hematuria Musculoskeletal: denies: Muscle Pain Integumentary: denies: Rash Neurological: denies: Numbness, Seizure, Syncope Endocrine: denies: Excessive Sweating Hematology/Lymphatic: denies: Excessive Bleeding Vital Signs: Vital Signs Period Temp Pulse Resp BP Sys/Sal Pulse Ox Last 24 Hr 97.5 F-98.7 F 74-94 16-20 104-154/63-97 96-100 Constitutional: Yes: Well Nourished, No Distress Eyes: No: Sclera Icterus HENT: No: Nasal Congestion Neck: No: Decreased ROM Respiratory: Yes: CTA Bilaterally. No: Accessory Muscle Use, Rales, Wheezes Gastrointestinal: Yes: Normal Bowel Sounds. No: Distention, Hepatomegaly nd nt Cardiovascular: Yes: Regular Rate and Rhythm JVD: no Carotid Bruit: No PMI: Non-Displaced Heart Sounds: Yes: S1, S2. No: Gallop Murmur: No: Systolic Murmur, Diastolic Murmur Musculoskeletal: Yes: Other (No kyphosis) Extremities: Yes: Cold. No: Cyanosis Edema: No Peripheral Pulses: 2+ Left Carotid, 2+ Right Carotid, 2+ Left Doralis Pedis, 2+ Right Dorsalis Pedis Integumentary: No: Jaundice diaphoresis +chest wall tenderness Neurological: Yes: Alert, Oriented (x3) Psychiatric: No: Agitated - Other Data Labs, Other Data: Laboratory Last Values WBC 9.7 K/mm3 (4.0-10.0) D 03/09/17 18:43 RBC 6.02 M/mm3 (4.00-5.60) H 03/09/17 18:43 Hgb 10.8 GM/dL (11.7-16.9) L 03/09/17 18:43 Hct 35.3 % (35.4-49) L 03/09/17 18:43 MCV 58.6 fl (80-96) L 03/09/17 18:43 MCH 17.9 pg (25.7-33.7) L 03/09/17 18:43 MCHC 30.5 g/dl (32.0-35.9) L 03/09/17 18:43 RDW 19.9 % (11.9-15.9) H 03/09/17 18:43 Plt Count 427 K/MM3 (134-434) 03/09/17 18:43 MPV 8.9 fl (7.5-11.1) 03/09/17 18:43 Neutrophils % 77.8 % (42.8-82.8) D 03/09/17 18:43 Lymphocytes % 12.2 % (8-40) D 03/09/17 18:43 Monocytes % 8.6 % (3.8-10.2) 03/09/17 18:43 Eosinophils % 1.1 % (0-4.5) D 03/09/17 18:43 Basophils % 0.3 % (0-2.0) 03/09/17 18:43 Hypochromia 2+ 03/09/17 18:43 Platelet Estimate Slt increased (NORMAL) 03/09/17 18:43 Platelet Comment No clumping noted 03/09/17 18:43 Platelet Comment No clotting detected 03/09/17 18:43 Polychromasia 2+ 03/09/17 18:43 Poikilocytosis 2+ 03/09/17 18:43 Anisocytosis 2+ 03/09/17 18:43 Microcytosis 2+ 03/09/17 18:43 Ovalocytes 1+ 03/09/17 18:43 Stomatocytes 1+ 03/09/17 18:43 Fragmented RBCs 1+ 03/09/17 18:43 PT with INR 15.30 SEC (9.98-11.88) H 03/09/17 18:43 INR 1.38 (0.82-1.09) H 03/09/17 18:43 Sodium 138 mmol/L (136-145) 03/09/17 18:43 Potassium 3.7 mmol/L (3.5-5.1) 03/09/17 18:43 Chloride 104 mmol/L (98-107) 03/09/17 18:43 Carbon Dioxide 28 mmol/L (21-32) 03/09/17 18:43 Anion Gap 6 (8-16) L 03/09/17 18:43 BUN 14 mg/dL (7-18) D 03/09/17 18:43 Creatinine 1.3 mg/dL (0.7-1.3) 03/09/17 18:43 Creat Clearance w eGFR 56.70 (>60) 03/09/17 18:43 Random Glucose 103 mg/dL (74-106) 03/09/17 18:43 Uric Acid 8.0 mg/dL (2.6-7.2) H 03/09/17 18:43 Calcium 8.5 mg/dL (8.5-10.1) 03/09/17 18:43 Total Bilirubin 0.7 mg/dL (0.2-1.0) 03/09/17 18:43 AST 17 U/L (15-37) D 03/09/17 18:43 ALT 16 U/L (12-78) D 03/09/17 18:43 Alkaline Phosphatase 52 U/L (45-117) 03/09/17 18:43 Creatine Kinase 121 IU/L (39-308) 03/09/17 18:43 Troponin I < 0.02 ng/ml (0.00-0.05) 03/09/17 18:43 Total Protein 7.6 g/dl (6.4-8.2) 03/09/17 18:43 Albumin 3.4 g/dl (3.4-5.0) 03/09/17 18:43 Digoxin 0.8279 ng/ml (0.8-2.0) 03/09/17 18:43 ekg: afib, rate controlled, occ vpacing; LVH with repol incl twis/ST depr--no sig change vs prior ecgs cxr: no chf echo 12/30: mild lv dil. sev red LV function (global). Nl RV. Sev LAE. Mod-sev MR. RVSP 30-40. borderline ao dil. echo 08/2013: mild lve, mild-mod dec lvef, nl rv, mod lae, mild-mod mr, mild tr , rvsp 30-40 cath 02/2016: normal cors tele: afib, rate controlled a/p: 56 m hx systolic chf (30-40%), NICM s/p ICD, afib on eliquis, hcv, hld, htn, copd, here with foot pain. foot pain -duplex shows dvt on right, also with hx gout causing similar pain -on AC already for afib -gout tx per pmd Chest pain: -hx of chronic atypical chest pain - in past pt reported that he had CAD with prior CO x 3, s/p cardiac stents x 4. However, he had a cardiac cath on in 03/09/2016 in the setting of chest pain and new ECG changes. This showed "normal coronaries" without prior PCIs. -cp currently is MSK in nature, reproducible on exam -no signs acs, finish geena -cont tele for now chronic systolic chf: -Continue ACEi and Coreg -no signs vol overload at present, cont po lasix -icd checked here 07/04/16 and showed nl fcn. No icd shocks. Cont bb for now, routine icd checks in office. Afib -rate controlled -Continue BB, dig. -cont eliquis tobacco/drug use - cessation counseling
[2017-03-10] MEDS: ATORVASTATIN CA 10 MG TABLET (FP) PO SCH (21:44)
[2017-03-11] MEDS: IBUPROFEN 600 MG TABLET (FP) PO SCH ×3 (03:00→18:30)
[2017-03-11] MEDS: GABAPENTIN 300 MG CAPSULE (FP) PO SCH ×3 (06:03→22:58)
[2017-03-11] MEDS: HYDROmorphone HCL CARPU-JECT 1 MG/1 ML DISP.SYRIN IVPUSH PRN (06:05)
[2017-03-11] MEDS: ALBUTEROL SO4 0.083% IH SOL 2.5 MG/3 ML VIAL.NEB. NEB SCH ×4 (06:41→23:28)
[2017-03-11 07:32] LABS: MCHC 28.9 g/dl (32.0-35.9); MEAN CELL VOLUME 59.2 fl (80-96); MEAN PLT VOLUME 8.8 fl (7.5-11.1); PLATELET COUNT 465 K/MM3 (134-434); RDW 20.2 % (11.9-15.9); WHITE BLOOD COUNT 20.1 K/mm3 (4.0-10.0)
[2017-03-11 07:43] LABS: MCH 17.1 pg (25.7-33.7)
[2017-03-11 08:49] LABS: ALBUMIN 2.9 g/dl (3.4-5.0); ALK PHOS 42 U/L (45-117); ANION GAP 11 (8-16); BILIRUBIN,TOTAL 0.5 mg/dL (0.2-1.0); CALCIUM 8.5 mg/dL (8.5-10.1); CO2 25 mmol/L (21-32); CREATININE 1.3 mg/dL (0.7-1.3); GLUCOSE,RANDOM 202 mg/dL (74-106); SGOT/AST 9 U/L (15-37); SGPT/ALT 13 U/L (12-78); TOT PROT 6.5 g/dl (6.4-8.2)
--- NOTE | 2017-03-11 09:05 | PN ---
Progress Note (short form) - Note Progress Note: Ortho Pt seen and examined c/o right ankle pain Selected Entries 03/11/17 06:00 Temperature 97.7 F Pulse Rate 90 Respiratory 20 Rate Blood Pressure 138/60 right ankle- +swelling, + ttp, decr rom nvi a/p anti-gout meds, solumedrol IV ROM exercises PT eval elevation will follow d/w Dr. Oropeza
[2017-03-11 09:24] LABS: ANISOCYTOSIS 1+; HYPOCHROMIA 3+; MICROCYTOSIS 2+; OVALOCYTE 3+; TARGET CELLS 1+; TEAR DROP CELLS 2+; TOTAL CELLS COUNTED 100
[2017-03-11 09:25] LABS: POLYCHROMASIA 1+
--- NOTE | 2017-03-11 10:57 | PN ---
Progress Note, Physician Chief Complaint: foot pain History of Present Illness: a little "tight" in L chest, similar to prior chronic sx's. no sob. foot still hurts no palpitations - Current Medication List Current Medications: Active Medications Albuterol Sulfate (Ventolin 0.083% Nebulizer Soln -) 1 amp NEB QIDR [facility] Last Admin: 03/11/17 06:41 Dose: 1 amp Alprazolam (Xanax -) 0.25 mg PO BID PRN PRN Reason: ANXIETY Apixaban (Eliquis -) 5 mg PO BID [facility] Last Admin: 03/10/17 21:44 Dose: 5 mg Atorvastatin Calcium (Lipitor -) 10 mg PO HS [facility] Last Admin: 03/10/17 21:44 Dose: 10 mg Carvedilol (Coreg -) 25 mg PO BID [facility] Last Admin: 03/10/17 21:44 Dose: 25 mg Cefuroxime Axetil (Ceftin -) 500 mg PO BID [facility] Last Admin: 03/10/17 21:43 Dose: 500 mg Digoxin (Lanoxin -) 0.125 mg PO DAILY [facility] Last Admin: 03/10/17 11:02 Dose: 0.125 mg Docusate Sodium (Colace -) 100 mg PO DAILY [facility] Last Admin: 03/10/17 11:01 Dose: 100 mg Duloxetine HCl (Cymbalta -) 60 mg PO DAILY [facility] Last Admin: 03/10/17 11:00 Dose: 60 mg Escitalopram Oxalate (Lexapro -) 10 mg PO DAILY [facility] Last Admin: 03/10/17 11:00 Dose: 10 mg Furosemide (Lasix -) 40 mg PO DAILY [facility] Last Admin: 03/10/17 11:00 Dose: 40 mg Gabapentin (Neurontin -) 300 mg PO TID [facility] Last Admin: 03/11/17 06:03 Dose: 300 mg Hydromorphone HCl (Dilaudid Injection -) 1 mg IVPUSH Q4H PRN PRN Reason: PAIN Last Admin: 03/11/17 06:05 Dose: 1 mg Ibuprofen (Motrin -) 600 mg PO Q8H [facility] Last Admin: 03/11/17 03:00 Dose: Not Given Isosorbide Mononitrate (Imdur -) 30 mg PO DAILY [facility] Last Admin: 03/10/17 11:01 Dose: 30 mg Loratadine (Claritin -) 10 mg PO DAILY [facility] Last Admin: 03/10/17 11:01 Dose: 10 mg Methylprednisolone Sodium Succinate (Solu-Medrol -) 80 mg IVPB BID [facility] Last Admin: 03/10/17 21:44 Dose: 80 mg Oxycodone HCl (Roxicodone -) 30 mg PO Q6H PRN PRN Reason: PAIN Pantoprazole Sodium (Protonix -) 40 mg PO DAILY [facility] Last Admin: 03/10/17 11:00 Dose: 40 mg Potassium Chloride (K-Dur -) 10 meq PO DAILY [facility] Last Admin: 03/10/17 11:00 Dose: 10 meq Ramipril (Altace -) 10 mg PO DAILY [facility] Last Admin: 03/10/17 10:59 Dose: 10 mg - Objective Vital Signs: Vital Signs Temperature 97.7 F 03/11/17 06:00 Pulse Rate 90 03/11/17 06:00 Respiratory Rate 20 03/11/17 06:00 Blood Pressure 138/60 03/11/17 06:00 O2 Sat by Pulse Oximetry (%) 97 03/10/17 23:18 Constitutional: Yes: Well Nourished, No Distress, Calm Cardiovascular: Yes: Regular Rate and Rhythm, S1, S2. No: Gallop, Murmur Respiratory: Yes: Regular, CTA Bilaterally. No: Accessory Muscle Use, Rales, Wheezes Extremities: No: Cold Edema: No Neurological: Yes: Alert, Oriented Psychiatric: No: Agitated Labs: CBC, BMP 03/11/17 05:30 03/11/17 05:30 INR, PTT INR 1.38 (0.82-1.09) H 03/09/17 18:43 - ....Imaging EKG: Other (tele: AF, good HRs. + artifact) Assessment/Plan ekg: afib, rate controlled, occ v-pacing; LVH with repol incl twis/ST depr--no sig change vs prior ecgs cxr: no chf echo 12/30: mild lv dil. sev red LV function (global). Nl RV. Sev LAE. Mod-sev MR. RVSP 30-40. borderline ao dil. echo 08/2013: mild lve, mild-mod dec lvef, nl rv, mod lae, mild-mod mr, mild tr , rvsp 30-40 cath 02/2016: normal cors a/p: 56 m hx systolic chf (30-40%), NICM s/p ICD, afib on eliquis, hcv, hld, htn, copd, here with foot pain. foot pain -duplex shows dvt on right, also with hx gout causing similar pain -on AC already for afib--held eliquis x3d shortly prior to admit for bruising/ lacerations on hands -? unprovoked DVT--defer to pmd whether needs hypercoag/malignancy w/u -gout tx per pmd atypical hest pain: -hx of chronic atypical chest pain - in past pt reported that he had CAD with prior [place] x 3, s/p cardiac stents x 4. However, he had a cardiac cath on in 03/09/2016 in the setting of chest pain and new ECG changes. This showed "normal coronaries" without prior PCIs. -cp currently is MSK in nature, reproducible on exam -no signs acs -can d/c telemetry chronic systolic chf: -Continue ACEi and Coreg -no signs vol overload at present, cont po lasix -icd checked here 07/04/16 and showed nl fcn. No icd shocks. Cont bb for now, routine icd checks in office. Afib -rate controlled -Continue BB, dig. -cont eliquis tobacco/drug use - cessation counseling
[2017-03-11] MEDS ORDERED: PT OWN MED DRAWER 7, Y5N ONE (11:04)
[2017-03-11] MEDS: oxyCODONE HCL 5 MG TABLET PO PRN ×3 (11:12→23:56)
[2017-03-11] MEDS: methylPREDNISolone NA SUCC 125 MG/2 ML VIAL IVPB SCH ×2 (11:14→22:59)
[2017-03-11] MEDS: RAMIPRIL 5 MG CAPSULE (FP) PO SCH (11:15)
[2017-03-11] MEDS: DIGOXIN 0.125 MG TABLET (FP) PO SCH (11:15)
[2017-03-11] MEDS: LORATADINE 10 MG TABLET PO SCH (11:15)
[2017-03-11] MEDS: FUROSEMIDE 40 MG TABLET (FP) PO SCH (11:15)
[2017-03-11] MEDS: ISOSORBIDE MONONITRATE 30 MG TAB.SR.24H (FP) PO SCH (11:16)
[2017-03-11] MEDS: POTASSIUM CHLORIDE TABS 10 MEQ TABLET.ER (FP) PO SCH (11:17)
[2017-03-11] MEDS: DOCUSATE SODIUM 100 MG CAPSULE (FP) PO SCH (11:18)
[2017-03-11] MEDS: APIXABAN 5 MG TABLET PO SCH ×2 (11:19→22:58)
[2017-03-11] MEDS: PANTOPRAZOLE 40 MG TABLET (FP) PO SCH (11:19)
[2017-03-11] MEDS: ESCITALOPRAM OXALATE 10 MG TABLET (FP) PO SCH (11:19)
[2017-03-11] MEDS: CARVEDILOL 25 MG TABLET (FP) PO SCH ×2 (11:19→22:57)
[2017-03-11] MEDS: DULoxetine HCL 30 MG CAPSULE.DR (FP) PO SCH (11:19)
[2017-03-11] MEDS: CEFUROXIME AXETIL 500 MG TABLET PO SCH ×2 (11:20→22:57)
--- NOTE | 2017-03-11 11:32 | PN ---
Progress Note, Physician Chief Complaint: Mr Roberts says he is still having pain in his R foot. No cp, sob, n/v. - Current Medication List Current Medications: Active Medications Albuterol Sulfate (Ventolin 0.083% Nebulizer Soln -) 1 amp NEB QIDR ON LICENSE OF [facility] Last Admin: 03/11/17 10:50 Dose: 1 amp Alprazolam (Xanax -) 0.25 mg PO BID PRN PRN Reason: ANXIETY Apixaban (Eliquis -) 5 mg PO BID ON LICENSE OF [facility] Last Admin: 03/11/17 11:19 Dose: 5 mg Atorvastatin Calcium (Lipitor -) 10 mg PO HS ON LICENSE OF [facility] Last Admin: 03/10/17 21:44 Dose: 10 mg Carvedilol (Coreg -) 25 mg PO BID ON LICENSE OF [facility] Last Admin: 03/11/17 11:19 Dose: 25 mg Cefuroxime Axetil (Ceftin -) 500 mg PO BID ON LICENSE OF [facility] Last Admin: 03/11/17 11:20 Dose: 500 mg Digoxin (Lanoxin -) 0.125 mg PO DAILY ON LICENSE OF [facility] Last Admin: 03/11/17 11:15 Dose: 0.125 mg Docusate Sodium (Colace -) 100 mg PO DAILY ON LICENSE OF [facility] Last Admin: 03/11/17 11:18 Dose: 100 mg Duloxetine HCl (Cymbalta -) 60 mg PO DAILY ON LICENSE OF [facility] Last Admin: 03/11/17 11:19 Dose: 60 mg Escitalopram Oxalate (Lexapro -) 10 mg PO DAILY ON LICENSE OF [facility] Last Admin: 03/11/17 11:19 Dose: 10 mg Furosemide (Lasix -) 40 mg PO DAILY ON LICENSE OF [facility] Last Admin: 03/11/17 11:15 Dose: 40 mg Gabapentin (Neurontin -) 300 mg PO TID ON LICENSE OF [facility] Last Admin: 03/11/17 06:03 Dose: 300 mg Hydromorphone HCl (Dilaudid Injection -) 1 mg IVPUSH Q4H PRN PRN Reason: PAIN Last Admin: 03/11/17 06:05 Dose: 1 mg Ibuprofen (Motrin -) 600 mg PO Q8H ON LICENSE OF [facility] Last Admin: 03/11/17 11:16 Dose: 600 mg Isosorbide Mononitrate (Imdur -) 30 mg PO DAILY ON LICENSE OF [facility] Last Admin: 03/11/17 11:16 Dose: 30 mg Loratadine (Claritin -) 10 mg PO DAILY ON LICENSE OF [facility] Last Admin: 03/11/17 11:15 Dose: 10 mg Methylprednisolone Sodium Succinate (Solu-Medrol -) 80 mg IVPB BID ON LICENSE OF [facility] Last Admin: 03/11/17 11:14 Dose: 80 mg Oxycodone HCl (Roxicodone -) 30 mg PO Q6H PRN PRN Reason: PAIN Last Admin: 03/11/17 11:12 Dose: 30 mg Pantoprazole Sodium (Protonix -) 40 mg PO DAILY ON LICENSE OF [facility] Last Admin: 03/11/17 11:19 Dose: 40 mg Potassium Chloride (K-Dur -) 10 meq PO DAILY ON LICENSE OF [facility] Last Admin: 03/11/17 11:17 Dose: 10 meq Ramipril (Altace -) 10 mg PO DAILY ON LICENSE OF [facility] Last Admin: 03/11/17 11:15 Dose: 10 mg - Objective Vital Signs: Vital Signs Temperature 36.5 C 03/11/17 06:00 Pulse Rate 75 03/11/17 11:15 Respiratory Rate 20 03/11/17 06:00 Blood Pressure 138/60 03/11/17 06:00 O2 Sat by Pulse Oximetry (%) 97 03/10/17 23:18 Constitutional: Yes: Well Nourished, No Distress, Calm Cardiovascular: Yes: Regular Rate and Rhythm. No: Gallop, Murmur, Rub Respiratory: Yes: Regular, CTA Bilaterally. No: Rales, Rhonchi, Wheezes Gastrointestinal: Yes: Normal Bowel Sounds, Soft. No: Distention, Tenderness Extremities: Yes: Other (R foot warmth with pain to touch) Edema: Yes Edema: RLE: Trace Labs: CBC, BMP 03/11/17 05:30 03/11/17 05:30 INR, PTT INR 1.38 (0.82-1.09) H 03/09/17 18:43 Problem List - Problems (1) Gout of ankle Assessment/Plan: -patient with gout flare up -has history of gout flares in the past -continue solumedrol and motrin -still with significant pain -recheck uric acid -if not improved, consult rheumatology Code(s): M10.9 - GOUT, UNSPECIFIED Qualifiers: Chronicity: chronic Laterality: right (2) Atrial fibrillation Assessment/Plan: -rate controlled -continue eliquis and digoxin Code(s): I48.91 - UNSPECIFIED ATRIAL FIBRILLATION Qualifiers: Atrial fibrillation type: chronic Qualified Code(s): I48.2 - Chronic atrial fibrillation (3) CAD (coronary artery disease) Assessment/Plan: -cardiology following -not in exacerbation -last cath results noted as written in cardiology note Code(s): I25.10 - ATHSCL HEART DISEASE OF [place] CORONARY ARTERY W/O ANG PCTRS (4) COPD (chronic obstructive pulmonary disease) Assessment/Plan: -continue ceftin and bronchodilators Code(s): J44.9 - CHRONIC OBSTRUCTIVE PULMONARY DISEASE, UNSPECIFIED (5) DVT (deep venous thrombosis) Assessment/Plan: -continue eliquis Code(s): I82.409 - ACUTE EMBOLISM AND THOMBOS UNSP DEEP VN UNSP LOWER EXTREMITY Qualifiers: DVT location: lower extremity Affected thrombotic vein of extremity: tibial Chronicity: unspecified Laterality: right Qualified Code(s): I82.441 - Acute embolism and thrombosis of right tibial vein (6) CHF (congestive heart failure) Assessment/Plan: -not in exacerbation -continue lasix Code(s): I50.9 - HEART FAILURE, UNSPECIFIED Qualifiers: Congestive heart failure type: systolic Congestive heart failure chronicity: chronic Qualified Code(s): I50.22 - Chronic systolic ( congestive) heart failure (7) HTN (hypertension) Assessment/Plan: -controlled -continue current regimen Code(s): I10 - ESSENTIAL (PRIMARY) HYPERTENSION (8) Hyperlipidemia Assessment/Plan: -continue statin Code(s): E78.5 - HYPERLIPIDEMIA, UNSPECIFIED
--- NOTE | 2017-03-11 21:01 | CONSULT ---
Consult - text type - Consultation Consultation Note: 56 yo pt here with leg/foot pain. Has hx of gout attacks and says current Rt. foot pain/swelling is similar. Also c/o calf and leg pain. No sob, palps, dizzy , loc, pnd, orthopnea, le edema. PMH: CKD nonisch CMP/syst chf, s/p ICD afib copd HTN hep C h/o DVT in LLE 5 yrs. 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 - Allergies Allergies/Adverse Reactions: Allergies Allergy/AdvReac Type Severity Reaction Status Date / Time tomato Allergy Severe Verified 03/09/17 18:34 Beef Containing Products Allergy Verified 03/09/17 18:34 morphine Allergy Verified 03/09/17 18:34 red dye Allergy Verified 03/09/17 18:34 shellfish derived Allergy Verified 03/09/17 18:34 - Home Medications Home Medications Medication Instructions Recorded Omeprazole [Prilosec] 40 mg PO DAILY 06/23/14 Oxycodone HCl [Roxicodone] 30 mg PO Q6H PRN 07/24/14 Atorvastatin Ca [Lipitor] 10 mg PO HS 08/17/14 Apixaban [Eliquis -] 5 mg PO BID 01/12/16 Docusate Sodium [Colace -] 100 mg PO DAILY 01/12/16 Escitalopram Oxalate [Lexapro -] 10 mg PO DAILY 01/12/16 Albuterol Sulfate Inhaler - 1 - 2 inh PO QID #1 inhaler 01/15/16 [Ventolin HFA Inhaler -] Ramipril [Altace] 10 mg PO DAILY #60 capsule 05/01/16 Alprazolam 0.25 mg PO BID PRN 07/02/16 Digoxin [Digitek] 125 mcg PO DAILY 07/02/16 Nitroglycerin Sublingual 0.4 mg SL ONCE PRN 07/02/16 [Nitrostat -] Potassium Chloride 10 meq PO DAILY 07/02/16 Carvedilol [Coreg -] 25 mg PO BID #60 tablet 07/06/16 Furosemide [Lasix -] 40 mg PO DAILY 07/13/16 Duloxetine HCl [Cymbalta -] 60 mg PO DAILY #60 capsule. 07/19/16 Isosorbide Mononitrate [Imdur -] 30 mg PO DAILY #30 tab.sr.24h 07/19/16 Indomethacin [Indocin -] 50 mg PO TID #30 capsule 09/17/16 Colchicine [Colcrys] 0.6 mg PO DAILY 09/19/16 Gabapentin [Neurontin -] 300 mg PO TID 09/19/16 Loratadine [Claritin] 10 mg PO DAILY #30 tablet 10/24/16 Methylprednisolone [Medrol Dose 4 mg PO ASDIR #21 tablet 01/19/17 Tino] Cefuroxime Axetil [Ceftin -] 500 mg PO Q12H 03/09/17 Active Medications Generic Name Dose Route Start Last Admin Trade Name Fre PRN Reason Stop Dose Admin Albuterol Sulfate 1 amp 03/10/17 12:00 03/12/17 06:56 Ventolin 0.083% Nebulizer Soln - NEB 1 amp QIDR NESHA Administration Alprazolam 0.25 mg 03/09/17 23:13 Xanax - PO BID PRN ANXIETY Apixaban 5 mg 03/10/17 10:00 03/11/17 22:58 Eliquis - PO 5 mg BID NESHA Administration Atorvastatin Calcium 10 mg 03/10/17 22:00 03/11/17 22:58 Lipitor - PO 10 mg HS NESHA Administration Carvedilol 25 mg 03/10/17 10:00 03/11/17 22:57 Coreg - PO 25 mg BID NESHA Administration Cefuroxime Axetil 500 mg 03/09/17 23:15 03/11/17 22:57 Ceftin - PO 500 mg BID NESHA Administration Digoxin 0.125 mg 03/10/17 10:00 03/11/17 11:15 Lanoxin - PO 0.125 mg DAILY NESHA Administration Docusate Sodium 100 mg 03/10/17 10:00 03/11/17 11:18 Colace - PO 100 mg DAILY NESHA Administration Duloxetine HCl 60 mg 03/10/17 10:00 03/11/17 11:19 Cymbalta - PO 60 mg DAILY NESHA Administration Escitalopram Oxalate 10 mg 03/10/17 10:00 03/11/17 11:19 Lexapro - PO 10 mg DAILY NESHA Administration Furosemide 40 mg 03/10/17 10:00 03/11/17 11:15 Lasix - PO 40 mg DAILY NESHA Administration Gabapentin 300 mg 03/10/17 06:00 03/12/17 06:17 Neurontin - PO 300 mg TID NESHA Administration Hydromorphone HCl 1 mg 03/09/17 23:17 03/11/17 06:05 Dilaudid Injection - IVPUSH 1 mg Q4H PRN Administration PAIN Ibuprofen 600 mg 03/10/17 11:00 03/12/17 02:41 Motrin - PO 600 mg Q8H NESHA Administration Isosorbide Mononitrate 30 mg 03/10/17 10:00 03/11/17 11:16 Imdur - PO 30 mg DAILY NESHA Administration Loratadine 10 mg 03/10/17 10:00 03/11/17 11:15 Claritin - PO 10 mg DAILY NESHA Administration Methylprednisolone Sodium Succinate 80 mg 03/10/17 10:00 03/11/17 22:59 Solu-Medrol - IVPB 80 mg BID NESHA Administration Oxycodone HCl 30 mg 03/09/17 23:13 03/12/17 06:17 Roxicodone - PO 30 mg Q6H PRN Administration PAIN Pantoprazole Sodium 40 mg 03/10/17 10:00 03/11/17 11:19 Protonix - PO 40 mg DAILY NESHA Administration Potassium Chloride 10 meq 03/10/17 10:00 03/11/17 11:17 K-Dur - PO 10 meq DAILY NESHA Administration Ramipril 10 mg 03/10/17 10:00 03/11/17 11:15 Altace - PO 10 mg DAILY NESHA Administration Family Disease History - Family Disease History Family Disease History: Heart Disease: Father, CA: Mother, Brother (colon cancer ? ) Re Vital Signs: AFVSS Constitutional: Yes: Well Nourished, No Distress Respiratory: Yes: CTA Bilaterally. Gastrointestinal: Yes: Normal Bowel Sounds. Cardiovascular: Yes: Regular Rate and Rhythm PMI: Non-Displaced Heart Sounds: Yes: S1, S2. No: Gallop Murmur: No: Systolic Murmur, Diastolic Murmur Musculoskeletal: Yes: Other (No kyphosis) Peripheral Pulses: 2+ Left Carotid, 2+ Right Carotid, 2+ Left Doralis Pedis, 2+ Right Dorsalis Pedis Integumentary: No: Jaundice diaphoresis +chest wall tenderness Neurological: Yes: Alert, Oriented (x3) Labs, Other Data: Laboratory Last Values WBC 9.7 K/mm3 (4.0-10.0) D 03/09/17 18:43 RBC 6.02 M/mm3 (4.00-5.60) H 03/09/17 18:43 Hgb 10.8 GM/dL (11.7-16.9) L 03/09/17 18:43 Hct 35.3 % (35.4-49) L 03/09/17 18:43 MCV 58.6 fl (80-96) L 03/09/17 18:43 MCH 17.9 pg (25.7-33.7) L 03/09/17 18:43 MCHC 30.5 g/dl (32.0-35.9) L 03/09/17 18:43 RDW 19.9 % (11.9-15.9) H 03/09/17 18:43 Plt Count 427 K/MM3 (134-434) 03/09/17 18:43 MPV 8.9 fl (7.5-11.1) 03/09/17 18:43 Neutrophils % 77.8 % (42.8-82.8) D 03/09/17 18:43 Lymphocytes % 12.2 % (8-40) D 03/09/17 18:43 Monocytes % 8.6 % (3.8-10.2) 03/09/17 18:43 Eosinophils % 1.1 % (0-4.5) D 03/09/17 18:43 Basophils % 0.3 % (0-2.0) 03/09/17 18:43 Hypochromia 2+ 03/09/17 18:43 Platelet Estimate Slt increased (NORMAL) 03/09/17 18:43 Platelet Comment No clumping noted 03/09/17 18:43 Platelet Comment No clotting detected 03/09/17 18:43 Polychromasia 2+ 03/09/17 18:43 Poikilocytosis 2+ 03/09/17 18:43 Anisocytosis 2+ 03/09/17 18:43 Microcytosis 2+ 03/09/17 18:43 Ovalocytes 1+ 03/09/17 18:43 Stomatocytes 1+ 03/09/17 18:43 Fragmented RBCs 1+ 03/09/17 18:43 PT with INR 15.30 SEC (9.98-11.88) H 03/09/17 18:43 INR 1.38 (0.82-1.09) H 03/09/17 18:43 Sodium 138 mmol/L (136-145) 03/09/17 18:43 Potassium 3.7 mmol/L (3.5-5.1) 03/09/17 18:43 Chloride 104 mmol/L (98-107) 03/09/17 18:43 Carbon Dioxide 28 mmol/L (21-32) 03/09/17 18:43 Anion Gap 6 (8-16) L 03/09/17 18:43 BUN 14 mg/dL (7-18) D 03/09/17 18:43 Creatinine 1.3 mg/dL (0.7-1.3) 03/09/17 18:43 Creat Clearance w eGFR 56.70 (>60) 03/09/17 18:43 Random Glucose 103 mg/dL (74-106) 03/09/17 18:43 Uric Acid 8.0 mg/dL (2.6-7.2) H 03/09/17 18:43 Calcium 8.5 mg/dL (8.5-10.1) 03/09/17 18:43 Total Bilirubin 0.7 mg/dL (0.2-1.0) 03/09/17 18:43 AST 17 U/L (15-37) D 03/09/17 18:43 ALT 16 U/L (12-78) D 03/09/17 18:43 Alkaline Phosphatase 52 U/L (45-117) 03/09/17 18:43 Creatine Kinase 121 IU/L (39-308) 03/09/17 18:43 Troponin I < 0.02 ng/ml (0.00-0.05) 03/09/17 18:43 Total Protein 7.6 g/dl (6.4-8.2) 03/09/17 18:43 Albumin 3.4 g/dl (3.4-5.0) 03/09/17 18:43 Digoxin 0.8279 ng/ml (0.8-2.0) 03/09/17 18:43 ekg: afib, rate controlled, occ vpacing; LVH with repol incl twis/ST depr--no sig change vs prior ecgs cxr: no chf echo 12/30: mild lv dil. sev red LV function (global). Nl RV. Sev LAE. Mod-sev MR. RVSP 30-40. borderline ao dil. echo 08/2013: mild lve, mild-mod dec lvef, nl rv, mod lae, mild-mod mr, mild tr , rvsp 30-40 cath 02/2016: normal cors tele: afib, rate controlled a/p: 56 m hx systolic chf (30-40%), NICM s/p ICD, afib on eliquis, hcv, hld, htn, copd,ckd here with Rt. ankle swelling/ pain -- Also with rt. leg pain Patient has a remote h/o LLE DVT 5 yrs. ago He has been on eliquis for couple of years now for afib He reports having not taken eliquis for 3 days , last week. Reports not being able to walk due to gout attack and take his medicine. DVT may have been provoked by immobility from gout and not taking eliquis currently resumed eliquis will discuss with radiology regarding duplex results--? rt.post. tibial vs popliteal. will discuss would repeat duplex in 2 weeks to make sure its not progressing If progressing on eliquis would consider lovenox or bridging to coumadin on lovenox/heparin DVT may have been provoked by immobility from gout and not taking eliquis Given patients family history and anemia/thrombocytosis, and clinical course of hypercoagulability off eliquis would need w/u for occult malignancy check iron studies/ferritin/screeening tests for anemia needs to be seen by GI team outpatient---vaguely remembers colonoscopy last year but he is unsure will check CT c/a/p non contrast
[2017-03-11] MEDS: ATORVASTATIN CA 10 MG TABLET (FP) PO SCH (22:58)
[2017-03-12] MEDS: IBUPROFEN 600 MG TABLET (FP) PO SCH ×4 (02:41→21:44)
[2017-03-12] MEDS: oxyCODONE HCL 5 MG TABLET PO PRN ×3 (06:17→20:20)
[2017-03-12] MEDS: GABAPENTIN 300 MG CAPSULE (FP) PO SCH ×3 (06:17→21:45)
[2017-03-12] MEDS: ALBUTEROL SO4 0.083% IH SOL 2.5 MG/3 ML VIAL.NEB. NEB SCH ×4 (06:56→23:05)
[2017-03-12 08:14] LABS: CO2 29 mmol/L (21-32); CREATININE 1.4 mg/dL (0.7-1.3); GLUCOSE,RANDOM 129 mg/dL (74-106); MAGNESIUM 2.2 mg/dL (1.8-2.4); PHOSPHOROUS 3.5 mg/dL (2.5-4.9); URIC ACID 6.9 mg/dL (2.6-7.2)
[2017-03-12 08:40] LABS: BASOPHIL 0.1 % (0-2.0); MCHC 28.7 g/dl (32.0-35.9); MEAN PLT VOLUME 8.5 fl (7.5-11.1); NEUTROPHILS 89.3 % (42.8-82.8); PLATELET COUNT 535 K/MM3 (134-434); RDW 20.8 % (11.9-15.9); WHITE BLOOD COUNT 20.1 K/mm3 (4.0-10.0)
[2017-03-12 08:41] LABS: MCH 17.2 pg (25.7-33.7)
[2017-03-12 08:54] LABS: ANION GAP 5 (8-16)
[2017-03-12 08:55] LABS: CALCIUM 8.2 mg/dL (8.5-10.1)
--- NOTE | 2017-03-12 09:04 | PN ---
Progress Note (short form) - Note Progress Note: Chief Complaint: foot pain History of Present Illness: a little "tight" in L chest, similar to prior chronic sx's. foot still hurts no palpitations dizzy orthopnea - Current Medication List Current Medications Generic Name Dose Route Start Last Admin Trade Name Freq PRN Reason Stop Dose Admin Albuterol Sulfate 1 amp 03/10/17 12:00 03/12/17 06:56 Ventolin 0.083% Nebulizer Soln - NEB 1 amp QIDR NESHA Administration Alprazolam 0.25 mg 03/09/17 23:13 Xanax - PO BID PRN ANXIETY Apixaban 5 mg 03/10/17 10:00 03/11/17 22:58 Eliquis - PO 5 mg BID NESHA Administration Atorvastatin Calcium 10 mg 03/10/17 22:00 03/11/17 22:58 Lipitor - PO 10 mg HS NESHA Administration Carvedilol 25 mg 03/10/17 10:00 03/11/17 22:57 Coreg - PO 25 mg BID NESHA Administration Cefuroxime Axetil 500 mg 03/09/17 23:15 03/11/17 22:57 Ceftin - PO 500 mg BID NESHA Administration Digoxin 0.125 mg 03/10/17 10:00 03/11/17 11:15 Lanoxin - PO 0.125 mg DAILY NESHA Administration Docusate Sodium 100 mg 03/10/17 10:00 03/11/17 11:18 Colace - PO 100 mg DAILY NESHA Administration Duloxetine HCl 60 mg 03/10/17 10:00 03/11/17 11:19 Cymbalta - PO 60 mg DAILY NESHA Administration Escitalopram Oxalate 10 mg 03/10/17 10:00 03/11/17 11:19 Lexapro - PO 10 mg DAILY NESHA Administration Furosemide 40 mg 03/10/17 10:00 03/11/17 11:15 Lasix - PO 40 mg DAILY NESHA Administration Gabapentin 300 mg 03/10/17 06:00 03/12/17 06:17 Neurontin - PO 300 mg TID NESHA Administration Hydromorphone HCl 1 mg 03/09/17 23:17 03/11/17 06:05 Dilaudid Injection - IVPUSH 1 mg Q4H PRN Administration PAIN Ibuprofen 600 mg 03/10/17 11:00 03/12/17 02:41 Motrin - PO 600 mg Q8H NESHA Administration Isosorbide Mononitrate 30 mg 03/10/17 10:00 03/11/17 11:16 Imdur - PO 30 mg DAILY NESHA Administration Loratadine 10 mg 03/10/17 10:00 03/11/17 11:15 Claritin - PO 10 mg DAILY NESHA Administration Methylprednisolone Sodium Succinate 80 mg 03/10/17 10:00 03/11/17 22:59 Solu-Medrol - IVPB 80 mg BID NESHA Administration Oxycodone HCl 30 mg 03/09/17 23:13 03/12/17 06:17 Roxicodone - PO 30 mg Q6H PRN Administration PAIN Pantoprazole Sodium 40 mg 03/10/17 10:00 03/11/17 11:19 Protonix - PO 40 mg DAILY NESHA Administration Potassium Chloride 10 meq 03/10/17 10:00 03/11/17 11:17 K-Dur - PO 10 meq DAILY NESHA Administration Ramipril 10 mg 03/10/17 10:00 03/11/17 11:15 Altace - PO 10 mg DAILY NESHA Administration - Objective Vital Signs: Vital Signs Period Temp Pulse Resp BP Sys/Sal Pulse Ox Last 24 Hr 97.2 F-98.9 F 66-78 18-20 110-134/51-78 95-97 Constitutional: Yes: Well Nourished, No Distress, Calm Cardiovascular: Yes: Regular Rate and Rhythm, S1, S2. No: Gallop, Murmur Respiratory: Yes: Regular, CTA Bilaterally. No: Accessory Muscle Use, Rales, Wheezes Extremities: No: Cold Edema: No Neurological: Yes: Alert, Oriented Psychiatric: No: Agitated no jaundice diaphoresis Labs: CBC, BMP 03/12/17 05:28 03/12/17 05:28 tele: AFib, good HRs ekg: afib, rate controlled, occ v-pacing; LVH with repol incl twis/ST depr--no sig change vs prior ecgs cxr: no chf echo 12/30: mild lv dil. sev red LV function (global). Nl RV. Sev LAE. Mod-sev MR. RVSP 30-40. borderline ao dil. echo 08/2013: mild lve, mild-mod dec lvef, nl rv, mod lae, mild-mod mr, mild tr , rvsp 30-40 cath 02/2016: normal cors a/p: 56 m hx systolic chf (30-40%), NICM s/p ICD, afib on eliquis, hcv, hld, htn, copd, here with foot pain. foot pain -duplex shows dvt on right, also with hx gout causing similar pain -on AC already for afib--held eliquis x3d shortly prior to admit for bruising/ lacerations on hands -? unprovoked DVT--heme following for hypercoag/malignancy w/u -gout tx per pmd atypical chest pain: -hx of chronic atypical chest pain - in past pt reported that he had CAD with prior [place] x 3, s/p cardiac stents x 4. However, he had a cardiac cath on in 03/09/2016 in the setting of chest pain and new ECG changes. This showed "normal coronaries" without prior PCIs. -cp currently is MSK in nature, reproducible on exam -no signs acs -can d/c telemetry chronic systolic chf: -Continue ACEi and Coreg -no signs vol overload at present, cont po lasix -icd checked here 07/04/16 and showed nl fcn. No icd shocks. Cont bb for now, routine icd checks in office. Afib -rate controlled -Continue BB, dig. -cont eliquis tobacco/drug use - cessation counseling
[2017-03-12] MEDS: DIGOXIN 0.125 MG TABLET (FP) PO SCH (09:47)
[2017-03-12] MEDS: CARVEDILOL 25 MG TABLET (FP) PO SCH ×2 (09:47→21:44)
[2017-03-12] MEDS: ISOSORBIDE MONONITRATE 30 MG TAB.SR.24H (FP) PO SCH (09:47)
[2017-03-12] MEDS: FUROSEMIDE 40 MG TABLET (FP) PO SCH (09:47)
[2017-03-12] MEDS: DOCUSATE SODIUM 100 MG CAPSULE (FP) PO SCH (09:47)
[2017-03-12] MEDS: RAMIPRIL 5 MG CAPSULE (FP) PO SCH (09:47)
[2017-03-12] MEDS: DULoxetine HCL 30 MG CAPSULE.DR (FP) PO SCH (09:47)
[2017-03-12] MEDS: POTASSIUM CHLORIDE TABS 10 MEQ TABLET.ER (FP) PO SCH (09:47)
[2017-03-12] MEDS: LORATADINE 10 MG TABLET PO SCH (09:47)
[2017-03-12] MEDS: ESCITALOPRAM OXALATE 10 MG TABLET (FP) PO SCH (09:48)
[2017-03-12] MEDS: PANTOPRAZOLE 40 MG TABLET (FP) PO SCH (09:48)
[2017-03-12] MEDS: APIXABAN 5 MG TABLET PO SCH ×2 (09:48→21:44)
[2017-03-12] MEDS: methylPREDNISolone NA SUCC 125 MG/2 ML VIAL IVPB SCH ×2 (09:48→21:45)
[2017-03-12] MEDS ORDERED: PT OWN MED DRAWER 7, Y5N ONE (10:46)
[2017-03-12] MEDS: CEFUROXIME AXETIL 500 MG TABLET PO SCH ×2 (11:37→21:43)
--- NOTE | 2017-03-12 12:39 | PN ---
Progress Note, Physician Chief Complaint: Mr Roberst says his R foot is still hurting. No cp, sob, n/v. - Current Medication List Current Medications: Active Medications Albuterol Sulfate (Ventolin 0.083% Nebulizer Soln -) 1 amp NEB QIDR [facility] Last Admin: 03/12/17 11:48 Dose: 1 amp Alprazolam (Xanax -) 0.25 mg PO BID PRN PRN Reason: ANXIETY Apixaban (Eliquis -) 5 mg PO BID [facility] Last Admin: 03/12/17 09:48 Dose: 5 mg Atorvastatin Calcium (Lipitor -) 10 mg PO HS [facility] Last Admin: 03/11/17 22:58 Dose: 10 mg Carvedilol (Coreg -) 25 mg PO BID [facility] Last Admin: 03/12/17 09:47 Dose: 25 mg Cefuroxime Axetil (Ceftin -) 500 mg PO BID [facility] Last Admin: 03/12/17 11:37 Dose: 500 mg Digoxin (Lanoxin -) 0.125 mg PO DAILY [facility] Last Admin: 03/12/17 09:47 Dose: 0.125 mg Docusate Sodium (Colace -) 100 mg PO DAILY [facility] Last Admin: 03/12/17 09:47 Dose: 100 mg Duloxetine HCl (Cymbalta -) 60 mg PO DAILY [facility] Last Admin: 03/12/17 09:47 Dose: 60 mg Escitalopram Oxalate (Lexapro -) 10 mg PO DAILY [facility] Last Admin: 03/12/17 09:48 Dose: 10 mg Furosemide (Lasix -) 40 mg PO DAILY [facility] Last Admin: 03/12/17 09:47 Dose: 40 mg Gabapentin (Neurontin -) 300 mg PO TID [facility] Last Admin: 03/12/17 06:17 Dose: 300 mg Hydromorphone HCl (Dilaudid Injection -) 1 mg IVPUSH Q4H PRN PRN Reason: PAIN Last Admin: 03/11/17 06:05 Dose: 1 mg Ibuprofen (Motrin -) 600 mg PO Q8H [facility] Last Admin: 03/12/17 11:34 Dose: 600 mg Isosorbide Mononitrate (Imdur -) 30 mg PO DAILY [facility] Last Admin: 03/12/17 09:47 Dose: 30 mg Loratadine (Claritin -) 10 mg PO DAILY [facility] Last Admin: 03/12/17 09:47 Dose: 10 mg Methylprednisolone Sodium Succinate (Solu-Medrol -) 80 mg IVPB BID [facility] Last Admin: 03/12/17 09:48 Dose: 80 mg Oxycodone HCl (Roxicodone -) 30 mg PO Q6H PRN PRN Reason: PAIN Last Admin: 03/12/17 11:34 Dose: 30 mg Pantoprazole Sodium (Protonix -) 40 mg PO DAILY [facility] Last Admin: 03/12/17 09:48 Dose: 40 mg Potassium Chloride (K-Dur -) 10 meq PO DAILY [facility] Last Admin: 03/12/17 09:47 Dose: 10 meq Ramipril (Altace -) 10 mg PO DAILY [facility] Last Admin: 03/12/17 09:47 Dose: 10 mg - Objective Vital Signs: Vital Signs Temperature 37.0 C 03/12/17 10:00 Pulse Rate 66 03/12/17 11:47 Respiratory Rate 20 03/12/17 10:00 Blood Pressure 148/91 03/12/17 10:00 O2 Sat by Pulse Oximetry (%) 99 03/12/17 11:47 Constitutional: Yes: Well Nourished, No Distress, Calm Cardiovascular: Yes: Regular Rate and Rhythm. No: Gallop, Murmur, Rub Respiratory: Yes: Regular, CTA Bilaterally. No: Rales, Rhonchi, Wheezes Gastrointestinal: Yes: Normal Bowel Sounds, Soft. No: Distention, Tenderness Extremities: Yes: WNL Edema: Yes Edema: RLE: Trace Labs: CBC, BMP 03/12/17 05:28 03/12/17 05:28 INR, PTT INR 1.38 (0.82-1.09) H 03/09/17 18:43 Problem List - Problems (1) Gout of ankle Code(s): M10.9 - GOUT, UNSPECIFIED Qualifiers: Chronicity: chronic Laterality: right (2) Atrial fibrillation Code(s): I48.91 - UNSPECIFIED ATRIAL FIBRILLATION Qualifiers: Atrial fibrillation type: chronic Qualified Code(s): I48.2 - Chronic atrial fibrillation (3) CAD (coronary artery disease) Code(s): I25.10 - ATHSCL HEART DISEASE OF [place] CORONARY ARTERY W/O ANG PCTRS (4) COPD (chronic obstructive pulmonary disease) Code(s): J44.9 - CHRONIC OBSTRUCTIVE PULMONARY DISEASE, UNSPECIFIED (5) DVT (deep venous thrombosis) Code(s): I82.409 - ACUTE EMBOLISM AND THOMBOS UNSP DEEP VN UNSP LOWER EXTREMITY Qualifiers: DVT location: lower extremity Affected thrombotic vein of extremity: tibial Chronicity: unspecified Laterality: right Qualified Code(s ): I82.441 - Acute embolism and thrombosis of right tibial vein (6) CHF (congestive heart failure) Code(s): I50.9 - HEART FAILURE, UNSPECIFIED Qualifiers: Congestive heart failure type: systolic Congestive heart failure chronicity: chronic Qualified Code(s): I50.22 - Chronic systolic ( congestive) heart failure (7) HTN (hypertension) Code(s): I10 - ESSENTIAL (PRIMARY) HYPERTENSION (8) Hyperlipidemia Code(s): E78.5 - HYPERLIPIDEMIA, UNSPECIFIED Assessment/Plan (1) Gout of ankle Assessment/Plan: -uric acid improving -however patient still complains of significant pain in his right foot -continue solumedrol -continue IV dilaudid currently -consult rheumatology for further evaluation Code(s): M10.9 - GOUT, UNSPECIFIED Qualifiers: Chronicity: chronic Laterality: right (2) Atrial fibrillation Assessment/Plan: -rate controlled -continue eliquis and digoxin Code(s): I48.91 - UNSPECIFIED ATRIAL FIBRILLATION Qualifiers: Atrial fibrillation type: chronic Qualified Code(s): I48.2 - Chronic atrial fibrillation (3) CAD (coronary artery disease) Assessment/Plan: -cardiology following -not in exacerbation -last cath results noted as written in cardiology note Code(s): I25.10 - ATHSCL HEART DISEASE OF [place] CORONARY ARTERY W/O ANG PCTRS (4) COPD (chronic obstructive pulmonary disease) Assessment/Plan: -continue ceftin and bronchodilators Code(s): J44.9 - CHRONIC OBSTRUCTIVE PULMONARY DISEASE, UNSPECIFIED (5) DVT (deep venous thrombosis) Assessment/Plan: -continue eliquis -appreciate hematology assistance -? if secondary to immobility and not taking eliquis -CT scans reviewed Code(s): I82.409 - ACUTE EMBOLISM AND THOMBOS UNSP DEEP VN UNSP LOWER EXTREMITY Qualifiers: DVT location: lower extremity Affected thrombotic vein of extremity: tibial Chronicity: unspecified Laterality: right Qualified Code(s): I82.441 - Acute embolism and thrombosis of right tibial vein (6) CHF (congestive heart failure) Assessment/Plan: -not in exacerbation -continue lasix Code(s): I50.9 - HEART FAILURE, UNSPECIFIED Qualifiers: Congestive heart failure type: systolic Congestive heart failure chronicity: chronic Qualified Code(s): I50.22 - Chronic systolic ( congestive) heart failure (7) HTN (hypertension) Assessment/Plan: -controlled -continue current regimen Code(s): I10 - ESSENTIAL (PRIMARY) HYPERTENSION (8) Hyperlipidemia Assessment/Plan: -continue statin Code(s): E78.5 - HYPERLIPIDEMIA, UNSPECIFIED
--- NOTE | 2017-03-12 14:45 | PN ---
Progress Note (short form) - Note Progress Note: Ortho Pt seen and examined- right ankle pain improving right ankle- +swelling, + ttp, decr rom nvi a/p anti-gout meds, solumedrol IV continie eliquis ROM exercises PT eval elevation will follow d/w Dr. Aaron
--- NOTE | 2017-03-12 17:02 | PN ---
Progress Note (short form) - Note Progress Note: Patient seen and examined. Constitutional: Yes: Well Nourished, No Distress Respiratory: Yes: CTA Bilaterally. Gastrointestinal: Yes: Normal Bowel Sounds. Cardiovascular: Yes: Regular Rate and Rhythm PMI: Non-Displaced Heart Sounds: Yes: S1, S2. No: Gallop Murmur: No: Systolic Murmur, Diastolic Murmur LE: painful RLE ankle, + calf tenderness in the RLE. Neurological: Yes: Alert, Oriented (x3) Temp Pulse Resp BP Pulse Ox 97.9 F 75 20 125/73 99 03/12/17 14:00 03/12/17 14:00 03/12/17 10:00 03/12/17 14:00 03/12/17 11:47 Current Medications Generic Name Dose Route Start Last Admin Trade Name Freq PRN Reason Stop Dose Admin Albuterol Sulfate 1 amp 03/10/17 12:00 03/12/17 11:48 Ventolin 0.083% Nebulizer Soln - NEB 1 amp QIDR [facility] Administration Alprazolam 0.25 mg 03/09/17 23:13 Xanax - PO BID PRN ANXIETY Apixaban 5 mg 03/10/17 10:00 03/12/17 09:48 Eliquis - PO 5 mg BID [facility] Administration Atorvastatin Calcium 10 mg 03/10/17 22:00 03/11/17 22:58 Lipitor - PO 10 mg HS [facility] Administration Carvedilol 25 mg 03/10/17 10:00 03/12/17 09:47 Coreg - PO 25 mg BID [facility] Administration Cefuroxime Axetil 500 mg 03/09/17 23:15 03/12/17 11:37 Ceftin - PO 500 mg BID [facility] Administration Digoxin 0.125 mg 03/10/17 10:00 03/12/17 09:47 Lanoxin - PO 0.125 mg DAILY [facility] Administration Docusate Sodium 100 mg 03/10/17 10:00 03/12/17 09:47 Colace - PO 100 mg DAILY [facility] Administration Duloxetine HCl 60 mg 03/10/17 10:00 03/12/17 09:47 Cymbalta - PO 60 mg DAILY [facility] Administration Escitalopram Oxalate 10 mg 03/10/17 10:00 03/12/17 09:48 Lexapro - PO 10 mg DAILY [facility] Administration Furosemide 40 mg 03/10/17 10:00 03/12/17 09:47 Lasix - PO 40 mg DAILY [facility] Administration Gabapentin 300 mg 03/10/17 06:00 03/12/17 15:31 Neurontin - PO 300 mg TID [facility] Administration Hydromorphone HCl 1 mg 03/09/17 23:17 03/11/17 06:05 Dilaudid Injection - IVPUSH 1 mg Q4H PRN Administration PAIN Ibuprofen 600 mg 03/10/17 11:00 03/12/17 11:34 Motrin - PO 600 mg Q8H [facility] Administration Isosorbide Mononitrate 30 mg 03/10/17 10:00 03/12/17 09:47 Imdur - PO 30 mg DAILY [facility] Administration Loratadine 10 mg 03/10/17 10:00 03/12/17 09:47 Claritin - PO 10 mg DAILY [facility] Administration Methylprednisolone Sodium Succinate 80 mg 03/10/17 10:00 03/12/17 09:48 Solu-Medrol - IVPB 80 mg BID [facility] Administration Oxycodone HCl 30 mg 03/09/17 23:13 03/12/17 11:34 Roxicodone - PO 30 mg Q6H PRN Administration PAIN Pantoprazole Sodium 40 mg 03/10/17 10:00 03/12/17 09:48 Protonix - PO 40 mg DAILY [facility] Administration Potassium Chloride 10 meq 03/10/17 10:00 03/12/17 09:47 K-Dur - PO 10 meq DAILY [facility] Administration Ramipril 10 mg 03/10/17 10:00 03/12/17 09:47 Altace - PO 10 mg DAILY [facility] Administration CBC, BMP 03/12/17 05:28 03/12/17 05:28 Assessment/Plan: Gout flare Right DVT anemia Leucocytosis/thrombocytosis CKD A fib CHF -DVt suspect due to the inflammation in the same lower extremity, CT c/a/p no evidence of malignancy -The vascular ( doppler study ) report/impression has a discrepancy ( popliteal clot ? or post tibial clot?), need to clarify from radiology. -will kay Conn for now, repeat study in about 2weeks -Anemia: likely ACD/ACI, continue to monitor, for screening anemia labs -leucocytosis/thrombocytosis: Reactive from underlying inflammation -Gouty flare Rx per PMD. will follow
[2017-03-12] MEDS: ATORVASTATIN CA 10 MG TABLET (FP) PO SCH (21:44)
[2017-03-13] MEDS: oxyCODONE HCL 5 MG TABLET PO PRN ×3 (04:24→18:30)
[2017-03-13] MEDS: IBUPROFEN 600 MG TABLET (FP) PO SCH ×3 (06:09→22:24)
[2017-03-13] MEDS: GABAPENTIN 300 MG CAPSULE (FP) PO SCH ×3 (06:10→22:24)
[2017-03-13] MEDS: ALBUTEROL SO4 0.083% IH SOL 2.5 MG/3 ML VIAL.NEB. NEB SCH ×4 (06:50→23:46)
[2017-03-13 07:31] LABS: MCHC 29.4 g/dl (32.0-35.9); MEAN CELL VOLUME 59.3 fl (80-96); MEAN PLT VOLUME 8.8 fl (7.5-11.1); PLATELET COUNT 613 K/MM3 (134-434); WHITE BLOOD COUNT 14.5 K/mm3 (4.0-10.0)
[2017-03-13 08:02] LABS: ANION GAP 7 (8-16); CALCIUM 8.2 mg/dL (8.5-10.1); CO2 30 mmol/L (21-32); CREATININE 1.3 mg/dL (0.7-1.3); FREE T4 0.79 ng/dl (0.76-1.16); GLUCOSE,RANDOM 144 mg/dL (74-106); MAGNESIUM 2.4 mg/dL (1.8-2.4); PHOSPHOROUS 3.7 mg/dL (2.5-4.9)
[2017-03-13 08:03] LABS: MCH 17.4 pg (25.7-33.7)
[2017-03-13] MEDS ORDERED: PT OWN MED DRAWER 7, Y5N ONE ×3 (10:15→22:20)
--- NOTE | 2017-03-13 10:24 | PN ---
Progress Note (short form) - Note Progress Note: Ortho Pt seen and examined- right ankle pain improving decr swelling, decr pain, incr rom, nvi a/p anti-gout meds, solumedrol IV continie eliquis ROM exercises PT eval elevation orthopedically stable d/w Dr. Aaron
[2017-03-13] MEDS: methylPREDNISolone NA SUCC 125 MG/2 ML VIAL IVPB SCH (11:02)
[2017-03-13] MEDS: DULoxetine HCL 30 MG CAPSULE.DR (FP) PO SCH (11:03)
[2017-03-13] MEDS: DOCUSATE SODIUM 100 MG CAPSULE (FP) PO SCH (11:03)
[2017-03-13] MEDS: DIGOXIN 0.125 MG TABLET (FP) PO SCH (11:03)
[2017-03-13] MEDS: CEFUROXIME AXETIL 500 MG TABLET PO SCH ×2 (11:03→23:06)
[2017-03-13] MEDS: CARVEDILOL 25 MG TABLET (FP) PO SCH ×2 (11:04→22:25)
[2017-03-13] MEDS: APIXABAN 5 MG TABLET PO SCH ×2 (11:04→22:24)
[2017-03-13] MEDS: FUROSEMIDE 40 MG TABLET (FP) PO SCH (11:04)
[2017-03-13] MEDS: ISOSORBIDE MONONITRATE 30 MG TAB.SR.24H (FP) PO SCH (11:04)
[2017-03-13] MEDS: ESCITALOPRAM OXALATE 10 MG TABLET (FP) PO SCH (11:04)
[2017-03-13] MEDS: PANTOPRAZOLE 40 MG TABLET (FP) PO SCH (11:04)
[2017-03-13] MEDS: RAMIPRIL 5 MG CAPSULE (FP) PO SCH (11:04)
[2017-03-13] MEDS: POTASSIUM CHLORIDE TABS 10 MEQ TABLET.ER (FP) PO SCH (11:04)
[2017-03-13] MEDS: LORATADINE 10 MG TABLET PO SCH (11:04)
--- NOTE | 2017-03-13 13:24 | PN ---
Progress Note, Physician Chief Complaint: Mr Roberts says his R foot is still hurting but says it is better. No cp, sob, n/ v. Appears improved today - Current Medication List Current Medications: Active Medications Albuterol Sulfate (Ventolin 0.083% Nebulizer Soln -) 1 amp NEB QIDR [facility] Last Admin: 03/13/17 06:50 Dose: 1 amp Alprazolam (Xanax -) 0.25 mg PO BID PRN PRN Reason: ANXIETY Apixaban (Eliquis -) 5 mg PO BID [facility] Last Admin: 03/13/17 11:04 Dose: 5 mg Atorvastatin Calcium (Lipitor -) 10 mg PO HS [facility] [place] Last Admin: 03/12/17 21:44 Dose: 10 mg Carvedilol (Coreg -) 25 mg PO BID [facility] [place] Last Admin: 03/13/17 11:04 Dose: 25 mg Cefuroxime Axetil (Ceftin -) 500 mg PO BID [facility] [place] Last Admin: 03/13/17 11:03 Dose: 500 mg Digoxin (Lanoxin -) 0.125 mg PO DAILY [facility] [place] Last Admin: 03/13/17 11:03 Dose: 0.125 mg Docusate Sodium (Colace -) 100 mg PO DAILY [facility] [place] Last Admin: 03/13/17 11:03 Dose: 100 mg Duloxetine HCl (Cymbalta -) 60 mg PO DAILY [facility] [place] Last Admin: 03/13/17 11:03 Dose: 60 mg Escitalopram Oxalate (Lexapro -) 10 mg PO DAILY [facility] [place] Last Admin: 03/13/17 11:04 Dose: 10 mg Furosemide (Lasix -) 40 mg PO DAILY [facility] [place] Last Admin: 03/13/17 11:04 Dose: 40 mg Gabapentin (Neurontin -) 300 mg PO TID [facility] [place] Last Admin: 03/13/17 06:10 Dose: 300 mg Hydromorphone HCl (Dilaudid Injection -) 1 mg IVPUSH Q4H PRN PRN Reason: PAIN Last Admin: 03/11/17 06:05 Dose: 1 mg Ibuprofen (Motrin -) 600 mg PO TID [facility] [place] Last Admin: 03/13/17 06:09 Dose: 600 mg Isosorbide Mononitrate (Imdur -) 30 mg PO DAILY [facility] [place] Last Admin: 03/13/17 11:04 Dose: 30 mg Loratadine (Claritin -) 10 mg PO DAILY [facility] [place] Last Admin: 03/13/17 11:04 Dose: 10 mg Methylprednisolone Sodium Succinate (Solu-Medrol -) 80 mg IVPB BID [facility] [place] Last Admin: 03/13/17 11:02 Dose: 80 mg Oxycodone HCl (Roxicodone -) 30 mg PO Q6H PRN PRN Reason: PAIN Last Admin: 03/13/17 11:04 Dose: 30 mg Pantoprazole Sodium (Protonix -) 40 mg PO DAILY [facility] [place] Last Admin: 03/13/17 11:04 Dose: 40 mg Potassium Chloride (K-Dur -) 10 meq PO DAILY [facility] [place] Last Admin: 03/13/17 11:04 Dose: 10 meq Ramipril (Altace -) 10 mg PO DAILY [facility] [place] Last Admin: 03/13/17 11:04 Dose: 10 mg - Objective Vital Signs: Vital Signs Temperature 36.9 C 03/13/17 06:00 Pulse Rate 73 03/13/17 11:03 Respiratory Rate 20 03/13/17 06:00 Blood Pressure 133/89 03/13/17 06:00 O2 Sat by Pulse Oximetry (%) 96 03/13/17 06:00 Constitutional: Yes: Well Nourished, No Distress, Calm Cardiovascular: Yes: Regular Rate and Rhythm. No: Gallop, Murmur, Rub Respiratory: Yes: Regular, CTA Bilaterally. No: Rales, Rhonchi, Wheezes Gastrointestinal: Yes: Normal Bowel Sounds, Soft. No: Distention, Tenderness Extremities: Yes: WNL Edema: No Labs: CBC, BMP 03/13/17 05:30 03/13/17 05:30 INR, PTT INR 1.38 (0.82-1.09) H 03/09/17 18:43 Problem List - Problems (1) Gout of ankle Code(s): M10.9 - GOUT, UNSPECIFIED Qualifiers: Chronicity: chronic Laterality: right (2) Atrial fibrillation Code(s): I48.91 - UNSPECIFIED ATRIAL FIBRILLATION Qualifiers: Atrial fibrillation type: chronic Qualified Code(s): I48.2 - Chronic atrial fibrillation (3) CAD (coronary artery disease) Code(s): I25.10 - ATHSCL HEART DISEASE OF [place] CORONARY ARTERY W/O ANG PCTRS (4) COPD (chronic obstructive pulmonary disease) Code(s): J44.9 - CHRONIC OBSTRUCTIVE PULMONARY DISEASE, UNSPECIFIED (5) DVT (deep venous thrombosis) Code(s): I82.409 - ACUTE EMBOLISM AND THOMBOS UNSP DEEP VN UNSP LOWER EXTREMITY Qualifiers: DVT location: lower extremity Affected thrombotic vein of extremity: tibial Chronicity: unspecified Laterality: right Qualified Code(s ): I82.441 - Acute embolism and thrombosis of right tibial vein (6) CHF (congestive heart failure) Code(s): I50.9 - HEART FAILURE, UNSPECIFIED Qualifiers: Congestive heart failure type: systolic Congestive heart failure chronicity: chronic Qualified Code(s): I50.22 - Chronic systolic ( congestive) heart failure (7) HTN (hypertension) Code(s): I10 - ESSENTIAL (PRIMARY) HYPERTENSION (8) Hyperlipidemia Code(s): E78.5 - HYPERLIPIDEMIA, UNSPECIFIED Assessment/Plan (1) Gout of ankle Assessment/Plan: -appears improved -continue solumedrol at this time -rheumatology consulted -will begin to wean solumedrol tomorrow Code(s): M10.9 - GOUT, UNSPECIFIED Qualifiers: Chronicity: chronic Laterality: right (2) Atrial fibrillation Assessment/Plan: -rate controlled -continue eliquis and digoxin Code(s): I48.91 - UNSPECIFIED ATRIAL FIBRILLATION Qualifiers: Atrial fibrillation type: chronic Qualified Code(s): I48.2 - Chronic atrial fibrillation (3) CAD (coronary artery disease) Assessment/Plan: -cardiology following -not in exacerbation -last cath results noted as written in cardiology note Code(s): I25.10 - ATHSCL HEART DISEASE OF [place] CORONARY ARTERY W/O ANG PCTRS (4) COPD (chronic obstructive pulmonary disease) Assessment/Plan: -continue ceftin and bronchodilators Code(s): J44.9 - CHRONIC OBSTRUCTIVE PULMONARY DISEASE, UNSPECIFIED (5) DVT (deep venous thrombosis) Assessment/Plan: -continue eliquis -appreciate hematology assistance -? if secondary to immobility and not taking eliquis -CT scans reviewed Code(s): I82.409 - ACUTE EMBOLISM AND THOMBOS UNSP DEEP VN UNSP LOWER EXTREMITY Qualifiers: DVT location: lower extremity Affected thrombotic vein of extremity: tibial Chronicity: unspecified Laterality: right Qualified Code(s): I82.441 - Acute embolism and thrombosis of right tibial vein (6) CHF (congestive heart failure) Assessment/Plan: -not in exacerbation -continue lasix Code(s): I50.9 - HEART FAILURE, UNSPECIFIED Qualifiers: Congestive heart failure type: systolic Congestive heart failure chronicity: chronic Qualified Code(s): I50.22 - Chronic systolic ( congestive) heart failure (7) HTN (hypertension) Assessment/Plan: -controlled -continue current regimen Code(s): I10 - ESSENTIAL (PRIMARY) HYPERTENSION (8) Hyperlipidemia Assessment/Plan: -continue statin Code(s): E78.5 - HYPERLIPIDEMIA, UNSPECIFIED
--- NOTE | 2017-03-13 17:52 | CONSULT ---
Consult Consult Specialty:: Rheumatology. 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 HPI, The patient reports an 18 month history of episodes of acute pain in ankles, usually lasting 5 days. He was diagnosed in the pawst with gout and has been treated with Colchicine and it is not clear if he alse received Allopurinol. On this admission he reports taht he woke up at 4 am withy pain in the right ankle and foot and chest pain. On admission he was started on Solumedrol 80 mg BID (a very high dose for gout) and had partial improvement. 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 Rule out radiculopathy. Laboratory work-up on admission reveaked a creatinine of 1.3, uric acid 6.9, liver function tests normal. - History Source History Provided By: Patient, Medical Record - Past Medical History Cardio/Vascular: Yes: CAD, CHF (/ cardiomyopathy), HTN, Hyperlipdemia Pulmonary: Yes: COPD Gastrointestinal: Yes: Other (gastritis) Hepatobiliary: Yes: Hepatitis C Musculoskeletal: Yes: Chronic low back pain (/ degenerative lumbar disc disease) - Past Surgical History Past Surgical History: Yes: Hernia Repair (umbilical), Joint Replacement (right elbow, right hip, left ankle) - Alcohol/Substance Use Hx Alcohol Use: No History of Substance Use: reports: None - Smoking History Smoking history: Current every day smoker Have you smoked in the past 12 months: Yes Aproximately how many cigarettes per day: 2 If you are a former smoker, when did you quit?: 0 - Social History ADL: Independent 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, 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 History of Recent Travel: No Home Medications - Allergies Allergies/Adverse Reactions: Allergies Allergy/AdvReac Type Severity Reaction Status Date / Time tomato Allergy Severe Verified 03/09/17 18:34 Beef Containing Products Allergy Verified 03/09/17 18:34 morphine Allergy Verified 03/09/17 18:34 red dye Allergy Verified 03/09/17 18:34 shellfish derived Allergy Verified 03/09/17 18:34 - Home Medications Home Medications: Ambulatory Orders Omeprazole [Prilosec] 40 mg PO DAILY 06/23/14 Oxycodone HCl [Roxicodone] 30 mg PO Q6H PRN 07/24/14 Atorvastatin Ca [Lipitor] 10 mg PO HS 08/17/14 Apixaban [Eliquis -] 5 mg PO BID 01/12/16 Docusate Sodium [Colace -] 100 mg PO DAILY 01/12/16 Escitalopram Oxalate [Lexapro -] 10 mg PO DAILY 01/12/16 Albuterol Sulfate Inhaler - [Ventolin HFA Inhaler -] 1 - 2 inh PO QID #1 inhaler 01/15/16 Ramipril [Altace] 10 mg PO DAILY #60 capsule 05/01/16 Alprazolam 0.25 mg PO BID PRN 07/02/16 Digoxin [Digitek] 125 mcg PO DAILY 07/02/16 Nitroglycerin Sublingual [Nitrostat -] 0.4 mg SL ONCE PRN 07/02/16 Potassium Chloride 10 meq PO DAILY 07/02/16 Carvedilol [Coreg -] 25 mg PO BID #60 tablet 07/06/16 Furosemide [Lasix -] 40 mg PO DAILY 07/13/16 Duloxetine HCl [Cymbalta -] 60 mg PO DAILY #60 capsule.dr 07/19/16 Isosorbide Mononitrate [Imdur -] 30 mg PO DAILY #30 tab.sr.24h 07/19/16 Indomethacin [Indocin -] 50 mg PO TID #30 capsule 09/17/16 Colchicine [Colcrys] 0.6 mg PO DAILY 09/19/16 Gabapentin [Neurontin -] 300 mg PO TID 09/19/16 Loratadine [Claritin] 10 mg PO DAILY #30 tablet 10/24/16 Methylprednisolone [Medrol Dose Tino] 4 mg PO ASDIR #21 tablet 01/19/17 Cefuroxime Axetil [Ceftin -] 500 mg PO Q12H 03/09/17 Family Disease History - Family Disease History Family Disease History: Heart Disease: Father, [place]: Mother, Brother (colon) Review of Systems - Review of Systems Constitutional: reports: Malaise Eyes: reports: No Symptoms HENT: reports: No Symptoms Neck: reports: No Symptoms Cardiovascular: reports: Chest Pain Respiratory: reports: SOB Gastrointestinal: reports: No Symptoms Musculoskeletal: reports: Other (See HPI.) Physical Exam Vital Signs: Vital Signs Temperature 98.1 F 03/13/17 14:00 Pulse Rate 73 03/13/17 14:00 Respiratory Rate 20 03/13/17 10:00 Blood Pressure 143/87 03/13/17 14:00 O2 Sat by Pulse Oximetry (%) 98 03/13/17 11:12 Constitutional: Yes: Moderate Distress Eyes: Yes: WNL HENT: Yes: WNL Neck: Yes: WNL Cardiovascular: Yes: WNL Respiratory: Yes: WNL Gastrointestinal: Yes: WNL Musculoskeletal: Yes: Other (Severe tenderness in the distal 1/4 of the righ leg. The ankle and dorsum of foot were also very tender, Questionable small effusion in the right ankle. No other joint involvement. There was no erythema.) Labs: CBC, BMP 03/13/17 05:30 03/13/17 05:30 Laboratory Tests 03/11/17 03/12/17 03/13/17 05:30 05:28 05:30 Uric Acid 6.9 Total Bilirubin 0.5 D AST 9 L D ALT 13 Alkaline Phosphatase 42 L Total Protein 6.5 Albumin 2.9 L TSH 0.20 L D Problem List - Problems (1) Pain in ankle Assessment/Plan: The patient has a previous history of probable gout. He was admitted with severe pain in the right ankle. The pain is not localized to the ankle joint, there is no erythema and edema. It is not clear that the pain is related to gout. He has severe neuropathy. Rule out neuropathic pain. Plan; Start tapering steroids. X-ray of ankle. Labs UA, ESR Code(s): M25.579 - PAIN IN UNSPECIFIED ANKLE AND JOINTS OF UNSPECIFIED FOOT
[2017-03-13] MEDS: ATORVASTATIN CA 10 MG TABLET (FP) PO SCH (22:24)
[2017-03-14] MEDS: oxyCODONE HCL 5 MG TABLET PO PRN ×3 (00:26→19:56)
[2017-03-14] MEDS: IBUPROFEN 600 MG TABLET (FP) PO SCH ×3 (06:25→22:09)
[2017-03-14] MEDS: GABAPENTIN 300 MG CAPSULE (FP) PO SCH ×3 (06:26→22:10)
[2017-03-14] MEDS ORDERED: PT OWN MED DRAWER 7, Y5N ONE ×2 (07:46→22:04)
[2017-03-14 08:02] LABS: ANION GAP 9 (8-16); CALCIUM 8.1 mg/dL (8.5-10.1); CO2 29 mmol/L (21-32); GLUCOSE,RANDOM 101 mg/dL (74-106); MAGNESIUM 2.4 mg/dL (1.8-2.4); MCHC 29.4 g/dl (32.0-35.9); MEAN CELL VOLUME 59.3 fl (80-96); MEAN PLT VOLUME 8.5 fl (7.5-11.1); PLATELET COUNT 619 K/MM3 (134-434); RDW 20.4 % (11.9-15.9); WHITE BLOOD COUNT 15.9 K/mm3 (4.0-10.0)
[2017-03-14 08:03] LABS: CREATININE 1.3 mg/dL (0.7-1.3); MCH 17.4 pg (25.7-33.7); PHOSPHOROUS 3.2 mg/dL (2.5-4.9)
[2017-03-14] MEDS: ESCITALOPRAM OXALATE 10 MG TABLET (FP) PO SCH (09:40)
[2017-03-14] MEDS: ISOSORBIDE MONONITRATE 30 MG TAB.SR.24H (FP) PO SCH (09:40)
[2017-03-14] MEDS: DULoxetine HCL 30 MG CAPSULE.DR (FP) PO SCH (09:40)
[2017-03-14] MEDS: DOCUSATE SODIUM 100 MG CAPSULE (FP) PO SCH (09:40)
[2017-03-14] MEDS: CARVEDILOL 25 MG TABLET (FP) PO SCH ×2 (09:40→22:09)
[2017-03-14] MEDS: FUROSEMIDE 40 MG TABLET (FP) PO SCH (09:40)
[2017-03-14] MEDS: RAMIPRIL 5 MG CAPSULE (FP) PO SCH (09:40)
[2017-03-14] MEDS: POTASSIUM CHLORIDE TABS 10 MEQ TABLET.ER (FP) PO SCH (09:40)
[2017-03-14] MEDS: PANTOPRAZOLE 40 MG TABLET (FP) PO SCH (09:40)
[2017-03-14] MEDS: APIXABAN 5 MG TABLET PO SCH ×2 (09:41→22:09)
[2017-03-14] MEDS: LORATADINE 10 MG TABLET PO SCH (09:41)
[2017-03-14] MEDS: CEFUROXIME AXETIL 500 MG TABLET PO SCH ×2 (09:41→22:34)
[2017-03-14] MEDS: DIGOXIN 0.125 MG TABLET (FP) PO SCH (09:41)
[2017-03-14] MEDS ORDERED: methylPREDNISolone NA SUCC 125 MG/2 ML VIAL IVPB SCH (10:00)
[2017-03-14 10:10] LABS: PLATELET ESTIMATE INCREASED (NORMAL); TOTAL CELLS COUNTED 100
[2017-03-14 10:12] LABS: HYPOCHROMIA 3+; POIKILOCYTOSIS 2+
[2017-03-14 10:13] LABS: ANISOCYTOSIS 3+; MICROCYTOSIS 2+; TARGET CELLS FEW
--- NOTE | 2017-03-14 10:25 | PN ---
Progress Note (short form) - Note Progress Note: Chief Complaint: foot pain History of Present Illness: no cp sob palps dizzy; foot still hurts - Current Medication List Current Medications Generic Name Dose Route Start Last Admin Trade Name Freq PRN Reason Stop Dose Admin Albuterol Sulfate 1 amp 03/10/17 12:00 03/13/17 23:46 Ventolin 0.083% Nebulizer Soln - NEB 1 amp QIDR NESHA Administration Alprazolam 0.25 mg 03/09/17 23:13 Xanax - PO BID PRN ANXIETY Apixaban 5 mg 03/10/17 10:00 03/14/17 09:41 Eliquis - PO 5 mg BID NESHA Administration Atorvastatin Calcium 10 mg 03/10/17 22:00 03/13/17 22:24 Lipitor - PO 10 mg HS NEHSA Administration Carvedilol 25 mg 03/10/17 10:00 03/14/17 09:40 Coreg - PO 25 mg BID NESHA Administration Cefuroxime Axetil 500 mg 03/09/17 23:15 03/14/17 09:41 Ceftin - PO 500 mg BID NESHA Administration Digoxin 0.125 mg 03/10/17 10:00 03/14/17 09:41 Lanoxin - PO 0.125 mg DAILY NESHA Administration Docusate Sodium 100 mg 03/10/17 10:00 03/14/17 09:40 Colace - PO 100 mg DAILY NESHA Administration Duloxetine HCl 60 mg 03/10/17 10:00 03/14/17 09:40 Cymbalta - PO 60 mg DAILY NESHA Administration Escitalopram Oxalate 10 mg 03/10/17 10:00 03/14/17 09:40 Lexapro - PO 10 mg DAILY NESHA Administration Furosemide 40 mg 03/10/17 10:00 03/14/17 09:40 Lasix - PO 40 mg DAILY NESHA Administration Gabapentin 300 mg 03/10/17 06:00 03/14/17 06:26 Neurontin - PO 300 mg TID NEHSA Administration Hydromorphone HCl 1 mg 03/09/17 23:17 03/11/17 06:05 Dilaudid Injection - IVPUSH 1 mg Q4H PRN Administration PAIN Ibuprofen 600 mg 03/12/17 22:00 03/14/17 06:25 Motrin - PO 600 mg TID NESHA Administration Isosorbide Mononitrate 30 mg 03/10/17 10:00 03/14/17 09:40 Imdur - PO 30 mg DAILY NESHA Administration Loratadine 10 mg 03/10/17 10:00 03/14/17 09:41 Claritin - PO 10 mg DAILY NESHA Administration Methylprednisolone Sodium Succinate 60 mg 03/14/17 10:00 03/14/17 09:40 Solu-Medrol - IVPB 60 mg DAILY NESHA Administration Oxycodone HCl 30 mg 03/09/17 23:13 03/14/17 09:49 Roxicodone - PO 30 mg Q6H PRN Administration PAIN Pantoprazole Sodium 40 mg 03/10/17 10:00 03/14/17 09:40 Protonix - PO 40 mg DAILY NESHA Administration Potassium Chloride 10 meq 03/10/17 10:00 03/14/17 09:40 K-Dur - PO 10 meq DAILY NESHA Administration Ramipril 10 mg 03/10/17 10:00 03/14/17 09:40 Altace - PO 10 mg DAILY NESHA Administration - Objective Vital Signs: Vital Signs Period Temp Pulse Resp BP Sys/Sal Pulse Ox Last 24 Hr 98 F-98.5 F 63-81 18-20 135-143/68-87 97-98 Constitutional: Yes: Well Nourished, No Distress, Calm Cardiovascular: Yes: Regular Rate and Rhythm, S1, S2. No: Gallop, Murmur Respiratory: Yes: Regular, CTA Bilaterally. No: Accessory Muscle Use, Rales, Wheezes Extremities: No: Cold Edema: No Neurological: Yes: Alert, Oriented Psychiatric: No: Agitated no jaundice diaphoresis Labs: CBC, BMP 03/14/17 05:35 03/14/17 05:35 ekg: afib, rate controlled, occ v-pacing; LVH with repol incl twis/ST depr--no sig change vs prior ecgs cxr: no chf echo 12/30: mild lv dil. sev red LV function (global). Nl RV. Sev LAE. Mod-sev MR. RVSP 30-40. borderline ao dil. echo 08/2013: mild lve, mild-mod dec lvef, nl rv, mod lae, mild-mod mr, mild tr , rvsp 30-40 cath 02/2016: normal cors a/p: 56 m hx systolic chf (30-40%), NICM s/p ICD, afib on eliquis, hcv, hld, htn, copd, here with foot pain. foot pain -duplex shows dvt on right, also with hx gout causing similar pain -on AC already for afib--held eliquis x3d shortly prior to admit for bruising/ lacerations on hands -? unprovoked DVT--heme following for hypercoag/malignancy w/u -gout/neuropathy tx per pmd atypical chest pain: -hx of chronic atypical chest pain - in past pt reported that he had CAD with prior [place] x 3, s/p cardiac stents x 4. However, he had a cardiac cath on in 03/09/2016 in the setting of chest pain and new ECG changes. This showed "normal coronaries" without prior PCIs. -cp currently is MSK in nature, reproducible on exam -no signs acs chronic systolic chf: -Continue ACEi and Coreg -no signs vol overload at present, cont po lasix -icd checked here 07/04/16 and showed nl fcn. No icd shocks. Cont bb for now, routine icd checks in office. Afib -rate controlled -Continue BB, dig. -cont eliquis tobacco/drug use - cessation counseling
[2017-03-14] MEDS: ALBUTEROL SO4 0.083% IH SOL 2.5 MG/3 ML VIAL.NEB. NEB SCH ×3 (11:10→23:15)
--- NOTE | 2017-03-14 13:33 | PN ---
Progress Note, Physician Chief Complaint: Mr Roberts says his R foot still has pain but is much improved from admission. No cp, sob, n/v. - Current Medication List Current Medications: Active Medications Albuterol Sulfate (Ventolin 0.083% Nebulizer Soln -) 1 amp NEB QIDR [facility] Last Admin: 03/14/17 11:10 Dose: 1 amp Alprazolam (Xanax -) 0.25 mg PO BID PRN PRN Reason: ANXIETY Apixaban (Eliquis -) 5 mg PO BID [facility] Last Admin: 03/14/17 09:41 Dose: 5 mg Atorvastatin Calcium (Lipitor -) 10 mg PO HS [facility] Last Admin: 03/13/17 22:24 Dose: 10 mg Carvedilol (Coreg -) 25 mg PO BID [facility] Last Admin: 03/14/17 09:40 Dose: 25 mg Cefuroxime Axetil (Ceftin -) 500 mg PO BID [facility] Last Admin: 03/14/17 09:41 Dose: 500 mg Digoxin (Lanoxin -) 0.125 mg PO DAILY [facility] Last Admin: 03/14/17 09:41 Dose: 0.125 mg Docusate Sodium (Colace -) 100 mg PO DAILY [facility] Last Admin: 03/14/17 09:40 Dose: 100 mg Duloxetine HCl (Cymbalta -) 60 mg PO DAILY [facility] Last Admin: 03/14/17 09:40 Dose: 60 mg Escitalopram Oxalate (Lexapro -) 10 mg PO DAILY [facility] Last Admin: 03/14/17 09:40 Dose: 10 mg Furosemide (Lasix -) 40 mg PO DAILY [facility] Last Admin: 03/14/17 09:40 Dose: 40 mg Gabapentin (Neurontin -) 300 mg PO TID [facility] Last Admin: 03/14/17 06:26 Dose: 300 mg Hydromorphone HCl (Dilaudid Injection -) 1 mg IVPUSH Q4H PRN PRN Reason: PAIN Last Admin: 03/11/17 06:05 Dose: 1 mg Ibuprofen (Motrin -) 600 mg PO TID [facility] Last Admin: 03/14/17 06:25 Dose: 600 mg Isosorbide Mononitrate (Imdur -) 30 mg PO DAILY [facility] Last Admin: 03/14/17 09:40 Dose: 30 mg Loratadine (Claritin -) 10 mg PO DAILY [facility] Last Admin: 03/14/17 09:41 Dose: 10 mg Methylprednisolone Sodium Succinate (Solu-Medrol -) 60 mg IVPB DAILY [facility] Last Admin: 03/14/17 09:40 Dose: 60 mg Oxycodone HCl (Roxicodone -) 30 mg PO Q6H PRN PRN Reason: PAIN Last Admin: 03/14/17 09:49 Dose: 30 mg Pantoprazole Sodium (Protonix -) 40 mg PO DAILY [facility] Last Admin: 03/14/17 09:40 Dose: 40 mg Potassium Chloride (K-Dur -) 10 meq PO DAILY [facility] Last Admin: 03/14/17 09:40 Dose: 10 meq Ramipril (Altace -) 10 mg PO DAILY [facility] Last Admin: 03/14/17 09:40 Dose: 10 mg - Objective Vital Signs: Vital Signs Temperature 36.9 C 03/14/17 06:00 Pulse Rate 71 03/14/17 09:41 Respiratory Rate 20 03/14/17 06:00 Blood Pressure 142/72 03/14/17 06:00 O2 Sat by Pulse Oximetry (%) 97 03/13/17 21:00 Constitutional: Yes: Well Nourished, No Distress, Calm Cardiovascular: Yes: Regular Rate and Rhythm. No: Gallop, Murmur, Rub Respiratory: Yes: Regular, CTA Bilaterally. No: Rales, Rhonchi, Wheezes Gastrointestinal: Yes: Normal Bowel Sounds, Soft. No: Distention, Tenderness Extremities: Yes: WNL Edema: No Labs: CBC, BMP 03/14/17 05:35 03/14/17 05:35 INR, PTT INR 1.38 (0.82-1.09) H 03/09/17 18:43 Problem List - Problems (1) Gout of ankle Code(s): M10.9 - GOUT, UNSPECIFIED Qualifiers: Chronicity: chronic Laterality: right (2) Atrial fibrillation Code(s): I48.91 - UNSPECIFIED ATRIAL FIBRILLATION Qualifiers: Atrial fibrillation type: chronic Qualified Code(s): I48.2 - Chronic atrial fibrillation (3) CAD (coronary artery disease) Code(s): I25.10 - ATHSCL HEART DISEASE OF [place] CORONARY ARTERY W/O ANG PCTRS (4) COPD (chronic obstructive pulmonary disease) Code(s): J44.9 - CHRONIC OBSTRUCTIVE PULMONARY DISEASE, UNSPECIFIED (5) DVT (deep venous thrombosis) Code(s): I82.409 - ACUTE EMBOLISM AND THOMBOS UNSP DEEP VN UNSP LOWER EXTREMITY Qualifiers: DVT location: lower extremity Affected thrombotic vein of extremity: tibial Chronicity: unspecified Laterality: right Qualified Code(s ): I82.441 - Acute embolism and thrombosis of right tibial vein (6) CHF (congestive heart failure) Code(s): I50.9 - HEART FAILURE, UNSPECIFIED Qualifiers: Congestive heart failure type: systolic Congestive heart failure chronicity: chronic Qualified Code(s): I50.22 - Chronic systolic ( congestive) heart failure (7) HTN (hypertension) Code(s): I10 - ESSENTIAL (PRIMARY) HYPERTENSION (8) Hyperlipidemia Code(s): E78.5 - HYPERLIPIDEMIA, UNSPECIFIED Assessment/Plan (1) Gout of ankle Assessment/Plan: -appears improved -appreciate rheumatology assistance -change to prednisone with long taper -stop IV dilaudid Code(s): M10.9 - GOUT, UNSPECIFIED Qualifiers: Chronicity: chronic Laterality: right (2) Atrial fibrillation Assessment/Plan: -rate controlled -continue eliquis and digoxin Code(s): I48.91 - UNSPECIFIED ATRIAL FIBRILLATION Qualifiers: Atrial fibrillation type: chronic Qualified Code(s): I48.2 - Chronic atrial fibrillation (3) CAD (coronary artery disease) Assessment/Plan: -cardiology following -not in exacerbation -last cath results noted as written in cardiology note Code(s): I25.10 - ATHSCL HEART DISEASE OF [place] CORONARY ARTERY W/O ANG PCTRS (4) COPD (chronic obstructive pulmonary disease) Assessment/Plan: -continue ceftin and bronchodilators Code(s): J44.9 - CHRONIC OBSTRUCTIVE PULMONARY DISEASE, UNSPECIFIED (5) DVT (deep venous thrombosis) Assessment/Plan: -continue eliquis -appreciate hematology assistance -? if secondary to immobility and not taking eliquis -CT scans reviewed Code(s): I82.409 - ACUTE EMBOLISM AND THOMBOS UNSP DEEP VN UNSP LOWER EXTREMITY Qualifiers: DVT location: lower extremity Affected thrombotic vein of extremity: tibial Chronicity: unspecified Laterality: right Qualified Code(s): I82.441 - Acute embolism and thrombosis of right tibial vein (6) CHF (congestive heart failure) Assessment/Plan: -not in exacerbation -continue lasix Code(s): I50.9 - HEART FAILURE, UNSPECIFIED Qualifiers: Congestive heart failure type: systolic Congestive heart failure chronicity: chronic Qualified Code(s): I50.22 - Chronic systolic ( congestive) heart failure (7) HTN (hypertension) Assessment/Plan: -controlled -continue current regimen Code(s): I10 - ESSENTIAL (PRIMARY) HYPERTENSION (8) Hyperlipidemia Assessment/Plan: -continue statin Code(s): E78.5 - HYPERLIPIDEMIA, UNSPECIFIED Dispo -planning for transfer to SNF when stable
--- NOTE | 2017-03-14 14:04 | PN ---
Progress Note (short form) - Note Progress Note: Patient seen and examined. Constitutional: Yes: Well Nourished, No Distress Respiratory: Yes: CTA Bilaterally. Gastrointestinal: Yes: Normal Bowel Sounds. Cardiovascular: Yes: Regular Rate and Rhythm PMI: Non-Displaced Heart Sounds: Yes: S1, S2. No: Gallop Murmur: No: Systolic Murmur, Diastolic Murmur LE: painful RLE ankle, + calf tenderness in the RLE. Neurological: Yes: Alert, Oriented (x3) Last Vital Signs Temp Pulse Resp BP Pulse Ox 98.5 F 71 20 142/72 97 03/14/17 06:00 03/14/17 09:41 03/14/17 06:00 03/14/17 06:00 03/13/17 21:00 CBC, BMP 03/14/17 05:35 03/14/17 05:35 Current Medications Generic Name Dose Route Start Last Admin Trade Name Freq PRN Reason Stop Dose Admin Albuterol Sulfate 1 amp 03/10/17 12:00 03/14/17 11:10 Ventolin 0.083% Nebulizer Soln - NEB 1 amp QIDR NESHA Administration Alprazolam 0.25 mg 03/09/17 23:13 Xanax - PO BID PRN ANXIETY Apixaban 5 mg 03/10/17 10:00 03/14/17 09:41 Eliquis - PO 5 mg BID NESHA Administration Atorvastatin Calcium 10 mg 03/10/17 22:00 03/13/17 22:24 Lipitor - PO 10 mg HS NESHA Administration Carvedilol 25 mg 03/10/17 10:00 03/14/17 09:40 Coreg - PO 25 mg BID NESHA Administration Cefuroxime Axetil 500 mg 03/09/17 23:15 03/14/17 09:41 Ceftin - PO 500 mg BID NESHA Administration Digoxin 0.125 mg 03/10/17 10:00 03/14/17 09:41 Lanoxin - PO 0.125 mg DAILY NESHA Administration Docusate Sodium 100 mg 03/10/17 10:00 03/14/17 09:40 Colace - PO 100 mg DAILY NESHA Administration Duloxetine HCl 60 mg 03/10/17 10:00 03/14/17 09:40 Cymbalta - PO 60 mg DAILY NESHA Administration Escitalopram Oxalate 10 mg 03/10/17 10:00 03/14/17 09:40 Lexapro - PO 10 mg DAILY NESHA Administration Furosemide 40 mg 03/10/17 10:00 03/14/17 09:40 Lasix - PO 40 mg DAILY NESHA Administration Gabapentin 300 mg 03/10/17 06:00 03/14/17 06:26 Neurontin - PO 300 mg TID NESHA Administration Hydromorphone HCl 1 mg 03/09/17 23:17 03/11/17 06:05 Dilaudid Injection - IVPUSH 1 mg Q4H PRN Administration PAIN Ibuprofen 600 mg 03/12/17 22:00 03/14/17 06:25 Motrin - PO 600 mg TID NESHA Administration Isosorbide Mononitrate 30 mg 03/10/17 10:00 03/14/17 09:40 Imdur - PO 30 mg DAILY NESHA Administration Loratadine 10 mg 03/10/17 10:00 03/14/17 09:41 Claritin - PO 10 mg DAILY NESHA Administration Oxycodone HCl 30 mg 03/09/17 23:13 03/14/17 09:49 Roxicodone - PO 30 mg Q6H PRN Administration PAIN Pantoprazole Sodium 40 mg 03/10/17 10:00 03/14/17 09:40 Protonix - PO 40 mg DAILY NESHA Administration Potassium Chloride 10 meq 03/10/17 10:00 03/14/17 09:40 K-Dur - PO 10 meq DAILY NESHA Administration Prednisone 60 mg 03/15/17 10:00 Deltasone - PO DAILY NESHA Ramipril 10 mg 03/10/17 10:00 03/14/17 09:40 Altace - PO 10 mg DAILY NESHA Administration Assessment/Plan: Gout flare Right DVT anemia Leucocytosis/thrombocytosis CKD A fib CHF -DVt suspect due to the inflammation in the same lower extremity, CT c/a/p no evidence of malignancy -vasculast duplex study: distal vein thrombus -jessica Conn for now, repeat study in about 2weeks -Anemia: likely ACD/ACI, continue to monitor, will f.u labs -PT eval -Gouty flare Rx per PMD. will follow
[2017-03-14] MEDS: ATORVASTATIN CA 10 MG TABLET (FP) PO SCH (22:09)
[2017-03-15 00:07] LABS: ALPHA-1-GLOBULIN 0.2 g/dL (0.0-0.4); GAMMA GLOBULIN 1.4 g/dL (0.4-1.8); GLOBULIN, TOTAL 3.3 g/dL (2.2-3.9); M-SPIKE Not Observed g/dL (Not Observed); TOTAL PROTEIN 6.3 g/dL (6.0-8.5)
[2017-03-15] MEDS: oxyCODONE HCL 5 MG TABLET PO PRN ×2 (02:26→09:38)
[2017-03-15] MEDS: IBUPROFEN 600 MG TABLET (FP) PO SCH (06:08)
[2017-03-15] MEDS: GABAPENTIN 300 MG CAPSULE (FP) PO SCH (06:09)
[2017-03-15] MEDS: ALBUTEROL SO4 0.083% IH SOL 2.5 MG/3 ML VIAL.NEB. NEB SCH ×2 (06:30→11:40)
[2017-03-15 07:28] LABS: MCHC 29.2 g/dl (32.0-35.9); MEAN CELL VOLUME 59.6 fl (80-96); MEAN PLT VOLUME 8.5 fl (7.5-11.1); PLATELET COUNT 648 K/MM3 (134-434); RDW 19.7 % (11.9-15.9); WHITE BLOOD COUNT 13.5 K/mm3 (4.0-10.0)
[2017-03-15 07:33] LABS: MCH 17.4 pg (25.7-33.7)
[2017-03-15 08:19] LABS: TOTAL CELLS COUNTED 100
[2017-03-15 08:27] LABS: ANION GAP 5 (8-16); CO2 33 mmol/L (21-32); CREATININE 1.4 mg/dL (0.7-1.3); GLUCOSE,RANDOM 112 mg/dL (74-106); MAGNESIUM 2.3 mg/dL (1.8-2.4)
[2017-03-15 08:28] LABS: PHOSPHOROUS 3.3 mg/dL (2.5-4.9)
[2017-03-15] MEDS ORDERED: PT OWN MED DRAWER 7, Y5N ONE ×2 (09:15→10:39)
[2017-03-15] MEDS: ISOSORBIDE MONONITRATE 30 MG TAB.SR.24H (FP) PO SCH (09:39)
[2017-03-15] MEDS: CARVEDILOL 25 MG TABLET (FP) PO SCH (09:39)
[2017-03-15] MEDS: LORATADINE 10 MG TABLET PO SCH (09:40)
[2017-03-15] MEDS: DULoxetine HCL 30 MG CAPSULE.DR (FP) PO SCH (09:40)
[2017-03-15] MEDS: APIXABAN 5 MG TABLET PO SCH (09:40)
[2017-03-15] MEDS: ESCITALOPRAM OXALATE 10 MG TABLET (FP) PO SCH (09:40)
[2017-03-15] MEDS: FUROSEMIDE 40 MG TABLET (FP) PO SCH (09:40)
[2017-03-15] MEDS: PANTOPRAZOLE 40 MG TABLET (FP) PO SCH (09:40)
[2017-03-15] MEDS: DOCUSATE SODIUM 100 MG CAPSULE (FP) PO SCH (09:40)
[2017-03-15] MEDS: DIGOXIN 0.125 MG TABLET (FP) PO SCH (09:40)
[2017-03-15] MEDS: RAMIPRIL 5 MG CAPSULE (FP) PO SCH (09:40)
[2017-03-15 09:41] VITALS: PULSE 72
[2017-03-15] MEDS: POTASSIUM CHLORIDE TABS 10 MEQ TABLET.ER (FP) PO SCH (09:41)
[2017-03-15] MEDS: CEFUROXIME AXETIL 500 MG TABLET PO SCH (09:41)
[2017-03-15] MEDS ORDERED: predniSONE 20 MG TABLET (UD) PO SCH (10:00)
[2017-03-15 10:13] LABS: HEMATOCRIT 34.7 % (37.5-51.0)
--- NOTE | 2017-03-15 11:47 | PN ---
Progress Note (short form) - Note Progress Note: Chief Complaint: foot pain History of Present Illness: no cp sob palps dizzy; foot still hurts - Current Medication List Current Medications Generic Name Dose Route Start Last Admin Trade Name [place] PRN Reason Stop Dose Admin Albuterol Sulfate 1 amp 03/10/17 12:00 03/15/17 06:30 Ventolin 0.083% Nebulizer Soln - NEB 1 amp QIDR NESHA Administration Alprazolam 0.25 mg 03/09/17 23:13 Xanax - PO BID PRN ANXIETY Apixaban 5 mg 03/10/17 10:00 03/15/17 09:40 Eliquis - PO 5 mg BID NESHA Administration Atorvastatin Calcium 10 mg 03/10/17 22:00 03/14/17 22:09 Lipitor - PO 10 mg HS NESHA Administration Carvedilol 25 mg 03/10/17 10:00 03/15/17 09:39 Coreg - PO 25 mg BID NESHA Administration Cefuroxime Axetil 500 mg 03/09/17 23:15 03/15/17 09:41 Ceftin - PO 500 mg BID NESHA Administration Digoxin 0.125 mg 03/10/17 10:00 03/15/17 09:40 Lanoxin - PO 0.125 mg DAILY NESHA Administration Docusate Sodium 100 mg 03/10/17 10:00 03/15/17 09:40 Colace - PO 100 mg DAILY NESHA Administration Duloxetine HCl 60 mg 03/10/17 10:00 03/15/17 09:40 Cymbalta - PO 60 mg DAILY NESHA Administration Escitalopram Oxalate 10 mg 03/10/17 10:00 03/15/17 09:40 Lexapro - PO 10 mg DAILY NESHA Administration Furosemide 40 mg 03/10/17 10:00 03/15/17 09:40 Lasix - PO 40 mg DAILY NESHA Administration Gabapentin 300 mg 03/10/17 06:00 03/15/17 06:09 Neurontin - PO 300 mg TID NESHA Administration Ibuprofen 600 mg 03/12/17 22:00 03/15/17 06:08 Motrin - PO 600 mg TID NESHA Administration Isosorbide Mononitrate 30 mg 03/10/17 10:00 03/15/17 09:39 Imdur - PO 30 mg DAILY NESHA Administration Loratadine 10 mg 03/10/17 10:00 03/15/17 09:40 Claritin - PO 10 mg DAILY NESHA Administration Oxycodone HCl 30 mg 03/09/17 23:13 03/15/17 09:38 Roxicodone - PO 30 mg Q6H PRN Administration PAIN Pantoprazole Sodium 40 mg 03/10/17 10:00 03/15/17 09:40 Protonix - PO 40 mg DAILY NESHA Administration Potassium Chloride 10 meq 03/10/17 10:00 03/15/17 09:41 K-Dur - PO Not Given DAILY NESHA Prednisone 60 mg 03/15/17 10:00 03/15/17 09:40 Deltasone - PO 60 mg DAILY NESHA Administration Ramipril 10 mg 03/10/17 10:00 03/15/17 09:40 Altace - PO 10 mg DAILY NESHA Administration - Objective Vital Signs: Vital Signs Period Temp Pulse Resp BP Sys/Sal Pulse Ox Last 24 Hr 97.6 F-98.4 F 65-78 18-20 113-154/54-84 98 Constitutional: Yes: Well Nourished, No Distress, Calm Cardiovascular: Yes: Regular Rate and Rhythm, S1, S2. No: Gallop, Murmur Respiratory: Yes: Regular, CTA Bilaterally. No: Accessory Muscle Use, Rales, Wheezes Extremities: No: Cold Edema: No Neurological: Yes: Alert, Oriented Psychiatric: No: Agitated no jaundice diaphoresis Labs: CBC, BMP 03/15/17 05:35 03/15/17 05:35 ekg: afib, rate controlled, occ v-pacing; LVH with repol incl twis/ST depr--no sig change vs prior ecgs cxr: no chf echo 12/30: mild lv dil. sev red LV function (global). Nl RV. Sev LAE. Mod-sev MR. RVSP 30-40. borderline ao dil. echo 08/2013: mild lve, mild-mod dec lvef, nl rv, mod lae, mild-mod mr, mild tr , rvsp 30-40 cath 02/2016: normal cors a/p: 56 m hx systolic chf (30-40%), NICM s/p ICD, afib on eliquis, hcv, hld, htn, copd, here with foot pain. foot pain -duplex shows dvt on right, also with hx gout causing similar pain -on AC already for afib--held eliquis x3d shortly prior to admit for bruising/ lacerations on hands -? unprovoked DVT--heme following for hypercoag/malignancy w/u -gout/neuropathy tx per pmd atypical chest pain: -hx of chronic atypical chest pain - in past pt reported that he had CAD with prior [place] x 3, s/p cardiac stents x 4. However, he had a cardiac cath on in 03/09/2016 in the setting of chest pain and new ECG changes. This showed "normal coronaries" without prior PCIs. -cp currently is MSK in nature, reproducible on exam -no signs acs chronic systolic chf: -Continue ACEi and Coreg -no signs vol overload at present, cont po lasix -icd checked here 07/04/16 and showed nl fcn. No icd shocks. Cont bb for now, routine icd checks in office. Afib -rate controlled -Continue BB, dig. -cont eliquis tobacco/drug use - cessation counseling cardiac vidales stable for dc
[2017-03-15 11:55] VITALS: BP 131/90; TEMP 98.1
--- NOTE | 2017-03-15 12:16 | DS ---
Physical Examination Vital Signs: Vital Signs Temperature 36.7 C 03/15/17 10:00 Pulse Rate 72 03/15/17 10:00 Respiratory Rate 20 03/15/17 10:00 Blood Pressure 131/90 03/15/17 10:00 O2 Sat by Pulse Oximetry (%) 97 03/15/17 09:00 Constitutional: Yes: Well Nourished, No Distress, Calm Cardiovascular: Yes: Regular Rate and Rhythm. No: Gallop, Murmur, Rub Respiratory: Yes: Regular, CTA Bilaterally. No: Rales, Rhonchi, Wheezes Gastrointestinal: Yes: Normal Bowel Sounds, Soft. No: Distention, Tenderness Extremities: Yes: WNL Edema: No Labs: CBC, BMP 03/15/17 05:35 03/15/17 05:35 Discharge Summary Reason For Visit: CP,GOUT ATTACK/DVT Current Active Problems Abdominal pain (Acute) Atrial fibrillation (Acute) CAD (coronary artery disease) (Acute) COPD (chronic obstructive pulmonary disease) (Acute) Cellulitis and abscess of leg (Acute) Chest pain (Acute) Chest pain in adult (Acute) DVT (deep venous thrombosis) (Acute) Foot pain, bilateral (Acute) Gout attack (Acute) Pain in ankle (Acute) Renal insufficiency (Acute) Hospital Course: (1) Gout of ankle Code(s): M10.9 - GOUT, UNSPECIFIED Qualifiers: Chronicity: chronic Laterality: right (2) Atrial fibrillation Code(s): I48.91 - UNSPECIFIED ATRIAL FIBRILLATION Qualifiers: Atrial fibrillation type: chronic Qualified Code(s): I48.2 - Chronic atrial fibrillation (3) CAD (coronary artery disease) Code(s): I25.10 - ATHSCL HEART DISEASE OF [place] CORONARY ARTERY W/O ANG PCTRS (4) COPD (chronic obstructive pulmonary disease) Code(s): J44.9 - CHRONIC OBSTRUCTIVE PULMONARY DISEASE, UNSPECIFIED (5) DVT (deep venous thrombosis) Code(s): I82.409 - ACUTE EMBOLISM AND THOMBOS UNSP DEEP VN UNSP LOWER EXTREMITY Qualifiers: DVT location: lower extremity Affected thrombotic vein of extremity: tibial Chronicity: unspecified Laterality: right Qualified Code(s ): I82.441 - Acute embolism and thrombosis of right tibial vein (6) CHF (congestive heart failure) Code(s): I50.9 - HEART FAILURE, UNSPECIFIED Qualifiers: Congestive heart failure type: systolic Congestive heart failure chronicity: chronic Qualified Code(s): I50.22 - Chronic systolic ( congestive) heart failure (7) HTN (hypertension) Code(s): I10 - ESSENTIAL (PRIMARY) HYPERTENSION (8) Hyperlipidemia Code(s): E78.5 - HYPERLIPIDEMIA, UNSPECIFIED Mr Roberts is a 56 year old male who comes in with a gout flare. He was admitted to the hospital and started on solumedrol and IV dilaudid. He improved and was seen by rheumatology. His steroids were decreased and he was transitioned to oral prednisone. He should continue taper as an outpatient. He was also found to have a DVT. He says he was in so much pain at home that he could not move or take his medications. DVT most likely secondary to immobility and not taking eliquis. He was seen by hematology and underwent malignant imaging. No signs of malignancy noted. He should continue follow up as an outpatient. Currently he is on oral medications only and is safe to discharge to SNF for further PT strengthening. 40 minutes spent in preparation of this discharge Condition: Stable - Instructions Diet, Activity, Other Instructions: sodium controlled diet. up with assistance, further activity per PT at SNF. Prednisone taper, start with 60mg daily and decrease by 5mg over 12 days Referrals: Humble Bell MD [Staff Physician] - Chinedu Centeno MD [Staff Physician] - Kassandra Otoole MD [Staff Physician] - Anup Pyle MD [Staff Physician] - [facility]position[facility] - Home Medications Comprehensive Discharge Medication List: Ambulatory Orders Omeprazole [Prilosec] 40 mg PO DAILY 06/23/14 Oxycodone HCl [Roxicodone] 30 mg PO Q6H PRN 07/24/14 Atorvastatin Ca [Lipitor] 10 mg PO HS 08/17/14 Apixaban [Eliquis -] 5 mg PO BID 01/12/16 Docusate Sodium [Colace -] 100 mg PO DAILY 01/12/16 Escitalopram Oxalate [Lexapro -] 10 mg PO DAILY 01/12/16 Albuterol Sulfate Inhaler - [Ventolin HFA Inhaler -] 1 - 2 inh PO QID #1 inhaler 01/15/16 Ramipril [Altace] 10 mg PO DAILY #60 capsule 05/01/16 Alprazolam 0.25 mg PO BID PRN 07/02/16 Digoxin [Digitek] 125 mcg PO DAILY 07/02/16 Nitroglycerin Sublingual [Nitrostat -] 0.4 mg SL ONCE PRN 07/02/16 Potassium Chloride 10 meq PO DAILY 07/02/16 Carvedilol [Coreg -] 25 mg PO BID #60 tablet 07/06/16 Furosemide [Lasix -] 40 mg PO DAILY 07/13/16 Duloxetine HCl [Cymbalta -] 60 mg PO DAILY #60 capsule.dr 07/19/16 Isosorbide Mononitrate [Imdur -] 30 mg PO DAILY #30 tab.sr.24h 07/19/16 Colchicine [Colcrys] 0.6 mg PO DAILY 09/19/16 Gabapentin [Neurontin -] 300 mg PO TID 09/19/16 Loratadine [Claritin -] 10 mg PO DAILY #30 tablet 10/24/16 Ibuprofen [Motrin -] 600 mg PO TID tablet 03/15/17 Prednisone [Deltasone -] 5 mg PO ASDIR #78 tab 03/15/17
[2017-03-15 16:29] LABS: Hgb A2 3.9 % (0.7-3.1)
[2017-03-16 00:10] LABS: A/G RATIO 0.8 (0.7-1.7); ALBUMIN 2.8 g/dL (2.9-4.4); GLOBULIN, TOTAL 3.3 g/dL (2.2-3.9); M-SPIKE Not Observed g/dL (Not Observed); TOTAL PROTEIN 6.1 g/dL (6.0-8.5)
== END 2017-03-15 14:35 | disposition home or self-care (01) | DRG 300 ==
LOC: JER 17:47 → JERBED 22:41 → UNDOADMOB 22:46 → J4W 03-10 00:57 → OBSVTOIN 03-11 14:16
PROVIDERS: ADMIT Specialist; ATTEND Specialist
DX: I82.441 Acute embolism and thrombosis of right tibial vein (principal); I50.22 Chronic systolic (congestive) heart failure; I42.9 Cardiomyopathy, unspecified; I13.0 Hypertensive heart and chronic kidney disease with heart failure and stage 1 through stage 4 chronic kidney disease, or unspecified chronic kidney disease; J44.9 Chronic obstructive pulmonary disease, unspecified; E78.5 Hyperlipidemia, unspecified; I25.2 Old myocardial infarction; G62.9 Polyneuropathy, unspecified; F17.210 Nicotine dependence, cigarettes, uncomplicated; I25.10 Atherosclerotic heart disease of native coronary artery without angina pectoris; N18.9 Chronic kidney disease, unspecified; I48.2 Chronic atrial fibrillation; M10.9 Gout, unspecified; K29.60 Other gastritis without bleeding; D64.9 Anemia, unspecified; M54.5 Low back pain; M47.896 Other spondylosis, lumbar region; R07.81 Pleurodynia; D47.3 Essential (hemorrhagic) thrombocythemia; Z86.19 Personal history of other infectious and parasitic diseases; Z95.810 Presence of automatic (implantable) cardiac defibrillator; Z85.038 Personal history of other malignant neoplasm of large intestine; Z96.662 Presence of left artificial ankle joint; Z96.641 Presence of right artificial hip joint; Z96.621 Presence of right artificial elbow joint; Z79.52 Long term (current) use of systemic steroids
CPT/HCPCS: 36415; 71010-TC; 71250-TC; 73610-TC-LT; 73610-TC-RT; 73630-TC-LT; 73630-TC-RT; 74176-TC; 80048; 80053; 80162; 82607; 82747; 82784; 83021; 83540; 83550; 83735; 83883; 84100; 84155; 84165; 84439; 84443; 84484; 84550; 85014; 85025; 85610; 85651; 85660; 86162; 86334; 93005; 93010; 93971-TC; 94640; 97116-GP; 99284-25; G0378; Q9967

== ENCOUNTER 2017-05-13 18:37 | Emergency (ER) | payer OTHER ==
--- NOTE | 2017-05-13 18:43 | PDOC ---
Rapid Medical Evaluation Chief Complaint: Pain Medical Evaluation: Allergies Allergy/AdvReac Type Severity Reaction Status Date / Time tomato Allergy Severe Verified 04/20/17 10:52 Beef Containing Products Allergy Verified 04/20/17 10:52 morphine Allergy Verified 04/20/17 10:52 red dye Allergy Verified 04/20/17 10:52 shellfish derived Allergy Verified 04/20/17 10:52 05/13/17 18:42 I have performed a brief in person evaluation of this patient. The patient presents with chief complaint of : "I need a pain shot" my percocet is not working anymore. Pt c/o bilateral neuropathy in his feet Pertinent PE findings: none I have ordered the following: The patient will proceed to the ER for further evaluation.
[2017-05-13 18:47] VITALS: PULSE 83; TEMP 97.9; BMI 26.4
[2017-05-13] MEDS ORDERED: KETOROLAC TROMETHAMINE 60 MG/2 ML VIAL IM ONE (19:55)
[2017-05-13] MEDS ORDERED: KETOROLAC TROMETHAMINE 60 MG/2 ML VIAL ONE (19:57)
--- NOTE | 2017-05-13 20:06 | PDOC ---
History of Present Illness - General Chief Complaint: Pain Stated Complaint: PAIN on feet Time Seen by Provider: 05/13/17 18:42 History Source: Patient Exam Limitations: No Limitations - History of Present Illness Initial Comments: 05/13/17 20:12 Patient is a 56-year-old male with past medical history of asthma, and colon cancer in remission, MA 3, A. fib, COPD, CHF, hypertension, hyperlipidemia, and neuropathy secondary to chronic back pain, who presents to the emergency department today complaining of shooting pain to his feet. Patient states that he needs "a pain shot "as his Percocets are not working. He states that he feels like his neuropathy is worse. He denies back pain and currently denies urinary incontinence, stool incontinence. Denies trauma, fall, weakness of the legs. He states when he bears weight that his feet hurt and he has shooting pain up to the back of his legs. Past History - Past Medical History Allergies/Adverse Reactions: Allergies Allergy/AdvReac Type Severity Reaction Status Date / Time tomato Allergy Severe Verified 05/13/17 18:46 Beef Containing Products Allergy Verified 05/13/17 18:46 morphine Allergy Verified 05/13/17 18:46 red dye Allergy Verified 05/13/17 18:46 shellfish derived Allergy Verified 05/13/17 18:46 Home Medications: Ambulatory Orders Omeprazole [Prilosec] 40 mg PO DAILY 06/23/14 Oxycodone HCl [Roxicodone] 30 mg PO Q6H PRN 07/24/14 Atorvastatin Ca [Lipitor] 10 mg PO HS 08/17/14 Apixaban [Eliquis -] 5 mg PO BID 01/12/16 Escitalopram Oxalate [Lexapro -] 10 mg PO DAILY 01/12/16 Albuterol Sulfate Inhaler - [Ventolin HFA Inhaler -] 1 - 2 inh PO QID #1 inhaler 01/15/16 Ramipril [Altace] 10 mg PO DAILY #60 capsule 05/01/16 Alprazolam 0.25 mg PO BID PRN 07/02/16 Digoxin [Digitek] 125 mcg PO DAILY 07/02/16 Nitroglycerin Sublingual [Nitrostat -] 0.4 mg SL ONCE PRN 07/02/16 Potassium Chloride 10 meq PO DAILY 07/02/16 Carvedilol [Coreg -] 25 mg PO BID #60 tablet 07/06/16 Furosemide [Lasix -] 40 mg PO DAILY 07/13/16 Duloxetine HCl [Cymbalta -] 60 mg PO DAILY #60 capsule. 07/19/16 Isosorbide Mononitrate [Imdur -] 30 mg PO DAILY #30 tab.sr.24h 07/19/16 Gabapentin [Neurontin -] 300 mg PO TID 09/19/16 Loratadine [Claritin -] 10 mg PO DAILY #30 tablet 10/24/16 Ibuprofen [Motrin -] 600 mg PO TID tablet 03/15/17 Ciprofloxacin [Cipro (Restricted To Id)] 500 mg PO Q12H #14 tablet 04/20/17 Tamsulosin HCl [Flomax] 0.4 mg PO DAILY #7 capsule 04/20/17 Anemia: No Asthma: Yes Cancer: Yes (COLON) Cardiac Disorders: Yes (MA X 3, A-FIB) CVA: No COPD: Yes CHF: Yes DVT: No Dementia: No Diabetes: No GI Disorders: No Disorders: No HTN: Yes Hypercholesterolemia: Yes Liver Disease: No Seizures: No Thyroid Disease: No - Surgical History Abdominal Surgery: No Appendectomy: No Cardiac Surgery: Yes (4sTENTS,pacemaker,defibrilator) Cholecystectomy: No GI Surgery: Yes (COLON RESECTION) Lung Surgery: No Neurologic Surgery: No Orthopedic Surgery: Yes ((L) ANKLE; (R)HIP; (R) ELBOW) - Family Disease History Family Disease History: Diabetes: Mother - Immunization History TDAP Vaccination: Yes Immunization Up to Date: No (2011 tetanus) - Suicide/Smoking/Psychosocial Hx Smoking Status: Yes Smoking History: Never smoked Have you smoked in the past 12 months: Yes Number of Cigarettes Smoked Daily: 3 If you are a former smoker, when did you quit?: 0 Cigars Per Day: 0 Information on smoking cessation initiated: Yes 'Breaking Loose' booklet given: 05/13/17 Hx Alcohol Use: No Drug/Substance Use Hx: No Substance Use Type: None Hx Substance Use Treatment: No Review of Systems - Review of Systems Able to Perform ROS?: Yes Comments:: 05/13/17 20:57 CONSTITUTIONAL: Absent: fever, chills, diaphoresis, generalized weakness, malaise, loss of appetite HEENT: Absent: rhinorrhea, nasal congestion, throat pain, throat swelling, difficulty swallowing, mouth swelling, ear pain, eye pain, visual Changes CARDIOVASCULAR: Absent: chest pain, loss of consciousness, palpitations, irregular heart rate, peripheral edema RESPIRATORY: Absent: cough, shortness of breath, dyspnea with exertion, orthopnea, wheezing, stridor, hemoptysis GASTROINTESTINAL: Absent: abdominal pain, abdominal distension, nausea, vomiting, diarrhea, constipation, melena, hematochezia GENITOURINARY: Absent: dysuria, frequency, urgency, hesitancy, hematuria, flank pain, genital pain MUSCULOSKELETAL: Absent: myalgia, arthralgia, joint swelling SKIN: Absent: rash, itching, pallor HEMATOLOGIC/IMMUNOLOGIC: Absent: easy bleeding, easy bruising, lymphadenopathy, frequent infections ENDOCRINE: Absent: unexplained weight gain, unexplained weight loss, heat intolerance, cold intolerance NEUROLOGIC: Present: parethesias of the lower legs/ feet b/l. Absent: headache, focal weakness, dizziness, unsteady gait, seizure, mental status changes, bladder or bowel incontinence PSYCHIATRIC: Absent: anxiety, depression, suicidal or homicidal ideation, hallucinations. Is the patient limited [place] proficient: No *Physical Exam - Vital Signs Last Vital Signs Temp Pulse Resp BP Pulse Ox 97.9 F 83 19 169/109 97 05/13/17 18:42 05/13/17 18:42 05/13/17 18:42 05/13/17 18:42 05/13/17 18:42 - Physical Exam Comments: 05/13/17 20:59 GENERAL: Well developed, well nourished. Awake and alert. No acute distress. HEENT: Normocephalic, atraumatic. PERRLA, EOMI. No conjunctival pallor. Sclera are non- icteric. Moist mucous membranes. Oropharynx is clear. NECK: Supple. Full ROM. No JVD. Carotid pulses 2+ and symmetric, without bruits. No thyromegaly. No lymphadenopathy. CARDIOVASCULAR: Irregularly irregular rate and rhythm. No murmurs, rubs, or gallops. Distal pulses are 2+ and symmetric. PULMONARY: No evidence of respiratory distress. Lungs clear to auscultation bilaterally. No wheezing, rales or rhonchi. ABDOMINAL: Soft. Non-tender. Non-distended. No rebound or guarding. No organomegaly. Normoactive bowel sounds. MUSCULOSKELETAL Normal range of motion at all joints. No bony deformities or tenderness. No CVA tenderness. EXTREMITIES: Lower extremities cold to the touch b/l. No hair noted on exam. Dusky in color. No distal pulses felt. No clubbing. No edema. No calf tenderness. SKIN: Warm and dry. Normal capillary refill. No rashes. No jaundice. NEUROLOGICAL: Alert, awake, appropriate. Cranial nerves 2-12 intact. No deficits to light touch and temperature in face, upper extremities. Decreased sensation to the plantar feet b/l. No motor deficits in the in face, upper extremities and lower extremities. Normoreflexic in the upper and lower extremities. Normal speech. Toes are down-going bilaterally. Gait is normal without ataxia. PSYCHIATRIC: Cooperative. Good eye contact. Appropriate mood and affect. ED Treatment Course - RADIOLOGY Radiology Studies Ordered: Category Date Time Status DUPLEX ART. LOWER COMPL US [US] Stat Ultrasound 05/13/17 19:54 Ordered - Medications Given in the ED: ED Medications Discontinued Medications Generic Name Dose Route Start Last Admin Trade Name Rickeyq PRN Reason Stop Dose Admin Ketorolac Tromethamine 60 mg 05/13/17 19:55 05/13/17 20:02 Toradol Injection - IM 05/13/17 19:56 60 mg ONCE ONE Administration Medical Decision Making - Medical Decision Making 05/13/17 20:01 Pt. is a 56-year-old m with multiple comorbidities, multiple MA's, CAD, afib, pacemaker, CHF, lower leg neuropathy d/t back issues presents for evaluation of his neuropathy. Given exam, concerned for vascular pathology at this time. Legs are cold to the touch with no distal pulses and no hair growth. Will send for US arterial duplex. Will give toradol for pain. 05/13/17 20:49 Pt. returns from US and is c/o that his pacemaker is hurting and that he is having chest pain. Will obtain stat EKG. Cardiac labs ordered. BP is elevated at 169/109. Will transfer to the back. Pt. stable for transfer. Sign out given to Dr. Brown and Dr. Taylor. *DC/Admit/Observation/Transfer - Referrals Referrals: Anup Pyle MD [Primary Care Provider] - - Patient Instructions - Post Discharge Activity
--- NOTE | 2017-05-13 21:00 | PDOC ---
History of Present Illness - General Chief Complaint: Pain Stated Complaint: PAIN on feet Time Seen by Provider: 05/13/17 18:42 History Source: Patient Exam Limitations: No Limitations - History of Present Illness Initial Comments: This is a 56 YOM with h/o BLE neuropathy, bulging lumbar discs and chronic pain , DVT, A-fib (on Eliquis), pacemaker placement p/w 10/10 pain in both feet (left worse than right) radiating up to his mid- calf on both sides and worsened with weight bearing and walking. He additionally notes an onset of left-sided chest discomfort radiating to his left neck and left shoulder since arriving to the ED. He uses chronic pain medications at home including oxycodone, but has not taken this or any of his other medications today at home. He additionally notes very cold feet and lower legs, palpitations, and general URI symptoms lately (cough, runny nose, sore throat). He denies any numbness, tingling, focal weakness, incontinence, trouble seeing, fever, chills, nausea, vomiting, or diarrhea lately. Past History - Past Medical History Allergies/Adverse Reactions: Allergies Allergy/AdvReac Type Severity Reaction Status Date / Time tomato Allergy Severe Verified 05/13/17 18:46 Beef Containing Products Allergy Verified 05/13/17 18:46 morphine Allergy Verified 05/13/17 18:46 red dye Allergy Verified 05/13/17 18:46 shellfish derived Allergy Verified 05/13/17 18:46 Home Medications: Ambulatory Orders Omeprazole [Prilosec] 40 mg PO DAILY 06/23/14 Oxycodone HCl [Roxicodone] 30 mg PO Q6H PRN 07/24/14 Atorvastatin Ca [Lipitor] 10 mg PO HS 08/17/14 Apixaban [Eliquis -] 5 mg PO BID 01/12/16 Escitalopram Oxalate [Lexapro -] 10 mg PO DAILY 01/12/16 Albuterol Sulfate Inhaler - [Ventolin HFA Inhaler -] 1 - 2 inh PO QID #1 inhaler 01/15/16 Ramipril [Altace] 10 mg PO DAILY #60 capsule 05/01/16 Alprazolam 0.25 mg PO BID PRN 07/02/16 Digoxin [Digitek] 125 mcg PO DAILY 07/02/16 Nitroglycerin Sublingual [Nitrostat -] 0.4 mg SL ONCE PRN 07/02/16 Potassium Chloride 10 meq PO DAILY 07/02/16 Carvedilol [Coreg -] 25 mg PO BID #60 tablet 07/06/16 Furosemide [Lasix -] 40 mg PO DAILY 07/13/16 Duloxetine HCl [Cymbalta -] 60 mg PO DAILY #60 capsule.dr 07/19/16 Isosorbide Mononitrate [Imdur -] 30 mg PO DAILY #30 tab.sr.24h 07/19/16 Gabapentin [Neurontin -] 300 mg PO TID 09/19/16 Loratadine [Claritin -] 10 mg PO DAILY #30 tablet 10/24/16 Ibuprofen [Motrin -] 600 mg PO TID tablet 03/15/17 Ciprofloxacin [Cipro (Restricted To Id)] 500 mg PO Q12H #14 tablet 04/20/17 Tamsulosin HCl [Flomax] 0.4 mg PO DAILY #7 capsule 04/20/17 Anemia: No Asthma: Yes Cancer: Yes (COLON) Cardiac Disorders: Yes (IL X 3, A-FIB) CVA: No COPD: Yes CHF: Yes DVT: No Dementia: No Diabetes: No GI Disorders: No Disorders: No HTN: Yes Hypercholesterolemia: Yes Liver Disease: No Seizures: No Thyroid Disease: No - Surgical History Abdominal Surgery: No Appendectomy: No Cardiac Surgery: Yes (4sTENTS,pacemaker,defibrilator) Cholecystectomy: No GI Surgery: Yes (COLON RESECTION) Lung Surgery: No Neurologic Surgery: No Orthopedic Surgery: Yes ((L) ANKLE; (R)HIP; (R) ELBOW) - Family Disease History Family Disease History: Diabetes: Mother - Immunization History TDAP Vaccination: Yes Immunization Up to Date: No (2011 tetanus) - Suicide/Smoking/Psychosocial Hx Smoking Status: Yes Smoking History: Never smoked Have you smoked in the past 12 months: Yes Number of Cigarettes Smoked Daily: 3 If you are a former smoker, when did you quit?: 0 Cigars Per Day: 0 Information on smoking cessation initiated: Yes 'Breaking Loose' booklet given: 05/13/17 Hx Alcohol Use: No Drug/Substance Use Hx: No Substance Use Type: None Hx Substance Use Treatment: No Review of Systems - Review of Systems Constitutional: No: Chills, Fever, Unexplained wgt Loss HEENTM: Yes: Nose Congestion, Throat Pain Respiratory: Yes: Cough. No: Shortness of Breath Cardiac (ROS): No: Chest Pain, Palpitations ABD/GI: No: Constipated, Diarrhea, Nausea, Vomiting : No: Burning, Dysuria Musculoskeletal: No: Back Pain, Neck Pain Integumentary: No: Bruising, Rash Neurological: No: Headache, Numbness, Tingling, Weakness, Dizziness Endocrine: No: Unexplained Weight Gain, Unexplained Weight Loss *Physical Exam - Vital Signs Last Vital Signs Temp Pulse Resp BP Pulse Ox 97.9 F 83 19 169/109 97 05/13/17 18:42 05/13/17 18:42 05/13/17 18:42 05/13/17 18:42 05/13/17 18:42 ED Treatment Course - LABORATORY CBC & Chemistry Diagram: 05/13/17 21:10 05/13/17 21:10 - Medications Given in the ED: ED Medications Discontinued Medications Generic Name Dose Route Start Last Admin Trade Name Rickeyq PRN Reason Stop Dose Admin Ketorolac Tromethamine 60 mg 05/13/17 19:55 05/13/17 20:02 Toradol Injection - IM 05/13/17 19:56 60 mg ONCE ONE Administration Medical Decision Making - Medical Decision Making 05/13/17 23:[address] Durant director oncology for Dr. Centeno who notes patient has never had an IL. Most likely will only need to repeat troponin and send him home if unremarkable workup. States if high suspicion can tele-obs patient but unlikely he would need IP admission. Patient seen multiple times for similar complaints, never had an IL in the past. *DC/Admit/Observation/Transfer Diagnosis at time of Disposition: Foot pain, bilateral, Chest pain in adult Atrial fibrillation Qualifiers: Atrial fibrillation type: unspecified Qualified Code(s): I48.91 - Unspecified atrial fibrillation HTN (hypertension) Qualifiers: Hypertension type: unspecified Qualified Code(s): I10 - Essential (primary) hypertension - Discharge Dispostion Disposition: HOME Condition at time of disposition: Stable Admit: No - Referrals Referrals: Anup Pyle MD [Primary Care Provider] - - Patient Instructions Additional Instructions: You were seen in the ER for foot pain and coldness, palpitations, and chest pain. We were able to feel pulses in your feet and we also did an ultrasound which showed that the arteries in your legs are functioning normally. We did an electrocardiogram which was normal, and we also did blood lab tests which were normal. We gave you your regular medications here in the ER and this brought your blood pressure back down to a manageable number. Please follow up with your regular doctors regarding the symptoms you had today. Please also follow up on your medication delivery and make sure to take all your medications tomorrow. Return to the ER for any new or worsening symptoms like severe chest pain, shortness of breath, inability to walk, or other symptoms. - Post Discharge Activity
[2017-05-13 21:43] LABS: BASOPHIL 1.2 % (0-2.0); EOSINOPHIL 2.4 % (0-4.5); MCHC 30.9 g/dl (32.0-35.9); MEAN CELL VOLUME 58.9 fl (80-96); MEAN PLT VOLUME 8.8 fl (7.5-11.1); NEUTROPHILS 53.9 % (42.8-82.8); PLATELET COUNT 385 K/MM3 (134-434); RDW 20.9 % (11.9-15.9); WHITE BLOOD COUNT 7.3 K/mm3 (4.0-10.0)
--- NOTE | 2017-05-13 21:46 | PDOC ---
Attending Attestation - Resident Resident Name: Olimpia Barrios - ED Attending Attestation I have performed the following: I have examined & evaluated the patient, The case was reviewed & discussed with the resident, I agree w/resident's findings & plan, Exceptions are as noted - HPI HPI: 05/13/17 21:45 57 yo male was in [facility] for chronic loot pain when he developed chest pain - Physicial Exam PE: 05/13/17 21:46 tall slender conversant 56 yo with c/o of palpitations and chronic foot pain 05/14/17 01:55 05/14/17 01:57 head no evidence of trauma neck supple 'lungs cgta b.l cvs [id number] abd soft,nontender ext no cellulitis skin cool feet but good dorsal pulses neuro alert and conversant - Medical Decision Making 05/14/17 02:03 duplex doppler NEGATIVE for dvt spoke w reweaver Dr Durant and if pt has 2 negative trop he can go home
[2017-05-13 21:53] LABS: MCH 18.2 pg (25.7-33.7)
[2017-05-13 22:02] LABS: INR 1.24 (0.82-1.09)
[2017-05-13 22:12] LABS: TROPONIN I 0.04 ng/ml (0.00-0.05)
[2017-05-13 22:30] LABS: ANISOCYTOSIS 2+; HYPOCHROMIA 3+; MICROCYTOSIS 3+; POIKILOCYTOSIS 2+; POLYCHROMASIA 1+
[2017-05-13 22:31] LABS: OVALOCYTE 1+; TARGET CELLS 1+
[2017-05-13 23:00] LABS: ALBUMIN 3.7 g/dl (3.4-5.0); ALK PHOS 57 U/L (45-117); ANION GAP 12 (8-16); BILIRUBIN,TOTAL 0.5 mg/dL (0.2-1.0); CALCIUM 8.3 mg/dL (8.5-10.1); CO2 30 mmol/L (21-32); CREATININE 1.3 mg/dL (0.7-1.3); GLUCOSE,RANDOM 116 mg/dL (74-106); SGOT/AST 23 U/L (15-37); SGPT/ALT 24 U/L (12-78); TOT PROT 7.3 g/dl (6.4-8.2)
[2017-05-13] MEDS ORDERED: CARVEDILOL 25 MG TABLET (FP) PO ONE (23:05)
[2017-05-13] MEDS ORDERED: FUROSEMIDE 40 MG TABLET (FP) PO ONE (23:05)
[2017-05-13] MEDS ORDERED: GABAPENTIN 300 MG CAPSULE (FP) PO ONE (23:05)
[2017-05-13] MEDS ORDERED: APIXABAN 5 MG TABLET PO SCH (23:15)
[2017-05-13] MEDS ORDERED: ISOSORBIDE MONONITRATE 30 MG TAB.SR.24H (FP) PO SCH (23:15)
[2017-05-13] MEDS ORDERED: CARVEDILOL 12.5 MG TABLET (FP) ONE (23:26)
[2017-05-13] MEDS ORDERED: GABAPENTIN 100 MG CAPSULE (FP) ONE (23:26)
[2017-05-13] MEDS ORDERED: FUROSEMIDE 40 MG TABLET (FP) ONE (23:26)
[2017-05-13] MEDS ORDERED: ISOSORBIDE MONONITRATE 60 MG TAB.SR.24H (FP) PO ONE (23:26)
[2017-05-13 23:36] VITALS: BP 159/83
[2017-05-13] MEDS ORDERED: oxyCODONE HCL 5 MG TABLET PO ONE (23:50)
[2017-05-13] MEDS ORDERED: oxyCODONE HCL 5 MG TABLET ONE (23:54)
[2017-05-14 02:10] LABS: TROPONIN I 0.04 ng/ml (0.00-0.05)
--- NOTE | 2017-05-14 10:21 | EKG ---
Test Reason : Blood Pressure : / mmHG Vent. Rate : 085 BPM Atrial Rate : 267 BPM P-R Int : 000 ms QRS Dur : 090 ms QT Int : 410 ms P-R-T Axes : 000 -01 -63 degrees QTc Int : 487 ms ATRIAL FIBRILLATION WITH OCCASIONAL ventricular-paced complexes AND WITH PREMATURE VENTRICULAR OR ABERRANTLY CONDUCTED COMPLEXES NONSPECIFIC ST AND T WAVE ABNORMALITY PROLONGED QT ABNORMAL ECG WHEN COMPARED WITH ECG OF 09-MAR-2017 18:15, VENT. RATE HAS DECREASED BY 11 BPM Confirmed by AXEL WASHINGTON MD ([id number]) on 05/14/2017 10:21:24 AM Referred By: SUGEY Confirmed By:AXEL WASHINGTON MD
== END 2017-05-14 02:40 | disposition home or self-care (01) ==
LOC: JERFT 18:37 → JER 18:37
DX: N13.2 Hydronephrosis with renal and ureteral calculous obstruction (principal); Z87.442 Personal history of urinary calculi; E11.9 Type 2 diabetes mellitus without complications; Z79.84 Long term (current) use of oral hypoglycemic drugs; E78.00 Pure hypercholesterolemia, unspecified
CPT/HCPCS: 36415; 80053; 82550; 84484; 85025; 85610; 93005; 93010; 93925-TC; 99281-25

== ENCOUNTER → 2017-05-22 | Emergency (ER) | payer OTHER ==
--- NOTE | 2017-05-22 16:09 | PDOC ---
Rapid Medical Evaluation Time Seen by Provider: 05/22/17 16:08 Medical Evaluation: Allergies Allergy/AdvReac Type Severity Reaction Status Date / Time tomato Allergy Severe Verified 05/13/17 18:46 Beef Containing Products Allergy Verified 05/13/17 18:46 morphine Allergy Verified 05/13/17 18:46 red dye Allergy Verified 05/13/17 18:46 shellfish derived Allergy Verified 05/13/17 18:46 05/22/17 16:08 I have performed a brief in-person evaluation of this patient. The patient presents with a chief complaint of: elevated blood pressure found at home on his machine earlier today. He noted it to be 190/100 but then he took his medications, ~ ramipril and digoxin and now while in triage pt noted to have bp 168/90 Pertinent physical exam findings: Pt denies headache, dizzy, lightheaded, sycopnal or recent head trauma No orders have been placed. The patient will proceed to the ED for further evaluation. 05/22/17 16:12 Discharge Disposition - Diagnosis HTN (hypertension) - Referrals - Patient Instructions - Post Discharge Activity
[2017-05-22 16:11] VITALS: BP 160/95; PULSE 97; TEMP 97.5; BMI 28.0
--- NOTE | 2017-05-22 17:54 | PDOC ---
History of Present Illness - General History Source: Patient Exam Limitations: No Limitations - History of Present Illness Initial Comments: 05/22/17 18:01 The patient is a 56 year old male with a significant past medical history of asthma, colon CA s/p colon resection, MS (x3), A-fib, s/p pacemaker, COPD, CHF with an EF of 37%, HTN, HLD, and neuropathy who presents to the ED with an episode of altered mental status earlier today. The patient reports he was at the store earlier this morning when he got lost and became confused. Patient states a friend found him in the store and took the patient home. Patient is unable to recall the friend that took him back home. He reports a gradual onset of nausea, vomiting, and lightheadedness later on in the day. Patient states he checked his blood pressure and it was 215/114. Upon arrival to the ED, patient states he is at his mental baseline and is intermittently crying upon interview and examination. Denies similar symptoms in the past. Patient takes pain medication for chronic pain but denies the use of new medication. No known CVA before. Denies fever or chills. Denies chest pain or shortness of breath. Denies focal numbness, weakness or tingling. Social hx: Reports cigarette use. Denies drug use. PCP: Dr. Pyle <Fredi Tineo - Last Filed: 05/22/17 18:55> <Mary Daniels - Last Filed: 05/22/17 19:07> - General Chief Complaint: Blood Pressure Problem Stated Complaint: ELEVATED BP Time Seen by Provider: 05/22/17 16:08 Past History <Fredi Tineo - Last Filed: 05/22/17 18:55> - Past Medical History Anemia: No Asthma: Yes Cancer: Yes (COLON) Cardiac Disorders: Yes (MS X 3, A-FIB) CVA: No COPD: Yes CHF: Yes DVT: No Dementia: No Diabetes: No GI Disorders: No Disorders: No HTN: Yes Hypercholesterolemia: Yes Liver Disease: No Seizures: No Thyroid Disease: No Other medical history: GOUT - Surgical History Abdominal Surgery: No Appendectomy: No Cardiac Surgery: Yes (4sTENTS,pacemaker,defibrilator) Cholecystectomy: No GI Surgery: Yes (COLON RESECTION) Lung Surgery: No Neurologic Surgery: No Orthopedic Surgery: Yes ((L) ANKLE; (R)HIP; (R) ELBOW) - Family Disease History Family Disease History: Diabetes: Mother - Immunization History TDAP Vaccination: Yes Immunization Up to Date: No (2011 tetanus) - Suicide/Smoking/Psychosocial Hx Smoking Status: Yes Smoking History: Never smoked Have you smoked in the past 12 months: Yes Number of Cigarettes Smoked Daily: 3 If you are a former smoker, when did you quit?: 0 Cigars Per Day: 0 'Breaking Loose' booklet given: 05/13/17 Hx Alcohol Use: No Drug/Substance Use Hx: No Substance Use Type: None Hx Substance Use Treatment: No <Mary Daniels - Last Filed: 05/22/17 19:07> - Past Medical History Allergies/Adverse Reactions: Allergies Allergy/AdvReac Type Severity Reaction Status Date / Time tomato Allergy Severe Verified 05/22/17 16:11 Beef Containing Products Allergy Verified 05/22/17 16:11 morphine Allergy Verified 05/22/17 16:11 red dye Allergy Verified 05/22/17 16:11 shellfish derived Allergy Verified 05/22/17 16:11 Home Medications: Ambulatory Orders Omeprazole [Prilosec] 40 mg PO DAILY 06/23/14 Oxycodone HCl [Roxicodone] 30 mg PO Q6H PRN 07/24/14 Atorvastatin Ca [Lipitor] 10 mg PO HS 08/17/14 Apixaban [Eliquis -] 5 mg PO BID 01/12/16 Escitalopram Oxalate [Lexapro -] 10 mg PO DAILY 01/12/16 Albuterol Sulfate Inhaler - [Ventolin HFA Inhaler -] 1 - 2 inh PO QID #1 inhaler 01/15/16 Ramipril [Altace] 10 mg PO DAILY #60 capsule 05/01/16 Alprazolam 0.25 mg PO BID PRN 07/02/16 Digoxin [Digitek] 125 mcg PO DAILY 07/02/16 Nitroglycerin Sublingual [Nitrostat -] 0.4 mg SL ONCE PRN 07/02/16 Potassium Chloride 10 meq PO DAILY 07/02/16 Carvedilol [Coreg -] 25 mg PO BID #60 tablet 07/06/16 Furosemide [Lasix -] 40 mg PO DAILY 07/13/16 Duloxetine HCl [Cymbalta -] 60 mg PO DAILY #60 capsule.dr 07/19/16 Isosorbide Mononitrate [Imdur -] 30 mg PO DAILY #30 tab.sr.24h 07/19/16 Gabapentin [Neurontin -] 300 mg PO TID 09/19/16 Loratadine [Claritin -] 10 mg PO DAILY #30 tablet 10/24/16 Ibuprofen [Motrin -] 600 mg PO TID tablet 03/15/17 Ciprofloxacin [Cipro (Restricted To Id)] 500 mg PO Q12H #14 tablet 04/20/17 Tamsulosin HCl [Flomax] 0.4 mg PO DAILY #7 capsule 04/20/17 Review of Systems - Review of Systems Able to Perform ROS?: Yes Comments:: 05/22/17 18:01 GENERAL/CONSTITUTIONAL: No fever or chills. No weakness. HEAD, EYES, EARS, NOSE AND THROAT: No change in vision. No ear pain or discharge. No sore throat. CARDIOVASCULAR: + high blood pressure. No chest pain or shortness of breath. RESPIRATORY: No cough, wheezing, or hemoptysis. GASTROINTESTINAL: + nausea, vomiting. No diarrhea or constipation. GENITOURINARY: No dysuria, frequency, or change in urination. MUSCULOSKELETAL: No joint or muscle swelling or pain. No neck or back pain. SKIN: No rash NEUROLOGIC: + altered mental status, lightheadedness. No headache, vertigo, loss of consciousness, or change in strength. ENDOCRINE: No increased thirst. No abnormal weight change. HEMATOLOGIC/LYMPHATIC: No anemia, easy bleeding, or history of blood clots. ALLERGIC/IMMUNOLOGIC: No hives or skin allergy. All Other Systems: Reviewed and Negative <Fredi Tineo - Last Filed: 05/22/17 18:55> *Physical Exam - Vital Signs Last Vital Signs Temp Pulse Resp BP Pulse Ox 97.5 F L 97 H 20 160/95 97 05/22/17 16:07 05/22/17 16:07 05/22/17 16:07 05/22/17 16:07 05/22/17 16:07 - Physical Exam Comments: 05/22/17 18:01 GENERAL: Awake, alert, and fully oriented. HEAD: No signs of trauma EYES: PERRLA, EOMI, sclera anicteric, conjunctiva clear ENT: Auricles normal inspection, hearing grossly normal, nares patent, oropharynx clear without exudates. Moist mucosa NECK: Normal ROM, supple, no lymphadenopathy, JVD, or masses LUNGS: + faint expiratory wheezes bilaterally. no crackles HEART: Regular rate and rhythm, normal S1 and S2, no murmurs, rubs or gallops ABDOMEN: Soft, nontender, normoactive bowel sounds. No guarding, no rebound. No masses EXTREMITIES: Normal range of motion, no edema. No clubbing or cyanosis. No cords, erythema, or tenderness NEUROLOGICAL: + cranial nerves II-XII intact. Right sided finger to nose normal. Left sided dysmetria. 5/5 strength bilaterally in the upper extremities. Left lower extremity strength. Right lower extremity 4+/5 strength. A&O x 3 but having difficulty with short term memory. SKIN: Warm, Dry, normal turgor, no rashes or lesions noted. <Fredi Tineo - Last Filed: 05/22/17 18:55> - Vital Signs Last Vital Signs Temp Pulse Resp BP Pulse Ox 97.5 F L 97 H 20 160/95 97 05/22/17 16:07 05/22/17 16:07 05/22/17 16:07 05/22/17 16:07 05/22/17 16:07 <Mary Daniels - Last Filed: 05/22/17 19:07> Heart Score/ECG Review #1 General ECG Interpretation: Normal Rate, Normal Intervals Compared to previous ECG there are: Other (st depression V5/. v6, afib. old compar 03/09/17) - ECG Intrepretation Rhythm: Irregularly Irregular Comment:: 05/22/17 19:07 afib <Mary Daniels - Last Filed: 05/22/17 19:07> ED Treatment Course - LABORATORY CBC & Chemistry Diagram: 05/22/17 18:00 05/22/17 18:00 - RADIOLOGY Radiograph Interpretation: 05/22/17 18:55 CT/HEAD W/O CONTRAST Impression: No CT evidence of acute intracranial pathology. Reported by: Arnoldo Sinclair <Fredi Tineo - Last Filed: 05/22/17 18:55> - LABORATORY CBC & Chemistry Diagram: 05/22/17 18:00 05/22/17 18:00 - RADIOLOGY Radiology Studies Ordered: Category Date Time Status HEAD CT WITHOUT CONTRAST [CT] Stat CT Scan 05/22/17 17:47 Ordered <Mary Daniels - Last Filed: 05/22/17 19:07> Medical Decision Making - Medical Decision Making 05/22/17 17:53 56-year-old male with a history of hypertension, CHF with an EF of 36%, pacemaker, CAD prior MS, chronic tobacco use here today with an episode of confusion and transient memory loss with associated elevated blood pressure around 220/110. Patient denies any prior stroke no focal weakness no history of memory loss in the past denies drug use states this happened around earlier this a.m. and now feels his memory is back at his baseline. On exam patient is awake alert no acute distress lungs are noted for bilateral faint wheezing cardiac exam is unremarkable neurological exam is noted for mild dysmetria on the left upper extremity otherwise normal finger to nose. Bilateral upper strength is 5 out of 5. Patient has bilateral lower extremity weakness on hip flexion left is slightly greater then right patient states this is old Differential early Alzheimer's, TIA, ICH, CVA, hypertensive emergency, plan: CT head, chest x-ray, EKG, labs including troponin. Patient may require observation for concerns for transient memory loss and he lives alone 05/22/17 19:00 Awaiting his CAT scan from into an argument with the mineral technologist and refusing to stay for further evaluation took out his iv was seen walking out of the ED. CT head was unremarkable EKG was unchanged and labs are unremarkable <Mary Daniels - Last Filed: 05/22/17 19:07> *DC/Admit/Observation/Transfer - Attestations Scribe Attestion: 05/22/17 18:02 Documentation prepared by Fredi Tineo, acting as medical tech for Mary Daniels MD <Fredi Tineo - Last Filed: 05/22/17 18:55> <Mary Daniels - Last Filed: 05/22/17 19:07> Diagnosis at time of Disposition: HTN (hypertension) - Discharge Dispostion Disposition: ELOPED Condition at time of disposition: Good - Referrals Referrals: Anup Pyle MD [Primary Care Provider] - - Patient Instructions Printed Discharge Instructions: DI for High Blood Pressure - Post Discharge Activity
[2017-05-22 18:34] LABS: ALBUMIN 3.7 g/dl (3.4-5.0); ANION GAP 9 (8-16); BILIRUBIN,TOTAL 0.5 mg/dL (0.2-1.0); CALCIUM 8.7 mg/dL (8.5-10.1); CO2 29 mmol/L (21-32); CREATININE 1.1 mg/dL (0.7-1.3); GLUCOSE,RANDOM 113 mg/dL (74-106); SGPT/ALT 19 U/L (12-78); TOT PROT 7.3 g/dl (6.4-8.2)
[2017-05-22 18:36] LABS: ALK PHOS 53 U/L (45-117); CPK 200 IU/L (39-308); TROPONIN I 0.03 ng/ml (0.00-0.05)
[2017-05-22 18:39] LABS: SGOT/AST 24 U/L (15-37)
[2017-05-22 19:57] LABS: BASOPHIL 0.9 % (0-2.0); EOSINOPHIL 4.2 % (0-4.5); MEAN CELL VOLUME 60.1 fl (80-96); MEAN PLT VOLUME 8.6 fl (7.5-11.1); NEUTROPHILS 57.8 % (42.8-82.8); PLATELET COUNT 337 K/MM3 (134-434); RDW 20.6 % (11.9-15.9)
[2017-05-22 22:30] LABS: ANISOCYTOSIS 3+; HYPOCHROMIA 3+; MICROCYTOSIS 3+; OVALOCYTE 2+; TARGET CELLS 1+; TEAR DROP CELLS 2+
--- NOTE | 2017-05-23 11:36 | EKG ---
Test Reason : Blood Pressure : / mmHG Vent. Rate : 077 BPM Atrial Rate : 375 BPM P-R Int : 000 ms QRS Dur : 094 ms QT Int : 404 ms P-R-T Axes : 000 031 -60 degrees QTc Int : 457 ms ATRIAL FIBRILLATION MODERATE VOLTAGE CRITERIA FOR LVH, MAY BE NORMAL VARIANT NONSPECIFIC ST AND T WAVE ABNORMALITY ABNORMAL ECG WHEN COMPARED WITH ECG OF 13-MAY-2017 20:39, ATRIAL FIBRILLATION HAS REPLACED ELECTRONIC VENTRICULAR PACEMAKER Confirmed by JAMES BRYANT, GEORGIE ([id number]) on 05/23/2017 11:35:55 AM Referred By: Confirmed By:GEORGIE RAMIREZ MD
== END | disposition left against medical advice (07) ==
LOC: JER 16:06
DX: I10 Essential (primary) hypertension (principal); J45.909 Unspecified asthma, uncomplicated; I48.91 Unspecified atrial fibrillation; J44.9 Chronic obstructive pulmonary disease, unspecified; I50.9 Heart failure, unspecified; E78.5 Hyperlipidemia, unspecified; Z85.038 Personal history of other malignant neoplasm of large intestine; I25.2 Old myocardial infarction
CPT/HCPCS: 36415; 70450-TC; 80053; 82550; 82553; 84484; 85025; 93005; 93010; 99283-25

== ENCOUNTER 2017-06-26 00:48 | Emergency (ER) | payer OTHER ==
[2017-06-26 02:05] VITALS: BP 134/67; PULSE 56; TEMP 97.6; BMI 26.6
[2017-06-26] MEDS ORDERED: KETOROLAC TROMETHAMINE 30 MG/1 ML VIAL IM ONE (02:14)
--- NOTE | 2017-06-26 02:14 | PDOC ---
History of Present Illness - General Chief Complaint: Pain Stated Complaint: PAIN, Time Seen by Provider: 06/26/17 02:04 History Source: Patient - History of Present Illness Initial Comments: 06/26/17 03:05 56 year old male c/o b/l lower extremity neuropathy, patient request toradol for pain relief. patient has CAD, pacemaker, arthritis, grout, neuropathy pain, chronic c/o b/l lower extremity pain. Past History - Past Medical History Allergies/Adverse Reactions: Allergies Allergy/AdvReac Type Severity Reaction Status Date / Time tomato Allergy Severe Verified 06/26/17 01:30 Beef Containing Products Allergy Verified 06/26/17 01:30 morphine Allergy Verified 06/26/17 01:30 red dye Allergy Verified 06/26/17 01:30 shellfish derived Allergy Verified 06/26/17 01:30 Home Medications: Ambulatory Orders Omeprazole [Prilosec] 40 mg PO DAILY 06/23/14 Oxycodone HCl [Roxicodone] 30 mg PO Q6H PRN 07/24/14 Atorvastatin Ca [Lipitor] 10 mg PO HS 08/17/14 Apixaban [Eliquis -] 5 mg PO BID 01/12/16 Escitalopram Oxalate [Lexapro -] 10 mg PO DAILY 01/12/16 Albuterol Sulfate Inhaler - [Ventolin HFA Inhaler -] 1 - 2 inh PO QID #1 inhaler 01/15/16 Ramipril [Altace] 10 mg PO DAILY #60 capsule 05/01/16 Alprazolam 0.25 mg PO BID PRN 07/02/16 Digoxin [Digitek] 125 mcg PO DAILY 07/02/16 Nitroglycerin Sublingual [Nitrostat -] 0.4 mg SL ONCE PRN 07/02/16 Potassium Chloride 10 meq PO DAILY 07/02/16 Carvedilol [Coreg -] 25 mg PO BID #60 tablet 07/06/16 Furosemide [Lasix -] 40 mg PO DAILY 07/13/16 Duloxetine HCl [Cymbalta -] 60 mg PO DAILY #60 capsule. 07/19/16 Isosorbide Mononitrate [Imdur -] 30 mg PO DAILY #30 tab.sr.24h 07/19/16 Gabapentin [Neurontin -] 300 mg PO TID 09/19/16 Loratadine [Claritin -] 10 mg PO DAILY #30 tablet 10/24/16 Ibuprofen [Motrin -] 600 mg PO TID tablet 03/15/17 Ciprofloxacin [Cipro (Restricted To Id)] 500 mg PO Q12H #14 tablet 04/20/17 Tamsulosin HCl [Flomax] 0.4 mg PO DAILY #7 capsule 04/20/17 Anemia: No Asthma: Yes Cancer: Yes (COLON) Cardiac Disorders: Yes (DC X 3, A-FIB) CVA: No COPD: Yes CHF: Yes DVT: No Dementia: No Diabetes: No GI Disorders: No Disorders: No HTN: Yes Hypercholesterolemia: Yes Liver Disease: No Seizures: No Thyroid Disease: No - Surgical History Abdominal Surgery: No Appendectomy: No Cardiac Surgery: Yes (4sTENTS,pacemaker,defibrilator) Cholecystectomy: No GI Surgery: Yes (COLON RESECTION) Lung Surgery: No Neurologic Surgery: No Orthopedic Surgery: Yes ((L) ANKLE; (R)HIP; (R) ELBOW) - Family Disease History Family Disease History: Diabetes: Mother - Immunization History TDAP Vaccination: Yes Immunization Up to Date: No (2011 tetanus) - Suicide/Smoking/Psychosocial Hx Smoking Status: Yes Smoking History: Current every day smoker Have you smoked in the past 12 months: No Number of Cigarettes Smoked Daily: 4 If you are a former smoker, when did you quit?: 0 Cigars Per Day: 0 Information on smoking cessation initiated: No 'Breaking Loose' booklet given: 05/13/17 Hx Alcohol Use: No Drug/Substance Use Hx: No Substance Use Type: None Hx Substance Use Treatment: No Trauma Specific PMHX - Complaint Specific PMHX Back Injury: Yes Review of Systems - Review of Systems Able to Perform ROS?: Yes Is the patient limited Kyrgyz proficient: No Musculoskeletal: Yes: Other (b/l lower extremity pain) *Physical Exam - Vital Signs Last Vital Signs Temp Pulse Resp BP Pulse Ox 97.6 F 56 L 14 134/67 95 06/26/17 01:30 06/26/17 01:30 06/26/17 01:30 06/26/17 01:30 06/26/17 01:30 - Physical Exam General Appearance: Yes: Appropriately Dressed Respiratory/Chest: positive: Lungs Clear, Normal Breath Sounds Cardiovascular: positive: Regular Rhythm, Regular Rate Extremity: positive: Normal Capillary Refill, Other (cold lower extremity) Integumentary: positive: Normal Color, Dry, Warm Neurologic: positive: Fully Oriented, Alert, Normal Mood/Affect Progress Note - Progress Note Progress Note: A; neuropathy pain P: toradol neurology outpatient follow up *DC/Admit/Observation/Transfer Diagnosis at time of Disposition: Neuropathy - Discharge Dispostion Disposition: HOME - Referrals Referrals: Anup Pyle MD [Primary Care Provider] - - Patient Instructions Printed Discharge Instructions: Peripheral Neuropathy - Post Discharge Activity
--- NOTE | 2017-06-26 02:42 | PDOC ---
*Physical Exam - Vital Signs Last Vital Signs Temp Pulse Resp BP Pulse Ox 97.6 F 56 L 14 134/67 95 06/26/17 01:30 06/26/17 01:30 06/26/17 01:30 06/26/17 01:30 06/26/17 01:30 Medical Decision Making - Medical Decision Making 06/26/17 02:41 agree with care from EMILIANO Babcock *DC/Admit/Observation/Transfer Diagnosis at time of Disposition: Neuropathy - Discharge Dispostion Disposition: HOME Condition at time of disposition: Good - Referrals Referrals: Anup Pyle MD [Primary Care Provider] - - Patient Instructions Printed Discharge Instructions: Peripheral Neuropathy - Post Discharge Activity
== END 2017-06-26 04:00 | disposition home or self-care (01) ==
LOC: JER 00:48
PROC: 3E0233Z Introduction of Anti-inflammatory into Muscle, Percutaneous Approach (ICD-10-PCS; principal; 2017-06-26)
DX: G62.9 Polyneuropathy, unspecified (principal); I25.10 Atherosclerotic heart disease of native coronary artery without angina pectoris; Z95.0 Presence of cardiac pacemaker; M19.90 Unspecified osteoarthritis, unspecified site; F17.210 Nicotine dependence, cigarettes, uncomplicated
CPT/HCPCS: 96372; 99283-25

== ENCOUNTER 2017-08-21 11:38 | Emergency (ER) | payer OTHER ==
[2017-08-21 11:45] VITALS: BMI 24.3
--- NOTE | 2017-08-21 11:51 | PDOC ---
*Physical Exam - Vital Signs Last Vital Signs Temp Pulse Resp BP Pulse Ox 97.9 F 58 L 19 140/67 100 08/21/17 11:42 08/21/17 11:42 08/21/17 11:42 08/21/17 11:42 08/21/17 11:42 - Physical Exam Comments: 08/21/17 11:51 The patient was examined by [EMILIANO Guerin] under my direct supervision. I personally evaluated the patient. I concur with the above findings and the plan of care. *DC/Admit/Observation/Transfer - Referrals Referrals: Anup Pyle MD [Primary Care Provider] - - Patient Instructions - Post Discharge Activity
[2017-08-21] MEDS ORDERED: MAGNESIUM HYDROX 2400MG/30ML ORAL SUSPENSION 30 ML CUP PO ONE (12:06)
[2017-08-21] MEDS ORDERED: MINERAL OIL ENEMA 133 ML ENEMA PR ONE (12:06)
[2017-08-21] MEDS ORDERED: DOCUSATE SODIUM 100 MG CAPSULE (FP) PO ONE ×2 (12:06→13:07)
[2017-08-21] MEDS ORDERED: LORazepam 0.5 MG TABLET PO ONE (13:04)
--- NOTE | 2017-08-21 13:09 | PDOC ---
History of Present Illness - General Chief Complaint: Pain Stated Complaint: FEET NUMBNESS, ABD PAIN Time Seen by Provider: 08/21/17 11:51 History Source: Patient Exam Limitations: No Limitations - History of Present Illness Travel History: No Initial Comments: 08/21/17 13:05 HPI: This 57-year-old male who presents to the emergency room is very well- known to [facility]. He is seen numerous times throughout the course of the year. His last visit which June. He has chronic lower extremity numbness and neuropathy which she takes Neurontin for. He has PVD that is pretty significant. He has lower back pain that is chronic requires him to use a cane. He apparently takes oxycodone and Percocet for this pain. He is not consistent in taking his stool softeners and is not complaining of abdominal pain with constipation. He is also complaining of lower extremity pain and numbness. This is not new and there is no recent trauma. He also states that she feels slightly anxious. Chief Compliant: Abdominal pain complaining of constipation PMH: HTN, PPM, CAD, OA, AF, [place] x3, COPD, CHF, HLD, On eliquest FH: Pt has not recently traveled outside the country in the last 30 days. Pt has not been in contact with people who have traveled out of the country, in contact with people who have been ill with fever, n, v, d. SH: smoking use: + current daily smoker illicit drug use: NONE alcohol use: NONE employment/:disability uses a cane for ambulatory PSH: cardiac stent x 4, colon resection, multiple ortho surgery noted with hardware on xrays Home med use noted on AUG Allergies:multiple noted on AUG Immunizations: PCP: Dr. Pyle Past History - Travel Traveled outside of the country in the last 30 days: No Close contact w/someone who was outside of country & ill: No - Past Medical History Allergies/Adverse Reactions: Allergies Allergy/AdvReac Type Severity Reaction Status Date / Time tomato Allergy Severe Verified 08/21/17 11:43 Beef Containing Products Allergy Verified 08/21/17 11:43 morphine Allergy Verified 08/21/17 11:43 red dye Allergy Verified 08/21/17 11:43 shellfish derived Allergy Verified 08/21/17 11:43 Home Medications: Ambulatory Orders Omeprazole [Prilosec] 40 mg PO DAILY 06/23/14 Oxycodone HCl [Roxicodone] 30 mg PO Q6H PRN 07/24/14 Atorvastatin Ca [Lipitor] 10 mg PO HS 08/17/14 Apixaban [Eliquis -] 5 mg PO BID 01/12/16 Escitalopram Oxalate [Lexapro -] 10 mg PO DAILY 01/12/16 Albuterol Sulfate Inhaler - [Ventolin HFA Inhaler -] 1 - 2 inh PO QID #1 inhaler 01/15/16 Ramipril [Altace] 10 mg PO DAILY #60 capsule 05/01/16 Alprazolam 0.25 mg PO BID PRN 07/02/16 Digoxin [Digitek] 125 mcg PO DAILY 07/02/16 Nitroglycerin Sublingual [Nitrostat -] 0.4 mg SL ONCE PRN 07/02/16 Potassium Chloride 10 meq PO DAILY 07/02/16 Carvedilol [Coreg -] 25 mg PO BID #60 tablet 07/06/16 Furosemide [Lasix -] 40 mg PO DAILY 07/13/16 Duloxetine HCl [Cymbalta -] 60 mg PO DAILY #60 capsule. 07/19/16 Isosorbide Mononitrate [Imdur -] 30 mg PO DAILY #30 tab.sr.24h 07/19/16 Gabapentin [Neurontin -] 300 mg PO TID 09/19/16 Loratadine [Claritin -] 10 mg PO DAILY #30 tablet 10/24/16 Ibuprofen [Motrin -] 600 mg PO TID tablet 03/15/17 Ciprofloxacin [Cipro (Restricted To Id)] 500 mg PO Q12H #14 tablet 04/20/17 Tamsulosin HCl [Flomax] 0.4 mg PO DAILY #7 capsule 04/20/17 Anemia: No Asthma: Yes Cancer: Yes (COLON) Cardiac Disorders: Yes ([place] X 3, A-FIB) CVA: No COPD: Yes CHF: Yes DVT: No Dementia: No Diabetes: No GI Disorders: No Disorders: No HTN: Yes Hypercholesterolemia: Yes Liver Disease: No Seizures: No Thyroid Disease: No - Surgical History Abdominal Surgery: No Appendectomy: No Cardiac Surgery: Yes (4sTENTS,pacemaker,defibrilator) Cholecystectomy: No GI Surgery: Yes (COLON RESECTION) Lung Surgery: No Neurologic Surgery: No Orthopedic Surgery: Yes ((L) ANKLE; (R)HIP; (R) ELBOW) - Family Disease History Family Disease History: Diabetes: Mother - Immunization History TDAP Vaccination: Yes Immunization Up to Date: No (2011 tetanus) - Suicide/Smoking/Psychosocial Hx Smoking Status: Yes Smoking History: Never smoked Have you smoked in the past 12 months: Yes Number of Cigarettes Smoked Daily: 3 If you are a former smoker, when did you quit?: 0 Cigars Per Day: 0 Information on smoking cessation initiated: No 'Breaking Loose' booklet given: 05/13/17 Hx Alcohol Use: No Drug/Substance Use Hx: No Substance Use Type: None Hx Substance Use Treatment: No Abd/GI Specific PMHX - Complaint Specific PMHX Other History: : Resection Review of Systems - Review of Systems Able to Perform ROS?: Yes Is the patient limited Malawian proficient: No Constitutional: No: Symptoms Reported HEENTM: No: Symptoms Reported Respiratory: No: Symptoms reported Cardiac (ROS): No: Symptoms Reported ABD/GI: Yes: Abdominal Distended, Constipated, Abdominal cramping, Other (last bowel movement 3 days ago). No: Diarrhea, Difficulty Swallowing, Nausea, Rectal Bleeding, Vomiting, Tarry Stools : No: Symptoms Reported Musculoskeletal: Yes: Muscle Pain, Other (lower extremities bilaterally with numbness and tingling as well as pain and neuropathy). No: Joint Pain, Joint Swelling, Muscle Weakness, Neck Pain Neurological: Yes: See HPI, Numbness, Paresthesia, Weakness, Unsteady Gait ( uses cane). No: Dizziness Psychiatric: Yes: Anxiety Endocrine: No: Symptoms Reported Hematologic/Lymphatic: No: Symptoms Reported *Physical Exam - Vital Signs Last Vital Signs Temp Pulse Resp BP Pulse Ox 97.9 F 58 L 19 140/67 100 08/21/17 11:42 08/21/17 11:42 08/21/17 11:42 08/21/17 11:42 08/21/17 11:42 - Physical Exam General Appearance: Yes: Disheveled HEENT: positive: Normal Voice Respiratory/Chest: positive: Lungs Clear Cardiovascular: positive: Regular Rate Gastrointestinal/Abdominal: positive: Normal Bowel Sounds, Flat, Distended (mild ). negative: Guarding, Rebound, Tenderness, Hernia, Hepatomegaly, Spleenomegaly Musculoskeletal: positive: Decreased Range of Motion (lower extremities), Vertebral Tenderness (chronically) Extremity: positive: Delayed Capillary Refill, Pedal Edema, Swelling Integumentary: positive: Normal Color, Dry, Warm Neurologic: positive: Fully Oriented, Alert, Motor Strength 10/19 ED Treatment Course - RADIOLOGY Radiology Studies Ordered: Category Date Time Status ABDOMEN FLAT & UPRIGHT [RAD] Stat Radiology 08/21/17 12:06 Taken Medical Decision Making - Medical Decision Making 08/21/17 13:13 Patient initially seen and examined. Patient presents with multiple complaints including constipation, last bowel movement 3 days ago. Is also complaining of lower extremity numbness, tingling, neuropathy pain. He does take OxyContin and Percocet for his lower extremity pain as well as his lower back in. He also states he is having some anxiety and takes Ativan when necessary but he apparently ran out. Plan -AXR -stool softners -enema -ativan po x 1 now Pt noted to be constipated, although he took stool softners, metemucil at home, it was not successful. He takes daily narcotics and is poorly mobile. Enema given here and discharged home. He will have to continue taking laxatives at home until clear. Pt is a noncompliant pt and will be given clear instructions to follow. *DC/Admit/Observation/Transfer Diagnosis at time of Disposition: Lumbar radiculopathy, Neuropathy, Abdominal pain - Discharge Dispostion Disposition: HOME Condition at time of disposition: Stable Admit: No - Referrals Referrals: Anup Pyle MD [Primary Care Provider] - - Patient Instructions Printed Discharge Instructions: DI for Constipation, Increased Dietary Fiber May Improve Constipation Conditions With Pelvic Zackery Additional Instructions: Discharge instructions 1. Please follow up with your primary physician within the next few days and explain that you have been seen here in the Emergency Room. 2. If you experience any worsening of symptoms, please return to the ER 3. Rest 4. Drink plenty of water, start laxatives, soft foods - Post Discharge Activity
[2017-08-21 13:23] VITALS: BP 136/65; PULSE 62; TEMP 97.1
== END 2017-08-21 13:23 | disposition home or self-care (01) ==
LOC: JER 11:38
DX: M54.16 Radiculopathy, lumbar region (principal); G62.9 Polyneuropathy, unspecified; R10.9 Unspecified abdominal pain; I10 Essential (primary) hypertension; E78.00 Pure hypercholesterolemia, unspecified; I25.2 Old myocardial infarction; Z85.038 Personal history of other malignant neoplasm of large intestine
CPT/HCPCS: 74019-TC-FY; 99282-25

== ENCOUNTER 2017-08-23 13:27 | Emergency (ER) | payer OTHER ==
[2017-08-23 14:11] VITALS: BP 175/80; PULSE 60; TEMP 98.5; BMI 28.7
--- NOTE | 2017-08-23 14:14 | PDOC ---
History of Present Illness - General Chief Complaint: Pain, Acute Stated Complaint: PAIN History Source: Patient Exam Limitations: No Limitations - History of Present Illness Initial Comments: 08/23/17 14:13 HPI: This 57-year-old male who presents to the emergency room is very well- known to [facility]. He is seen numerous times throughout the course of the year. His last visit was two days ago with this provider. He was seen for constipation and treated with an enema. The pt is now here seeking help of anxiety and pain to the LE from his chronic neuropathy. PMH: HTN, PPM, CAD, OA, AF, MT x3, COPD, CHF, HLD, On eliquest FH: Pt has not recently traveled outside the country in the last 30 days. Pt has not been in contact with people who have traveled out of the country, in contact with people who have been ill with fever, n, v, d. SH: smoking use: + current daily smoker illicit drug use: NONE alcohol use: NONE employment/:disability uses a cane for ambulatory PSH: cardiac stent x 4, colon resection, multiple ortho surgery noted with hardware on xrays Home med use noted on AUG Allergies:multiple noted on AUG Immunizations: PCP: Dr. Pyle Past History - Past Medical History Allergies/Adverse Reactions: Allergies Allergy/AdvReac Type Severity Reaction Status Date / Time tomato Allergy Severe Verified 08/23/17 13:54 Beef Containing Products Allergy Verified 08/23/17 13:54 morphine Allergy Verified 08/23/17 13:54 red dye Allergy Verified 08/23/17 13:54 shellfish derived Allergy Verified 08/23/17 13:54 Home Medications: Ambulatory Orders Omeprazole [Prilosec] 40 mg PO DAILY 06/23/14 Oxycodone HCl [Roxicodone] 30 mg PO Q6H PRN 07/24/14 Atorvastatin Ca [Lipitor] 10 mg PO HS 08/17/14 Apixaban [Eliquis -] 5 mg PO BID 01/12/16 Escitalopram Oxalate [Lexapro -] 10 mg PO DAILY 01/12/16 Albuterol Sulfate Inhaler - [Ventolin HFA Inhaler -] 1 - 2 inh PO QID #1 inhaler 01/15/16 Ramipril [Altace] 10 mg PO DAILY #60 capsule 05/01/16 Alprazolam 0.25 mg PO BID PRN 07/02/16 Digoxin [Digitek] 125 mcg PO DAILY 07/02/16 Nitroglycerin Sublingual [Nitrostat -] 0.4 mg SL ONCE PRN 07/02/16 Potassium Chloride 10 meq PO DAILY 07/02/16 Carvedilol [Coreg -] 25 mg PO BID #60 tablet 07/06/16 Furosemide [Lasix -] 40 mg PO DAILY 07/13/16 Duloxetine HCl [Cymbalta -] 60 mg PO DAILY #60 capsule. 07/19/16 Isosorbide Mononitrate [Imdur -] 30 mg PO DAILY #30 tab.sr.24h 07/19/16 Gabapentin [Neurontin -] 300 mg PO TID 09/19/16 Loratadine [Claritin -] 10 mg PO DAILY #30 tablet 10/24/16 Ibuprofen [Motrin -] 600 mg PO TID tablet 03/15/17 Ciprofloxacin [Cipro (Restricted To Id)] 500 mg PO Q12H #14 tablet 04/20/17 Tamsulosin HCl [Flomax] 0.4 mg PO DAILY #7 capsule 04/20/17 Anemia: No Asthma: Yes Cancer: Yes (COLON) Cardiac Disorders: Yes (MT X 3, A-FIB) CVA: No COPD: Yes CHF: Yes DVT: No Dementia: No Diabetes: No GI Disorders: No Disorders: No HTN: Yes Hypercholesterolemia: Yes Liver Disease: No Seizures: No Thyroid Disease: No - Surgical History Abdominal Surgery: No Appendectomy: No Cardiac Surgery: Yes (4sTENTS,pacemaker,defibrilator) Cholecystectomy: No GI Surgery: Yes (COLON RESECTION) Lung Surgery: No Neurologic Surgery: No Orthopedic Surgery: Yes ((L) ANKLE; (R)HIP; (R) ELBOW) - Family Disease History Family Disease History: Diabetes: Mother - Immunization History TDAP Vaccination: Yes Immunization Up to Date: No (2011 tetanus) - Suicide/Smoking/Psychosocial Hx Smoking Status: Yes Smoking History: Never smoked Have you smoked in the past 12 months: Yes Number of Cigarettes Smoked Daily: 3 If you are a former smoker, when did you quit?: 0 Cigars Per Day: 0 Information on smoking cessation initiated: No 'Breaking Loose' booklet given: 05/13/17 Hx Alcohol Use: No Drug/Substance Use Hx: No Substance Use Type: None Hx Substance Use Treatment: No Review of Systems - Review of Systems Able to Perform ROS?: Yes Comments:: 08/23/17 21:46 General statement: c/o anxiety and leg pain Hematology: neg history of bleeding/blood thinners Skin: Neg for lesions, rash, bruising. HEENT: Neg symptoms Respiratory: Neg SOB or difficulty in breathing Cardiac: Neg chest pain GI: Neg pain, n/v : Neg problems on voiding MS: Neg for joint pain/stiffness, no edema Neuro: Neg for LOC, weakness,+ neuropathy Endocrine: Neg for excess thirst/hunger, cold/heat intolerance, excess sweating Allergies: Neg for allergies *Physical Exam - Vital Signs Last Vital Signs Temp Pulse Resp BP Pulse Ox 98.5 F 60 17 175/80 97 08/23/17 13:55 08/23/17 13:55 08/23/17 13:55 08/23/17 13:55 08/23/17 13:55 - Physical Exam Comments: 08/23/17 21:47 General Appearance: This chronically ill appearing male is stating he is anxious again and needs some help V/S: hemodynamically stable, afebrile Skin: WNL of pt's skin color, no signs of pallor, mottling, cyanosis Head:symmetrical Eyes: EOM's intact, PERRLA Ears: denies pain Nose: patent Throat: lips, teeth, gums, tongue, buccal mucos pink and moist Lungs: Chest symmetry equal. Cap refill <3 seconds. Lung sounds clear Cardiac: PMI at R 4MCL space, pos S1 and S2, regular rate. Abdomen: Soft, round, nontender : Not observed Muscularskeletal: Gait steady with a cane, ambulated in to ER, no edema +PMS Neuro: AAOx3, cognitively intact, speech clear and appropriate. Medical Decision Making - Medical Decision Making 08/23/17 21:48 This 57-year-old male presents to the emergency room once again and I have seen him as of 2 days ago and again today. He is complaining of having some anxiety and feels that he cannot cope with all the pain in his lower extremities due to the fact that he is very anxious. He has multiple narcotics that he has at home that can help with some of the pain which he was seen at 2 days ago for constipation and evaluation. Again due to his anxiety and his lower extremity weakness he was treated the other day with some Ativan and I will treat him again with 1 dose. I have stressed to him that it is extremely important for him to follow up with Dr. Pyle next week in order for him to start a regime for his anxiety as he cannot keep coming into the emergency room for treatment of one dose here and they are of Ativan as this will not continuously keep his anxiety at bay. He seems to understand this however he is a poor historian. *DC/Admit/Observation/Transfer Diagnosis at time of Disposition: Neuropathy, Acute anxiety - Discharge Dispostion Disposition: HOME Condition at time of disposition: Stable Admit: No - Referrals Referrals: Anup Pyle MD [Primary Care Provider] - - Patient Instructions Printed Discharge Instructions: Generalized Anxiety Disorder, DI for Anxiety - - Adult Additional Instructions: Discharge instructions 1. Please follow up with your primary physician within the next few days and explain that you have been seen here in the Emergency Room for anxiety. 2. If you experience any worsening of symptoms, please return to the ER 3. Rest, relax, and follow up about psychiatrist for anxiety 4. Drink plenty of water, avoid alcohol - Post Discharge Activity
[2017-08-23] MEDS ORDERED: LORazepam 2 MG/ML SDV VIAL ONE (14:35)
== END 2017-08-23 14:46 | disposition home or self-care (01) ==
LOC: JERFT 13:27
PROC: 3E033NZ Introduction of Analgesics, Hypnotics, Sedatives into Peripheral Vein, Percutaneous Approach (ICD-10-PCS; principal; 2017-08-23)
DX: F41.1 Generalized anxiety disorder (principal); G62.89 Other specified polyneuropathies; I25.10 Atherosclerotic heart disease of native coronary artery without angina pectoris; I11.0 Hypertensive heart disease with heart failure; F17.210 Nicotine dependence, cigarettes, uncomplicated; Z95.5 Presence of coronary angioplasty implant and graft; Z95.810 Presence of automatic (implantable) cardiac defibrillator; J44.9 Chronic obstructive pulmonary disease, unspecified; I25.2 Old myocardial infarction; I48.91 Unspecified atrial fibrillation; Z79.01 Long term (current) use of anticoagulants
CPT/HCPCS: 99281-25

== ENCOUNTER 2017-09-17 06:12 | Inpatient (IN) | payer OTHER ==
[2017-09-17 06:46] VITALS: BMI 28.0
--- NOTE | 2017-09-17 07:01 | PDOC ---
History of Present Illness - General Chief Complaint: Blood Pressure Problem Stated Complaint: BLOOD PRESSURE PROBLEM History Source: Patient - History of Present Illness Initial Comments: 09/17/17 07:41 57 year old male with a PMH of A-fib (s/p pacemaker), COPD, CHF (as per EMR EF 37%), PVD, HTN, HLD and Colon CA (s/p resection) presents to our ED presents to our ED c/o 1 week h/o of productive (whitish sputum) cough, subjective fevers without dyspnea or chest pain. Patient notes he has a cough at baseline, however it has only been productive for the last 1 week. Patient notes a h/o pneumonia approximately 6 months previous for which he took antibiotics. ROS is positive for back pain (chronic) for which patient states he took his pain medications (Oxycodone and Percocet) yesterday evening. Patient denies any abdominal pain, nausea/vomiting, diarrhea/constipation, recent travel or sick contacts. As per EMR, patient was evaluated at our facility 2 days previous for anxiety and has a h/o multiple ED visits over the last calendar year for gout, back pain and neuropathy. Allergy: Morphine Surgical: B/L Hip replacement, L elbow, L knee replacement, Colon resection Social: (+) 1 ppd > 20 years currently 4-5 cigarettes daily, daily alcohol, denies recreational drugs PMD: Dr. Olvera Past History - Past Medical History Allergies/Adverse Reactions: Allergies Allergy/AdvReac Type Severity Reaction Status Date / Time tomato Allergy Severe Verified 09/17/17 06:34 Beef Containing Products Allergy Verified 09/17/17 06:34 morphine Allergy Verified 09/17/17 06:34 red dye Allergy Verified 09/17/17 06:34 shellfish derived Allergy Verified 09/17/17 06:34 Home Medications: Ambulatory Orders Omeprazole [Prilosec] 40 mg PO DAILY 06/23/14 Oxycodone HCl [Roxicodone] 30 mg PO Q6H PRN 07/24/14 Atorvastatin Ca [Lipitor] 10 mg PO HS 08/17/14 Apixaban [Eliquis -] 5 mg PO BID 01/12/16 Escitalopram Oxalate [Lexapro -] 10 mg PO DAILY 01/12/16 Albuterol Sulfate Inhaler - [Ventolin HFA Inhaler -] 1 - 2 inh PO QID #1 inhaler 01/15/16 Ramipril [Altace] 10 mg PO DAILY #60 capsule 05/01/16 Alprazolam 0.25 mg PO BID PRN 07/02/16 Digoxin [Digitek] 125 mcg PO DAILY 07/02/16 Nitroglycerin Sublingual [Nitrostat -] 0.4 mg SL ONCE PRN 07/02/16 Potassium Chloride 10 meq PO DAILY 07/02/16 Carvedilol [Coreg -] 25 mg PO BID #60 tablet 07/06/16 Furosemide [Lasix -] 40 mg PO DAILY 07/13/16 Duloxetine HCl [Cymbalta -] 60 mg PO DAILY #60 capsule.dr 07/19/16 Isosorbide Mononitrate [Imdur -] 30 mg PO DAILY #30 tab.sr.24h 07/19/16 Gabapentin [Neurontin -] 300 mg PO TID 09/19/16 Loratadine [Claritin -] 10 mg PO DAILY #30 tablet 10/24/16 Anemia: No Asthma: Yes Cancer: Yes (COLON) Cardiac Disorders: Yes (DE X 3, A-FIB) CVA: No COPD: Yes CHF: Yes DVT: No Dementia: No Diabetes: No GI Disorders: No Disorders: No HTN: Yes Hypercholesterolemia: Yes Liver Disease: No Seizures: No Thyroid Disease: No - Surgical History Abdominal Surgery: No Appendectomy: No Cardiac Surgery: Yes (4sTENTS,pacemaker,defibrilator) Cholecystectomy: No GI Surgery: Yes (COLON RESECTION) Lung Surgery: No Neurologic Surgery: No Orthopedic Surgery: Yes ((L) ANKLE; (R)HIP; (R) ELBOW) - Family Disease History Family Disease History: Diabetes: Mother - Immunization History TDAP Vaccination: Yes Immunization Up to Date: No (2011 tetanus) - Suicide/Smoking/Psychosocial Hx Smoking Status: Yes Smoking History: Unknown if ever smoked Have you smoked in the past 12 months: No Number of Cigarettes Smoked Daily: 3 If you are a former smoker, when did you quit?: 0 Cigars Per Day: 0 Information on smoking cessation initiated: No 'Breaking Loose' booklet given: 05/13/17 Hx Alcohol Use: No Drug/Substance Use Hx: No Substance Use Type: None Hx Substance Use Treatment: No *Physical Exam - Vital Signs Last Vital Signs Temp Pulse Resp BP Pulse Ox 98.7 F 85 16 128/89 99 04/03/18 06:34 09/17/17 06:34 09/17/17 06:34 09/17/17 06:34 09/17/17 06:34 - Physical Exam Comments: 09/17/17 07:55 GENERAL: Awake, alert, and fully oriented, in no acute distress, SpO2 98% on RA HEAD: No signs of trauma EYES: PERRLA, EOMI, sclera anicteric, conjunctiva clear ENT: Auricles normal inspection, hearing grossly normal, nares patent, oropharynx clear without exudates. Moist mucosa NECK: Nontender, no stepoffs, Normal ROM, supple, no lymphadenopathy, JVD, or masses LUNGS: B/L wheezing on posterior lung quiroz, no crackles HEART: Regular rate and rhythm, normal S1 and S2, no murmurs, rubs or gallops ABDOMEN: Soft, nontender, normoactive bowel sounds. No guarding, no rebound. No masses EXTREMITIES: Normal range of motion, no edema. No clubbing or cyanosis. NEUROLOGICAL: Cranial nerves II through XII intact. 5/5 strength and sensation in all extremities, SKIN: Warm, Dry, normal turgor, no rashes or lesions noted. ED Treatment Course - LABORATORY CBC & Chemistry Diagram: 09/17/17 08:58 09/17/17 08:58 Medical Decision Making - Medical Decision Making 09/17/17 07:50 57 year old male presents with productive cough and subjective fevers without dyspnea. DDx includes COPD exacerbation, pneumonia, bronchitis, CHF. Physical exam significant for B/L wheezing auscultated on posterior lung quiroz. Given patient's presentation + medical complaints, most likely respiratory, less likely cardiac, however will r/o CHF 2/2 ACS. Basic labs, Troponin ABG, CXR + administer Duo-Neb. Reassess. 09/17/17 08:22 S/p Duo Nebs. Patient counseled on smoking cessation - notes failed therapy with nicotine patch. Encouraged to start noting triggers (hunger, boredom, anxiety) for smoking and redirect urge to smoke. Patient also c/o disruptive sleep, notes waking often, possibly gasping for air -- will refer to PMD for possible sleep study/evaluation for sleep apnea. 09/17/17 09:22 ABG shows PCO2 48, PO2 21 --> less likely COPD exacerbation. CBC shows no leukocytosis, Hb 10.8 @ baseline. CMP, Troponin, CXR pending. 09/17/17 09:26 EKG shows A Fib (HR 88), with PACs in V2-V3, no LANIE/STD - non ischemic ECG. Attending physician exam notes decreased breath sounds + crackles in posterior- inferior lung quiroz 09/17/17 09:59 Troponin equivocal @ 0.05 - likely 2/2 to demand ischemia. CXR shows cardiomegaly (c/w previous CXR) no PNA, pneumothorax, pleural effusion 09/17/17 10:28 Bedside U/S shows good lung sliding, B-lines, cardiac exam significant for enlarged aortic outflow tract, possible LVH -- c/w clinical presentation. 09/17/17 18:[address] Olvera earlier in the day (@ approximately 11 a.m. - Decision to Admit placed @ 11:14) requested Ceftriaxone + Azithromycin. Patient later accepted for admission by Dr. Kingston. *DC/Admit/Observation/Transfer Diagnosis at time of Disposition: Cough - Discharge Dispostion Condition at time of disposition: Fair Admit: Yes - Referrals - Patient Instructions - Post Discharge Activity
[2017-09-17] MEDS ORDERED: ALBUTEROL SO4 2.5/IPRATROPIUM 0.5 INH SOL 3 ML VIAL.NEB. NEB ONE (07:49)
[2017-09-17 09:05] LABS: VENOUS PC02 48.7 mmHg (38-52); VENOUS PH 7.4 (7.32-7.42); VENOUS PO2 21.5 mmHg (28-48)
[2017-09-17 09:16] LABS: HEMATOCRIT 36.5 % (35.4-49); HEMOGLOBIN 10.8 GM/dL (11.7-16.9); MCHC 29.6 g/dl (32.0-35.9); MEAN CELL VOLUME 60.9 fl (80-96); MEAN PLT VOLUME 8.8 fl (7.5-11.1); PLATELET COUNT 402 K/MM3 (134-434); RDW 22.3 % (11.9-15.9)
[2017-09-17 09:19] LABS: MCH 18.1 pg (25.7-33.7)
[2017-09-17 09:34] LABS: ALBUMIN 3.8 g/dl (3.4-5.0); ANION GAP 6 (8-16); BLOOD UREA NITROGEN 13 mg/dL (7-18); CHLORIDE 103 mmol/L (98-107); CO2 30 mmol/L (21-32); CREATININE 1.1 mg/dL (0.7-1.3); GLUCOSE,RANDOM 95 mg/dL (74-106); POTASSIUM 3.4 mmol/L (3.5-5.1); SGOT/AST 22 U/L (15-37); SGPT/ALT 19 U/L (12-78); SODIUM 139 mmol/L (136-145)
[2017-09-17 09:38] LABS: ALK PHOS 60 U/L (45-117); BILIRUBIN,TOTAL 0.8 mg/dL (0.2-1.0); TOT PROT 7.4 g/dl (6.4-8.2)
--- NOTE | 2017-09-17 10:06 | PDOC ---
Attending Attestation - Resident Resident Name: SiddharthIla - ED Attending Attestation I have performed the following: I have examined & evaluated the patient, The case was reviewed & discussed with the resident, I agree w/resident's findings & plan, Exceptions are as noted - HPI HPI: 09/17/17 10:04 57-year-old male with history of COPD and CHF presents with 1 week of increasing dyspnea on exertion and cough productive of whitish/clear phlegm. Chills but no night sweats, some orthopnea, no leg swelling. No chest pain or lung pain. - Physicial Exam PE: 09/17/17 10:04 vital signs are normal Patient is actually well-appearing seated in stretcher, no shortness of breath at rest Heart is irregular with normal rate Decreased breath sounds at the bases with crackles, slight expiratory wheezing, no along expiration or accessory muscle use No edema - Medical Decision Making 09/17/17 10:05 Patient seen and evaluated with the resident. I agree with the overall evaluation, assessment, and management with the following summary of visit: 57-year-old male with both COPD and CHF presents with 1 week of worsening shortness of breath and dyspnea on exertion with productive cough. Presentation/ exam suggestive of some volume overload, question CHF versus COPD. EKG is atrial fibrillation without acute ischemia Full cardiopulmonary workup with labs, chest x-ray, EKG Trial of nebulizers Admission Heart Score/ECG Review #1 09/17/17 10:06 Atrial fibrillation at 88, no acute ST changes
[2017-09-17 11:32] LABS: ANISOCYTOSIS 2+; PLATELET ESTIMATE ADEQUATE
[2017-09-17] MEDS ORDERED: AZITHROMYCIN IVPB 500 MG in DEXTROSE 5%-WATER - 250 ML IVPB ONE ×2 (11:37→15:00)
[2017-09-17] MEDS ORDERED: CEFTRIAXONE 1,000 MG in DEXTROSE 5%-WATER - 50 ML IVPB ONE (11:37)
--- NOTE | 2017-09-17 11:41 | EKG ---
Test Reason : Blood Pressure : / mmHG Vent. Rate : 088 BPM Atrial Rate : 208 BPM P-R Int : 000 ms QRS Dur : 094 ms QT Int : 390 ms P-R-T Axes : 000 -08 -55 degrees QTc Int : 471 ms ATRIAL FIBRILLATION WITH PREMATURE VENTRICULAR OR ABERRANTLY CONDUCTED COMPLEXES CANNOT RULE OUT INFERIOR INFARCT , AGE UNDETERMINED ABNORMAL ECG Confirmed by Macario Burgos MD ([id number]) on 09/17/2017 11:41:29 AM Referred By: Confirmed By:Macario Burgos MD
--- NOTE | 2017-09-17 13:09 | CON.PULM ---
Consult Consult Specialty:: PULMONARY Referred by:: Dr. Olvera Reason for Consultation:: shortness of breath - History of Present Illness Chief Complaint: shortness of breath History of Present Illness: 57yo male with h/o HTN, hyperlipidemia, COPD, atrial fibrillation s/p PPM, LV systolic dysfunction, PAD, neuropathy, gout, colon ca s/p resection who was admitted with worsening shortness of breath x 4 days. No chest pain or palpitations but with subjective fevers, chills and sweats. No sick contacts or recent travel. Did receive his flu vaccine this year. Denies leg pain but now with 4 pillow orthopnea and paroxysmal nocturnal dyspnea. +cough productive of white sputum and wheezing. Smokes about 4 cigarettes/day down from 1 PPD, started in his early 20s. 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 - History Source History Provided By: Patient, Medical Record Limitations to Obtaining History: No Limitations - Past Medical History Cardio/Vascular: Yes: CAD, CHF (/ cardiomyopathy), HTN, Hyperlipdemia Pulmonary: Yes: COPD Gastrointestinal: Yes: Other (gastritis) Hepatobiliary: Yes: Hepatitis C Musculoskeletal: Yes: Chronic low back pain (/ degenerative lumbar disc disease) - Past Surgical History Past Surgical History: Yes: Hernia Repair (umbilical), Joint Replacement (right elbow, right hip, left ankle) - Alcohol/Substance Use Hx Alcohol Use: No History of Substance Use: reports: None - Smoking History Smoking history: Unknown if ever smoked Have you smoked in the past 12 months: No Aproximately how many cigarettes per day: 3 If you are a former smoker, when did you quit?: 0 - Social History ADL: Independent 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, 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 History of Recent Travel: No Home Medications - Allergies Allergies/Adverse Reactions: Allergies Allergy/AdvReac Type Severity Reaction Status Date / Time tomato Allergy Severe Verified 09/17/17 06:34 Beef Containing Products Allergy Verified 09/17/17 06:34 morphine Allergy Verified 09/17/17 06:34 red dye Allergy Verified 09/17/17 06:34 shellfish derived Allergy Verified 09/17/17 06:34 - Home Medications Home Medications: Ambulatory Orders Omeprazole [Prilosec] 40 mg PO DAILY 06/23/14 Oxycodone HCl [Roxicodone] 30 mg PO Q6H PRN 07/24/14 Atorvastatin Ca [Lipitor] 10 mg PO HS 08/17/14 Apixaban [Eliquis -] 5 mg PO BID 01/12/16 Escitalopram Oxalate [Lexapro -] 10 mg PO DAILY 01/12/16 Albuterol Sulfate Inhaler - [Ventolin HFA Inhaler -] 1 - 2 inh PO QID #1 inhaler 01/15/16 Ramipril [Altace] 10 mg PO DAILY #60 capsule 05/01/16 Alprazolam 0.25 mg PO BID PRN 07/02/16 Digoxin [Digitek] 125 mcg PO DAILY 07/02/16 Nitroglycerin Sublingual [Nitrostat -] 0.4 mg SL ONCE PRN 07/02/16 Potassium Chloride 10 meq PO DAILY 07/02/16 Carvedilol [Coreg -] 25 mg PO BID #60 tablet 07/06/16 Furosemide [Lasix -] 40 mg PO DAILY 07/13/16 Duloxetine HCl [Cymbalta -] 60 mg PO DAILY #60 capsule.dr 07/19/16 Isosorbide Mononitrate [Imdur -] 30 mg PO DAILY #30 tab.sr.24h 07/19/16 Gabapentin [Neurontin -] 300 mg PO TID 09/19/16 Loratadine [Claritin -] 10 mg PO DAILY #30 tablet 10/24/16 Family Disease History - Family Disease History Family Disease History: Heart Disease: Father, CA: Mother, Brother (colon) Review of Systems - Review of Systems Constitutional: reports: Chills, Fever, Malaise, Weakness Eyes: denies: Recent Change in Vision HENT: denies: Nasal Congestion, Throat Pain Neck: denies: Stiffness, Tenderness Cardiovascular: reports: Shortness of Breath. denies: Chest Pain, Edema, Palpitations Respiratory: reports: Cough, Exercise Intolerance, Orthopnea, PND, SOB on Exertion, Wheezing. denies: Hemoptysis Gastrointestinal: denies: Abdominal Pain, Nausea, Vomiting Genitourinary: denies: Dysuria, Hematuria Neurological: denies: Dizziness, Headache Endocrine: denies: Unexplained Weight Loss Physical Exam Vital Sings: Vital Signs Temperature 98.7 F 09/17/17 06:34 Pulse Rate 85 09/17/17 06:34 Respiratory Rate 16 09/17/17 06:34 Blood Pressure 128/89 09/17/17 06:34 O2 Sat by Pulse Oximetry (%) 99 09/17/17 06:34 Constitutional: Yes: Calm Eyes: Yes: Conjunctiva Clear, EOM Intact HENT: Yes: Atraumatic, Normocephalic Neck: Yes: Supple, Trachea Midline Respiratory: Yes: Poor Air Entry, Rhonchi, Wheezes ...Clubbing: No Gastrointestinal: Yes: Normal Bowel Sounds, Soft. No: Tenderness Edema: No Neurological: Yes: Alert, Oriented Labs: CBC, BMP 09/17/17 08:58 09/17/17 08:58 Imaging - Results Chest X-ray: Report Reviewed, Image Reviewed (cardiomegaly, no infiltrates) Problem List - Problems (1) COPD with acute exacerbation Code(s): J44.1 - CHRONIC OBSTRUCTIVE PULMONARY DISEASE W (ACUTE) EXACERBATION (2) Atrial fibrillation Code(s): I48.91 - UNSPECIFIED ATRIAL FIBRILLATION Qualifiers: Atrial fibrillation type: unspecified Qualified Code(s): I48.91 - Unspecified atrial fibrillation (3) CAD (coronary artery disease) Code(s): I25.10 - ATHSCL HEART DISEASE OF [place] CORONARY ARTERY W/O ANG PCTRS (4) Gout Code(s): M10.9 - GOUT, UNSPECIFIED Qualifiers: Gout site: ankle Gout etiology: unspecified cause Chronicity: acute Laterality: left Qualified Code(s): M10.9 - Gout, unspecified (5) HTN (hypertension) Code(s): I10 - ESSENTIAL (PRIMARY) HYPERTENSION (6) Hyperlipidemia Code(s): E78.5 - HYPERLIPIDEMIA, UNSPECIFIED (7) Pulmonary HTN Code(s): I27.2 - OTHER SECONDARY PULMONARY HYPERTENSION * DO NOT USE * (8) Systolic CHF Code(s): I50.20 - UNSPECIFIED SYSTOLIC (CONGESTIVE) HEART FAILURE Qualifiers: Heart failure chronicity: acute on chronic Qualified Code(s): I50.23 - Acute on chronic systolic (congestive) heart failure Assessment/Plan Acute COPD Exacerbation LV Systolic Dysfunction Severe Mitral Regurgitation Pulmonary HTN Atrial Fibrillation s/p PPM HTN Hyperlipidemia Gout Smoker - IV medrol - inhaled bronchodilators - azithromycin x 5 days - continue cardiac meds - rate control - continue anticoagulation - smoking cessation discussed - will need outpt PFTs Thank you for this consult oMe Ha MD
[2017-09-17] MEDS ORDERED: ALBUTEROL SO4 0.083% IH SOL 2.5 MG/3 ML VIAL.NEB. NEB PRN (13:19)
[2017-09-17] MEDS: methylPREDNISolone NA SUCC 40 MG/1 ML VIAL IVPUSH SCH ×2 (14:22→17:48)
[2017-09-17] MEDS: ALBUTEROL SO4 2.5/IPRATROPIUM 0.5 INH SOL 3 ML VIAL.NEB. NEB SCH ×2 (15:04→22:22)
[2017-09-17] MEDS ORDERED: PATIENT'S OWN MEDICATION (NON-FORMULARY) (Oxycodone Hcl [Roxicodone] 30 MG) PO PRN (16:26)
[2017-09-17] MEDS ORDERED: NITROGLYCERIN SUBLINGUAL 1/150 0.4 MG TAB SL PRN (16:26)
--- NOTE | 2017-09-17 16:31 | HP ---
Admitting History and Physical - Primary Care Physician PCP: Anup Pyle - Admission Chief Complaint: I had trouble breathing History of Present Illness: Mr Roberts is a 57 year old male who comes in with 1 day history of shortness of breath. He says he was in his normal state of health when he began to have difficulty breathing last night. He says he became very short of breath and had a cough that was productive of white sputum. He says it was very similar to when he had pneumonia. He says he has subjective fevers and chills but did not take his temperature. He says he has both lightheadedness and dizziness but has not passed out. He denies chest pain or pressure. He is not having abdominal pain, nausea, or vomiting. He has chronic constipation from his pain medications. He is not having difficulty or pain on urination. He denies swelling. Currently he says he is still short of breath. History Source: Patient Limitations to Obtaining History: No Limitations - Past Medical History Cardiovascular: Yes: CAD, CHF (/ cardiomyopathy), HTN, Hyperlipdemia Pulmonary: Yes: COPD Gastrointestinal: Yes: Other (gastritis) Hepatobiliary: Yes: Hepatitis C Musculoskeletal: Yes: Chronic low back pain (/ degenerative lumbar disc disease) - Past Surgical History Past Surgical History: Yes: Hernia Repair (umbilical), Joint Replacement (right elbow, right hip, left ankle) - Smoking History Smoking history: Current every day smoker Have you smoked in the past 12 months: Yes Aproximately how many cigarettes per day: 3 If you are a former smoker, when did you quit?: 0 - Alcohol/Substance Use Hx Alcohol Use: No History of Substance Use: reports: None - Social History Usual Living Arrangement: Yes: Alone ADL: Independent 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, 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 History of Recent Travel: No Home Medications - Allergies Allergies/Adverse Reactions: Allergies Allergy/AdvReac Type Severity Reaction Status Date / Time tomato Allergy Severe Verified 09/17/17 06:34 Beef Containing Products Allergy Verified 09/17/17 06:34 morphine Allergy Verified 09/17/17 06:34 red dye Allergy Verified 09/17/17 06:34 shellfish derived Allergy Verified 09/17/17 06:34 - Home Medications Home Medications: Ambulatory Orders Omeprazole [Prilosec] 40 mg PO DAILY 06/23/14 Oxycodone HCl [Roxicodone] 30 mg PO Q6H PRN 07/24/14 Atorvastatin Ca [Lipitor] 10 mg PO HS 08/17/14 Apixaban [Eliquis -] 5 mg PO BID 01/12/16 Escitalopram Oxalate [Lexapro -] 10 mg PO DAILY 01/12/16 Albuterol Sulfate Inhaler - [Ventolin HFA Inhaler -] 1 - 2 inh PO QID #1 inhaler 01/15/16 Ramipril [Altace] 10 mg PO DAILY #60 capsule 05/01/16 Alprazolam 0.25 mg PO BID PRN 07/02/16 Digoxin [Digitek] 125 mcg PO DAILY 07/02/16 Nitroglycerin Sublingual [Nitrostat -] 0.4 mg SL ONCE PRN 07/02/16 Potassium Chloride 10 meq PO DAILY 07/02/16 Carvedilol [Coreg -] 25 mg PO BID #60 tablet 07/06/16 Furosemide [Lasix -] 40 mg PO DAILY 07/13/16 Duloxetine HCl [Cymbalta -] 60 mg PO DAILY #60 capsule.dr 07/19/16 Isosorbide Mononitrate [Imdur -] 30 mg PO DAILY #30 tab.sr.24h 07/19/16 Gabapentin [Neurontin -] 300 mg PO TID 09/19/16 Loratadine [Claritin -] 10 mg PO DAILY #30 tablet 10/24/16 Family Disease History - Family Disease History Family Disease History: Heart Disease: Father, CA: Mother, Brother (colon) Review of Systems Findings/Remarks: Full review of systems obtained, as per HPI and otherwise negative. Physical Examination Vital Signs: Vital Signs Temperature 37.1 C 09/17/17 06:34 Pulse Rate 88 09/17/17 12:45 Respiratory Rate 18 09/17/17 12:45 Blood Pressure 161/91 09/17/17 12:45 O2 Sat by Pulse Oximetry (%) 98 09/17/17 12:45 Constitutional: Yes: Well Nourished, No Distress, Calm Eyes: Yes: Conjunctiva Clear, EOM Intact, PERRL HENT: Yes: Atraumatic, Normocephalic Cardiovascular: Yes: Pulse Irregular. No: Tachycardia, Gallop, Murmur, Rub Respiratory: Yes: Regular, Wheezes (slight). No: CTA Bilaterally, Rales, Rhonchi Gastrointestinal: Yes: Normal Bowel Sounds, Soft. 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 -appreciate pulmonary assistance -admit to med/surg -start solumedrol -start duonebs -will change zithromax per patient request -monitor for improvement Code(s): J44.1 - CHRONIC OBSTRUCTIVE PULMONARY DISEASE W (ACUTE) EXACERBATION (2) Atrial fibrillation Assessment/Plan: -rate controlled -continue coreg, digoxin, and eliquis Code(s): I48.91 - UNSPECIFIED ATRIAL FIBRILLATION Qualifiers: Atrial fibrillation type: chronic Qualified Code(s): I48.2 - Chronic atrial fibrillation (3) CAD (coronary artery disease) Assessment/Plan: -quiescent -continue home regimen Code(s): I25.10 - ATHSCL HEART DISEASE OF [place] CORONARY ARTERY W/O ANG PCTRS (4) CHF (congestive heart failure) Assessment/Plan: -continue lasix -continue altace and coreg -controlled Code(s): I50.9 - HEART FAILURE, UNSPECIFIED Qualifiers: Qualified Code(s): I50.22 - Chronic systolic (congestive) heart failure (5) Chronic back pain Assessment/Plan: -continue oxycodone -will not increase dose at this time -continue gabapentin Code(s): M54.9 - DORSALGIA, UNSPECIFIED; G89.29 - OTHER CHRONIC PAIN Qualifiers: Back pain location: low back pain Back pain laterality: right Sciatica presence: with sciatica Sciatica laterality: sciatica of right side Qualified Code(s): M54.41 - Lumbago with sciatica, right side (6) HTN (hypertension) Assessment/Plan: -continue home regimen -may elevate secondary to steroids Code(s): I10 - ESSENTIAL (PRIMARY) HYPERTENSION (7) Neuropathy Assessment/Plan: -continue neurontin as above Code(s): G62.9 - POLYNEUROPATHY, UNSPECIFIED (8) Tobacco dependence Assessment/Plan: -counseled patient on cessation -nicotine gum Code(s): F17.200 - NICOTINE DEPENDENCE, UNSPECIFIED, UNCOMPLICATED Assessment/Plan Patient says some medications have changed but unsure which, awaiting office records
[2017-09-17] MEDS ORDERED: ACETAMINOPHEN 325 MG TABLET (FP) PO PRN (16:44)
[2017-09-17] MEDS ORDERED: oxyCODONE HCL 5 MG TABLET PO PRN (16:46)
[2017-09-17] MEDS ORDERED: NICOTINE POLACRILEX 2 MG GUM BUC PRN (17:11)
[2017-09-17] MEDS: CARVEDILOL 25 MG TABLET (FP) PO SCH ×2 (20:27→21:00)
[2017-09-17] MEDS ORDERED: DIGOXIN 0.125 MG TABLET (FP) PO ONE (20:45)
[2017-09-17] MEDS ORDERED: CARVEDILOL 25 MG TABLET (FP) PO ONE (20:45)
[2017-09-17] MEDS ORDERED: PT OWN MED DRAWER 7, Y5N ONE (20:59)
[2017-09-17 21:03] VITALS: BP 159/70; PULSE 70; TEMP 98.2
--- NOTE | 2017-09-17 21:29 | HOSP ---
Subjective - Review of Symptoms Events since last encounter: Hospitalist Encounter RN reports patient is threatening to leave AMA Subjective: Arrived to the 6th floor, patient was met in the hallway sitting in a wheelchair Physical Examination Vital Signs: Vital Signs Temperature 98.2 F 09/17/17 20:52 Pulse Rate 70 09/17/17 20:52 Respiratory Rate 20 09/17/17 20:52 Blood Pressure 159/70 09/17/17 20:52 O2 Sat by Pulse Oximetry (%) 98 09/17/17 12:45 Labs: CBC, BMP 09/17/17 08:58 09/17/17 08:58
[2017-09-17] MEDS ORDERED: DOCUSATE SODIUM 100 MG CAPSULE (FP) PO SCH (22:00)
[2017-09-17] MEDS ORDERED: GABAPENTIN 300 MG CAPSULE (FP) PO SCH (22:00)
[2017-09-17] MEDS ORDERED: APIXABAN 5 MG TABLET PO SCH (22:00)
[2017-09-18] MEDS ORDERED: RAMIPRIL 5 MG CAPSULE (FP) PO SCH (10:00)
[2017-09-18] MEDS ORDERED: LORATADINE 10 MG TABLET PO SCH (10:00)
[2017-09-18] MEDS ORDERED: POTASSIUM CHLORIDE TABS 10 MEQ TABLET.ER (FP) PO SCH (10:00)
[2017-09-18] MEDS ORDERED: DULoxetine HCL 30 MG CAPSULE.DR (FP) PO SCH (10:00)
[2017-09-18] MEDS ORDERED: ISOSORBIDE MONONITRATE 30 MG TAB.SR.24H (FP) PO SCH (10:00)
[2017-09-18] MEDS ORDERED: DIGOXIN 0.125 MG TABLET (FP) PO SCH (10:00)
[2017-09-18] MEDS ORDERED: FUROSEMIDE 40 MG TABLET (FP) PO SCH (10:00)
[2017-09-18] MEDS ORDERED: POLYETHYLENE GLYCOL 3350 119 GM BTL PO SCH (10:00)
[2017-09-18] MEDS ORDERED: AZITHROMYCIN 250 MG TABLET PO SCH (10:00)
[2017-09-18] MEDS ORDERED: AZITHROMYCIN IVPB 500 MG in DEXTROSE 5%-WATER - 250 ML IVPB SCH (10:00)
--- NOTE | 2017-09-18 13:20 | EKG ---
Test Reason : Blood Pressure : / mmHG Vent. Rate : 104 BPM Atrial Rate : 091 BPM P-R Int : 000 ms QRS Dur : 088 ms QT Int : 326 ms P-R-T Axes : 000 -15 174 degrees QTc Int : 428 ms ATRIAL FIBRILLATION WITH RAPID VENTRICULAR RESPONSE WITH PREMATURE VENTRICULAR OR ABERRANTLY CONDUCTED COMPLEXES MINIMAL VOLTAGE CRITERIA FOR LVH, MAY BE NORMAL VARIANT ABNORMAL ECG WHEN COMPARED WITH ECG OF 22-MAY-2017 18:03, T WAVE INVERSION MORE EVIDENT IN LATERAL LEADS Confirmed by AXEL WASHINGTON MD ([id number]) on 09/18/2017 1:20:28 PM Referred By: Confirmed By:AXEL WASHINGTON MD
--- NOTE | 2017-09-18 14:51 | DS ---
Physical Examination Vital Signs: Vital Signs Temperature 36.8 C 09/17/17 20:52 Pulse Rate 70 09/17/17 20:52 Respiratory Rate 20 09/17/17 20:52 Blood Pressure 159/70 09/17/17 20:52 O2 Sat by Pulse Oximetry (%) 98 09/17/17 12:45 Labs: CBC, BMP 09/17/17 08:58 09/17/17 08:58 Discharge Summary Reason For Visit: COPD WITH ACUTE EXACERBATION Hospital Course: Patient left AMA overnight, unknown reason. Condition: Guarded - Instructions Diet, Activity, Other Instructions: Please follow-up with your primary care doctor in the next 48 hours for your cough. Please also request evaluation for difficulty sleeping as well as smoking cessation options. Return to the Emergency Department for any new/ worsening/concerning symptoms. Referrals: Ajay Olvera MD [Primary Care Provider] - Disposition: AGAINST MEDICAL ADVICE - Home Medications Comprehensive Discharge Medication List: Ambulatory Orders Omeprazole [Prilosec] 40 mg PO DAILY 06/23/14 Oxycodone HCl [Roxicodone] 30 mg PO Q6H PRN 07/24/14 Atorvastatin Ca [Lipitor] 10 mg PO HS 08/17/14 Apixaban [Eliquis -] 5 mg PO BID 01/12/16 Escitalopram Oxalate [Lexapro -] 10 mg PO DAILY 01/12/16 Albuterol Sulfate Inhaler - [Ventolin HFA Inhaler -] 1 - 2 inh PO QID #1 inhaler 01/15/16 Ramipril [Altace] 10 mg PO DAILY #60 capsule 05/01/16 Alprazolam 0.25 mg PO BID PRN 07/02/16 Digoxin [Digitek] 125 mcg PO DAILY 07/02/16 Nitroglycerin Sublingual [Nitrostat -] 0.4 mg SL ONCE PRN 07/02/16 Potassium Chloride 10 meq PO DAILY 07/02/16 Carvedilol [Coreg -] 25 mg PO BID #60 tablet 07/06/16 Furosemide [Lasix -] 40 mg PO DAILY 07/13/16 Duloxetine HCl [Cymbalta -] 60 mg PO DAILY #60 capsule. 07/19/16 Isosorbide Mononitrate [Imdur -] 30 mg PO DAILY #30 tab.sr.24h 07/19/16 Gabapentin [Neurontin -] 300 mg PO TID 09/19/16 Loratadine [Claritin -] 10 mg PO DAILY #30 tablet 10/24/16
== END 2017-09-17 21:35 | disposition left against medical advice (07) | DRG 191 ==
LOC: JER 06:12 → JERBED 11:14 → J6S 12:50
PROVIDERS: ADMIT Internal Medicine; ATTEND Internal Medicine
DX: J44.1 Chronic obstructive pulmonary disease with (acute) exacerbation (principal); I50.22 Chronic systolic (congestive) heart failure; I42.8 Other cardiomyopathies; I25.10 Atherosclerotic heart disease of native coronary artery without angina pectoris; E78.5 Hyperlipidemia, unspecified; K29.70 Gastritis, unspecified, without bleeding; M54.5 Low back pain; M51.36 Other intervertebral disc degeneration, lumbar region; F17.200 Nicotine dependence, unspecified, uncomplicated; I48.2 Chronic atrial fibrillation; G62.9 Polyneuropathy, unspecified; M54.41 Lumbago with sciatica, right side; I27.20 Pulmonary hypertension, unspecified; I11.0 Hypertensive heart disease with heart failure; I34.0 Nonrheumatic mitral (valve) insufficiency; I73.9 Peripheral vascular disease, unspecified; I25.2 Old myocardial infarction; M10.9 Gout, unspecified; Z96.641 Presence of right artificial hip joint; Z86.19 Personal history of other infectious and parasitic diseases; Z96.662 Presence of left artificial ankle joint; Z96.621 Presence of right artificial elbow joint; Z85.038 Personal history of other malignant neoplasm of large intestine; Z95.0 Presence of cardiac pacemaker
CPT/HCPCS: 36415; 71045-TC-FY; 80053; 82550; 82803; 84484; 85025; 93005; 93010; 94640; 99284-25

== ENCOUNTER 2017-11-15 04:03 | Emergency (ER) | payer OTHER ==
[2017-11-15 04:25] VITALS: BP 135/90; PULSE 80; TEMP 97.9; BMI 29.0
[2017-11-15] MEDS ORDERED: KETOROLAC TROMETHAMINE 30 MG/1 ML VIAL IM ONE (05:03)
[2017-11-15] MEDS ORDERED: KETOROLAC TROMETHAMINE 30 MG/1 ML VIAL ONE (05:05)
--- NOTE | 2017-11-15 05:09 | PDOC ---
History of Present Illness - General Chief Complaint: Pain, Acute Stated Complaint: PAIN IN FEET/ARMS HURT/URINARY PROBLEM Time Seen by Provider: 11/15/17 04:53 History Source: Patient Exam Limitations: No Limitations - History of Present Illness Initial Comments: 11/15/17 05:04 This is a 57-year-old male with past medical history of IN 3 with stents, CHF, hyperlipidemia, BPH and neuropathy who presents emergency Department with pain which he describes as a soreness to his lower extremities. He states the pain is similar to his usual neuropathic pain. He been experiencing this pain for the past 6 hours. He denies any alleviating or exacerbating factors. Patient also reports urinary hesitancy for the past 4 days. He denies dysuria or hematuria. Past History - Past Medical History Allergies/Adverse Reactions: Allergies Allergy/AdvReac Type Severity Reaction Status Date / Time tomato Allergy Severe Verified 09/17/17 06:34 Beef Containing Products Allergy Verified 09/17/17 06:34 morphine Allergy Verified 09/17/17 06:34 red dye Allergy Verified 09/17/17 06:34 shellfish derived Allergy Verified 09/17/17 06:34 Home Medications: Ambulatory Orders Omeprazole [Prilosec] 40 mg PO DAILY 06/23/14 Oxycodone HCl [Roxicodone] 30 mg PO Q6H PRN 07/24/14 Atorvastatin Ca [Lipitor] 10 mg PO HS 08/17/14 Apixaban [Eliquis -] 5 mg PO BID 01/12/16 Escitalopram Oxalate [Lexapro -] 10 mg PO DAILY 01/12/16 Albuterol Sulfate Inhaler - [Ventolin HFA Inhaler -] 1 - 2 inh PO QID #1 inhaler 01/15/16 Ramipril [Altace] 10 mg PO DAILY #60 capsule 05/01/16 Alprazolam 0.25 mg PO BID PRN 07/02/16 Digoxin [Digitek] 125 mcg PO DAILY 07/02/16 Nitroglycerin Sublingual [Nitrostat -] 0.4 mg SL ONCE PRN 07/02/16 Potassium Chloride 10 meq PO DAILY 07/02/16 Carvedilol [Coreg -] 25 mg PO BID #60 tablet 07/06/16 Furosemide [Lasix -] 40 mg PO DAILY 07/13/16 Duloxetine HCl [Cymbalta -] 60 mg PO DAILY #60 capsule.dr 07/19/16 Isosorbide Mononitrate [Imdur -] 30 mg PO DAILY #30 tab.sr.24h 07/19/16 Gabapentin [Neurontin -] 300 mg PO TID 09/19/16 Loratadine [Claritin -] 10 mg PO DAILY #30 tablet 10/24/16 Anemia: No Asthma: Yes Cancer: Yes (COLON) Cardiac Disorders: Yes (IN X 3, A-FIB) CVA: No COPD: Yes CHF: Yes DVT: No Dementia: No Diabetes: No GI Disorders: No Disorders: No HTN: Yes Hypercholesterolemia: Yes Liver Disease: No Seizures: No Thyroid Disease: No - Surgical History Abdominal Surgery: No Appendectomy: No Cardiac Surgery: Yes (4sTENTS,pacemaker,defibrilator) Cholecystectomy: No GI Surgery: Yes (COLON RESECTION) Lung Surgery: No Neurologic Surgery: No Orthopedic Surgery: Yes ((L) ANKLE; (R)HIP; (R) ELBOW) - Family Disease History Family Disease History: Diabetes: Mother - Immunization History TDAP Vaccination: Yes Immunization Up to Date: No (2011 tetanus) - Suicide/Smoking/Psychosocial Hx Smoking Status: Yes Smoking History: Current every day smoker Have you smoked in the past 12 months: Yes Number of Cigarettes Smoked Daily: 4 If you are a former smoker, when did you quit?: 0 Cigars Per Day: 0 Information on smoking cessation initiated: Yes 'Breaking Loose' booklet given: 05/13/17 Hx Alcohol Use: No Drug/Substance Use Hx: No Substance Use Type: None Hx Substance Use Treatment: No Review of Systems - Review of Systems Able to Perform ROS?: Yes Is the patient limited Kosovan proficient: No Constitutional: No: Symptoms Reported HEENTM: No: Symptoms Reported Respiratory: No: Symptoms reported Cardiac (ROS): No: Symptoms Reported ABD/GI: No: Symptoms Reported : Yes: See HPI Musculoskeletal: Yes: See HPI Integumentary: No: Symptoms Reported Neurological: No: Symptoms reported Endocrine: No: Symptoms Reported Hematologic/Lymphatic: No: Symptoms Reported *Physical Exam - Vital Signs Last Vital Signs Temp Pulse Resp BP Pulse Ox 97.9 F 80 18 135/90 98 11/15/17 04:18 11/15/17 04:18 11/15/17 04:18 11/15/17 04:18 11/15/17 04:18 - Physical Exam General Appearance: Yes: Appropriately Dressed HEENT: positive: Normal ENT Inspection Neck: positive: Trachea midline, Supple Respiratory/Chest: positive: Lungs Clear, Normal Breath Sounds. negative: Respiratory Distress, Accessory Muscle Use Cardiovascular: positive: Regular Rhythm, Regular Rate, S1, S2. negative: Edema , Murmur Gastrointestinal/Abdominal: positive: Normal Bowel Sounds, Soft. negative: Tender Musculoskeletal: positive: Normal Inspection. negative: CVA Tenderness Extremity: positive: Normal Inspection, Normal Range of Motion, Tender (light palpation) Integumentary: positive: Normal Color, Dry, Warm Neurologic: positive: Alert, Normal Response ED Treatment Course - LABORATORY CBC & Chemistry Diagram: 11/15/17 05:00 11/15/17 05:00 Medical Decision Making - Medical Decision Making 11/15/17 05:11 A/P: 57-year-old male with multiple medical problems with lower extremity pain today and urinary hesitancy for 4 days Abdomen soft nontender nondistended. Tender to light palpation on bilateral lower extremities. Full range of motion of lower extremities 2+ DP pulses bilaterally No tophi present Medication review reveals patient is on Lasix. Although this seems to be the patient's typical neuropathic pain I will obtain labs to rule out electrolyte abnormality. Toradol 30 mg now, urine, reassess 11/15/17 06:02 Laboratory testing shows a mild anemia. Hemoglobin of 9.9. Electrolytes are within normal limits. UA is unremarkable without signs of infection. Patient states relief of pain after receiving Toradol. I will discharge the patient home to follow-up with his primary doctor for continued evaluation and treatment of his neuropathy. Patient verbalizes understanding of discharge instructions. *DC/Admit/Observation/Transfer Diagnosis at time of Disposition: Neuropathy - Discharge Dispostion Disposition: HOME Condition at time of disposition: Stable Decision to Admit order: No - Referrals Referrals: Anup Pyle MD [Primary Care Provider] - - Patient Instructions Additional Instructions: Make an appointment to primary doctor for continued evaluation. Return to emergency department for any new or worsening symptoms. Thank you very much for choosing us to provide your emergent healthcare needs. - Post Discharge Activity
[2017-11-15 05:20] LABS: BASO % 0.9 % (0-2.0); HEMATOCRIT 32.7 % (35.4-49); HEMOGLOBIN 9.9 GM/dL (11.7-16.9); LYMPH % 30.9 % (8-40); MCHC 30.3 g/dl (32.0-35.9); MEAN CELL VOLUME 59.4 fl (80-96); MEAN PLT VOLUME 8.7 fl (7.5-11.1); MONO % 12.3 % (3.8-10.2); NEUT % 50.9 % (42.8-82.8); PLATELET COUNT 352 K/MM3 (134-434); RDW 19.6 % (11.9-15.9); WHITE BLOOD COUNT 6.9 K/mm3 (4.0-10.0)
[2017-11-15 05:30] LABS: URINE APPEARANCE CLEAR; URINE BILIRUBIN NEGATIVE (<2.0 mg/dL); URINE COLOR YELLOW; URINE GLUCOSE (UA) NEGATIVE (NEGATIVE); URINE KETONE NEGATIVE (NEGATIVE); URINE LEUK ESTERASE NEGATIVE (NEGATIVE); URINE NITRITE NEGATIVE (NEGATIVE); URINE PROTEIN NEGATIVE (NEGATIVE); URINE UROBILINOGEN NEGATIVE mg/dL (0.2-1.0)
[2017-11-15 05:41] LABS: ALBUMIN 3.4 g/dl (3.4-5.0); ANION GAP 9 (8-16); BILIRUBIN,TOTAL 0.6 mg/dL (0.2-1.0); BLOOD UREA NITROGEN 16 mg/dL (7-18); CALCIUM 8.4 mg/dL (8.5-10.1); CHLORIDE 107 mmol/L (98-107); CO2 26 mmol/L (21-32); CREATININE 1.3 mg/dL (0.7-1.3); GLUCOSE,RANDOM 84 mg/dL (74-106); POTASSIUM 3.9 mmol/L (3.5-5.1); SGOT/AST 31 U/L (15-37); SGPT/ALT 20 U/L (12-78); SODIUM 142 mmol/L (136-145); TOT PROT 6.7 g/dl (6.4-8.2)
[2017-11-15 05:42] LABS: ALK PHOS 43 U/L (45-117)
[2017-11-15 09:44] LABS: ANISOCYTOSIS 1+; OVALOCYTE 2+; PLATELET ESTIMATE NORMAL; TEAR DROP CELLS 1+
== END 2017-11-15 06:36 | disposition home or self-care (01) ==
LOC: JER 04:03
PROC: 3E0233Z Introduction of Anti-inflammatory into Muscle, Percutaneous Approach (ICD-10-PCS; principal; 2017-11-15)
DX: G62.9 Polyneuropathy, unspecified (principal); I25.2 Old myocardial infarction; I50.9 Heart failure, unspecified; E78.5 Hyperlipidemia, unspecified; Z95.5 Presence of coronary angioplasty implant and graft; F17.210 Nicotine dependence, cigarettes, uncomplicated
CPT/HCPCS: 36415; 80053; 81003; 85025; 87086; 96372; 99283-25

== ENCOUNTER 2017-11-27 18:10 | Emergency (ER) | payer OTHER ==
--- NOTE | 2017-11-27 18:24 | PDOC ---
Rapid Medical Evaluation Chief Complaint: Constipation Time Seen by Provider: 11/27/17 18:12 Medical Evaluation: Allergies Allergy/AdvReac Type Severity Reaction Status Date / Time tomato Allergy Severe Verified 11/27/17 18:15 Beef Containing Products Allergy Verified 11/27/17 18:15 morphine Allergy Verified 11/27/17 18:15 red dye Allergy Verified 11/27/17 18:15 shellfish derived Allergy Verified 11/27/17 18:15 11/27/17 18:15 I have performed a brief in-person evaluation of this patient. The patient presents with a chief complaint of: Constipation, no BM x 6 days. No BRBPR, abd pain, n/v, rectal pain/pressure. H/o chronic back pain on narcotics and ran out of his stool softeners 7 days ago. Also has h/o HTN, HLD, Afib, COPD, CHF, colon Pertinent physical exam findings: Unremarkable I have ordered the following: XR The patient will proceed to the ED for further evaluation. Discharge Disposition - Diagnosis Constipation Qualifiers: Constipation type: other constipation type Qualified Code(s): K59.09 - Other constipation - Referrals - Patient Instructions - Post Discharge Activity
[2017-11-27 18:26] VITALS: BMI 29.2
--- NOTE | 2017-11-27 19:27 | PDOC ---
History of Present Illness - General History Source: Patient Exam Limitations: No Limitations - History of Present Illness Initial Comments: 11/27/17 19:50 The patient is a 57 year old male, with a significant past medical history of colon cancer, VT(x3), AFib(on ), CAD(s/p stents), pacemaker placement, CHF, COPD , hypertension, hyperlipidemia, claustrophobia, chronic back pain and gout, who presents to the emergency department with constipation for approximately 1 week. The patient reports he has been unable to pass stools, with associated abdominal distension for 7 days. Today, he reports new onset of nausea and several episodes of nonbloody/nonbilious vomiting, but he denies any hemoptysis , flatulence, belching, abdominal pain, melena, or hematochezia. He reports he has been taking a lot of pain medications for his gout and back pain over the past week. Patient reports informing his PCP, Dr. Pyle of his constipation, who recommended 2 enemas, with minimal relief of symptoms. Patient denies any recent fever, chills, cough, headache, or dizziness. He denies any dysuria, hematuria, frequency, or urgency. He reports mild shortness of breath, but denies any chest pain, diaphoresis, or palpitations. He denies any recent travel or sick contacts. Allergies: Morphine Past Surgical History: Cardiac stents, pacemaker/defibrillator, colon resection , left ankle/ right hip/ right elbow repair Social History: Current everyday smoker. No ETOH or recreational drug use. PCP: Dr. Pyle <Hudson Kirk - Last Filed: 11/27/17 23:05> <Nayeli Figueredo - Last Filed: 11/27/17 23:11> - General Chief Complaint: Constipation Stated Complaint: CONSTIPATION Time Seen by Provider: 11/27/17 18:12 Past History <Hudson Kirk - Last Filed: 11/27/17 23:05> - Past Medical History Anemia: No Asthma: Yes Cancer: Yes (COLON) Cardiac Disorders: Yes (VT X 3, A-FIB) CVA: No COPD: Yes CHF: Yes DVT: No Dementia: No Diabetes: No GI Disorders: No Disorders: No HTN: Yes Hypercholesterolemia: Yes Liver Disease: No Seizures: No Thyroid Disease: No - Surgical History Abdominal Surgery: No Appendectomy: No Cardiac Surgery: Yes (4sTENTS,pacemaker,defibrilator) Cholecystectomy: No GI Surgery: Yes (COLON RESECTION) Lung Surgery: No Neurologic Surgery: No Orthopedic Surgery: Yes ((L) ANKLE; (R)HIP; (R) ELBOW) - Family Disease History Family Disease History: Diabetes: Mother - Immunization History TDAP Vaccination: Yes Immunization Up to Date: No (2011 tetanus) - Suicide/Smoking/Psychosocial Hx Smoking Status: Yes Smoking History: Never smoked Have you smoked in the past 12 months: Yes Number of Cigarettes Smoked Daily: 4 If you are a former smoker, when did you quit?: 0 Cigars Per Day: 0 'Breaking Loose' booklet given: 05/13/17 Hx Alcohol Use: No Drug/Substance Use Hx: No Substance Use Type: None Hx Substance Use Treatment: No <Nayeli Figueredo - Last Filed: 11/27/17 23:11> - Past Medical History Allergies/Adverse Reactions: Allergies Allergy/AdvReac Type Severity Reaction Status Date / Time tomato Allergy Severe Verified 11/27/17 18:15 Beef Containing Products Allergy Verified 11/27/17 18:15 morphine Allergy Verified 11/27/17 18:15 red dye Allergy Verified 11/27/17 18:15 shellfish derived Allergy Verified 11/27/17 18:15 Home Medications: Ambulatory Orders Omeprazole [Prilosec] 40 mg PO DAILY 06/23/14 Oxycodone HCl [Roxicodone] 30 mg PO Q6H PRN 07/24/14 Atorvastatin Ca [Lipitor] 10 mg PO HS 08/17/14 Apixaban [Eliquis -] 5 mg PO BID 01/12/16 Escitalopram Oxalate [Lexapro -] 10 mg PO DAILY 01/12/16 Albuterol Sulfate Inhaler - [Ventolin HFA Inhaler -] 1 - 2 inh PO QID #1 inhaler 01/15/16 Ramipril [Altace] 10 mg PO DAILY #60 capsule 05/01/16 Alprazolam 0.25 mg PO BID PRN 07/02/16 Digoxin [Digitek] 125 mcg PO DAILY 07/02/16 Nitroglycerin Sublingual [Nitrostat -] 0.4 mg SL ONCE PRN 07/02/16 Potassium Chloride 10 meq PO DAILY 07/02/16 Carvedilol [Coreg -] 25 mg PO BID #60 tablet 07/06/16 Furosemide [Lasix -] 40 mg PO DAILY 07/13/16 Duloxetine HCl [Cymbalta -] 60 mg PO DAILY #60 capsule. 07/19/16 Isosorbide Mononitrate [Imdur -] 30 mg PO DAILY #30 tab.sr.24h 07/19/16 Gabapentin [Neurontin -] 300 mg PO TID 09/19/16 Loratadine [Claritin -] 10 mg PO DAILY #30 tablet 10/24/16 Review of Systems - Review of Systems Able to Perform ROS?: Yes Comments:: 11/27/17 19:50 GENERAL/CONSTITUTIONAL: No fever or chills. No weakness. HEAD, EYES, EARS, NOSE AND THROAT: No change in vision. No ear pain or discharge. No sore throat. GASTROINTESTINAL: +Abdominal distension, nausea, vomiting, constipation. No abdominal pain, hemoptysis, flatulence, belching, melena, hematochezia, or diarrhea. GENITOURINARY: No dysuria, frequency, or change in urination. CARDIOVASCULAR: +Shortness of breath. No chest pain. RESPIRATORY: No cough, wheezing, or hemoptysis. MUSCULOSKELETAL: No joint or muscle swelling or pain. No neck or back pain. SKIN: No rash NEUROLOGIC: No headache, vertigo, loss of consciousness, or change in strength/ sensation. ENDOCRINE: No increased thirst. No abnormal weight change. HEMATOLOGIC/LYMPHATIC: No anemia, easy bleeding, or history of blood clots. ALLERGIC/IMMUNOLOGIC: No hives or skin allergy. <Hudson Kirk - Last Filed: 11/27/17 23:05> *Physical Exam - Vital Signs Last Vital Signs Temp Pulse Resp BP Pulse Ox 70 20 141/79 100 11/27/17 18:15 11/27/17 18:15 11/27/17 18:15 11/27/17 18:15 - Physical Exam Comments: 11/27/17 19:51 Constitutional: Awake, alert, oriented. No acute distress. Head: Normocephalic. Atraumatic Eyes: PERRL. EOMI. Conjunctivae are not pale. ENT: Mucous membranes are moist and intact. Posterior pharynx without exudates or erythema. Uvula midline. Neck: Supple. Full ROM. No lymphadenopathy. Cardiovascular: Paced. Regular rate. Regular rhythm. S1, S2 regular. Distal pulses are 2+ and symmetric. Pulmonary/Chest: No evidence of respiratory distress. Clear to auscultation bilaterally No wheezing, rales or rhonchi. Abdominal: Mildly distended. Soft. There is no tenderness. No rebound, guarding or rigidity. No organomegaly. No palpable masses. Good bowel sounds. Rectal: No masses, hemorrhoids, or fissures. No stool. Back: No CVA tenderness. Musculoskeletal: No edema. No cyanosis. No clubbing. Full range of motion in all extremities. No calf tenderness. Radial/pedal pulses are intact and 2+ bilaterally Skin: Skin is warm and dry. No petechiae. No purpura. Neurological: Alert and oriented to person, place, and time. Cranial nerves II -XII are grossly intact. Normal speech. Strength is grossly symmetric. No sensory deficits. Psychiatric: Good eye contact. Normal interaction, affect and behavior. <Hudson Kirk - Last Filed: 11/27/17 23:05> - Vital Signs Last Vital Signs Temp Pulse Resp BP Pulse Ox 70 20 141/79 100 11/27/17 18:15 11/27/17 18:15 11/27/17 18:15 11/27/17 18:15 <Nayeli Figueredo - Last Filed: 11/27/17 23:11> ED Treatment Course - LABORATORY CBC & Chemistry Diagram: 11/27/17 20:11 11/27/17 22:00 - RADIOLOGY Radiograph Interpretation: 11/27/17 23:05 EXAM: CT Abdomen and Pelvis INTERPRETED BY: Dr. Ozuna REVIEWED BY: Dr. Figueredo IMPRESSION: Included lower lung demonstrates mild interstitial thickening. There is moderate to marked cardiomegaly. Partially distended stomach without gross wall thickening. There is mild air distention of the distal esophagus. Postcholecystectomy surgical metallic clips are present. Evaluation of the liver , spleen, pancreas and both adrenal glands appear unremarkable. There are multiple cysts in the left kidney with the largest measuring 9.2 cm. A couple of small cysts in the right kidney with the largest measuring 1.5 cm. There is no evidence of hydroureteronephrosis, renal or ureteral stone, bilaterally. Notes made of a tiny fat-containing umbilical hernia. There is no evidence of small bowel obstruction. Normal-appearing terminal ileum and appendix. Normal stool burden in the colon without wall thickening. Partially distended urinary bladder without wall thickening. Normal size prostate gland. Perirectal and pericecal fat are clear. No free air, free fluid or enlarged lymph nodes identified. Normal size abdominal aorta down through its bifurcation. Minimal anterolisthesis of L3 over L4, grade 1. L3-L4 mild broad-based disc bulge likely impinging both L3 nerve roots. L4-L5 mild degenerative disc disease with mild broadbase disc bulge reaching both L4 nerve roots. L5-S1 moderate degenerative disc disease with mild broad-based disc bulge impinging both L5 nerve roots as well as reaching and probably impinging both S1 nerve roots. Left lateral epidural air pockets present, likely degenerative Note is made of metallic plate and screws transfixing the right iliac bone. SUMMARY: Moderate to marked cardiomegaly. Status post cholecystectomy. Bilateral renal cysts with the largest left renal cyst measuring 9.2 cm. Tiny fat-containing umbilical hernia. There is no evidence of small bowel obstruction. No CT evidence of an acute process in the abdomen and pelvis. <Hudson Kirk - Last Filed: 11/27/17 23:05> - LABORATORY CBC & Chemistry Diagram: 11/27/17 20:11 11/27/17 22:00 <Nayeli Figueredo - Last Filed: 11/27/17 23:11> Medical Decision Making - Medical Decision Making 11/27/17 20:13 a/p: 57yo male with constipation x 7 days -n/v today -concern for bowel obstruction vs constipation -hx of colon ca -will obtain labs, ct abd/pelvis -po contrast -will monitor and reassess -ua - c/o decreased output and discomfort while urinating 11/27/17 22:59 low magnesium on labs - will replace ua negative wbc is not elevated lft/renal function reviewed ct without acute intraabd pathology - no sbo, no constipation -tolerated po contrast 11/27/17 23:08 lactic acidosis resolved 11/27/17 23:09 discussed labs with the patient hx of colon ca - gi was in [place], will give referral for GI follow up here discussed ct results pt has tolerated po intake answered all questions. <Nayeli Figueredo - Last Filed: 11/27/17 23:11> *DC/Admit/Observation/Transfer - Attestations Scribe Attestion: 11/27/17 19:53 Documentation prepared by Hudson Kirk, acting as medical dosimetrist for Nayeli Figueredo DO. <Hudson Kirk - Last Filed: 11/27/17 23:05> - Discharge Dispostion Decision to Admit order: No - Attestations Physician Attestion: 11/27/17 23:11 I, Dr. Nayeli Figueredo DO, attest that this document has been prepared under my direction and personally reviewed by me in its entirety. I further attest, that it accurately reflects all work, treatment, procedures and medical decision -making performed by me. <Nayeli Figueredo - Last Filed: 11/27/17 23:11> Diagnosis at time of Disposition: Abdominal pain - Discharge Dispostion Disposition: HOME Condition at time of disposition: Stable - Referrals Referrals: Anup Pyle MD [Primary Care Provider] - Jamil Watkins MD [Staff Physician] - - Patient Instructions Printed Discharge Instructions: DI for Abdominal Pain-Adult Additional Instructions: Please drink plenty of fluids and start your constipation medications again. Please call the [facility] first thing in the AM to arrange for follow up. Please return to the ED with any further concerns or complaints. - Post Discharge Activity
[2017-11-27] MEDS ORDERED: ONDANSETRON 4 MG/2 ML VIAL IVPUSH ONE (20:21)
[2017-11-27] MEDS ORDERED: ONDANSETRON 4 MG/2 ML VIAL ONE (20:37)
[2017-11-27 20:38] LABS: INR 1.35 (0.82-1.09); PROTHROMBIN TIME (PATIENT) 15.3 SEC (9.7-13.0)
[2017-11-27 20:45] LABS: URINE APPEARANCE CLEAR; URINE BILIRUBIN NEGATIVE (<2.0 mg/dL); URINE BLOOD NEGATIVE (NEGATIVE); URINE COLOR YELLOW; URINE GLUCOSE (UA) NEGATIVE (NEGATIVE); URINE KETONE NEGATIVE (NEGATIVE); URINE LEUK ESTERASE NEGATIVE (NEGATIVE); URINE NITRITE NEGATIVE (NEGATIVE); URINE PROTEIN NEGATIVE (NEGATIVE); URINE UROBILINOGEN NEGATIVE mg/dL (0.2-1.0)
[2017-11-27] MEDS ORDERED: SODIUM CHLORIDE 0.9% 1000 ML INFUS.BAG IV ONE (20:45)
[2017-11-27 21:12] LABS: HEMATOCRIT 34.6 % (35.4-49); HEMOGLOBIN 10.6 GM/dL (11.7-16.9); MCHC 30.5 g/dl (32.0-35.9); MEAN CELL VOLUME 59.1 fl (80-96); MEAN PLT VOLUME 8.9 fl (7.5-11.1); PLATELET COUNT 400 K/MM3 (134-434); RBC 5.86 M/mm3 (4.00-5.60); RDW 20.2 % (11.9-15.9); WHITE BLOOD COUNT 7.9 K/mm3 (4.0-10.0)
[2017-11-27] MEDS ORDERED: LORazepam 1 MG TABLET PO ONE (21:40)
[2017-11-27] MEDS ORDERED: LORazepam 0.5 MG TABLET ONE (21:41)
[2017-11-27] MEDS: LORazepam 0.5 MG TABLET PO ONE ×2 (21:43→21:44)
[2017-11-27 22:47] LABS: ALBUMIN 3.6 g/dl (3.4-5.0); ANION GAP 10 (8-16); BILIRUBIN,TOTAL 0.6 mg/dL (0.2-1.0); BLOOD UREA NITROGEN 21 mg/dL (7-18); CALCIUM 8.8 mg/dL (8.5-10.1); CHLORIDE 106 mmol/L (98-107); CO2 25 mmol/L (21-32); CREATININE 1.2 mg/dL (0.7-1.3); GLUCOSE,RANDOM 151 mg/dL (74-106); LIPASE 130 U/L (73-393); MAGNESIUM 1.4 mg/dL (1.8-2.4); SGOT/AST 16 U/L (15-37); SGPT/ALT 21 U/L (12-78); SODIUM 141 mmol/L (136-145); TOT PROT 7.3 g/dl (6.4-8.2)
[2017-11-27 22:50] LABS: ALK PHOS 47 U/L (45-117)
[2017-11-27] MEDS ORDERED: MAGNESIUM SULF 50% (8.12 MEQ/2 ML-1 GM VIAL) IVPB ONE (22:59)
[2017-11-27] MEDS ORDERED: MAGNESIUM 1GM/D5W - 2 GM/200 ML IVPB IVPB ONE (23:04)
[2017-11-27 23:06] LABS: ANISOCYTOSIS 1+; MACROCYTOSIS 1+
[2017-11-27 23:07] LABS: OVALOCYTE 2+; PLATELET ESTIMATE ADEQUATE
[2017-11-27 23:12] VITALS: BP 138/75; PULSE 68; TEMP 98.1
== END 2017-11-27 23:34 | disposition home or self-care (01) ==
LOC: JER 18:10
PROC: 3E0337Z Introduction of Electrolytic and Water Balance Substance into Peripheral Vein, Percutaneous Approach (ICD-10-PCS; principal; 2017-11-27)
PROC: 3E033GC Introduction of Other Therapeutic Substance into Peripheral Vein, Percutaneous Approach (ICD-10-PCS; 2017-11-27)
DX: R10.9 Unspecified abdominal pain (principal); Z85.038 Personal history of other malignant neoplasm of large intestine; I25.2 Old myocardial infarction; I48.91 Unspecified atrial fibrillation; Z95.0 Presence of cardiac pacemaker; J44.9 Chronic obstructive pulmonary disease, unspecified; I10 Essential (primary) hypertension; E78.5 Hyperlipidemia, unspecified; G89.29 Other chronic pain
CPT/HCPCS: 36415; 74176-TC; 80053; 81003; 82550; 82553; 83605; 83690; 83735; 83880; 84484; 85025; 85610; 87086; 99283-25; J7030

== ENCOUNTER 2018-01-22 10:43 | Observation (INO) | payer OTHER ==
[2018-01-22] MEDS ORDERED: ALBUTEROL SO4 2.5/IPRATROPIUM 0.5 INH SOL 3 ML VIAL.NEB. NEB ONE (12:02)
[2018-01-22 13:28] LABS: HEMOGLOBIN 10.7 GM/dL (11.7-16.9); MCHC 30.4 g/dl (32.0-35.9); MEAN CELL VOLUME 58.2 fl (80-96); MEAN PLT VOLUME 8.8 fl (7.5-11.1); PLATELET COUNT 333 K/MM3 (134-434); RBC 6.02 M/mm3 (4.00-5.60); RDW 19.8 % (11.9-15.9); WHITE BLOOD COUNT 4.3 K/mm3 (4.0-10.0)
[2018-01-22 13:29] LABS: INR 1.44 (0.83-1.09); PROTHROMBIN TIME (PATIENT) 16.3 SEC (9.7-13.0)
[2018-01-22 13:34] LABS: MCH 17.7 pg (25.7-33.7)
[2018-01-22 13:39] LABS: ALBUMIN 3.8 g/dl (3.4-5.0); ANION GAP 10 (8-16); BILIRUBIN,TOTAL 0.5 mg/dL (0.2-1.0); BLOOD UREA NITROGEN 16 mg/dL (7-18); CALCIUM 8.5 mg/dL (8.5-10.1); CHLORIDE 104 mmol/L (98-107); CO2 30 mmol/L (21-32); CREATININE 1.2 mg/dL (0.7-1.3); GLUCOSE,RANDOM 105 mg/dL (74-106); POTASSIUM 3.9 mmol/L (3.5-5.1); SGOT/AST 23 U/L (15-37); SGPT/ALT 22 U/L (12-78); SODIUM 144 mmol/L (136-145); TOT PROT 7.7 g/dl (6.4-8.2)
[2018-01-22 13:51] LABS: ALK PHOS 60 U/L (45-117)
[2018-01-22 15:47] LABS: ANISOCYTOSIS 2+; MACROCYTOSIS 1+; OVALOCYTE 1+; PLATELET ESTIMATE NORMAL; TARGET CELLS 1+; TEAR DROP CELLS 1+
[2018-01-22] MEDS ORDERED: FUROSEMIDE 40 MG/4 ML INJECTABLE VIAL IVPUSH ONE (16:09)
[2018-01-22] MEDS ORDERED: ASPIRIN 81 MG CHEWABLE TABLETS PO ONE (16:19)
--- NOTE | 2018-01-22 16:37 | PDOC ---
History of Present Illness - General History Source: Patient Exam Limitations: No Limitations - History of Present Illness Initial Comments: 01/22/18 16:38 The patient is a 57 year old male, with a significant PMH of HLD,HTN, asthma, neuropathy, gout and pacemaker, who presents to the emergency department with chest pain that began this morning. The patient states he was walking his dog a block and a half when the patient became diaphoretic accompanied with chest pain and SOB today. The patient states he can usually walk a block and half with no difficulty. The patient mentions he is claustrophobic. The patient denies headache and dizziness. Denies fever, chills, nausea, vomit, diarrhea and constipation. Denies dysuria, frequency, urgency and hematuria. Allergies: shellfish, morphine Social history: None reported PCP:Dr. Pyle <Jada Kimble - Last Filed: 01/22/18 16:42> <Driss Rios - Last Filed: 01/22/18 17:03> - General Chief Complaint: Lightheaded Stated Complaint: HEAT STROKE Time Seen by Provider: 01/22/18 11:14 Past History <Jada Kimble - Last Filed: 01/22/18 16:42> - Past Medical History Anemia: No Asthma: Yes Cancer: Yes (COLON) Cardiac Disorders: Yes (OK X 3, A-FIB,pacemaker/defib) CVA: No COPD: Yes CHF: Yes DVT: No Dementia: No Diabetes: No GI Disorders: No Disorders: No HTN: Yes Hypercholesterolemia: Yes Liver Disease: No Seizures: No Thyroid Disease: No Other medical history: gout - Surgical History Abdominal Surgery: No Appendectomy: No Cardiac Surgery: Yes (4sTENTS,pacemaker,defibrilator) Cholecystectomy: No GI Surgery: Yes (COLON RESECTION) Lung Surgery: No Neurologic Surgery: No Orthopedic Surgery: Yes ((L) ANKLE; (R)HIP; (R) ELBOW) - Family Disease History Family Disease History: Diabetes: Mother - Immunization History TDAP Vaccination: Yes Immunization Up to Date: No (2011 tetanus) - Suicide/Smoking/Psychosocial Hx Smoking Status: Yes Smoking History: Never smoked Have you smoked in the past 12 months: Yes Number of Cigarettes Smoked Daily: 3 If you are a former smoker, when did you quit?: 0 Cigars Per Day: 0 Information on smoking cessation initiated: No 'Breaking Loose' booklet given: 05/13/17 Hx Alcohol Use: No Drug/Substance Use Hx: No Substance Use Type: None Hx Substance Use Treatment: No <Driss Rios - Last Filed: 01/22/18 17:03> - Past Medical History Allergies/Adverse Reactions: Allergies Allergy/AdvReac Type Severity Reaction Status Date / Time tomato Allergy Severe Verified 01/22/18 10:52 Beef Containing Products Allergy Verified 01/22/18 10:52 morphine Allergy Verified 01/22/18 10:52 red dye Allergy Verified 01/22/18 10:52 shellfish derived Allergy Verified 01/22/18 10:52 Home Medications: Ambulatory Orders Omeprazole [Prilosec] 40 mg PO DAILY 06/23/14 Oxycodone HCl [Roxicodone] 30 mg PO Q6H PRN 07/24/14 Atorvastatin Ca [Lipitor] 10 mg PO HS 08/17/14 Apixaban [Eliquis -] 5 mg PO BID 01/12/16 Escitalopram Oxalate [Lexapro -] 10 mg PO DAILY 01/12/16 Albuterol Sulfate Inhaler - [Ventolin HFA Inhaler -] 1 - 2 inh PO QID #1 inhaler 01/15/16 Ramipril [Altace] 10 mg PO DAILY #60 capsule 05/01/16 Alprazolam 0.25 mg PO BID PRN 07/02/16 Digoxin [Digitek] 125 mcg PO DAILY 07/02/16 Nitroglycerin Sublingual [Nitrostat -] 0.4 mg SL ONCE PRN 07/02/16 Potassium Chloride 10 meq PO DAILY 07/02/16 Carvedilol [Coreg -] 25 mg PO BID #60 tablet 07/06/16 Furosemide [Lasix -] 40 mg PO DAILY 07/13/16 Duloxetine HCl [Cymbalta -] 60 mg PO DAILY #60 capsule.dr 07/19/16 Isosorbide Mononitrate [Imdur -] 30 mg PO DAILY #30 tab.sr.24h 07/19/16 Gabapentin [Neurontin -] 300 mg PO TID 09/19/16 Loratadine [Claritin -] 10 mg PO DAILY #30 tablet 10/24/16 Review of Systems - Review of Systems Able to Perform ROS?: Yes Comments:: 01/22/18 16:40 CONSTITUTIONAL: No fever, no chills, no fatigue EYES: +lightheadedness ENT: No ear pain, no sore throat CARDIOVASCULAR: +chest pain. No palpitations RESPIRATORY:+ SOB. No cough GI: No abdominal pain, no nausea, no vomiting, no constipation, no diarrhea GENITOURINARY: No dysuria, no frequency, no hematuria MUSCULOSKELETAL: No back pain, no joint pain, no myalgias SKIN: No rash NEURO: No headache <Jada Kimble - Last Filed: 01/22/18 16:42> *Physical Exam - Vital Signs Last Vital Signs Temp Pulse Resp BP Pulse Ox 97.9 F 84 18 156/85 99 01/22/18 10:52 01/22/18 16:27 01/22/18 10:52 01/22/18 10:52 01/22/18 10:52 <Jada Kimble - Last Filed: 01/22/18 16:42> - Vital Signs Last Vital Signs Temp Pulse Resp BP Pulse Ox 97.9 F 84 18 156/85 99 01/22/18 10:52 01/22/18 16:27 01/22/18 10:52 01/22/18 10:52 01/22/18 10:52 - Physical Exam Comments: 01/22/18 16:57 EXAMINATION CONSTITUTIONAL: Awake and alert; well-nourished; in no apparent distress HEAD: Normocephalic; atraumatic EYES: PERRL; EOM intact ENMT: External appears normal; normal oropharynx NECK: Supple; non-tender; no cervical lymphadenopathy CARD: Normal S1, S2; no murmurs, rubs, or gallops; no breast masses are identified; RESP: Normal chest excursion with respiration; and expiratory wheezing and crackles are identified at the bases bilaterally; ABD: Soft, non-distended; non-tender; no palpable organomegaly, no palpable hernias EXT: Normal ROM in all four extremities; non-tender to palpation; distal pulses intact; patient ambulates without assistance of a cane SKIN: Warm, dry, no rash NEURO: No focal neurological deficiencies. <Driss Rios - Last Filed: 01/22/18 17:03> ED Treatment Course - LABORATORY CBC & Chemistry Diagram: 01/22/18 13:05 01/22/18 13:05 - ADDITIONAL ORDERS Additional order review: Laboratory Results 01/22/18 01/22/18 13:05 13:05 PT with INR 16.30 H INR 1.44 H Sodium 144 Potassium 3.9 Chloride 104 Carbon Dioxide 30 Anion Gap 10 BUN 16 Creatinine 1.2 Creat Clearance w eGFR > 60 Random Glucose 105 D Calcium 8.5 Total Bilirubin 0.5 AST 23 D ALT 22 Alkaline Phosphatase 60 Creatine Kinase 208 Creatine Kinase Index 2.1 CK-MB (CK-2) 4.52 H Troponin I 0.02 Total Protein 7.7 Albumin 3.8 Digoxin 0.12 L 01/22/18 13:05 RBC 6.02 H MCV 58.2 L MCHC 30.4 L RDW 19.8 H MPV 8.8 Neutrophils % No Result Required. Lymphocytes % No Result Required. - Medications Given in the ED: ED Medications Discontinued Medications Generic Name Dose Route Start Last Admin Trade Name Freq PRN Reason Stop Dose Admin Albuterol/Ipratropium 1 amp 01/22/18 12:02 01/22/18 12:41 Duoneb - NEB 01/22/18 12:03 1 amp ONCE ONE Administration Aspirin 162 mg 01/22/18 16:19 01/22/18 16:32 Asa - PO 01/22/18 16:20 162 mg ONCE ONE Administration <Jada Kimble - Last Filed: 01/22/18 16:42> - LABORATORY CBC & Chemistry Diagram: 01/22/18 13:05 01/22/18 13:05 - ADDITIONAL ORDERS Additional order review: Laboratory Results 01/22/18 01/22/18 13:05 13:05 PT with INR 16.30 H INR 1.44 H Sodium 144 Potassium 3.9 Chloride 104 Carbon Dioxide 30 Anion Gap 10 BUN 16 Creatinine 1.2 Creat Clearance w eGFR > 60 Random Glucose 105 D Calcium 8.5 Total Bilirubin 0.5 AST 23 D ALT 22 Alkaline Phosphatase 60 Creatine Kinase 208 Creatine Kinase Index 2.1 CK-MB (CK-2) 4.52 H Troponin I 0.02 Total Protein 7.7 Albumin 3.8 Digoxin 0.12 L 01/22/18 13:05 RBC 6.02 H MCV 58.2 L MCHC 30.4 L RDW 19.8 H MPV 8.8 Neutrophils % No Result Required. Lymphocytes % No Result Required. - RADIOLOGY Radiology Studies Ordered: Category Date Time Status CHEST PA & LAT [RAD] Stat Radiology 01/22/18 12:01 Completed - Medications Given in the ED: ED Medications Discontinued Medications Generic Name Dose Route Start Last Admin Trade Name Vanessa PRN Reason Stop Dose Admin Albuterol/Ipratropium 1 amp 01/22/18 12:02 01/22/18 12:41 Duoneb - NEB 01/22/18 12:03 1 amp ONCE ONE Administration Aspirin 162 mg 01/22/18 16:19 01/22/18 16:32 Asa - PO 01/22/18 16:20 162 mg ONCE ONE Administration <Driss Rios - Last Filed: 01/22/18 17:03> Medical Decision Making - Medical Decision Making 01/22/18 17:01 Patient's 57-year-old male with multiple comorbidities who presents with an episode of diaphoresis, lightheadedness, chest discomfort associated with shortness of breath. Differential diagnoses includes ACS versus acute CHF exacerbation versus acute asthma exacerbation. EKG shows atrial fibrillation with ventricular rate of 91 without evidence of acute ischemia. Chest x-ray reveals cardiomegaly and increased pulmonary vascular congestion. CBC and CMP within normal limit. Cardiac enzymes are initially negative. We'll administer aspirin. Will diuresis with Lasix. We'll also administer Combivent. Will place in obs for serial cardiac enzymes and continues diuresis. <Driss Rios - Last Filed: 01/22/18 17:03> *DC/Admit/Observation/Transfer - Attestations Scribe Attestion: 01/22/18 16:41 Documentation prepared by Jada Kimble, acting as behavioral medical director for Driss Rios MD. <Jada Kimble - Last Filed: 01/22/18 16:42> - Discharge Dispostion Decision to Admit order: Yes <Driss Rios - Last Filed: 01/22/18 17:03> Diagnosis at time of Disposition: Chest pain Qualifiers: Chest pain type: chest pain on breathing Qualified Code(s): R07.1 - Chest pain on breathing Acute exacerbation of CHF (congestive heart failure) Qualifiers: Heart failure type: unspecified Qualified Code(s): I50.9 - Heart failure, unspecified - Discharge Dispostion Condition at time of disposition: Fair - Referrals Referrals: Anup Pyle MD [Primary Care Provider] - - Patient Instructions - Post Discharge Activity
--- NOTE | 2018-01-22 16:45 | HP ---
Admitting History and Physical - Primary Care Physician PCP: Anup Pyle - Admission Chief Complaint: I didn't feel right History of Present Illness: Mr Roberts is a 57 year old male who comes in with the complaint of "not feeling right". He is at times vague about how he feels and has multiple complaints. He says that he was out walking his dog today when he felt "overcome by the heat". He struggles to define exactly what this means but he says he began to sweat and felt lightheaded and confused. He uses lightheaded and confused interchangeably and I cannot tell if he actually had difficulty with his thought process. He says he was off balance and when asked if he fell he says that he does not know because he does not remember but later denies falling and passing out. He says he became very weak when going up the stairs and had to take them 3 at a time and then stop. He says he was short of breath and was wheezing. He says he had chest tightness from the shortness of breath. He says he was a little bit nauseated but cannot tell me if he was vomiting. He states his leg and back pain are exactly the same. He says he got scared and that is why he came in. He is now saying he feels better. History Source: Patient Limitations to Obtaining History: Poor Historian - Past Medical History Cardiovascular: Yes: CAD, CHF (/ cardiomyopathy), HTN, Hyperlipdemia Pulmonary: Yes: COPD Gastrointestinal: Yes: Other (gastritis) Hepatobiliary: Yes: Hepatitis C Musculoskeletal: Yes: Chronic low back pain (/ degenerative lumbar disc disease) - Past Surgical History Past Surgical History: Yes: Hernia Repair (umbilical), Joint Replacement (right elbow, right hip, left ankle) - Smoking History Smoking history: Current every day smoker Have you smoked in the past 12 months: Yes Aproximately how many cigarettes per day: 3 If you are a former smoker, when did you quit?: 0 - Alcohol/Substance Use Hx Alcohol Use: No History of Substance Use: reports: None - Social History Usual Living Arrangement: Yes: Alone ADL: Independent 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, 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 History of Recent Travel: No Home Medications - Allergies Allergies/Adverse Reactions: Allergies Allergy/AdvReac Type Severity Reaction Status Date / Time tomato Allergy Severe Verified 01/22/18 10:52 Beef Containing Products Allergy Verified 01/22/18 10:52 morphine Allergy Verified 01/22/18 10:52 red dye Allergy Verified 01/22/18 10:52 shellfish derived Allergy Verified 01/22/18 10:52 - Home Medications Home Medications: Ambulatory Orders Omeprazole [Prilosec] 40 mg PO DAILY 06/23/14 Oxycodone HCl [Roxicodone] 30 mg PO Q6H PRN 07/24/14 Atorvastatin Ca [Lipitor] 10 mg PO HS 08/17/14 Apixaban [Eliquis -] 5 mg PO BID 01/12/16 Escitalopram Oxalate [Lexapro -] 10 mg PO DAILY 01/12/16 Albuterol Sulfate Inhaler - [Ventolin HFA Inhaler -] 1 - 2 inh PO QID #1 inhaler 01/15/16 Ramipril [Altace] 10 mg PO DAILY #60 capsule 05/01/16 Alprazolam 0.25 mg PO BID PRN 07/02/16 Digoxin [Digitek] 125 mcg PO DAILY 07/02/16 Nitroglycerin Sublingual [Nitrostat -] 0.4 mg SL ONCE PRN 07/02/16 Potassium Chloride 10 meq PO DAILY 07/02/16 Carvedilol [Coreg -] 25 mg PO BID #60 tablet 07/06/16 Furosemide [Lasix -] 40 mg PO DAILY 07/13/16 Duloxetine HCl [Cymbalta -] 60 mg PO DAILY #60 capsule.dr 07/19/16 Isosorbide Mononitrate [Imdur -] 30 mg PO DAILY #30 tab.sr.24h 07/19/16 Gabapentin [Neurontin -] 300 mg PO TID 09/19/16 Loratadine [Claritin -] 10 mg PO DAILY #30 tablet 10/24/16 Family Disease History - Family Disease History Family Disease History: Heart Disease: Father, [place]: Mother, Brother (colon) Review of Systems Findings/Remarks: Attempted to obtain full review of systems, as per HPI and otherwise negative or unobtainable. Physical Examination Vital Signs: Vital Signs Temperature 36.6 C 01/22/18 10:52 Pulse Rate 84 01/22/18 16:27 Respiratory Rate 18 01/22/18 10:52 Blood Pressure 156/85 01/22/18 10:52 O2 Sat by Pulse Oximetry (%) 99 01/22/18 10:52 Constitutional: Yes: Well Nourished, No Distress, Calm Eyes: Yes: Conjunctiva Clear, EOM Intact, PERRL HENT: Yes: Atraumatic, Normocephalic Cardiovascular: Yes: Regular Rate and Rhythm. No: Gallop, Murmur, Rub Respiratory: Yes: Regular, CTA Bilaterally. No: Rales, Rhonchi, Wheezes Gastrointestinal: Yes: Normal Bowel Sounds, Soft. No: Distention, Tenderness Extremities: Yes: WNL Edema: No Labs: CBC, BMP 01/22/18 13:05 01/22/18 13:05 Imaging - Results Chest X-ray: Report Reviewed, Image Reviewed EKG: Image Reviewed Problem List - Problems (1) Pre-syncope Assessment/Plan: -unclear if presyncope or possible TIA -however very low suspicion for TIA but complaints of weakness and confusion means has to be evaluated -head CT -ECHO and carotid ultrasound -orthostatic vital signs -cardiology and neurology consults -physical therapy consult Code(s): R55 - SYNCOPE AND COLLAPSE (2) Atrial fibrillation Assessment/Plan: -rate controlled -continue eliquis, digoxin, and coreg Code(s): I48.91 - UNSPECIFIED ATRIAL FIBRILLATION Qualifiers: Atrial fibrillation type: chronic Qualified Code(s): I48.2 - Chronic atrial fibrillation (3) CAD (coronary artery disease) Assessment/Plan: -? chest pain -per ED physician describes chest pressure -to me says chest tightness with shortness of breath that resolved with inhalers -EKG negative -cardiac enzymes x3 -cardiology consult, defer need for stress test to cardiology Code(s): I25.10 - ATHSCL HEART DISEASE OF [place] CORONARY ARTERY W/O ANG PCTRS (4) CHF (congestive heart failure) Assessment/Plan: -does not appear to be in exacerbation -received IV lasix in the ED -will continue oral lasix -check orthostatic vital signs -follow up ECHO Code(s): I50.9 - HEART FAILURE, UNSPECIFIED Qualifiers: Qualified Code(s): I50.22 - Chronic systolic (congestive) heart failure (5) COPD (chronic obstructive pulmonary disease) Assessment/Plan: -not in exacerbation -continue inhaled bronchodilators Code(s): J44.9 - CHRONIC OBSTRUCTIVE PULMONARY DISEASE, UNSPECIFIED (6) Chronic back pain Assessment/Plan: -continue oxycodone -will not adjust Code(s): M54.9 - DORSALGIA, UNSPECIFIED; G89.29 - OTHER CHRONIC PAIN Qualifiers: Back pain location: low back pain Back pain laterality: right Sciatica presence: with sciatica Sciatica laterality: sciatica of right side Qualified Code(s): M54.41 - Lumbago with sciatica, right side (7) DVT (deep venous thrombosis) Assessment/Plan: -continue eliquis Code(s): I82.409 - ACUTE EMBOLISM AND THOMBOS UNSP DEEP VN UNSP LOWER EXTREMITY Qualifiers: DVT location: lower extremity Affected thrombotic vein of extremity: tibial Chronicity: chronic Laterality: right Qualified Code(s): 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
[2018-01-22] MEDS ORDERED: LORazepam 1 MG TABLET PO ONE (17:55)
[2018-01-22] MEDS: GABAPENTIN 300 MG CAPSULE (FP) PO SCH (22:05)
[2018-01-22] MEDS: APIXABAN 5 MG TABLET PO SCH (22:05)
[2018-01-22] MEDS: CARVEDILOL 25 MG TABLET (FP) PO SCH (22:05)
[2018-01-22] MEDS: ATORVASTATIN CA 10 MG TABLET (FP) PO SCH (22:05)
[2018-01-22] MEDS: oxyCODONE HCL 5 MG TABLET PO PRN (22:25)
[2018-01-22 23:03] VITALS: BMI 26.3
[2018-01-23] MEDS ORDERED: ALBUTEROL SO4 2.5/IPRATROPIUM 0.5 INH SOL 3 ML VIAL.NEB. NEB ONE (00:37)
[2018-01-23] MEDS: GABAPENTIN 300 MG CAPSULE (FP) PO SCH ×3 (05:46→21:38)
[2018-01-23] MEDS: oxyCODONE HCL 5 MG TABLET PO PRN ×3 (05:51→21:38)
[2018-01-23 06:34] LABS: BASO % 0.6 % (0-2.0); EOS % 3.1 % (0-4.5); HEMATOCRIT 34.2 % (35.4-49); HEMOGLOBIN 10.4 GM/dL (11.7-16.9); LYMPH % 70.2 % (8-40); MCHC 30.6 g/dl (32.0-35.9); MEAN CELL VOLUME 58.1 fl (80-96); MEAN PLT VOLUME 9.1 fl (7.5-11.1); MONO % 4.6 % (3.8-10.2); NEUT % 21.5 % (42.8-82.8); PLATELET COUNT 338 K/MM3 (134-434); RBC 5.88 M/mm3 (4.00-5.60); RDW 19.9 % (11.9-15.9); WHITE BLOOD COUNT 4.6 K/mm3 (4.0-10.0)
[2018-01-23 07:06] LABS: MCH 17.8 pg (25.7-33.7)
[2018-01-23 07:10] LABS: ANION GAP 8 (8-16); BLOOD UREA NITROGEN 17 mg/dL (7-18); CALCIUM 8.4 mg/dL (8.5-10.1); CHLORIDE 104 mmol/L (98-107); CHOLESTEROL 172 mg/dL (50-200); CO2 32 mmol/L (21-32); CREATININE 1.3 mg/dL (0.7-1.3); GLUCOSE,RANDOM 83 mg/dL (74-106); MAGNESIUM 2.1 mg/dL (1.8-2.4); PHOSPHOROUS 3.5 mg/dL (2.5-4.9); POTASSIUM 3.8 mmol/L (3.5-5.1); SODIUM 144 mmol/L (136-145); TRIGLYCERIDES 79 mg/dL (35-160)
[2018-01-23 07:19] LABS: HDL CHOLESTEROL 43 mg/dL (40-60)
--- NOTE | 2018-01-23 08:36 | CONSULT ---
Consult - text type - Consultation Consultation Note: Neurology History of Present Illness: 57 year old male who presented with nonspecific complaints of feeling ill. Per notes, reportedly was lightheaded with diaphoresis and possible confusion. Reportedly was off balance and felt weak going up stairs. Also reportedly with shortness of breath and was wheezing. He says he had chest tightness from the shortness of breath. This AM, awake but somnolent and slow in processing when seen by me. Did repeat back what I said and appears to have registered. CT head reviewed and discussed and without acute changes. Carotid dopplers also reviewed and discussed with mild athero but no HD significant stenosis. - Past Medical History Cardiovascular: Yes: CAD, CHF (/ cardiomyopathy), HTN, Hyperlipdemia Pulmonary: Yes: COPD Gastrointestinal: Yes: Other (gastritis) Hepatobiliary: Yes: Hepatitis C Musculoskeletal: Yes: Chronic low back pain (/ degenerative lumbar disc disease) - Past Surgical History Past Surgical History: Yes: Hernia Repair (umbilical), Joint Replacement (right elbow, right hip, left ankle) - Smoking History Smoking history: Current every day smoker Have you smoked in the past 12 months: Yes Aproximately how many cigarettes per day: 3 If you are a former smoker, when did you quit?: 0 - Alcohol/Substance Use Hx Alcohol Use: No History of Substance Use: reports: None - Social History Usual Living Arrangement: Yes: Alone ADL: Independent 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, 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 History of Recent Travel: No Home Medications - Allergies Allergies/Adverse Reactions: Allergies Allergy/AdvReac Type Severity Reaction Status Date / Time tomato Allergy Severe Verified 01/22/18 10:52 Beef Containing Products Allergy Verified 01/22/18 10:52 morphine Allergy Verified 01/22/18 10:52 red dye Allergy Verified 01/22/18 10:52 shellfish derived Allergy Verified 01/22/18 10:52 - Home Medications Home Medications: Ambulatory Orders Omeprazole [Prilosec] 40 mg PO DAILY 06/23/14 Oxycodone HCl [Roxicodone] 30 mg PO Q6H PRN 07/24/14 Atorvastatin Ca [Lipitor] 10 mg PO HS 08/17/14 Apixaban [Eliquis -] 5 mg PO BID 01/12/16 Escitalopram Oxalate [Lexapro -] 10 mg PO DAILY 01/12/16 Albuterol Sulfate Inhaler - [Ventolin HFA Inhaler -] 1 - 2 inh PO QID #1 inhaler 01/15/16 Ramipril [Altace] 10 mg PO DAILY #60 capsule 05/01/16 Alprazolam 0.25 mg PO BID PRN 07/02/16 Digoxin [Digitek] 125 mcg PO DAILY 07/02/16 Nitroglycerin Sublingual [Nitrostat -] 0.4 mg SL ONCE PRN 07/02/16 Potassium Chloride 10 meq PO DAILY 07/02/16 Carvedilol [Coreg -] 25 mg PO BID #60 tablet 07/06/16 Furosemide [Lasix -] 40 mg PO DAILY 07/13/16 Duloxetine HCl [Cymbalta -] 60 mg PO DAILY #60 capsule. 07/19/16 Isosorbide Mononitrate [Imdur -] 30 mg PO DAILY #30 tab.sr.24h 07/19/16 Gabapentin [Neurontin -] 300 mg PO TID 09/19/16 Loratadine [Claritin -] 10 mg PO DAILY #30 tablet 10/24/16 Family Disease History - Family Disease History Family Disease History: Heart Disease: Father, [place]: Mother, Brother (colon) Review of Systems Findings/Remarks: Attempted to obtain full review of systems, as per HPI and otherwise negative or unobtainable. Physical Examination Vital Signs: Vital Signs Temperature 36.6 C 01/22/18 10:52 Pulse Rate 84 01/22/18 16:27 Respiratory Rate 18 01/22/18 10:52 Blood Pressure 156/85 01/22/18 10:52 O2 Sat by Pulse Oximetry (%) 99 01/22/18 10:52 Constitutional: Yes: Well Nourished, No Distress, Calm Eyes: Yes: Conjunctiva Clear, EOM Intact, PERRL HENT: Yes: Atraumatic, Normocephalic Cardiovascular: Yes: Regular Rate and Rhythm. No: Gallop, Murmur, Rub Respiratory: Yes: Regular, CTA Bilaterally. No: Rales, Rhonchi, Wheezes Gastrointestinal: Yes: Normal Bowel Sounds, Soft. No: Distention, Tenderness Extremities: Yes: WNL Neuro: Slow processing commands, moves all extremities equally, sensory intact to LT grossly no focal deficits, gait deferred CBCD WBC 4.6 K/mm3 (4.0-10.0) 01/23/18 05:30 RBC 5.88 M/mm3 (4.00-5.60) H 01/23/18 05:30 Hgb 10.4 GM/dL (11.7-16.9) L 01/23/18 05:30 Hct 34.2 % (35.4-49) L 01/23/18 05:30 MCV 58.1 fl (80-96) L 01/23/18 05:30 MCHC 30.6 g/dl (32.0-35.9) L 01/23/18 05:30 RDW 19.9 % (11.9-15.9) H 01/23/18 05:30 Plt Count 338 K/MM3 (134-434) 01/23/18 05:30 MPV 9.1 fl (7.5-11.1) 01/23/18 05:30 CMP Sodium 144 mmol/L (136-145) 01/22/18 13:05 Potassium 3.9 mmol/L (3.5-5.1) 01/22/18 13:05 Chloride 104 mmol/L (98-107) 01/22/18 13:05 Carbon Dioxide 30 mmol/L (21-32) 01/22/18 13:05 Anion Gap 10 (8-16) 01/22/18 13:05 BUN 16 mg/dL (7-18) 01/22/18 13:05 Creatinine 1.2 mg/dL (0.7-1.3) 01/22/18 13:05 Creat Clearance w eGFR > 60 (>60) 01/22/18 13:05 Random Glucose 105 mg/dL (74-106) D 01/22/18 13:05 Calcium 8.5 mg/dL (8.5-10.1) 01/22/18 13:05 Total Bilirubin 0.5 mg/dL (0.2-1.0) 01/22/18 13:05 AST 23 U/L (15-37) D 01/22/18 13:05 ALT 22 U/L (12-78) 01/22/18 13:05 Alkaline Phosphatase 60 U/L (45-117) 01/22/18 13:05 Total Protein 7.7 g/dl (6.4-8.2) 01/22/18 13:05 Albumin 3.8 g/dl (3.4-5.0) 01/22/18 13:05 CARDIAC ENZYMES Creatine Kinase 106 IU/L (39-308) 01/22/18 22:35 Troponin I 0.04 ng/ml (0.00-0.05) D 01/22/18 22:[address] head reviewed Carotid reviewed Plan: 57 year old male who presented with nonspecific complaints of feeling ill. Per notes, reportedly was lightheaded with diaphoresis and possible confusion. Reportedly was off balance and felt weak going up stairs. Also reportedly with shortness of breath and was wheezing. He says he had chest tightness from the shortness of breath. This AM, awake but somnolent and slow in processing when seen by me. Did repeat back what I said and appears to have registered. CT head reviewed and discussed and without acute changes. Carotid dopplers also reviewed and discussed with mild athero but no HD significant stenosis. Low suspicion for CVA, though possibly underlying generalized process. Advised increased hydration. Consider checking ammonia level if not at baseline later today. MRI brain could considered but does not seem necessary at this time. Consider checking UTox. On superintendent container terminal pain medication, unclear if took increased dose? Could also heat related. Follow up tele monitoring, orthostatics.
[2018-01-23] MEDS: RAMIPRIL 5 MG CAPSULE (FP) PO SCH (10:00)
[2018-01-23] MEDS: POTASSIUM CHLORIDE TABS 10 MEQ TABLET.ER (FP) PO SCH (10:02)
[2018-01-23] MEDS: ISOSORBIDE MONONITRATE 30 MG TAB.SR.24H (FP) PO SCH (10:02)
[2018-01-23] MEDS: PANTOPRAZOLE 40 MG TABLET (FP) PO SCH (10:03)
[2018-01-23] MEDS: DIGOXIN 0.125 MG TABLET (FP) PO SCH (10:03)
[2018-01-23] MEDS: APIXABAN 5 MG TABLET PO SCH ×2 (10:03→21:38)
[2018-01-23] MEDS: FUROSEMIDE 40 MG TABLET (FP) PO SCH (10:04)
[2018-01-23] MEDS: CARVEDILOL 25 MG TABLET (FP) PO SCH ×2 (10:04→21:38)
--- NOTE | 2018-01-23 10:04 | EKG ---
Test Reason : Blood Pressure : / mmHG Vent. Rate : 091 BPM Atrial Rate : 086 BPM P-R Int : 000 ms QRS Dur : 104 ms QT Int : 374 ms P-R-T Axes : 000 -08 -08 degrees QTc Int : 460 ms ATRIAL FIBRILLATION ABNORMAL ECG WHEN COMPARED WITH ECG OF 17-SEP-2017 08:44, NO SIGNIFICANT CHANGE WAS FOUND Confirmed by GEORGIE RAMIREZ MD ([id number]) on 01/23/2018 10:03:47 AM Referred By: Confirmed By:GEORGIE RAMIREZ MD
[2018-01-23] MEDS: LORATADINE 10 MG TABLET PO SCH (10:06)
[2018-01-23] MEDS: ESCITALOPRAM OXALATE 10 MG TABLET (FP) PO SCH (10:06)
[2018-01-23 10:35] LABS: ANISOCYTOSIS 3+; MACROCYTOSIS 0; OVALOCYTE 1+; PLATELET ESTIMATE NORMAL
[2018-01-23] MEDS ORDERED: POLYETHYLENE GLYCOL 3350 119 GM BTL PO ONE (11:25)
--- NOTE | 2018-01-23 11:35 | CON.CARD ---
Cardiology Consult (text) - Consultation Consultation Note: CC: leg pain, swelling/pain in chest History of Present Illness: 57 yo pt here with leg/foot pain, swelling/pain in chest. Had swelling of right nipple/breast and it had been tender and painful with breathing. PMD gave abx for infection but did not help. Had chronic leg pain, ?gout related in past. Poor historian, seems to have had presyncope episode yesterday as well. No palps, pnd, orthopnea, le edema. Denies ICD shocks. 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 History of Recent Travel: No Home Medications - Allergies Allergies/Adverse Reactions: Allergies Allergy/AdvReac Type Severity Reaction Status Date / Time tomato Allergy Severe Verified 01/22/18 10:52 Beef Containing Products Allergy Verified 01/22/18 10:52 morphine Allergy Verified 01/22/18 10:52 red dye Allergy Verified 01/22/18 10:52 shellfish derived Allergy Verified 01/22/18 10:52 - Home Medications Home Medications Medication Instructions Recorded Omeprazole [Prilosec] 40 mg PO DAILY 06/23/14 Oxycodone HCl [Roxicodone] 30 mg PO Q6H PRN 07/24/14 Apixaban [Eliquis -] 5 mg PO BID 01/12/16 Albuterol Sulfate Inhaler - 1 - 2 inh PO QID #1 inhaler 01/15/16 [Ventolin HFA Inhaler -] Ramipril [Altace] 10 mg PO DAILY #60 capsule 05/01/16 Alprazolam 0.25 mg PO BID PRN 07/02/16 Digoxin [Digitek] 125 mcg PO DAILY 07/02/16 Nitroglycerin Sublingual 0.4 mg SL ONCE PRN 07/02/16 [Nitrostat -] Potassium Chloride 10 meq PO DAILY 07/02/16 Carvedilol [Coreg -] 25 mg PO BID #60 tablet 07/06/16 Furosemide [Lasix -] 40 mg PO DAILY 07/13/16 Gabapentin [Neurontin -] 300 mg PO TID 09/19/16 Amox-Clav 875-125 mg Tablet 1 tab PO BID 01/23/18 Cephalexin 500 mg PO TID 01/23/18 Family Disease History - Family Disease History Family Disease History: Heart Disease: Father, [place]: Mother, Brother (colon) Review of Systems - Review of Systems Constitutional: denies: Chills, Fever Eyes: denies: Eye Pain HENT: denies: Nasal Congestion Neck: denies: Stiffness Cardiovascular: denies: Palpitations Respiratory: denies: Orthopnea, PND Gastrointestinal: denies: Diarrhea, Rectal Bleeding Genitourinary: denies: Burning, Hematuria Musculoskeletal: denies: Muscle Pain Integumentary: denies: Rash Neurological: denies: Numbness, Seizure, Syncope Endocrine: denies: Excessive Sweating Hematology/Lymphatic: denies: Excessive Bleeding Vital Signs: Vital Signs Period Temp Pulse Resp BP Sys/Sal Pulse Ox Last 24 Hr 97.8 F-98.2 F 71-92 18-20 103-130/51-71 100 Constitutional: Yes: Well Nourished, No Distress Eyes: No: Sclera Icterus HENT: No: Nasal Congestion Neck: No: Decreased ROM Respiratory: Yes: CTA Bilaterally. No: Accessory Muscle Use, Rales, Wheezes Gastrointestinal: Yes: Normal Bowel Sounds. No: Distention, Hepatomegaly nd nt Cardiovascular: Yes: Regular Rate and Rhythm JVD: no Carotid Bruit: No PMI: Non-Displaced Heart Sounds: Yes: S1, S2. No: Gallop Murmur: No: Systolic Murmur, Diastolic Murmur Musculoskeletal: Yes: Other (No kyphosis) Extremities: Yes: Cold. No: Cyanosis Edema: No Peripheral Pulses: 2+ Left Carotid, 2+ Right Carotid, 2+ Left Doralis Pedis, 2+ Right Dorsalis Pedis Integumentary: No: Jaundice diaphoresis +chest wall tenderness Neurological: Yes: Alert, Oriented (x3) Psychiatric: No: Agitated - Other Data Labs, Other Data: Laboratory Last Values WBC 4.6 K/mm3 (4.0-10.0) 01/23/18 05:30 RBC 5.88 M/mm3 (4.00-5.60) H 01/23/18 05:30 Hgb 10.4 GM/dL (11.7-16.9) L 01/23/18 05:30 Hct 34.2 % (35.4-49) L 01/23/18 05:30 MCV 58.1 fl (80-96) L 01/23/18 05:30 MCH 17.8 pg (25.7-33.7) L 01/23/18 05:30 MCHC 30.6 g/dl (32.0-35.9) L 01/23/18 05:30 RDW 19.9 % (11.9-15.9) H 01/23/18 05:30 Plt Count 338 K/MM3 (134-434) 01/23/18 05:30 MPV 9.1 fl (7.5-11.1) 01/23/18 05:30 Absolute Neuts (auto) 1.0 # 01/23/18 05:30 Neutrophils % 21.5 % (42.8-82.8) L D 01/23/18 05:30 Neutrophils % (Manual) 38.8 % (42.8-82.8) L D 01/23/18 05:30 Band Neutrophils % 0.0 % 01/23/18 05:30 Lymphocytes % 70.2 % (8-40) H D 01/23/18 05:30 Lymphocytes % (Manual) 38.8 % (8-40) D 01/23/18 05:30 Monocytes % 4.6 % (3.8-10.2) 01/23/18 05:30 Monocytes % (Manual) 19 % (3.8-10.2) H D 01/23/18 05:30 Eosinophils % 3.1 % (0-4.5) 01/23/18 05:30 Eosinophils % (Manual) 3.0 % (0-4.5) 01/23/18 05:30 Basophils % 0.6 % (0-2.0) 01/23/18 05:30 Basophils % (Manual) 0.0 % (0-2.0) 01/23/18 05:30 Myelocytes % (Man) 0 % (0-2) 01/23/18 05:30 Promyelocytes % (Man) 0 % (0-2) 01/23/18 05:30 Blast Cells % (Manual) 0 % (0-0) 01/23/18 05:30 Nucleated RBC % 0 % (0-0) 01/23/18 05:30 Metamyelocytes 0 % (0-2) 01/23/18 05:30 Hypochromia 1+ 01/23/18 05:30 Platelet Estimate Normal 01/23/18 05:30 Polychromasia 1+ 01/23/18 05:30 Poikilocytosis 2+ 01/23/18 05:30 Anisocytosis 3+ 01/23/18 05:30 Microcytosis 2+ 01/23/18 05:30 Macrocytosis 0 01/23/18 05:30 Target Cells 1+ 01/22/18 13:05 Tear Drop Cells 1+ 01/22/18 13:05 Ovalocytes 1+ 01/23/18 05:30 [place] Cells 1+ 01/23/18 05:30 Schistocytes 1+ 01/22/18 13:05 PT with INR 16.30 SEC (9.7-13.0) H 01/22/18 13:05 INR 1.44 (0.83-1.09) H 01/22/18 13:05 Sodium 144 mmol/L (136-145) 01/23/18 05:30 Potassium 3.8 mmol/L (3.5-5.1) 01/23/18 05:30 Chloride 104 mmol/L (98-107) 01/23/18 05:30 Carbon Dioxide 32 mmol/L (21-32) 01/23/18 05:30 Anion Gap 8 (8-16) 01/23/18 05:30 BUN 17 mg/dL (7-18) 01/23/18 05:30 Creatinine 1.3 mg/dL (0.7-1.3) 01/23/18 05:30 Creat Clearance w eGFR 56.50 (>60) 01/23/18 05:30 Random Glucose 83 mg/dL (74-106) D 01/23/18 05:30 Calcium 8.4 mg/dL (8.5-10.1) L 01/23/18 05:30 Phosphorus 3.5 mg/dL (2.5-4.9) 01/23/18 05:30 Magnesium 2.1 mg/dL (1.8-2.4) D 01/23/18 05:30 Total Bilirubin 0.5 mg/dL (0.2-1.0) 01/22/18 13:05 AST 23 U/L (15-37) D 01/22/18 13:05 ALT 22 U/L (12-78) 01/22/18 13:05 Alkaline Phosphatase 60 U/L (45-117) 01/22/18 13:05 Creatine Kinase 140 IU/L (39-308) 01/23/18 05:30 Creatine Kinase Index 2.1 % (0.0-5.0) 01/22/18 13:05 CK-MB (CK-2) 4.52 ng/mL (0.5-3.6) H 01/22/18 13:05 Troponin I < 0.02 ng/ml (0.00-0.05) D 01/23/18 05:30 B-Natriuretic Peptide 1329.85 pg/ml (5-125) H 01/22/18 13:00 Total Protein 7.7 g/dl (6.4-8.2) 01/22/18 13:05 Albumin 3.8 g/dl (3.4-5.0) 01/22/18 13:05 Triglycerides 79 mg/dL (35-160) D 01/23/18 05:30 Cholesterol 172 mg/dL (50-200) 01/23/18 05:30 Total LDL Cholesterol 116 mg/dL (5-100) H D 01/23/18 05:30 HDL Cholesterol 43 mg/dL (40-60) D 01/23/18 05:30 TSH 0.45 uIU/ml (0.358-3.74) D 01/23/18 05:30 Digoxin 0.12 ng/ml (0.8-2.0) L 01/22/18 13:05 ekg: afib, rate controlled, no sig change vs prior ecgs cxr: no sig chf tele: afib, rate ok echo 12/30: mild lv dil. sev red LV function (global). Nl RV. Sev LAE. Mod-sev MR. RVSP 30-40. borderline ao dil. echo 08/2013: mild lve, mild-mod dec lvef, nl rv, mod lae, mild-mod mr, mild tr , rvsp 30-40 cath 02/2016: normal cors a/p: 57 m hx systolic chf (30-40%), NICM s/p ICD, afib on eliquis, hcv, hld, htn, copd, here with leg/foot pain, swelling/pain in chest. foot pain -prior admit 2016 duplex shows dvt on right, also with hx gout causing similar pain -on AC already for afib -? unprovoked DVT--heme following in past for hypercoag/malignancy w/u -gout/neuropathy tx per pmd atypical chest pain: -hx of chronic atypical chest pain - in past pt reported that he had CAD with prior [place] x 3, s/p cardiac stents x 4. However, he had a cardiac cath on in 03/09/2016 in the setting of chest pain and new ECG changes. This showed "normal coronaries" without prior PCIs. -cp currently is MSK in nature, reproducible on exam -no signs acs presyncope: -pt does not recall event and is poor historian, possible presyncope -tele benign, carotids unremarkable -check echo -check ortho vitals chronic systolic chf: -Continue ACEi and Coreg -no signs vol overload at present, cont po lasix -No icd shocks. Cont bb for now, routine icd checks in office. Afib -rate controlled -Continue BB, dig. -cont eliquis tobacco/drug use - cessation counseling if echo benign then cardiac vidales stable for dc
[2018-01-23] MEDS ORDERED: DOCUSATE SODIUM 100 MG CAPSULE (FP) PO ONE (11:45)
[2018-01-23] MEDS ORDERED: SILVER SULFADIAZINE 1% TOP CREAM 50 GM JAR TP SCH (13:00)
--- NOTE | 2018-01-23 13:17 | ECHO ---
Name: LICHA ROSE Exam:Adult Echocardiogram Study Date: 01/23/2018 08:00 AM Age: 57 yrs Reason For Study: PRESYNCOPE Height: 76 in Weight: 230 lb BSA: 2.4 m2 MMode/2D Measurements & Calculations IVSd: 1.5 cm Ao root diam: 3.6 cm LVIDd: 6.1 cm LA dimension: 6.6 cm LVIDs: 4.2 cm LVPWd: 1.4 cm EDV(Teich): 185.1 ml LAV (MOD-bp): 170.0 ml ESV(Teich): 76.6 ml Doppler Measurements & Calculations MR max gilberto: 373.3 cm/sec Med Peak E' Gilberto: 4.5 cm/sec MR max P.7 mmHg Lat Peak E' Gilberto: 6.0 cm/sec PI Vmax: 150.7 cm/sec Procedure A complete two-dimensional transthoracic echocardiogram was performed (2D, M-mode, Doppler and color flow Doppler). Left Ventricle The left ventricle is mildly dilated. There is mild concentric left ventricular hypertrophy. Ejection Fraction = 20-25%. Left ventricular systolic function is severely reduced. There is severe global hypokinesis of the left ventricle. Right Ventricle The right ventricle is normal in size and function. There is a pacemaker lead in the right ventricle. Atria The left atrium is severely dilated. Right atrial size is normal. There is a catheter/pacemaker lead seen in the right atrium. Mitral Valve There is mild mitral regurgitation. Tricuspid Valve There is trace tricuspid regurgitation. There was insufficient TR detected to calculate RV systolic p ressure. Aortic Valve The aortic valve is trileaflet. No hemodynamically significant valvular aortic stenosis. No aortic regurgitation is present. Pulmonic Valve There is no pulmonic valvular regurgitation. Great Vessels The aortic root is normal size. Pericardium/Pleura There is no pericardial effusion. Interpretation Summary The left ventricle is mildly dilated. There is mild concentric left ventricular hypertrophy. Left ventricular systolic function is severely reduced. There is severe global hypokinesis of the left ventricle. The right ventricle is normal in size and function. There is a pacemaker lead in the right ventricle. The left atrium is severely dilated. There is a pacemaker lead seen in the right atrium. There is mild mitral regurgitation. There is trace tricuspid regurgitation. MD Chinedu Centeno 01/23/2018 01:16 PM
--- NOTE | 2018-01-23 15:02 | DS ---
Physical Examination Vital Signs: Vital Signs Temperature 36.7 C 01/23/18 10:00 Pulse Rate 73 01/23/18 10:03 Respiratory Rate 22 01/23/18 10:00 Blood Pressure 117/71 01/23/18 10:00 O2 Sat by Pulse Oximetry (%) 99 01/23/18 10:00 Constitutional: Yes: Well Nourished, No Distress, Calm Cardiovascular: Yes: Regular Rate and Rhythm. No: Gallop, Murmur, Rub Respiratory: Yes: Regular, CTA Bilaterally. No: Rales, Rhonchi, Wheezes Gastrointestinal: Yes: Normal Bowel Sounds, Soft. No: Distention, Tenderness Extremities: Yes: WNL Edema: No Labs: CBC, BMP 01/23/18 05:30 01/23/18 05:30 Discharge Summary Reason For Visit: CONGESTIVE HEART FAILURE Current Active Problems Acute exacerbation of CHF (congestive heart failure) (Acute) Chest pain (Acute) Pre-syncope (Acute) Hospital Course: (1) Pre-syncope Code(s): R55 - SYNCOPE AND COLLAPSE (2) Atrial fibrillation Code(s): I48.91 - UNSPECIFIED ATRIAL FIBRILLATION Qualifiers: Atrial fibrillation type: chronic Qualified Code(s): I48.2 - Chronic atrial fibrillation (3) CAD (coronary artery disease) Code(s): I25.10 - ATHSCL HEART DISEASE OF [place] CORONARY ARTERY W/O ANG PCTRS (4) CHF (congestive heart failure) Code(s): I50.9 - HEART FAILURE, UNSPECIFIED Qualifiers: Qualified Code(s): I50.22 - Chronic systolic (congestive) heart failure (5) COPD (chronic obstructive pulmonary disease) Code(s): J44.9 - CHRONIC OBSTRUCTIVE PULMONARY DISEASE, UNSPECIFIED (6) Chronic back pain Code(s): M54.9 - DORSALGIA, UNSPECIFIED; G89.29 - OTHER CHRONIC PAIN Qualifiers: Back pain location: low back pain Back pain laterality: right Sciatica presence: with sciatica Sciatica laterality: sciatica of right side Qualified Code(s): M54.41 - Lumbago with sciatica, right side (7) DVT (deep venous thrombosis) Code(s): I82.409 - ACUTE EMBOLISM AND THOMBOS UNSP DEEP VN UNSP LOWER EXTREMITY Qualifiers: DVT location: lower extremity Affected thrombotic vein of extremity: tibial Chronicity: chronic Laterality: right Qualified Code(s): 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 He was admitted to telemetry under observation. He underwent carotid ultrasound which was negative and an ECHO that was unchanged. He had cardiac enzymes x3 that were negative. He was seen by cardiology and neurology and cleared. Upon discharge he said he was unable to walk secondary to sudden worsening pain in his legs however was observed walking without difficulty. He is encouraged to follow up with his outpatient physicians for further management and care. He is stable for discharge home without any changes in his medications. 37 minutes spent in preparation of this discharge Condition: Stable - Instructions Diet, Activity, Other Instructions: resume previous diet and activity Referrals: Chinedu Centeno MD [Staff Physician] - Ridge Nielsen MD [Staff Physician] - Anup Pyle MD [Primary Care Provider] - Disposition: HOME - Home Medications Comprehensive Discharge Medication List: Ambulatory Orders Omeprazole [Prilosec] 40 mg PO DAILY 06/23/14 Oxycodone HCl [Roxicodone] 30 mg PO Q6H PRN 07/24/14 Apixaban [Eliquis -] 5 mg PO BID 01/12/16 Albuterol Sulfate Inhaler - [Ventolin HFA Inhaler -] 1 - 2 inh PO QID #1 inhaler 01/15/16 Ramipril [Altace] 10 mg PO DAILY #60 capsule 05/01/16 Alprazolam 0.25 mg PO BID PRN 07/02/16 Digoxin [Digitek] 125 mcg PO DAILY 07/02/16 Nitroglycerin Sublingual [Nitrostat -] 0.4 mg SL ONCE PRN 07/02/16 Potassium Chloride 10 meq PO DAILY 07/02/16 Carvedilol [Coreg -] 25 mg PO BID #60 tablet 07/06/16 Furosemide [Lasix -] 40 mg PO DAILY 07/13/16 Gabapentin [Neurontin -] 300 mg PO TID 09/19/16 Amox-Clav 875-125 mg Tablet 1 tab PO BID 01/23/18
[2018-01-23] MEDS: ALBUTEROL SO4 2.5/IPRATROPIUM 0.5 INH SOL 3 ML VIAL.NEB. NEB PRN ×2 (17:32→20:59)
[2018-01-23] MEDS: ATORVASTATIN CA 10 MG TABLET (FP) PO SCH (21:38)
[2018-01-24] MEDS: GABAPENTIN 300 MG CAPSULE (FP) PO SCH (06:19)
--- NOTE | 2018-01-24 08:22 | PN ---
Progress Note (short form) - Note Progress Note: Neurology History of Present Illness: 57 year old male who presented with nonspecific complaints of feeling ill. Per notes, reportedly was lightheaded with diaphoresis and possible confusion. Reportedly was off balance and felt weak going up stairs. Also reportedly with shortness of breath and was wheezing. He says he had chest tightness from the shortness of breath. This AM, awake but somnolent and slow in processing when seen by me. Did repeat back what I said and appears to have registered. CT head without acute changes. Carotid dopplers with mild athero but no HD significant stenosis. Echo with mild LV hypertrophy, severely reduced systolic fxn, global hypokinesia. Did not to speak with examiner this AM. Stated "i'm leaving at 9am so leave me the F__ alone" Active Medications Albuterol/Ipratropium (Duoneb -) 1 amp NEB Q4H PRN PRN Reason: SHORTNESS OF BREATH Last Admin: 01/23/18 20:59 Dose: 1 amp Apixaban (Eliquis -) 5 mg PO BID [facility] Last Admin: 01/23/18 21:38 Dose: 5 mg Atorvastatin Calcium (Lipitor -) 10 mg PO HS [facility] Last Admin: 01/23/18 21:38 Dose: 10 mg Carvedilol (Coreg -) 25 mg PO BID [facility] Last Admin: 01/23/18 21:38 Dose: 25 mg Digoxin (Lanoxin -) 0.125 mg PO DAILY [facility] Last Admin: 01/23/18 10:03 Dose: 0.125 mg Escitalopram Oxalate (Lexapro -) 10 mg PO DAILY [facility] Last Admin: 01/23/18 10:06 Dose: Not Given Furosemide (Lasix -) 40 mg PO DAILY [facility] Last Admin: 01/23/18 10:04 Dose: 40 mg Gabapentin (Neurontin -) 300 mg PO TID [facility] Last Admin: 01/24/18 06:19 Dose: 300 mg Isosorbide Mononitrate (Imdur -) 30 mg PO DAILY [facility] Last Admin: 01/23/18 10:02 Dose: 30 mg Loratadine (Claritin -) 10 mg PO DAILY [facility] Last Admin: 01/23/18 10:06 Dose: Not Given Oxycodone HCl (Roxicodone -) 10 mg PO Q6H PRN PRN Reason: PAIN LEVEL 6-10 Last Admin: 01/23/18 21:38 Dose: 10 mg Pantoprazole Sodium (Protonix -) 40 mg PO DAILY [facility] Last Admin: 01/23/18 10:03 Dose: 40 mg Potassium Chloride (K-Dur -) 10 meq PO DAILY [facility] Last Admin: 01/23/18 10:02 Dose: 10 meq Ramipril (Altace -) 10 mg PO DAILY [facility] Last Admin: 01/23/18 10:00 Dose: 10 mg Silver Sulfadiazine (Silvadene -) 1 applic TP DAILY [facility] Vital Signs Temperature 98 F 01/24/18 05:00 Pulse Rate 87 01/24/18 05:00 Respiratory Rate 18 01/24/18 05:00 Blood Pressure 109/65 01/24/18 05:00 O2 Sat by Pulse Oximetry (%) 99 01/24/18 00:00 CBCD WBC 4.6 K/mm3 (4.0-10.0) 01/23/18 05:30 RBC 5.88 M/mm3 (4.00-5.60) H 01/23/18 05:30 Hgb 10.4 GM/dL (11.7-16.9) L 01/23/18 05:30 Hct 34.2 % (35.4-49) L 01/23/18 05:30 MCV 58.1 fl (80-96) L 01/23/18 05:30 MCHC 30.6 g/dl (32.0-35.9) L 01/23/18 05:30 RDW 19.9 % (11.9-15.9) H 01/23/18 05:30 Plt Count 338 K/MM3 (134-434) 01/23/18 05:30 MPV 9.1 fl (7.5-11.1) 01/23/18 05:30 CMP Sodium 144 mmol/L (136-145) 01/23/18 05:30 Potassium 3.8 mmol/L (3.5-5.1) 01/23/18 05:30 Chloride 104 mmol/L (98-107) 01/23/18 05:30 Carbon Dioxide 32 mmol/L (21-32) 01/23/18 05:30 Anion Gap 8 (8-16) 01/23/18 05:30 BUN 17 mg/dL (7-18) 01/23/18 05:30 Creatinine 1.3 mg/dL (0.7-1.3) 01/23/18 05:30 Creat Clearance w eGFR 56.50 (>60) 01/23/18 05:30 Calcium 8.4 mg/dL (8.5-10.1) L 01/23/18 05:30 Total Bilirubin 0.5 mg/dL (0.2-1.0) 01/22/18 13:05 AST 23 U/L (15-37) D 01/22/18 13:05 ALT 22 U/L (12-78) 01/22/18 13:05 Alkaline Phosphatase 60 U/L (45-117) 01/22/18 13:05 Total Protein 7.7 g/dl (6.4-8.2) 01/22/18 13:05 Albumin 3.8 g/dl (3.4-5.0) 01/22/18 13:[address] head reviewed Carotid reviewed Echo reviewed Plan: 57 year old male who presented with nonspecific complaints of feeling ill. Per notes, reportedly was lightheaded with diaphoresis and possible confusion. Reportedly was off balance and felt weak going up stairs. Also reportedly with shortness of breath and was wheezing. He says he had chest tightness from the shortness of breath. This AM, awake but somnolent and slow in processing when seen by me. Did repeat back what I said and appears to have registered. CT head reviewed and discussed and without acute changes. Carotid dopplers also reviewed and discussed with mild athero but no HD significant stenosis. Echo with mild LV hypertrophy, severely reduced systolic fxn, global hypokinesia. Cardiology follow up as outpatient. MRI brain could considered but does not seem necessary at this time. On dedicated [employer] pain medication, unclear if took increased dose? Could also heat related. Patient reports being at baseline and does not want further follow up.
[2018-01-24 08:58] VITALS: BP 112/69; PULSE 64; TEMP 98.3
[2018-01-24] MEDS: ISOSORBIDE MONONITRATE 30 MG TAB.SR.24H (FP) PO SCH (09:16)
[2018-01-24] MEDS: FUROSEMIDE 40 MG TABLET (FP) PO SCH (09:16)
[2018-01-24] MEDS: POTASSIUM CHLORIDE TABS 10 MEQ TABLET.ER (FP) PO SCH (09:16)
[2018-01-24] MEDS: APIXABAN 5 MG TABLET PO SCH (09:16)
[2018-01-24] MEDS: DIGOXIN 0.125 MG TABLET (FP) PO SCH (09:16)
[2018-01-24] MEDS: ESCITALOPRAM OXALATE 10 MG TABLET (FP) PO SCH (09:16)
[2018-01-24] MEDS: RAMIPRIL 5 MG CAPSULE (FP) PO SCH (09:16)
[2018-01-24] MEDS: LORATADINE 10 MG TABLET PO SCH (09:16)
[2018-01-24] MEDS: CARVEDILOL 25 MG TABLET (FP) PO SCH (09:16)
[2018-01-24] MEDS: PANTOPRAZOLE 40 MG TABLET (FP) PO SCH (09:17)
== END 2018-01-24 09:21 | disposition home or self-care (01) ==
LOC: JER 10:43 → JERBED 16:57 → J4W 21:01
PROVIDERS: ADMIT Internal Medicine; ATTEND Internal Medicine
PROC: 3E033GC Introduction of Other Therapeutic Substance into Peripheral Vein, Percutaneous Approach (ICD-10-PCS; principal; 2018-01-22)
PROC: 3E0F7GC Introduction of Other Therapeutic Substance into Respiratory Tract, Via Natural or Artificial Opening (ICD-10-PCS; 2018-01-22)
DX: I50.22 Chronic systolic (congestive) heart failure (principal); R07.89 Other chest pain; I11.0 Hypertensive heart disease with heart failure; I48.2 Chronic atrial fibrillation; I25.10 Atherosclerotic heart disease of native coronary artery without angina pectoris; I25.2 Old myocardial infarction; E78.5 Hyperlipidemia, unspecified; J44.9 Chronic obstructive pulmonary disease, unspecified; J45.909 Unspecified asthma, uncomplicated; G62.9 Polyneuropathy, unspecified; R55 Syncope and collapse; M54.41 Lumbago with sciatica, right side; G89.29 Other chronic pain; F17.210 Nicotine dependence, cigarettes, uncomplicated; M10.9 Gout, unspecified; Z85.038 Personal history of other malignant neoplasm of large intestine; Z79.01 Long term (current) use of anticoagulants; Z90.49 Acquired absence of other specified parts of digestive tract; Z95.5 Presence of coronary angioplasty implant and graft; Z95.810 Presence of automatic (implantable) cardiac defibrillator; Z91.013 Allergy to seafood; Z88.6 Allergy status to analgesic agent; Z86.718 Personal history of other venous thrombosis and embolism
CPT/HCPCS: 36415; 70450-TC; 71046-TC-FY; 80048; 80053; 80061; 80162; 82550; 82553; 83721; 83735; 83880; 84100; 84443; 84484; 85025; 85610; 93005; 93010; 93306-TC; 93880-TC; 94640; 97116-GP; 97161-GP; 99284-25; G0378; J7620